=== PATIENT | female | born 1970 | race African-American/Black ===

== ENCOUNTER 2021-07-19 11:08 | Outpatient (CLI) | payer OTHER, SELFPAY ==
--- NOTE | 2021-07-23 17:29 | WPDHOMESLEEP ---
Sleep Study - Home Unattended Date of Study: 07/19/21 Ordering Provider: Mere Guajardo DO Interpreting Provider: Mere Guajardo DO Home Sleep Study Type: Apnea Link Air Height: 1.57 m Weight: 90.718 kg Body Mass Index: 36.6 Neck Circumference (inches): 14.5 Mabel: 12 Reason for Sleep Study Evaluation of ERIN Sleep History The patient is a 51-year-old female with schizoaffective disorder, HIV infection, anxiety, COPD, fibromyalgia, seizure disorder, scoliosis and tobacco abuse disorder that had a home sleep study for evaluation of sleep apnea. The patient is currently disabled. She occasionally awakens from sleep short of breath. She denies awakening at night with heartburn, belching or cough. She rarely snores but it is never loud enough that others complain. She frequently has trouble sleeping when she has a cold. She denies waking up gasping for air throughout the night. She rarely has breathing problems at night observed by herself or others. She occasionally sweats excessively at night. She denies having heart palpitations or irregular heartbeats during the night. She denies falling asleep during the day and while driving. She denies sleep paralysis and cataplexy. She frequently feels afraid of going to sleep. She occasionally has nightmares. She frequently remembers her dreams. She occasionally has thoughts racing through her mind. She denies feeling sad or depressed. She frequently has anxiety. She frequently has muscular tension. She occasionally notices parts of her body jerk. She rarely kicks during the night. She occasionally has crawling and aching feelings in her legs and occasionally has leg pain during the night. She frequently grinds her teeth during sleep but never awakens with morning jaw pain. She is constantly bothered by pain during the day and constantly awakened by pain during the night. She frequently wakes up feeling stiff in the morning. She frequently wakes up with sore achy muscles. She frequently wakes up with pain in the neck, spine or other joints. She goes to bed at 7:00 p.m. on both weekdays and weekends. It takes her 1 hour to fall asleep. She wakes up 3-4 times throughout the night to watch television. It can take hours for her to fall back asleep. She wakes up at 4:00 a.m. on both weekdays and weekends. She typically gets 3 hours of sleep per night. He will stay in bed for 10 minutes after waking up in the morning. She currently lives alone. She will consume caffeinated beverages within 2 hours of bedtime. She does not engage in physical exercise before bedtime. She will watch television before falling asleep. She will occasionally take naps in the afternoon or the evening but they are not refreshing. She drinks 2 cups of caffeinated beverage per day. She currently smokes half a pack of cigarettes per day. She denies alcohol and recreational drug use. [facility] Past Medical History Medical History Allergies Anemia Anxiety Arthritis Asthma COPD (chronic obstructive pulmonary disease) Fibromyalgia Headache HIV (human immunodeficiency virus infection) Hypertension Meningioma, multiple Meningioma, multiple Pain, foot, left, chronic Scoliosis Seizure disorder Seizures Tardive dyskinesia Surgical History Surgical History H/O eye surgery Tumor removed H/O foot surgery H/O toe surgery February 2021 H/O tubal ligation History of partial hysterectomy Family History Family History Father Alcoholism Mother Depression Hypertension Sibling Diabetes mellitus Grandparent Asthma Diabetes mellitus Hypertension Social History Social History Smoking packs per day: 0.5 Smoking cigarettes per day: 10.0 Smoking status: Araceli
[2021-07-23 17:39] VITALS: BMI 36.6
== END 2021-07-23 12:50 | disposition home or self-care (01) ==
LOC: ANHCSM 11:08
PROVIDERS: PCP Internal Medicine; Visit Provider Family Medicine
DX: R06.83 Snoring (principal); G47.00 Insomnia, unspecified
CPT/HCPCS: 95806

== ENCOUNTER 2024-07-20 11:23 | Emergency (ER) | payer OTHER, SELFPAY ==
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
--- NOTE | ~2024-07-20 | CT_ITS ---
EXAMINATION: CT brain wo con DATE: 07/20/2024 14:56 INDICATION: hsx of brain tumors, AMS . TECHNIQUE: Computed tomography (CT) of the head was performed without intravenous contrast. The mA wa s adjusted according to patient size. Iterative reconstruction technique was employed. The dose-lengt h product was 605.33 mGy-cm. COMPARISON: None. FINDINGS: No acute intracranial hemorrhage or extra-axial fluid collection. No hydrocephalus, mass, or herniation. No acute ischemic infarct. Unremarkable dural venous sinus attenuation. No acute osseous abnormality. The aerated spaces are clear. IMPRESSION: No acute intracranial process. Reviewed, dictated and finalized at location K.
[2024-07-20 11:41] VITALS: BP 125/72; PULSE 110; RESP 18; TEMP 37.1; O2SAT 100
--- OUTSIDE RECORDS SUMMARY | 2024-07-20 12:51 | XMS_ITS | Encounter Summary ---
Author Organization [facility] Address [address] [place] [address] Phone Care Team Providers Care Batch Plant Operator Name Role Phone Roberto Sharpe DPM Unavailable Sami Cervantes MD Primary Care Provider [phone] Von Hedrick MD Unavailable Unavai lable Provider, None Primary Care Provider Unavailabl e Mendoza Liang MD Primary Care Provider [phone] Provider, None Primary Care Provider Unavailabl e Reason for Visit * Reason Comments Medication Refill Encounter Details Date Type Department Care Team (Late st Contact Info) Description 02/20/2022 Refill [facility] - Family Medicine [facility] [address] [place] [id number] Sami Cervantes MD [address] [place] [address] Medication Refill Social History Tobacco Use Types Packs/Day Years Used Date Smoking Tobacco: Every Day Cigarettes 0.5 34 Smokeless Tobacco: Never Alcohol Use Standard Drinks/Week Comments Yes 0 (1 standard drink = 0.6 oz pur e alcohol) occassional PHQ-2 Answer Date Recorded Total Score - Questions 1-9 1 05/23 Comments No Sex and Gender Information Value Date Recorded Sex Assigned at Not on file Legal Sex Female 10:27 PM CDT Gender Identity Not on file Sexual Orientation Not on file COVID-19 Exposure Response Date Recorded In the last 10 days, have yo u been in contact with someone who was confirmed or suspected to have Coronavirus/COVID-19? No / Unsure 01/21/2022 2:54 PM CDT documented as of this encounter Plan of Treatment Not on file documented as of this encounter Goals Goal Patient Goal Type Associated Problems Recent Progress Patient-Stated? Author Behavioral Health Behavioral Health No change(10/17 4:03 PM CDT) No Alejandra Harrell LSW Note: Goal: I will access and utilize behavioral health services by the end of October Patient's Preferred Goal: Standard Challenges/Barriers: None Readiness to change: Thinking about making a change Notify Care Team if: You are having increased thoughts of suicide or self-harm, You are unable to locate Behavioral Health services in your area Short Term Goals: [facility] will mail and provide list of local counseling services/providers in area. and Patient to contact local Mental Health Crisis Team if in need of crisis services [phone] (ph#) Housing Housing No change(10/17 4:03 PM CDT) No Alejandra Harrell LSW Note: Goal: To move into my own apartment or rental house by the end of October 2019 Patient's Preferred Goal: Highest Priority Challenges/Barriers: None Readiness to change: Ready to change Notify Care Team if: If you need additional housing resources or help completing housing applications call Facilities Director Alejandra at [phone] Short Term Goals: I will review the list of low income housing complexes for the disabled and call the complexes in [place] to apply for an apartment or be added to their waiting list. documented as of this encounter Visit Diagnoses Not on filedocumented in this encounter Additional Health Concerns Assessment Noted Time PHQ-9 Depression Total Score: 1 06/16/19 20 11:50 AM CDT documented as of this encounter Care Teams Batch Plant Operator Relationship Specialty Start Date End Date Sami Cervantes MD PCP - General Family Medicine 11/30/21 03/28/22 Provider, None OR PCP - General 03/29/22 05/23/22 Mendoza Liang MD [address] [place] [address] [place] [address] PCP - General Candle Wrapper 05/24/22 11/12/22 Provider, None OR PCP - General 11/13/22 Roberto Sharpe DPM Consulting Physician Podiatry 09/25/16 Von Hedrick MD Consulting Physician Cardiovascular Disease - Cardiology 01/11/22 03/03/24 documented as of this encounter
--- OUTSIDE RECORDS SUMMARY | 2024-07-20 12:51 | XMS_ITS | Encounter Summary ---
Author Organization [facility] Address [address] [place] [address] Phone Care Team Providers Care Tablet Tester Name Role Phone Unknown, Notinfile Primary Care Provider Unavail able Unknown, Notinfile Unavailable Unavailable Zeferino Bradshaw DO Unavailable [phone] Randy Jasmine MD PhD Unavailable [phone] Juanjose Alcaraz MD Unavailable Miscellaneous, Not In File Unavailable Unava ilable Mario Desai MD Unavailable [phone] Francois Thompson MD Unavailable [phone] Mario Ferguson MD Unavailable [phone] Encounter Details Date Type Department Care Team (Late st Contact Info) Description 06/21/2024 Telephone [facility] Mar[facility] Trans[facility] Floor [address] [place] [address] Mario Ferguson Social History Tobacco Use Types Packs/Day Years Used Date Smoking Tobacco: Every Day Cigarettes 0.5 40.3 Started: 1986 Smokeless Tobacco: Never Comments:Smoking History Pac ks/day: 1 Packs Alcohol Use Standard Drinks/Week Comments Yes 0 (1 standard drink = 0.6 oz pur e alcohol) AUDIT-C Answer Date Recorded Q1: How often do you have a drink containing alcohol? Never 04/13/2024 Q2: How many drinks containi ng alcohol do you have on a typical day when you are drinking? Patient does not drink Q3: How often do you have si x or more drinks on one occasion? Never 04/13/2024 PHQ-2 Answer Date Recorded PHQ-2 Total Score (If total score is 3 or more points, staff should administer the PHQ-9) 0 04/06/2024 Hunger Vital Sign Answer Date Recorded Within the past 12 months, y ou worried that your food would run out before you got the money to buy more. Never true 04/13/19 Within the past 12 months, t he food you bought just didn't last and you didn't have money to get more. Never true 04/13/2024 Personal Safety Answer Date Recorded Have you ever been in or are you currently in a harmful physical or emotional relationship or is someone making you feel afraid or unsafe? Denies 04/21/2024 Comments No Sex and Gender Information Value Date Recorded Sex Assigned at Not on file Legal Sex Female 1:20 AM SMOKE EATER Gender Identity Not on file Sexual Orientation Not on file Occupation Industry Job Start Date Job End Date Disabled Not on file Not on file Not on file documented as of this encounter Miscellaneous Notes * Telephone Encounter - Zhen Dailey DNP - 06/21/2024 9:47 AM CDT Called to discuss results of labs from in April. Discussed that labs did not show evidence ofplasma cell dyscrasia, she can follow up with our office as needed. Patient happy to hear this information. * Telephone Encounter - Tammy Phillips - 06/21/2024 9:18 AM CDT Patient calling to discuss test results as well as follow up plan documented in this encounter Plan of Treatment Not on file documented as of this encounter Visit Diagnoses Not on filedocumented in this encounter Care Teams Tablet Tester Relationship Specialty Start Date End Date Unknown, Notinfile PCP - General 05/22/24 Unknown, Notinfile 05/22/24 Zeferino Bradshaw DO Internal Medicine 01/14/22 Randy Jasmine MD PhD [address] [place] [address] Radiation Oncologist Radiation Oncology 07/31/20 Juanjose Alcaraz MD [address] [place] [address] Referring Physician Medical Oncology 07/31/20 Miscellaneous, Not In File 09/15/20 Mario Desai MD Referring Physician Neurosurgery 09/15/20 Francois [place] MD Consulting Physician Infectious Diseases 05/08/21 Mario Ferguson MD [address] [facility] DIV IM [place] [address] Consulting Physician Medical Oncology 03/31/24 documented as of this encounter
--- OUTSIDE RECORDS SUMMARY | 2024-07-20 12:51 | XMS_ITS | Encounter Summary ---
Author Organization [facility] Address [address] [place] [address] Care Team Providers Care Livestock Nutrition Territory Manager Name Role Phone Marco Cordero MD Primary Care Provider Encounter Details Date Type Department Care Team (Late Contact Info) Description 06/28/2024 Interim Notes [address] [address] Default, [facility] Provider [place] Social History Tobacco Use Types Packs/Day Years Used Date Smoking Tobacco: Every Day Cigarettes 0.5 40 Comments Unknown Sex and Gender Information Value Date Recorded Sex Assigned at Female 06/29/2024 6:53 AM PDT Legal Sex Female 6:53 AM PDT Gender Identity Female 06/29/2024 6:53 AM PDT Sexual Orientation Straight 06/29/2024 6: 53 AM PDT documented as of this encounter Progress Notes * [facility] Provider Default - 06/28/2024 2:00 AM CDT Provider: Amina Blanca Food Pantry Service: documented in this encounter Plan of Treatment Upcoming Encounters Date Type Department Care Team (Late st Contact Info) Description 07/20/2024 3:30 PM CDT Office Visit [address] [address] Marco Cordero MD [address] [place] [phone] 08/20/2024 10:00 AM CDT Office Visit [address] [address] Marco Cordero MD [address] [place] [phone] documented as of this encounter Visit Diagnoses Not on filedocumented in this encounter Care Teams Livestock Nutrition Territory Manager Relationship Specialty Start Date End Date Marco Cordero MD [address] [place] [address] PCP - General Infectious Diseases 07/06/24 documented as of this encounter
--- OUTSIDE RECORDS SUMMARY | 2024-07-20 12:51 | XMS_ITS ---
Author Organization [facility] Address [address] [address] Care Team Providers Care Fishing Gear Mechanic Name Role Phone Marco Cordero MD Primary Care Provider Enrollments Status:Enrolled Start date:06/28/2024 Related service episodes:Food Pantry Service () Continued Care and Services Coordination
--- OUTSIDE RECORDS SUMMARY | 2024-07-20 12:51 | XMS_ITS ---
Author Organization [facility] Address PO [place] [address] [place] [id number] Care Team Providers Care Feed Mixer Helper Name Role Phone Marco Cordero MD Primary Care Provider Food Pantry Service Status:Enrolled Start date:06/28/2024 Related program episode:Enrollments () Continued Care and Services Coordination
--- OUTSIDE RECORDS SUMMARY | 2024-07-20 12:51 | XMS_ITS | Encounter Summary ---
Author Organization [facility] Address [address] [place] [address] Phone Care Team Providers Care Nuclear Equipment Design Engineer Name Role Phone Roberto Sharpe DPM Unavailable Sami Cervantes MD Primary Care Provider Von Hedrick MD Unavailable Unavai lable Provider, None Primary Care Provider Unavailabl e Mendoza Liang MD Primary Care Provider [phone] Provider, None Primary Care Provider Unavailabl e Reason for Visit * Reason Comments Medication Refill Encounter Details Date Type Department Care Team (Late st Contact Info) Description 02/27/2022 Refill [facility] Medical Group - Family Medicine [facility] [address] [place] [phone] Sami Cervantes MD [address] [place] [address] Medication Refill Social History Tobacco Use Types [...] on file Sexual Orientation Not on file documented as of this encounter Plan of Treatment Not on file documented as of this encounter Goals Goal Patient Goal Type Associated Problems Recent Progress Patient-Stated? Author Behavioral Health Behavioral Health No change(10/17 4:03 PM CDT) Alejandra Renae LSW Note: Goal: I will access and utilize behavioral health services by the end of October Patient's Preferred Goal: Standard Challenges/Barriers: None Readiness to change: Thinking about making a change Notify Care Team if: You are having increased thoughts of suicide or self-harm, You are unable to locate Behavioral Health services in your area Short Term Goals: [facility] will mail and provide list of local counseling services/providers in area. and Patient to contact local Mental Health Crisis Team if in need of crisis services [phone] (ph#) Housing Housing No change(10/17 4:03 PM CDT) No Alejandra Harrell LSW Note: Goal: To move into my own apartment or rental house by the end of October 2019 Patient's Preferred Goal: Highest Priority Challenges/Barriers: None Readiness to change: Ready to change Notify Care Team if: If you need additional housing resources or help completing housing applications call Multiskill Operator Alejandra at [phone] Short Term Goals: I will review the list of low income housing complexes for the disabled and call the complexes in [place] to apply for an apartment or be added to their waiting list. documented as of this encounter Visit Diagnoses Not on filedocumented in this encounter Additional Health Concerns Assessment Noted Time PHQ-9 Depression Total Score: 1 06/16/19 20 11:50 AM CDT documented as of this encounter Care Teams Nuclear Equipment Design Engineer Relationship Specialty Start Date End Date Sami Cervantes MD PCP - General Family Medicine 11/30/21 03/28/22 Provider, None [place] PCP - General 03/29/22 05/23/22 Mendoza Liang MD [address] [place] [address] [place] [address] PCP - General Office Messenger 05/24/22 11/12/22 Provider, None PA PCP - General 11/13/22 Roberto Sharpe DPM Consulting Physician Podiatry 09/25/16 Von Hedrick MD Consulting Physician Cardiovascular Disease - Cardiology 01/11/22 03/03/24 documented as of this encounter
--- OUTSIDE RECORDS SUMMARY | 2024-07-20 12:52 | XMS_ITS | Encounter Summary ---
Author Organization [facility] Address [address] [facility] [place] [address] Care Team Providers Care Documentation Engineer Name Role Phone Cathi Mcnally MD Primary Care Provider Kelly Henderson MD Unavailable [phone] Cathi Mcnally MD Primary Care Provider Kelly Henderson MD Unavailable [phone] Kelly Henderson MD Primary Care Provider Cathi Mcnally MD Primary Care Provider Kelly Henderson MD Primary Care Provider Cathi Mcnally MD Primary Care Provider Cathi Mcnally MD Primary Care Provider Troy ROCA MD, [place] Primary Care Provider + Jose Eduardo Ott MD Unavailable [phone] Kelly Henderson MD Primary Care Provider Reason for Visit * Reason Onset Date Comments MEDICATION REFILL 10/09/2017 Encounter Details Date Type Department Care Team (Late Contact Info) Description 10/09/2017 Refill [facility] General Internal Medicine [address] [facility] [address] [place] [address] Cathi Mcnally MD [address] [facility] [address] [place] [address] MEDICATION REFILL Social History Tobacco Use Types Packs/Day Years Used Date Smoking Tobacco: Every Day Cigarettes 0.3 32 Smokeless Tobacco: Never Comments:4 cigarettes Alcohol Use Standard Drinks/Week Comments Yes 0 (1 standard drink = 0.6 oz pure alcohol) sparingly - when pain is too high Comments No Sex and Gender Information Value Date Recorded Sex Assigned at Not on file Legal Sex Female 2:03 PM FERMENTATION ENGINEER Gender Identity Not on file Sexual Orientation Not on file documented as of this encounter Functional Status * Is person deaf or have serious hearing difficulty? Answer Date of Assessment Author No 06/08/2015 6:30 PM CDT Carolyn Naik RN * Is person blind or have serious difficulty seeing? Answer Date of Assessment Author No 06/08/2015 6:30 PM CDT Carolyn Naik, JARROD * Does person have serious difficulty walking/climbing stairs? Answer Date of Assessment Author No 06/08/2015 6:30 PM CDT Carolyn Naik, RN * Does person have difficulty dressing/bathing? Answer Date of Assessment Author No 06/08/2015 6:30 PM CDT Carolyn Naik, RN * Does person have difficulty doing errands alone? Answer Date of Assessment Author No 06/08/2015 6:30 PM CDT Carolyn Naik, JARROD documented as of this encounter Mental Status * Does person have difficulty concentrating/remembering/making decisions? Answer Entry Date Author No 06/08/2015 6:30 PM CDT Carolyn Naik, JARROD documented in this encounter Plan of Treatment Upcoming Encounters Date Type Department Care Team (Late Contact Info) Description 09/08/2024 2:00 PM CDT Office Visit [facility] - Family Medicine [address] [place] [address], [place] [phone] Germaine Monson MD [address] [place] [address] [place] [phone] documented as of this encounter Visit Diagnoses Not on filedocumented in this encounter Additional Health Concerns Infection Onset Date Last Indicated Resolved Time COVID-19 Under Investigation 08/14/2019 08/14/2019 08/15/2019 3:43 PM CDT COVID-19 Under Investigation 09/10/2019 09/10/2019 09/11/2019 11:18 PM CDT documented as of this encounter Care Teams Documentation Engineer Relationship Specialty Start Date End Date Cathi Mcnally MD PCP - General Internal Medicine 10/08/17 01/11/18 Cathi Mcnally MD PCP - General Internal Medicine 01/26/18 01/26/18 Kelly Henderson MD [address] [place] [phone] PCP - General 01/27/18 03/09/18 Cathi Mcnally MD PCP - General Internal Medicine 03/10/18 03/10/18 Kelly Henderson MD [address] [place] [phone] PCP - General 03/11/18 03/31/18 Cathi Mcnally MD PCP - General Internal Medicine 04/01/18 05/17/18 Cathi Mcnally MD PCP - General Internal Medicine 07/14/18 07/15/18 Sea Simmons III, MD [address] [place] [address] PCP - General Internal Medicine 05/05/19 06/07/19 Kelly Henderson MD [address] [place] [address] PCP - General 09/01/19 Kelly Henderson MD [address] [place] [address] Resident - PCP Internal Medicine 10/08/17 01/25/18 Kelly Henderson MD [address] [place] [address] Resident - PCP Internal Medicine 01/26/18 05/04/19 Jose Eduardo Ott MD [address] [place] [address] Resident - PCP Student Resident 05/05/19 documented as of this encounter
--- OUTSIDE RECORDS SUMMARY | 2024-07-20 12:52 | XMS_ITS | Encounter Summary ---
Author Organization [facility] Healthcare Address [address] [place] [address] Care Team Providers Care Administration Assistant Name Role Phone Unknown, Notinfile Primary Care Provider Unavail able Unknown, Notinfile Unavailable Unavailable Zeferino Bradshaw DO Unavailable [phone] [facility] PhD Unavailable [phone] Juanjose Alcaraz MD Unavailable Miscellaneous, Not In File Unavailable Unava ilable Mario Desai MD Unavailable [phone] Francois Thompson MD Unavailable [phone] Mario Ferguson MD Unavailable [phone] Encounter Details Date Type Department Care Team (Late st Contact Info) Description 07/19/2024 Documentation [facility] ICU [address] [place] [address] Amos Alexander, RN Social History Tobacco Use Types Packs/Day Years Used Date Smoking Tobacco: Every Day Cigarettes 0.5 40.3 Started: 1984 Smokeless Tobacco: Never Comments:Smoking History Pac ks/day: 1 Packs Alcohol Use Standard Drinks/Week Comments Yes 0 (1 standard drink = 0.6 oz pur e alcohol) [facility] Utilities Answer Date Recorded In the past 12 months has e electric, gas, oil, or water company threatened to shut off services in your home? No 07/19/2024 Social Connection and Isolat ion Panel [NHANES] Answer Date Recorded In a typical week, how many times do you talk on the phone with family, friends, or neighbors? More than three times a week 07/19/2024 How often do you get togethe r with friends or relatives? More than three times a week 07/19/2024 How often do you attend chur ch or jainism services? Never 07/19/2024 Do you belong to any clubs o r organizations such as orthodoxy groups, unions, fraternal or athletic groups, or school groups? No 07/19/2024 How often do you attend meet ings of the clubs or organizations you belong to? Never 07/19/2024 Are you , , di vorced, , never , or living with a partner? Never 07/19/2024 AUDIT-C Answer Date Recorded Q1: How often do you have a drink containing alcohol? Never 07/18/2024 Q2: How many drinks containi ng alcohol do you have on a typical day when you are drinking? Patient does not drink Q3: How often do you have si x or more drinks on one occasion? Never 07/18/2024 Overall Financial Resource Strain (CARDIA) Answe r Date Recorded How hard is it for you to pa y for the very basics like food, housing, medical care, and heating? Patient unable to answer 07/19/2024 PHQ-2 Answer Date Recorded PHQ-2 Total Score (If total score is 3 or more points, staff should administer the PHQ-9) 0 04/06/2024 Hunger Vital Sign Answer Date Recorded Within the past 12 months, y ou worried that your food would run out before you got the money to buy more. Patient unable to answer 07/19/2024 Within the past 12 months, t he food you bought just didn't last and you didn't have money to get more. Patient unable to answer 07/19/2024 PRAPARE - Transportation Answer Date Re corded In the past 12 months, has l ack of transportation kept you from medical appointments or from getting medications? No 06/23 In the past 12 months, has l ack of transportation kept you from meetings, work, or from getting things needed for daily living? No 07/19/2024 Housing Stability Vital Sign Answer Kareem e Recorded In the last 12 months, was t here a time when you were not able to pay the mortgage or rent on time? No 07/19/2024 In the past 12 months, how m any times have you moved where you were living? 1 07/19/2024 At any time in the past 12 m [facility], were you homeless or living in a usp (including now)? No 07/19/2024 Personal Safety Answer Date Recorded Have you ever been in or are you currently in a harmful physical or emotional relationship or is someone making you feel afraid or unsafe? 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 Gender Identity Not on file Sexual Orientation Not on file Occupation Industry Job Start Date Job End Date Disabled Not on file Not on file Not on file documented as of this encounter Plan of Treatment Not on file documented as of this encounter Visit Diagnoses Not on filedocumented in this encounter Care Teams Administration Assistant Relationship Specialty Start Date End Date Unknown, Notinfile PCP - General 05/22/24 Unknown, Notinfile 05/22/24 Zeferino Bradshaw DO Internal Medicine 01/14/22 Randy Jasmine MD PhD [address] [place] [id number] Radiation Oncologist Radiation Oncology 07/31/20 Juanjose Alcaraz MD [address] [place] [id number] Referring Physician Medical Oncology 07/31/20 Miscellaneous, Not In File 09/15/20 Mario Desai MD Referring Physician Neurosurgery 09/15/20 Francois Thompson MD Consulting Physician Infectious Diseases 05/08/21 Mario Ferguson MD [address] [facility] [place] [address] Consulting Physician Medical Oncology 03/31/24 documented as of this encounter
--- OUTSIDE RECORDS SUMMARY | 2024-07-20 12:52 | XMS_ITS | Encounter Summary ---
Author Organization [facility] Address [address] [facility] [place] [address] Care Team Providers Care Change Control Specialist Name Role Phone Kelly Henderson MD Unavailable [phone] Ctahi Mcnally MD Primary Care Provider Cathi Mcnally MD Primary Care Provider Troy ROCA MD, [place] Primary Care Provider + Jose Eduardo Ott MD Unavailable [phone] Kelly Henderson MD Primary Care Provider Reason for Visit * Reason Onset Date Comments Refill Request 04/30/2018 Follow-up 04/30/2018 Encounter Details Date Type Department Care Team (Late st Contact Info) Description 04/30/2018 Telephone [facility] Internal Medicine [address] [place] [address] Cathi Mcnally MD [address] 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 Answer Date of Assessment Author No 06/08/2015 6:30 PM Carolyn Villareal RN * Does person have difficulty doing errands alone? Answer Date of Assessment Author No 06/08/2015 6:30 PM Carolyn Villareal RN documented as of this encounter Mental Status * Does person have difficulty concentrating/remembering/making decisions? Answer Entry Date Author No 06/08/2015 6:30 PM Carolyn Villareal RN documented in this encounter Miscellaneous Notes * Telephone Encounter - Tasha Szymanski RN - 04/30/2018 2:57 PM CST Pt called to follow-up on her request for a prescription change for cough medicine. Upon chart review, this nurse informed the caller that the request to change medications had been denied Pt is very upset, and started to request to be released from this provider's care and stated that she wants Dr. Mcnally up off of all of her stuff . States She hasn't sent in my referrals, refills and If I have to call [facility], and Dr. Calli than I will . This is hindering peoples health, and I'm going to [employer] next, this is ridiculous . States she will also report Dr. 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 The pt states that Phenergan with codeine works for her and she was previously prescribed this med This nurse added the med to the current med list if the PCP wishes to order the med Patient requesting refills for the following Phenergan with Codeine medications. HERI: 04/01/18 NOV: 07/14/18 Problem List Identified: office visit on Medication attached per refill protocol/guidlines for further review by provider yes PCP / Resident PCP verified yes Allergies Reviewed yes Pharmacy Reviewed yes Medication details entered yes Office visit within the last six months yes if not within last 6 months route to [facility]-scheduling as well. Office visit greater than 12 months no routed to [facility] scheduling ONLY no. SIT VEHICLE INSPECTOR documented in this encounter Plan of Treatment Upcoming Encounters Date Type Department Care Team (Late st Contact Info) Description 09/08/2024 2:00 PM CDT Office Visit [facility] - Family Medicine [address] [place] [address], [place] [address] Germaine Monson MD [address] [place] [address] [place] [id number] documented as of this encounter Visit Diagnoses Not on filedocumented in this encounter Additional Health Concerns Infection Onset Date Last Indicated Resolved Time COVID-19 Under Investigation 08/14/2019 08/14/2019 08/15/2019 3:43 PM CDT COVID-19 Under Investigation 09/10/2019 09/10/2019 09/11/2019 11:18 PM CDT documented as of this encounter Care Teams Change Control Specialist Relationship Specialty Start Date End Date Cathi Mcnally MD [address] [place] [address] PCP - General Internal Medicine 04/01/18 05/17/18 Cathi Mcnally MD [address] [place] [address] PCP - General Internal Medicine 07/14/18 07/15/18 [place] [address] [place] [phone] PCP - General Internal Medicine 05/05/19 06/07/19 Kelly Henderson MD [address] [place] [phone] PCP - General 09/01/19 Kelly Henderson MD [address] [place] [phone] Resident - PCP Internal Medicine 01/26/18 05/04/19 [place] [address] [place] [phone] Resident - PCP Student Resident 05/05/19 documented as of this encounter
--- OUTSIDE RECORDS SUMMARY | 2024-07-20 12:52 | XMS_ITS | Referral Summary ---
Author Organization [facility] ospital Address [address] [place] [address] Care Team Providers Care Tool And Production Planner Name Role Phone Unknown, Notinfile Primary Care Provider Unavail able Unknown, Notinfile Unavailable Unavailable Zeferino Bradshaw DO Unavailable [phone] [facility] quiles [facility] PhD Unavailable [phone] Juanjose Alcaraz MD Unavailable Miscellaneous, Not In File Unavailable Unava ilable Mario Desai MD Unavailable [phone] Francois Thompson MD Unavailable [phone] Mario Ferguson MD Unavailable Encounters Date Type Department Care Team Description 07/19/2024 Documentation [facility] ICU [address] [place] [id number] Amos Alexander RN 07/19/2024 Orders Only [address] [phone] Israel Mcdonald MD 07/19/2024 12:20 PM CDT - 07/19/2024 11:59 PM CDT Hospital Encounter [address] [phone] Exposure to blood-borne pathogen Discharge Disposition: Discharge to home or self care 07/19/2024 [facility] Room 3420 (Third Floor) [place] [address] Israel Mcdonald MD Exposure to blood-borne pathogen (Primary Dx) 07/18/2024 7:51 AM CDT - 07/19/2024 2:49 PM CDT Hospital Encounter [facility] [address] [place] [address] Israel Edmonds MD Bross, Lyric Joya, Rowena Connell MD Seizure (HCC) (Primary Dx) Discharge Disposition: Left Against Medical Advice 06/21/2024 Telephone [facility] [address] [place] [phone] Mario Ferguson 05/27/2024 8:59 AM HOUSEKEEPING ASSOCIATE - 05/27/2024 11:59 PM HOUSEKEEPING ASSOCIATE Hospital Encounter [facility] Emergency, Room R Discharge Disposition: Discharge to home or self care 05/27/2024 Orders Only [facility] [address] [place] [phone] Francois Thompson MD Human immunodeficiency virus (HIV) (HCC) (Primary Dx) 04/30/2024 1:00 PM HOUSEKEEPING ASSOCIATE Office Visit [facility] [address] [place] [phone] Mario Ferguson MD Plasma cell dyscrasia (Primary Dx); Elevated serum immunoglobulin free light chains 04/28/2024 1:05 PM HOUSEKEEPING ASSOCIATE Lab [address] [address] Elevated serum immunoglobulin free light chains; Plasma cell dyscrasia 04/28/2024 Telephone [facility] [address] [place] [phone] Hua Gramajo RN 04/21/2024 10:40 AM HOUSEKEEPING ASSOCIATE - 04/21/2024 5:37 PM HOUSEKEEPING ASSOCIATE Emergency [facility] Emergency Department [address] [place] [address] Catalina Casillas MD Schwannoma (Primary Dx); Weakness Discharge Disposition: Left Against Medical Advice from Last 3 Months Allergies Active Allergy Reactions Criticality Noted Date Comments Amitriptyline Amitriptyline Hcl Other (See comments) Low 09/17/19 14 Cephalosporins Other (See comments) Low 09/16/2013 Gabapentin Unknown 10/25/2023 Haloperidol Swelling Medium 04/11/2016 Other reaction(s): Other (See Comments) Can't wake up Olanzapine Other (See comments) Low Quetiapine Medications ondansetron ODT (ZOFRAN-ODT) 4 mg disintegrating tablet Take 1 tablet (4 mg total) by mouth every 8 (eight) hours as needed for nausea or vomiting 90 tablet 3 025 Discontin ued(Thera py completed ) doravirine-lamiVUD ine-tenofovir disoproxil fumarate (Delstrigo) 100-300-300 mg tablet Take 1 tablet by mouth daily 90 tablet 3 025 Discontin ued(Thera py completed ) HYDROcodone-acetam inophen (NORCO) 5-325 mg per tabletIndications: Pain Take 1 tablet by mouth every 6 (six) hours as needed for pain for up to 10 doses 10 tablet 5 025 Discontin ued(Thera py completed ) Active Problems Problem Noted Date Diagnosed Date Aggressive behavior 07/19/2024 Dysmenorrhea 12/12/2023 Failure to thrive in adult 10/27/2023 Other visual disturbances 10/14/2023 Angina concurrent with and d ue to arteriosclerosis of coronary artery 07/22/2023 Overview (04/05/2024): 07/22/2023: Patient endorses having chest tightness that worsens with exertion. She also has accompanying shortness a breath. She denies it being substernal radiating down her arm. She states that it was different than reflux or passing flatus. She states that she has a history of 2 heart attacks and has never seen a it software developer. Last Assessment & Plan: Ordered a dobutamine stress test due to the patient having difficulty ambulating. Angina concurrent with and d ue to arteriosclerosis of coronary artery 07/22/2023 Overview (04/05/2024): 07/22/2023: Patient endorses having chest tightness that worsens with exertion. She also has accompanying shortness a breath. She denies it being substernal radiating down her arm. She states that it was different than reflux or passing flatus. She states that she has a history of 2 heart attacks and has never seen a it software developer. Housing instability, housed unspecified 03/03/20 23 Overview (04/05/2024): 03/03/2023: Moved to [place] from [place], [place] (by way of [place], [place]). Reports that she has section 8 housing voucher, currently working on finding housing. Currently staying at [facility] until she finds more consistent housing. Currently has [place] medicaid. She was interested in obtaining resources in [place] and [facility] including [place] Medicaid and local housing voucher. Presented with paperwork for certification of disability indicating need for housing as well as additional accommodations request for additional room. Reports that she needs an additional room so that she can have a daughter come stay with her and help her with her activities of daily living. She reports needing assistance with bathing, cooking, and cleaning. 03/11/2023: The patient states that she will have housing on . She was able to secure a 2 bedroom apartment. She states that she has been working with her [facility] social work msw and that she has been very helpful. She states that she needs paperwork filled out so that she has reasonable accommodations provided given that she has an electric wheelchair. However, the patient states her electric wheelchair is currently in [place] and she has been walking on her own. She states that she needs a 2 bedroom apartment because 1 of her 3 daughters is moving here from [place] to help take care of her. When asked about her activities of daily living that her daughter's help her complete, she states that they help her with bathing, paying bills, cooking, and cleaning. Since her daughters are not here currently she has been completing this independently. She is able to drive independently. 07/22/2023: Patient endorses having stable housing at this point. She does require an electrical wheelchair. She asked for me to fill out the reasonable combination form so that she would be able to have a ramp installed. Last Assessment & Plan: Filled out reasonable accommodation form for patient for a ramp and scanned it into chart. Onychomycosis 03/03/2023 Overview (04/05/2024): Noted on exam 03/03/2023. Last Assessment & Plan: Referral to podiatry for toenail care. Can consider oral treatment in the future. Tinea pedis 03/03/2023 Overview (04/05/2024): Skin flaking noted on exam 03/03/2023. Last Assessment & Plan: Topical clotrimazole ordered. Mixed hyperlipidemia 01/20/2023 Class 1 obesity due to exces s calories with body mass index (BMI) of 34.0 to 34.9 in adult 05/02/2022 Assessment & Plan (01/20/2023 8:28 AM CDT): Wt Readings from Last 3 Encounters: 01/20/23 85.3 kg (188 lb) 10/05/22 74.8 kg (165 lb) 08/06/22 81.2 kg (179 lb) BMI Readings from Last 3 Encounters: 01/20/23 34.39 kg/m 10/05/22 30.18 kg/m 08/06/22 32.74 kg/m Not at goal of bmi <30 Continue diet and exercise BMI Follow-up includes: nutrition counseling and exercise counseling. Assessment & Plan (05/23/2022 4:10 PM HOUSEKEEPING ASSOCIATE): Wt Readings from Last 3 Encounters: 05/02/22 85.7 kg (189 lb) 03/26/22 84.4 kg (186 lb) 03/26/22 84.4 kg (186 lb) BMI Readings from Last 3 Encounters: 05/02/22 34.57 kg/m 03/26/22 34.02 kg/m 03/26/22 34.02 kg/m Not at goal of bmi <30 Continue diet and exercise BMI Follow-up includes: nutrition counseling and exercise counseling. Assessment & Plan (05/02/2022 2:38 PM HOUSEKEEPING ASSOCIATE): Wt Readings from Last 3 Encounters: 05/02/22 85.7 kg (189 lb) 03/26/22 84.4 kg (186 lb) 03/26/22 84.4 kg (186 lb) BMI Readings from Last 3 Encounters: 05/02/22 34.57 kg/m 03/26/22 34.02 kg/m 03/26/22 34.02 kg/m Not at goal of bmi <30 Continue diet and exercise BMI Follow-up includes: nutrition counseling and exercise counseling. Nausea 03/26/2022 Pure hypercholesterolemia 10/10/2021 Overview (10/10/2021): LDL elevated, has increased 10-year ASCVD risk score but this is likely underestimated given chronic inflammatory state with HIV. Recommending rosuvastatin (checked, does not interfere with HIV medication). She will check to see the name of the cholesterol medication she has at home. Unclear if she has or has not had a heart attack in [place]. Will work to reduce risk factors like this has occurred. Abnormal mammogram 10/10/2021 Overview (10/10/2021): BIRADS 3 in Mar 2021. Repeat now that it has been 6 months. Pseudoseizure 05/08/2021 Assessment & Plan (05/08/2021 8:45 AM HOUSEKEEPING ASSOCIATE): EEG during episode of seizure activity showed normal brain activity. Viral gastroenteritis 05/07/2021 DDD (degenerative disc disease), cervical 2020 Overview (08/14/2020): MRI of total spine 04/2020 - Mild to moderate multilevel degenerative changes in the cervical spine, most pronounced at C5-C6. Greater trochanteric bursitis of left hip 2019 Trochanteric bursitis, left hip 02/29/2020 Joint pain 02/04/2020 Hypertension, essential 12/29/2019 Assessment & Plan (05/23/2022 4:10 PM HOUSEKEEPING ASSOCIATE): BP Readings from Last 3 Encounters: 05/23/22 136/78 05/02/22 130/84 03/27/22 (!) 171/111 Vitals BP 136/78 (BP Location: Left arm, Patient Position: Sitting) Pulse 85 SpO2 94% Lab Results Component Value Date POTASSIUM 3.3 03/26/2022 At goal at this time Assessment & Plan (05/02/2022 1:52 PM HOUSEKEEPING ASSOCIATE): BP Readings from Last 3 Encounters: 05/02/22 130/84 03/27/22 (!) 171/111 03/24/22 152/93 Vitals BP 130/84 (BP Location: Left arm, Patient Position: Sitting) Pulse 86 Resp 18 Ht 157.5 cm (5' 2 ) Wt 85.7 kg (189 lb) SpO2 96% BMI 34.57 kg/m Lab Results Component Value Date POTASSIUM 3.3 03/26/2022 At goal at this time - I don't see that she is on any bp medications now Assessment & Plan (05/07/2021 10:07 PM HOUSEKEEPING ASSOCIATE): Continue patient's home medication lisinopril 20 mg q.d. Assessment & Plan (05/07/2021 6:54 PM HOUSEKEEPING ASSOCIATE): Continue patient's home medication lisinopril 20 mg q.d. Assessment & Plan (05/05/2021 5:39 PM HOUSEKEEPING ASSOCIATE): Continue patient's home medication lisinopril 20 mg q.d. Assessment & Plan (07/09/2020 11:58 PM CDT): - well controlled on current medications - current medication Lisinopril 20mg daily - continue current medication - check BP regularly at home - follow a low salt diet Assessment & Plan (04/03/2020 12:17 PM HOUSEKEEPING ASSOCIATE): - well controlled on current medications - current medication Lisinopril 20mg daily Assessment & Plan (12/29/2019 12:13 PM CDT): - suboptimal control - refilled lisinopril 20 mg once daily - will need to be addressed fully on another visit Tardive dyskinesia 12/29/2019 Assessment & Plan (05/07/2021 10:08 PM HOUSEKEEPING ASSOCIATE): acute dystonia vs tardive dyskinesia Patient was treated with compazine 10 yesterday due to severe intractable vomiting. Post treatment patient reports to having grimacing and muscle contractions predominantly in the face and neck. -diphenhydramine 50 mg Q6 -Patient denies current use of antipsychotic agents at home -history of tardive diskinesia which can be triggered with D2 blocking medications Medication -holding compazine. -Patient will likely benefit from medication such as valbenazine 40 mg q.d. for 1 week followed by 80 mg q.d. for persistent systems. Patient has been reluctant to start medications due to reported history of experiencing multiple side effects throughout many of her treatments. Assessment & Plan (05/07/2021 6:54 PM HOUSEKEEPING ASSOCIATE): acute dystonia vs tardive dyskinesia Patient was treated with compazine 10 yesterday due to severe intractable vomiting. Post treatment patient reports to having grimacing and muscle contractions predominantly in the face and neck. -diphenhydramine 50 mg Q6 -Patient denies current use of antipsychotic agents at home -history of tardive diskinesia which can be triggered with D2 blocking medications Medication -holding compazine. -Patient will likely benefit from medication such as valbenazine 40 mg q.d. for 1 week followed by 80 mg q.d. for persistent systems. Patient has been reluctant to start medications due to reported history of experiencing multiple side effects throughout many of her treatments. Assessment & Plan (05/06/2021 3:36 PM HOUSEKEEPING ASSOCIATE): acute dystonia vs tardive dyskinesia Patient was treated with compazine 10 yesterday due to severe intractable vomiting. Post treatment patient reports to having grimacing and muscle contractions predominantly in the face and neck. -diphenhydramine 50 mg Q6 -Patient denies current use of antipsychotic agents at home -history of tardive diskinesia which can be triggered with D2 blocking medications Medication -holding compazine. -Patient will likely benefit from medication such as valbenazine 40 mg q.d. for 1 week followed by 80 mg q.d. for persistent systems. Patient has been reluctant to start medications due to reported history of experiencing multiple side effects throughout many of her treatments. Assessment & Plan (05/06/2021 7:31 AM HOUSEKEEPING ASSOCIATE): Lip smacking .... Assessment & Plan (12/29/2019 12:14 PM CDT): - states she has been diagnosed with tardive dyskinesia and believes it is from her antipsychotic medication Zyprexa she was taking for few months many years ago - has been evaluated by two different neurologist and is now seeing a third one Hand cramps 12/29/2019 Overview (10/10/2021): Checking potassium and magnesium. Assessment & Plan (03/29/2020 1:59 PM HOUSEKEEPING ASSOCIATE): - patient takes potassium supplements 10meq BID PRN when she has muscle cramps Assessment & Plan (12/29/2019 12:17 PM CDT): - patient takes potassium supplement when she has muscle cramps COPD (chronic obstructive pulmonary disease) (CM S/HCC) 12/24/2019 Assessment & Plan (05/05/2021 7:50 PM HOUSEKEEPING ASSOCIATE): Duo-nebs Q4 PRN Assessment & Plan (04/03/2020 12:33 PM HOUSEKEEPING ASSOCIATE): - stable, no changes made to medications - she is on Albuterol inhaler, nebulizer solution - she does not use the albuterol, and once every 2-3 months - may need to do a PFTs has been many years Assessment & Plan (12/24/2019 11:10 AM CDT): - she has hx of COPD - she is on Albuterol inhaler, nebulizer solution - she does not use the albuterol, and once every 2-3 months - may need to do a PFTs has been many years Schwannoma 12/03/2019 Overview (08/14/2020): 04/2020 MRI of total spine showed - Unchanged round intradural mass measuring 10 mm at L1-L2, displacing the cauda equina nerve roots, 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 -gabapentin 600 mg TID Assessment & Plan (12/24/2019 11:04 AM CDT): - noted on an MRI of the brain -she has seen neurology and neurosurgery in the past - she has been told there is no need for surgical intervention at this time - she is unhappy with this - she has seen 2 other neurologist before but would like referral to another neurologist now Memory loss 10/06/2019 Fatigue 06/16/2019 MDD (major depressive disorder) 06/16/2019 Assessment & Plan (05/05/2021 6:09 PM HOUSEKEEPING ASSOCIATE): citalipram 10 mg qhs Tobacco abuse 06/16/2019 Vitamin D deficiency 06/16/2019 Assessment & Plan (04/03/2020 12:20 PM HOUSEKEEPING ASSOCIATE): - history of vitamin D deficiency - she is not on vitamin D supplementation at this time - will check vitamin D level and supplement if needed Hyperglycemia 06/16/2019 Brain mass 05/18/2019 Assessment & Plan (05/05/2021 8:00 PM HOUSEKEEPING ASSOCIATE): Patient has a history of schwannoma . Possible factor in her epilepsy and nausea. 10/11-recommended to follow up in 6 months with an MRI. 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 Pt states she has 2 menstrual cycles a month lasting 3 days each and has had that for as long as she can remember. Pt states the 2nd cycle of the month always has a foul odor, currently is not on her cycle, no odor noted. States her cycles are very heavy; is changing tampons every 15 minutes on her second day of the cycle, pt unclear as to how often she is changing tampons on the other days. No rectal bleeding. WBC 5.6 12/30/2013 HGB 9.6 12/30/2013 HCT 32.3 12/30/2013 PLT 491 12/30/2013 MCV 64.9 12/30/2013 FERRITIN 5 01/03/2014 Prediabetes 09/02/2013 Overview (02/04/2020): Overview: HGA1C 5.8 09/01/2013 Overview: Overview: HGA1C 5.8 09/01/2013 Assessment & Plan (05/23/2022 4:11 PM HOUSEKEEPING ASSOCIATE): Lab Results Component Value Date HGBA1C 5.5 06/14/2021 HGBA1C 5.7 (H) 06/11/2021 HGBA1C 5.7 (H) 05/05/2021 Lab Results Component Value Date LDLCALC 159 (H) 06/14/2021 CREATININE 0.72 03/26/2022 At goal at this time, but needs repeat Continue current regimen Assessment & Plan (05/02/2022 1:53 PM HOUSEKEEPING ASSOCIATE): Lab Results Component Value Date HGBA1C 5.5 06/14/2021 Last a1c about 1 year a go was normal Continue diet and lifestyle changes Mild persistent asthma 09/01/2013 Overview (02/04/2020): Overview: 09/04 Qvar and albuterol rx'ed. Pt was on similar (some control med - not sure which) and albuterol prior, re- rx'ed at initial visit. Overview: Overview: 09/04 Qvar and albuterol rx'ed. Pt was on similar (some control med - not sure which) and albuterol prior, re- rx'ed at initial visit. Assessment & Plan (05/05/2021 6:12 PM HOUSEKEEPING ASSOCIATE): -Albuterol MDI Q2 PRN for SOB Scoliosis 11/26/2011 Non-intractable vomiting with nausea 11/26/2011 Assessment & Plan (05/07/2021 10:06 PM HOUSEKEEPING ASSOCIATE): Patient arrived w/ 1 day of nausea and vomiting. She reports this has had chronic emesis off and on since may of 2019 but has never been diagnosed with with a particular disorder/cause. She has chronically been taking ondansetron. DDx- viral gastroenteritis, medication side effect (genvoya) , side effect of termite treater helper medical marijuana use, Mets/growth of schwannoma. Reported to eating spagetti prior to presentation but denies other sick contacts. Emesis is non-bloody. -Compazine 10 mg q.4h prn on hold -ondansetron 4 mg q.4 prn -tolerating adult diet Assessment & Plan (05/07/2021 6:50 PM HOUSEKEEPING ASSOCIATE): Patient arrived w/ 1 day of nausea and vomiting. She reports this has had chronic emesis off and on since may of 2019 but has never been diagnosed with with a particular disorder/cause. She has chronically been taking ondansetron. DDx- viral gastroenteritis, medication side effect (genvoya) , side effect of termite treater helper medical marijuana use, Mets/growth of schwannoma. Reported to eating spagetti prior to presentation but denies other sick contacts. Emesis is non-bloody. -Compazine 10 mg q.4h prn on hold -ondansetron 4 mg q.4 prn -tolerating adult diet Assessment & Plan (05/06/2021 2:48 PM HOUSEKEEPING ASSOCIATE): Patient arrived w/ 1 day of nausea and vomiting. She reports this has had chronic emesis off and on since may of 2019 but has never been diagnosed with with a particular disorder/cause. She has chronically been taking ondansetron. DDx- viral gastroenteritis, medication side effect (genvoya) , side effect of termite treater helper medical marijuana use, Mets/growth of schwannoma. Reported to eating spagetti prior to presentation but denies other sick contacts. Emesis is non-bloody. -Compazine 10 mg q.4h prn -ondansetron 4 mg q.4 prn Diarrhea 11/26/2011 Assessment & Plan (05/07/2021 10:06 PM HOUSEKEEPING ASSOCIATE): Patient arrived w/ 1 day of nausea and vomiting. Possible viral gastroenteritis . Reported to eating spagetti prior to presentation but denies other sick contacts. Unsure if infectious, medication side effect or possible malabsorptive. -Tcell cd4/cd8 counts in normal range in w/ an detectable viral load. 12/21/20, current lymphocyte count 4.8 - Cryptosporidium, giardia, C. Diff, stool culture results pending Assessment & Plan (05/07/2021 6:51 PM HOUSEKEEPING ASSOCIATE): Patient arrived w/ 1 day of nausea and vomiting. Possible viral gastroenteritis . Reported to eating spagetti prior to presentation but denies other sick contacts. Unsure if infectious, medication side effect or possible malabsorptive. -Tcell cd4/cd8 counts in normal range in w/ an detectable viral load. 12/21/20, current lymphocyte count 4.8 - Cryptosporidium, giardia, C. Diff, stool culture results pending Assessment & Plan (05/05/2021 7:58 PM HOUSEKEEPING ASSOCIATE): Patient arrived w/ 1 day of nausea and vomiting. Possible viral gastroenteritis . Reported to eating spagetti prior to presentation but denies other sick contacts. Unsure if infectious, medication side effect or possible malabsorptive. -Tcell cd4/cd8 counts in normal range in w/ an detectable viral load. 12/21/20, current lymphocyte count 4.8 - Cryptosporidium, giardia, C. Diff, stool culture results pending Panic disorder without agoraphobia 11/26/2011 Chronic schizoaffective schizophrenia 11/26/2011 Overview (10/10/2021): Recommended Psychiatry evaluation. She told me she does not trust Psychiatrists and will not go on long-acting medications after experience with olanzapine. Patient had tangential thought process but did not demonstrate increased risk to harming herself or others today. No evidence of delusions or responding to internal stimuli while in clinic. Will continue to encourage Psychiatry follow up. Assessment & Plan (05/02/2022 2:32 PM HOUSEKEEPING ASSOCIATE): I would recommend psychiatric evaluation but patient does not want to see a psychaitrist Seizure ([facility] 08/07/2011 Assessment & Plan (05/07/2021 6:59 PM HOUSEKEEPING ASSOCIATE): Patient reports to not currently taking any seizure medication, In the past she was previously taking vimpat to control seizures at various doses. Patient has a witnessed seizure 05/05/21 in the medical unit. She was helped to the floor and did not hit her head. Patient was initially treated with ativanIM. The patient continued to have seizure activity therefore was given another IM dose of ativan which ceased activity. -Will start Vimpat 100 mg Every day and monitor, can increase dose if needed - 1:1 sitter -CMP daily -CT head- No mass or hemorrhage noted 05/05/21 -EEG pending -neurology consulted. Concern for aspiration if continued seizures waiting to advance diet. -patient made NPO, concern for aspiration if patient has another major seizure consulted Neuro for input Assessment & Plan (05/06/2021 3:45 PM HOUSEKEEPING ASSOCIATE): Patient reports to not currently taking any seizure medication, In the past she was previously taking vimpat to control seizures at various doses. Patient has a witnessed seizure 05/05/21 in the medical unit. She was helped to the floor and did not hit her head. Patient was initially treated with ativanIM. The patient continued to have seizure activity therefore was given another IM dose of ativan which ceased activity. -Will start Vimpat 100 mg Every day and monitor, can increase dose if needed - 1:1 sitter -CMP daily -CT head- No mass or hemorrhage noted 05/05/21 -EEG pending -neurology consulted. Concern for aspiration if continued seizures waiting to advance diet. -patient made NPO, concern for aspiration if patient has another major seizure consulted Neuro for input Assessment & Plan (07/09/2020 11:54 PM CDT): - she says last seizure was Nov 07, 2019 - reports history of seizures in her 20s age, prior to diagnosis with the schwannoma - currently without neurologist, well controlled on current medication - it has been difficult to find her a neurologist to manage this for her - at this time I am refilling her Vimpat which she only takes once daily and bray Spireon working well for her - she is currently on Vimpat 200mg BID but she has previously states that she only takes 200 mg once daily Assessment & Plan (12/24/2019 11:11 AM CDT): - she says last seizure was Nov 07, 2019 - follows neurologist - Dr. Vance at this time - she is unhappy about multiple doctors - she would like to be referred to another neurologist that she has been told is an option - she is currently on Vimpat that she only takes 200 mg once daily Chronic pain syndrome 08/06/2010 Overview (10/10/2021): Unclear cause. Patient did mention she had previously been told she had fibromyalgia. Describes pain in head, back, legs. Previously has tried PT, gabapentin, pregabalin, duloxetine, amitriptyline. Incompletely evaluated this visit, will plan to do so in the future. 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, tried multiple medications but at this time all she wants is hydrocodone - didn't want to be on other medications at all She states that all her previous pain management don't want to give her narcotics Assessment & Plan (04/03/2020 12:19 PM HOUSEKEEPING ASSOCIATE): - she has chronic back pain and has been referred to pain management in the past - she also has Fibromyalgia - she has not found a pain management physician and last one had problem with medication - at this time I am refilling her medications until she is established with one - continue with the [place] 10-325 mg BID PRN for pain - she is requesting pain management referral at this time to pain management here Assessment & Plan (12/24/2019 11:07 AM CDT): - she has chronic back pain and has been referred to pain management in the past - she is requesting pain management referral at this time to pain management here Human immunodeficiency virus (HIV) infection Overview (03/29/2020): - Following with Infectious Diseases Assessment & Plan (01/20/2023 8:30 AM CDT): Refilled delstrigo as per patient report has no other doctors Or infectios disease Moving to [facility] 30 days Unsure who was filling this previously Assessment & Plan (05/07/2021 10:08 PM HOUSEKEEPING ASSOCIATE): -Genvoya Q.d. -side effects include nausea and diarrhea. -placed percocet on hold- strong risk of increased serum concentration of percocet with concurrent use. Assessment & Plan (05/07/2021 6:58 PM HOUSEKEEPING ASSOCIATE): -Genvoya Q.d. -side effects include nausea and diarrhea. -placed percocet on hold- strong risk of increased serum concentration of percocet with concurrent use. Assessment & Plan (05/05/2021 8:01 PM HOUSEKEEPING ASSOCIATE): Restarted patient's home medication Genvoya Q.d. -side effects including nausea and diarrhea. Assessment & Plan (03/29/2020 1:58 PM HOUSEKEEPING ASSOCIATE): - Following with Infectious Diseases - follows up with infectious diseases - she is currently on Genvoya Assessment & Plan (12/24/2019 10:53 AM CDT): - follows up with infectious diseases - used to be on Biktarvy but was having nasuea and vomiting - now changed to Genvoya but she has not started it yet History of substance abuse 08/06/2006 Assessment & Plan (05/05/2021 7:50 PM HOUSEKEEPING ASSOCIATE): Previously positive for marijuana and opiate. Patient prescribed medical marijuana. Possible cause of her vomiting. -If concern for cannibis hyperemesis syndrome that not responding to anti nausea ondansetron. Options: Capsaicin cream applied to abdomen, next step would be droperidol (patient allergy to haloperidol) Substance abuse in remission 08/06/2006 Overview (04/05/2024): Last Assessment & Plan: Previously positive for marijuana and opiate. Patient prescribed medical marijuana. Possible cause of her vomiting. -If concern for cannibis hyperemesis syndrome that not responding to anti nausea ondansetron. Options: Capsaicin cream applied to abdomen, next step would be droperidol (patient allergy to haloperidol) Last Assessment & Plan: Previously positive for marijuana and opiate. Patient prescribed medical marijuana. Possible cause of her vomiting. -If concern for cannibis hyperemesis syndrome that not responding to anti nausea ondansetron. Options: Capsaicin cream applied to abdomen, next step would be droperidol (patient allergy to haloperidol) History of substance abuse History of substance abuse Schizoaffective disorder 08/06/1989 Overview (06/28/2016): Schizoaffective disorder Resolved Problems Problem Noted Date Diagnosed Date Resolved Date Acute non intractable tension-type headache 08/02/2021 05/02/2022 Viral gastroenteritis 05/05/20212021 DDD (degenerative disc disease), lumbosacral 05/05/2021 Overview (08/14/2020): 04/2020 - MRI of total spine 1. 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 2. Sacralization of the L5 vertebra. Stable multilevel degenerative changes of the lumbar spine resulting in moderate to severe spinal canal stenosis at L4-5. 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 Doing well following removal. She will return as needed. Assessment & Plan (04/11/2020 9:51 AM HOUSEKEEPING ASSOCIATE): Doing well following orbitotomy and lesion excision on 03/31/2020. Preliminary pathology results show likely schwannoma. We will await final path and she will return in 4-6 weeks. Assessment & Plan (03/11/2020 11:03 PM HOUSEKEEPING ASSOCIATE): Right orbital mass at medial orbit. Additionally, she demonstrates lesions of the left pterygopalatine fossa, and along the left cavernous sinus. 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 Risks, benefits and alternatives were discussed. Risks included but were not limited to pain, infection, bleeding, scarring, eyelid asymmetry, diplopia, facial numbness/tingling, eyelid malposition, vision loss (including total blindness), damage to surrounding structures (including the nose, brain or sinuses), need for additional procedures, and anesthetic morbidity. Following this discussion, the patient wishes to proceed with right orbitotomy with lesion biopsy/excision. This biopsy may provide further clues on the additional lesions seen on imaging. We will schedule this in the near future. Arthralgia of cervical spine 02/29/2020 05/02/2022 Anxiety 02/04/2020 05/02/2022 Overview (10/10/2021): Discussed treatment options. Unable to prescribe benzodiazepine with cannabis use and she does not want to stop cannabis. She does not want to try an SSRI or SNRI. Offered resources for psychology but she says she does not trust this. If she does stop lorazepam I instructed her to slowly taper it over 1-2 weeks rather than stopping abruptly. Assessment & Plan (05/07/2021 6:55 PM HOUSEKEEPING ASSOCIATE): Citalopram 10 mg q.h.s. Assessment & Plan (05/05/2021 5:40 PM HOUSEKEEPING ASSOCIATE): Citalopram 10 mg q.h.s. Abnormality of gait and mobility 12/29/2019 05/02/2022 Assessment & Plan (04/03/2020 12:22 PM HOUSEKEEPING ASSOCIATE): - currently has a wheeled walker - she is requesting paperwork to be filled for power wheelchair - PT consulted for functional capacity evalaution on last visit - states there is missing paperwork that needs to be completed, asked her to send us the paperwork Assessment & Plan (12/29/2019 12:15 PM CDT): - currently has a wheeled walker - she is requesting paperwork to be filled for power wheelchair - PT consulted for functional capacity evalaution Biceps tendinitis of right upper extremity 11/01/2019 05/02/2022 Arthritis of right acromioclavicular joint 11/01/2019 05/02/2022 Generalized abdominal pain 08/25/2019 0 07/09/2020 Acute pain of right shoulder 07/20/2019 04/03/2020 Intractable vomiting 07/20/2019 021 Sinus drainage 07/20/2019 06/27/2020 Chronic narcotic use 06/16/2019 022 Assessment & Plan (05/06/2021 3:23 PM HOUSEKEEPING ASSOCIATE): Patient has not complained of pain while admitted. Discussed pain management in the outpatient setting. She reports to trying that option before but is unclear about what happened or why she no longer uses. Would likely need to choose between medical marijuana for management vs pain management. Difficulty refilling prescriptions 06/16/2019 03/29/2020 Dyspnea 03/26/2018 03/29/2020 Arthritis 07/25/2017 07/10/2020 Panic attacks 01/31/2017 03/30/2020 Elevated blood-pressure read ing, without diagnosis of hypertension 12/10/2016 05/02/2022 Abnormal EKG 10/11/2016 05/02/2022 Gastroenteritis, acute 10/11/201603/29 Ingrown right greater toenail 09/25/2016 03/30/2020 Pain of right great toe 09/25/201606/22 Chronic interstitial cystitis 04/02/2016 05/02/2022 Other specified counseling 11/24/2013 0 03/30/2020 Overview (02/04/2020): Overview: 11/24/13: member looking to change Medicaid MH provider from [facility] Abdominal mass 09/01/2013 05/02/2022 Overview (02/04/2020): Overview: 09/04 visit, pt states: She reports two tumors - one in pelvic area and one on abd. She states one/pelvic was biopsied and benign, but doesn't know more than that. The pelvic were when she was younger. She states abd one is more recent, doesn't want a biopsied and she doesn't want a biopsy. She was having N/V/D and this was found at [facility] on CT scan. Allergic conjunctivitis of both eyes 09/01/2013 04/03/2020 Allergic rhinitis 09/01/2013 05/02/2022 Assessment & Plan (03/29/2020 2:13 PM HOUSEKEEPING ASSOCIATE): - well controlled with current medications - currently on Flonase nasal spray daily along with Zyrtec 10mg daily PRN - no change made with medications, continue current therapy HIV positive 09/01/2013 03/29/2020 Overview (02/04/2020): Overview: 09/04 pt reports, trying to get records, referred to ID Anemia 11/26/2011 12/24/2019 Lumbago 11/26/2011 08/14/2020 Immunizations Immunization Administration Dates Next Due H1N1 All Forms 03/24/2009 Hep A / Hep B 01/02/2017,04/11/2016,12/12/2015 Hep A, 3 Dose 07/10/2012,07/19/2010 Hep A, Adult 06/30/2012,07/19/2010 Hep A, Pediatric 07/10/2012,07/19/2010 Hep A, Unspecified 06/30/2012 Hep B Vaccine 09/20/2013, 3,09/15/2012,02/26,02/27/2012,07/19/2010 Hep B, Adolescent or Pediatric 07/19/2010 Hep B, Unspecified 09/15/2012,02/27/2012 Influenza, Trivalent, IM (MDV) 03/24/2009 Influenza, Trivalent, Preser vative Free, Intramuscular 01/03/2011,03/24/2009 Influenza, Unspecified 04/05/2024(Deferr ed: Patient Refused),04/05/2024(Deferred: Patient Refused),01/05/2024(Deferred: Patient Refused),12/29/2023(Deferred: Patient Refused),01/20/2023(Deferred: Patient Refused),02/01/2020(Deferred: Patient Refused),12/24/2019(Deferred: Patient Refused),12/23/2019(Deferred: Patient Refused),12/22/2018(Deferred: Patient Refused),01/03/2011 PPD TEST 05/22/2017,04/11/2016 Pneumococcal Conjugate 7-Valent 07/19/2010 Pneumococcal Conjugate PCV 13 04/20/2015 Pneumococcal Conjugate, Unspecified 07/19/2010 Pneumococcal Polysaccharide PPV23 04/11/2017,,07/19/2010 Tdap 11/13/2022,09/20/2013,07/19/2010 Social History Tobacco Use Types Packs/Day Years Used Date Smoking Tobacco: Every Day Cigarettes 0.5 40.3 Started: 1984 Smokeless Tobacco: Never Tobacco Cessation:Ready to Q uit: No; Counseling Given: Yes Comments:Smoking History Packs/day: 1 Packs Alcohol Use Standard Drinks/Week Comments Yes 0 (1 standard drink = 0.6 oz pur e alcohol) [facility] Intralignities Answer Date Recorded In the past 12 months has [employer], [employer], oil, or water [employer] threatened to shut off services in your [...] often do you attend chur ch or episcopal services? Never 07/19/2024 Do you belong to any clubs o r organizations such as sabianist groups, unions, fraternal or athletic groups, or [...] any time in the past 12 m [place], were you homeless or living in a nursing home (including now)? No 07/19/2024 Personal Safety Answer Date Recorded Have you ever been in or are you currently in a harmful physical or emotional relationship or is someone making you feel afraid or unsafe? Denies 07/18/2024 Comments No Sex and Gender Information Value Date Recorded Sex Assigned at Not on file Legal Sex Female 1:20 AM HOUSEKEEPING ASSOCIATE Gender Identity Not on file Sexual Orientation Not on file Occupation Industry Job Start Date Job End Date Disabled Not on file Not on file Not on file Last Filed Vital Signs Vital Sign Reading Time Taken Comments Blood Pressure 144/82 07/19/2024 11:47 AM CDT Pulse 95 07/19/2024 11:47 AM CDT Temperature 36.4 C (97.5 F) 07/19/2024 11:47 AM CDT Respiratory Rate 18 07/19/2024 11:47 AM CDT Oxygen Saturation 96% 07/19/2024 11:47 AM CDT Inhaled Oxygen Concentration - - Weight 88.5 kg (195 lb) 07/18/2024 7:56 AM CDT Height 154.9 cm (5' 1 ) 07/18/2024 7:56 AM CDT Body Mass Index 36.84 07/18/2024 7:56 AM CDT Plan of Treatment Not on file Procedures Procedure Name Priority Date/Time Associated Diagnosis Comments HEPATITIS B SURFACE ANTIGEN Routine 07/19/2024 12:46 PM CDT Exposure to blood-borne pathogen HEPATITIS C ANTIBODY Routine 07/19/2024 12:46 PM CDT Exposure to blood-borne pathogen EGFR Routine 07/19/2024 4:56 AM CDT DIFFERENTIAL AUTO Routine 07/19/2024 4:5 6 AM CDT CBC WITH AUTO DIFFERENTIAL Routine 07/19/2024 4:56 AM CDT MAGNESIUM Routine 07/19/2024 4:56 AM CDT COMPREHENSIVE METABOLIC PANEL Routine 07/19/2024 4:56 AM CDT POCT GLUCOSE DEVICE Routine 07/19/2024 2 :27 AM CDT URINALYSIS, MICROSCOPIC ONLY STAT 07/18/2024 10:16 AM CDT DRUGS OF ABUSE SCREEN, URINE WITHOUT CONFIRMATION STAT 07/18/2024 10:16 AM CDT URINALYSIS AND REFLEX TO MICROSCOPIC AND CULTURE STAT 07/18/2024 10:16 AM CDT XR CHEST 1 VIEW ED 07/18/2024 8:[address] CERVICAL SPINE WO CONTRAST ED 07/18/2024 8:[address] HEAD WO CONTRAST ED 07/18/2024 8 :32 AM CDT SEPSIS LACTATE WITH REFLEX STAT 07/18/2024 8:15 AM CDT TROPONIN T HIGH-SENSITIVITY SERIES (BASELINE, 2HR, 4HR, 6HR) Routine 07/18/2024 8:15 AM CDT PRO B-TYPE NATRIURETIC PEPTIDE STAT 07/18/2024 8:15 AM CDT MAGNESIUM Routine 07/18/2024 8:15 AM CDT EGFR STAT 07/18/2024 7:59 AM CDT CRP (ACUTE PHASE) STAT 07/18/2024 7:5 9 AM CDT ERYTHROCYTE SEDIMENTATION RATE STAT 07/18/2024 7:59 AM CDT DIFFERENTIAL AUTO STAT 07/18/2024 7:5 9 AM CDT ETHANOL STAT 07/18/2024 7:59 AM CDT COMPREHENSIVE METABOLIC PANEL STAT 07/18/2024 7:59 AM CDT CBC WITH AUTO DIFFERENTIAL STAT 07/18/2024 7:59 AM CDT ECG 12-LEAD STAT 07/18/2024 7:55 AM CDT CLINICAL PATHOLOGY REPORT Routine 04/28/2024 1:14 PM HOUSEKEEPING ASSOCIATE EGFR STAT 04/28/2024 1:14 PM HOUSEKEEPING ASSOCIATE Elevated serum immunoglobulin free light chains DIFFERENTIAL AUTO STAT 04/28/2024 1:1 4 PM HOUSEKEEPING ASSOCIATE Elevated serum immunoglobulin free light chains IMMUNOTYPING Routine 04/28/2024 1:14 PM HOUSEKEEPING ASSOCIATE Plasma cell dyscrasia PROTEIN ELECTROPHORESIS, WITH REFLEX, SERUM STAT 04/28/2024 1:14 PM HOUSEKEEPING ASSOCIATE Elevated serum immunoglobulin free light chains LACTATE DEHYDROGENASE STAT 04/28/2024 1:14 PM HOUSEKEEPING ASSOCIATE Elevated serum immunoglobulin free light chains IMMUNOGLOBULIN FREE LIGHT CHAINS STAT 04/28/2024 1:14 PM HOUSEKEEPING ASSOCIATE Elevated serum immunoglobulin free light chains IGM STAT 04/28/2024 1:14 PM HOUSEKEEPING ASSOCIATE Elevated serum immunoglobulin free light chains IGG STAT 04/28/2024 1:14 PM HOUSEKEEPING ASSOCIATE Elevated serum immunoglobulin free light chains IGA STAT 04/28/2024 1:14 PM HOUSEKEEPING ASSOCIATE Elevated serum immunoglobulin free light chains COMPREHENSIVE METABOLIC PANEL STAT 04/28/2024 1:14 PM HOUSEKEEPING ASSOCIATE Elevated serum immunoglobulin free light chains CBC WITH AUTO DIFFERENTIAL STAT 04/28/2024 1:14 PM HOUSEKEEPING ASSOCIATE Elevated serum immunoglobulin free light chains BETA 2 MICROGLOBULIN SERUM STAT 04/28/2024 1:14 PM HOUSEKEEPING ASSOCIATE Elevated serum immunoglobulin free light chains URINALYSIS, MICROSCOPIC ONLY STAT 04/21/2024 3:03 PM HOUSEKEEPING ASSOCIATE DRUGS OF ABUSE SCREEN, URINE WITHOUT CONFIRMATION STAT 04/21/2024 3:03 PM HOUSEKEEPING ASSOCIATE URINALYSIS AND REFLEX TO MICROSCOPIC AND CULTURE STAT 04/21/2024 3:[address] LUMBAR SPINE WO CONTRAST ED 04/21/2024 12:[address] HEAD WO CONTRAST ED 04/21/2024 12:14 PM HOUSEKEEPING ASSOCIATE EGFR STAT 04/21/2024 11:02 AM HOUSEKEEPING ASSOCIATE DIFFERENTIAL AUTO STAT 04/21/2024 11:02 AM HOUSEKEEPING ASSOCIATE PROTIME-INR STAT 04/21/2024 11:02 AM HOUSEKEEPING ASSOCIATE SEPSIS LACTATE WITH REFLEX STAT 04/21/2024 11:02 AM HOUSEKEEPING ASSOCIATE COMPREHENSIVE METABOLIC PANEL STAT 04/21/2024 11:02 AM HOUSEKEEPING ASSOCIATE CBC WITH AUTO DIFFERENTIAL STAT 04/21/2024 11:02 AM HOUSEKEEPING ASSOCIATE DIAGNOSTIC MAMMOGRAM BILATERAL W CHON Schedule Routine, Read Routine (OP Routine) 06/19/2022 2:15 PM CDT Abnormal mammogram HEMOGLOBIN A1C Routine 06/14/2021 9:56 AM CDT LIPID PANEL Routine 06/14/2021 9:56 AM CDT RPR Routine 06/11/2021 2:43 PM CDT HIV disease (HCC) DEXA AXIAL SKELETON BONE DENSITY 1 OR MORE SITES Schedule Routine, Read Routine (OP Routine) 11/24/2020 12:31 PM CDT Asymptomatic menopausal state COLONOSCOPY Routine 08/17/2019 from Last 3 Months or Most Recently Relevant to Health Maintenance Results * Hepatitis C antibody Blood (07/19/2024 12:46 PM CDT) Hep C Ab Nonreactive Nonreactive Comment: Interpretive Data Nonreactive: Antibodies to HCV not detected. Does NOT exclude the possibility of recent exposure to HCV. Equivocal: Equivocal for HCV antibodies. Supplemental molecular testing will be automatically performed to determine infection status in accordance with current CDC screening recommendations. Reactive: Positive for HCV antibodies. This may represent current or past HCV infection. Supplemental molecular testing will be automatically performed to determine current infection status in accordance with current CDC screening recommendations. Interpretive data was last revised on 2019. 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 at:->[facility] Israel Mcdonald MD LAB MICROBIOLOGY - GENERAL OR DERABLES Final Result Performing Organization Address City/[facility]/ZIP Co de Phone Number JASON J[facility] ([place]) [address] [place] [address] [employer] [place] [address] * Hepatitis B Surface Antigen Blood (07/19/2024 12:46 PM CDT) HepBsAg Nonreactive Nonreactive Comment:Testing performed by : [facility], [address] [place] [address]., [id number] Blood 07/19/2024 12:4 6 PM CDT 07/19/2024 6:40 PM CDT Narrative [facility] ([place]) - 07/19/2024 7:45 PM CDT Bill [facility] is employed by/enrolled at:->[facility] Israel Mcdonald MD LAB MICROBIOLOGY - GENERAL OR DERABLES Final Result JASON JACK ([place]) 1 [facility] [employer] [place] [address] * eGFR (07/19/2024 4:56 AM CDT) eGFR >90 >=60 mL/min/1. 73 m2 Comment: Interpretive Data Reference Interval Normal >/= 90 mL/min/1.73m2 Mildly decreased* 60 - 89 mL/min/1.73m2 Mildly to moderately decreased 45 - 59 mL/min/1.73m2 Moderately to severely decreased 30 - 44 mL/min/1.73m2 Severely decreased 15 - 29 mL/min/1.73m2 Kidney Failure < 15 mL/min/1.73m2 *Relative to young adult level Estimated glomerular filtration rate is determined by the 2020 CKD-EPI equation recommended by the National Kidney Foundation (A Unifying Approach to GFR Estimation: Recommendations of the NKF-ASK Task Force on Reassessing the Inclusion of Race in Diagnosing Kidney Disease, JASN 2020). The CKD-EPI equation should not be used for patients with unstable renal function and has not been validated in children and those over 70. Current interpretive data was last reviewed 2021. Blood 07/19/2024 4:56 AM CDT 07/19/2024 5:32 AM CDT us Davi Oscar MD LAB BLOOD ORDERABLES nal Result [facility] ([place]) 1 [facility] Department [place] [address] * Differential, auto (07/19/2024 4:56 AM CDT) Neutrophil abs 2.21 1.50 - 6.50 K/cumm Imm gran abs 0.01 0.00 - 0.10 K/cumm [facility] ([place]) Lymphocyte abs 2.79 0.80 - 3.30 K/cumm [facility] ([place]) Monocyte abs 0.39 0.20 - 0.80 K/cumm [facility] ([place]) Eosinophil abs 0.02 0.00 - 0.50 K/cumm [facility] ([place]) Basophil abs 0.02 0.00 - 0.10 K/cumm [facility] ([place]) Neutrophil pct 40.5 % [facility] ([place]) Comment: Interpretive Data Percent cell count reference ranges are not reported, since discordance with absolute values may lead to misinterpretation of CBC data. Current Interpretive Data was last revised on 2017. Imm gran pct 0.2 % [facility] ([place]) Comment: Interpretive Data Percent cell count reference ranges are not reported, since discordance with absolute values may lead to misinterpretation of CBC data. Current Interpretive Data was last revised on 2017. Lymphocyte pct 51.3 % [facility] ([place]) Comment: Interpretive Data Percent cell count reference ranges are not reported, since discordance with absolute values may lead to misinterpretation of CBC data. Current Interpretive Data was last revised on 2017. Monocyte pct 7.2 % [facility] ([place]) Comment: Interpretive Data Percent cell count reference ranges are not reported, since discordance with absolute values may lead to misinterpretation of CBC data. Current Interpretive Data was last revised on 2017. Eosinophil pct 0.4 % [facility] ([place]) Comment: Interpretive Data Percent cell count reference ranges are not reported, since discordance with absolute values may lead to misinterpretation of CBC data. Current Interpretive Data was last revised on 2017. Basophil pct 0.4 % [facility] ([place]) Comment: Interpretive Data Percent cell count reference ranges are not reported, since discordance with absolute values may lead to misinterpretation of CBC data. Current Interpretive Data was last revised on 2017. Blood 07/19/2024 4:56 AM CDT 07/19/2024 5:31 AM CDT us Davi Oscar MD LAB BLOOD ORDERABLES nal Result JASON JACK ([place]) 1 [facility] Department [place] [address] * CBC with auto differential (07/19/2024 4:56 AM CDT) WBC 5.44 3.80 - 9.90 K/cumm Hgb 13.0 11.9 - 15.5 g/dL [facility] ([place]) Hct 37.2 35.6 - 45.5 % [facility] ([place]) Plt 199 150 - 400 K/cumm [facility] ([place]) MPV 10.0 9.1 - 12.3 fL [facility] ([place]) RBC 3.97 3.90 - 5.20 M/cumm [facility] ([place]) MCV 93.7 81.3 - 96.4 fL [facility] ([place]) MCH 32.7 27.1 - 33.3 pg [facility] ([place]) MCHC 34.9 32.3 - 35.7 g/dL [facility] ([place]) RDW CV 13.3 11.1 - 14.9 % [facility] ([place]) RDW SD 46.0 35.7 - 48.1 fL [facility] ([place]) NRBC abs 0.00 0.00 - 0.01 K/cumm [facility] ([place]) Blood 07/19/2024 4:56 AM CDT 07/19/2024 5:31 AM CDT Davi Oscar MD LAB BLOOD ORDERABLES Fi nal Result [facility] ([place]) 1 [facility] [employer] [place] [address] * Magnesium (07/19/2024 4:56 AM CDT) Pathologist [facility] Magnesium 2.0 1.4 - 2.5 mg/dL Blood 07/19/2024 4:56 AM CDT 07/19/2024 5:32 AM CDT Davi Oscar MD LAB BLOOD ORDERABLES Fi nal Result [facility] ([place]) 1 [facility] [place] [address] * (ABNORMAL) Comprehensive metabolic panel (07/19/2024 4:56 AM CDT) Sodium 141 135 - 145 mmol/L Potassium, pl 3.6 3.3 - 4.9 mmol/L [facility] ([place]) Chloride 108 97 - 110 mmol/L [facility] ([place]) CO2 21(L) 22 - 32 mmol/L [facility] ([place]) Anion gap 12 2 - 15 mmol/L [facility] ([place]) BUN 6 6 - 25 mg/dL [facility] ([place]) Creatinine 0.71 0.60 - 1.10 mg/dL [facility] ([place]) Glucose 92 70 - 199 mg/dL [facility] ([place]) Comment: Interpretive Data Fasting glucose >/= 126 mg/dl is diagnostic for diabetes. Fasting is defined as no caloric intake for at least 8 hours. Fasting glucose between 100 mg/dl to 125 mg/dl is diagnostic of prediabetes. In a patient with classic symptoms of hyperglycemia or hyperglycemic crisis, a random glucose >/= 200 mg/dl is diagnostic for diabetes. In the absence of unequivocal hyperglycemia, results should be confirmed by repeat testing. The classification and Diagnosis of Diabetes Diabetes Care 202; 46: S19-S40. Current interpretive data was last revised 2022. Calcium 9.9 8.5 - 10.3 mg/dL [facility] ([place]) Bilirubin, total 0.9 0.1 - 1.2 mg/dL [facility] ([place]) Protein, pl 6.8 6.5 - 8.5 g/dL [facility] ([place]) Albumin 3.8 3.5 - 5.0 g/dL [facility] ([place]) Alk phos 139(H) 40 - 130 Units/L [facility] ([place]) ALT 11 7 - 45 Units/L [facility] ([place]) AST 16 10 - 45 Units/L [facility] ([place]) Comment:Slightly Hemolyzed S pecimen Blood 07/19/2024 4:56 AM CDT 07/19/2024 5:32 AM CDT us Davi Oscar MD LAB BLOOD ORDERABLES Fi nal Result [facility] ([place]) 1 [facility] Department [place] [address] * POCT glucose (07/19/2024 2:27 AM CDT) Glucose, POC 104 70 - 199 mg/dL Blood 07/19/2024 2:27 AM CDT 07/19/2024 2:27 AM CDT Lyric Pastor MD LAB POCT ORDERABLES - DEV ICE Final Result J[facility]ON [facility] ([place]) 1 [facility] Department [place] [address] * (ABNORMAL) Urinalysis reflex to microscopic and culture Urine (07/18/2024 10:16 AM CDT) Color, ur Yellow Yellow Clarity, ur Clear Clear [facility] ([place]) Specific gravity, ur 1.012 1.003 - 1.030 [facility] ([place]) pH, urine 6.5 [facility] ([place]) Comment: Interpretive Data U rine pH is affected by diet, medications, systemic acid-base disturbances, and renal tubular function. pH may affect urinary stone formation. For example, urine pH below 6.0 may help reduce the tendency for calcium phosphate stones and pH greater than 6.0 may reduce the tendency for uric acid stone formation. Source: [facility] [place] Current Interpretive Data was last revised on 2017 Protein, ur ql 1+(A) Negative [facility] ([place]) Glucose, ur ql Negative Negative [facility] ([place]) Ketones, ur 2+(A) Negative [facility] ([place]) Bilirubin, ur Negative Negative [facility] ([place]) Blood, ur Negative Negative [facility] ([place]) Urobilinogen, ur 2.0(A) <2.0 mg/dL [facility] ([place]) Nitrite, ur Negative Negative [facility] ([place]) Leukocyte esterase, ur Negative Negative [facility] ([place]) UA reflex comment Reflex to microscopic UA will be performed. [facility] ([place]) Urine 07/18/2024 10:1 6 AM CDT 07/18/2024 10:19 AM CDT Israel Edmonds MD LAB MICROBIOLOGY - GENERAL O RDERABLES Final Result [facility]ASON [facility] ([place]) 1 [facility] Department [place] [address] * (ABNORMAL) Drugs of Abuse Screen, Urine without Confirmation (07/18/2024 10:16 AM CDT) Amphetamine, ur Not Detected CutOff 500ng/mL Comment: Interpretive Data - Amphetamines: Samples containing greater than 500 ng/mL d-methamphetamine or other cross-reacting amphetamine compounds are reported as positive. Amphetamine immunoassays are subject to significant false positive rates due to cross-reactivity of non-amphetamine drugs. Confirmatory testing required for definitive results. Current Interpretive Data was last reviewed 2022. Barbiturates, ur Not Detected CutOff 200ng/mL [facility] ([place]) Comment: Interpretive Data - Barbiturates: Samples containing greater than 200 ng/mL secobarbital or other cross-reacting barbiturate compounds are reported as positive. False positive and false negative results are possible. Confirmatory testing required for definitive results. Current Interpretive Data was last reviewed 2022. Benzodiazepines, ur Screen Positive, presumptive (A) CutOff 100ng/mL [facility] ([place]) Comment: Interpretive Data - Benzodiazepines: Samples containing greater than 100 ng/mL nordiazepam or other cross-reacting compounds are reported as positive. False positive and false negative results are possible. Confirmatory testing required for definitive results. Current Interpretive Data was last reviewed 2022. Cannabinoids, ur Screen Positive, presumptive (A) CutOff 50 ng/mL [facility] ([place]) Comment: Interpretive Data - Cannabinoids: Samples containing greater than 50 ng/mL delta-9 THC -COOH or other cross- reacting compounds are reported as positive. False positive and false negative results are possible. Confirmatory testing required for definitive results. Current Interpretive Data was last reviewed 2022. Cocaine, ur Not Detected CutOff 150ng/mL [facility] ([place]) Comment: Interpretive Data - Cocaine: Samples containing greater than 150 ng/mL benzoylecgonine or other cross- reacting compounds are reported as positive. False positive and false negative results are possible. Confirmatory testing required for definitive results. Current Interpretive Data was last reviewed 2022. Fentanyl, Ur Not Detected CutOff 5 ng/mL [facility] ([place]) Comment: Interpretive Data - Fentanyl: Samples containing greater than 5 ng/mL norfentanyl, fentanyl, or other cross-reacting fentanyl compounds are reported as positive. False positive and false negative results are possible. Confirmatory testing required for definitive results. Current Interpretive Data was last reviewed 2023. Methadone, ur Not Detected CutOff 300ng/mL [facility] ([place]) Comment: Interpretive Data - Methadone: Samples containing greater than 300 ng/mL d,l-methadone or other cross-reacting compounds are reported as positive. False positive and false negative results are possible. Confirmatory testing required for definitive results. Current Interpretive Data was last reviewed 2022. Opiates, ur Not Detected CutOff 300ng/mL [facility] ([place]) Comment: Interpretive Data - Opiates: Samples containing greater than 300 ng/mL morphine or other cross-reacting compounds are reported as positive. False positive and false negative results are possible. Confirmatory testing required for definitive results. Current Interpretive Data was last reviewed 2022. Oxycodone, ur Not Detected CutOff 100ng/mL [facility] ([place]) Comment: Interpretive Data - Oxycodone: Samples containing greater than 100 ng/mL oxycodone or other cross-reacting compounds are reported as positive. False positive and false negative results are possible. Confirmatory testing required for definitive results. Current Interpretive Data was last reviewed 2022. Phencyclidine, ur Not Detected CutOff 25 ng/mL [facility] ([place]) Comment: Interpretive Data - Phencyclidine: Samples containing greater than 25 ng/mL phencyclidine or other cross-reacting compounds are reported as positive. False positive and false negative results are possible. Confirmatory testing required for definitive results. Current Interpretive Data was last reviewed 2022. Urine Creatinine 136 mg/dL [facility] ([place]) Comment: Interpretive Data Urine Creatinine: < 10 mg/dL is extremely dilute = or > 10 but < 20 mg/dL is dilute = or > 20 mg/dL is normal Current Interpretive Data was last revised on 2017. Urine 07/18/2024 10:1 6 AM CDT 07/18/2024 10:19 AM CDT N[facility]ative [facility] - 07/18/2024 10:45 AM CDT Drug of Abuse screening is performed by immunoassay for medical purposes only. This is not to be used for Pain Management purposes. Israel Edmonds MD LAB URINE ORDERABLES Final R esult Performing Organization Address [facility] Co de Phone Number JASON [facility] ([place]) [address] [place] [address] * (ABNORMAL) Urinalysis, microscopic only (07/18/2024 10:16 AM CDT) WBC, ur 0-5 0 - 5 /HPF RBC, ur 0-2 0 - 2 /HPF [facility] ([place]) Epithelial cells, squamous, ur 1-5 0 - 5 /HPF [facility] ([place]) Mucous, ur Present(A) [facility] ([place]) Culture Reflex Comment Reflex conditions for urine culture (WBC >10) not met. [facility]ON [facility] ([place]) Urine 07/18/2024 10:1 6 AM CDT 07/18/2024 10:19 AM CDT Israel Edmonds MD LAB URINE ORDERABLES Final R esult Performing Organization Address [facility] Co de Phone Number JASON JACK ([place]) [address] [place] [address] * XR Chest 1 View (07/18/2024 8:56 AM CDT) Anatomical Region Laterality Modality Body, Chest N/A Computed Radiogr aphy 07/18/2024 9:09 AM CDT Narrative 07/18/2024 9:09 AM CDT EXAM DESCRIPTION: XR CHEST 1 VIEW REASON FOR STUDY: chest pain Patient presents to the ED states at the desktop technician that she thinks she is going to have a seizure, she states stress brings them on . Patient states she was coming to the ED for pain in her head and points to the top of her head and states it started at her neck and shot up to my head . Patient is Aanswering questions appropriately. Patient states she has brain tumors that make me lose my vision TECHNIQUE: Single-view COMPARISON: 03/22/2024 FINDINGS: Central vascularity have normal caliber. Aortic arch well-defined on the left. No dense consolidation, effusion or pneumothorax. Bony hypertrophic changes obscures the apices, noted through the thoracic spine and shoulders. IMPRESSION: No acute findings. THIS IS AN ELECTRONICALLY VERIFIED FINAL REPORT 07/18/2024 9:09 AM - Electronically signed by Scot Murguia M.D. RB: RENETTA Report ID: [id number] Reading Location: [id number] Procedure Note Scot Murguia MD - 07/18/2024 EXAM DESCRIPTION: XR CHEST 1 VIEW REASON FOR STUDY: chest pain Patient presents to the ED states at the desktop technician that she thinks she is going to have a seizure, she states stress brings them on . Patientstates she was coming to the ED for pain in her head and points to the top of her head and states it started at her neck and shot up to my head . Patientis Aanswering questions appropriately. Patient states she has brain tumorsthat make me lose my vision TECHNIQUE: Single-view COMPARISON: 03/22/2024 FINDINGS: Central vascularity have normal caliber. Aortic arch well-defined on the left. No dense consolidation, effusion or pneumothorax. Bony hypertrophic changes obscures the apices, noted through the thoracic spine and shoulders. IMPRESSION: No acute findings. THIS IS AN ELECTRONICALLY VERIFIED FINAL REPORT 07/18/2024 9:09 AM - Electronically signed by Scot Murguia M.D. RB: RENETTA Report ID: [id number] Reading Location: [id number] us Israel Edmonds MD IMG XR PROCEDURES Final Resu lt * CT Cervical Spine WO Contrast (07/18/2024 8:32 AM CDT) Anatomical Region Laterality Modality Spine N/A Computed Tomogra phy 07/18/2024 8:40 AM CDT Narrative 07/18/2024 8:45 AM CDT EXAM DESCRIPTION: CT CERVICAL SPINE WO CONTRAST REASON FOR STUDY: Neck pain, acute, no red flags Patient presents to the ED states at the desktop technician that she thinks she is going to have a seizure, she states stress brings them on . Patient states she was coming to the ED for pain in her head and points to the top of her head and states it started at her neck and shot up to my head . Patient is Aanswering questions appropriately. Patient states she has brain tumors that make me lose my vision TECHNIQUE: Axial images through the cervical spine with sagittal and coronal reformatted images. Automated exposure control was used as a dose optimization technique for this examination. COMPARISON: 10/07/2020 CT cervical spine. FINDINGS: ALIGNMENT: Normal. VERTEBRAE: No fracture. Vertebral body heights well-maintained. DISCS: Diffuse moderate to severe degenerative changes most pronounced C4 through C7 with loss of disc height sclerosis spur formation and facet hypertrophic change. HARDWARE: None in the spine. INDIVIDUAL LEVELS: C1-C2: No significant osseous spinal stenosis. C2-C3: No significant osseous spinal stenosis or neural foraminal stenosis. C3-C4: No significant osseous spinal stenosis or neural foraminal stenosis. C4-C5: No significant osseous spinal stenosis or neural foraminal stenosis. C5-C6: No significant osseous spinal canal stenosis. Bilateral moderately severe bony neural foraminal stenosis. C6-C7: No significant osseous spinal stenosis or neural foraminal stenosis. C7-T1: No significant osseous spinal stenosis or neural foraminal stenosis. UPPER THORACIC: Incompletely imaged. No significant osseous spinal stenosis or osseous neural foraminal stenosis. SKULL BASE: No significant finding. LUNG APICES: No significant abnormality. NECK SOFT TISSUES: No significant abnormality. OTHER: No other significant findings. IMPRESSION: No acute C-spine abnormality. Moderately severe degenerative changes. THIS IS AN ELECTRONICALLY VERIFIED FINAL REPORT 07/18/2024 8:45 AM - Electronically signed by Scot Murguia M.D. RB: RENETTA Report ID: [id number] Reading Location: [id number] Procedure Note Scot Murguia MD - 07/18/2024 EXAM DESCRIPTION: CT CERVICAL SPINE WO CONTRAST REASON FOR STUDY: Neck pain, acute, no red flags Patient presents to the ED states at the desktop technician that she thinks she is going to have a seizure, she states stress brings them on . Patientstates she was coming to the ED for pain in her head and points to the top of her head and states it started at her neck and shot up to my head . Patientis Aanswering questions appropriately. Patient states she has brain tumorsthat make me lose my vision TECHNIQUE: Axial images through the cervical spine with sagittal andcoronal reformatted images. Automated exposure control was used as a doseoptimization technique for this examination. COMPARISON: 10/07/2020 CT cervical spine. FINDINGS: ALIGNMENT: Normal. VERTEBRAE: No fracture. Vertebral body heights well-maintained. DISCS: Diffuse moderate to severe degenerative changes most pronouncedC4 through C7 with loss of disc height sclerosis spur formation and facet hypertrophic change. HARDWARE: None in the spine. INDIVIDUAL LEVELS: C1-C2: No significant osseous spinal stenosis. C2-C3: No significant osseous spinal stenosis or neural foraminalstenosis. C3-C4: No significant osseous spinal stenosis or neural foraminalstenosis. C4-C5: No significant osseous spinal stenosis or neural foraminalstenosis. C5-C6: No significant osseous spinal canal stenosis. Bilateralmoderately severe bony neural foraminal stenosis. C6-C7: No significant osseous spinal stenosis or neural foraminalstenosis. C7-T1: No significant osseous spinal stenosis or neural foraminalstenosis. UPPER THORACIC: Incompletely imaged. No significant osseous spinalstenosis or osseous neural foraminal stenosis. SKULL BASE: No significant finding. LUNG APICES: No significant abnormality. NECK SOFT TISSUES: No significant abnormality. OTHER: No other significant findings. IMPRESSION: No acute C-spine abnormality. Moderately severe degenerative changes. THIS IS AN ELECTRONICALLY VERIFIED FINAL REPORT 07/18/2024 8:45 AM - Electronically signed by Scot Murguia M.D. RB: RENETTA Report ID: [id number] Reading Location: [id number] us Israel Edmonds MD IMG CT PROCEDURES Final Resu lt * CT Head WO Contrast (07/18/2024 8:32 AM CDT) Anatomical Region Laterality Modality Head and Neck N/A Computed Tomogra phy 07/18/2024 8:36 AM CDT Narrative 07/18/2024 8:40 AM CDT EXAM DESCRIPTION: CT HEAD WO CONTRAST REASON FOR STUDY: Headache, sudden, severe Patient presents to the ED states at the desktop technician that she thinks she is going to have a seizure, she states stress brings them on . Patient states she was coming to the ED for pain in her head and points to the top of her head and states it started at her neck and shot up to my head . Patient is Aanswering questions appropriately. Patient states she has brain tumors that make me lose my vision TECHNIQUE: Axial images acquired through the brain without intravenous contrast. Images stored on PACS. Automated exposure control was used as a dose optimization technique for this examination. COMPARISON: 04/21/2024 CT head FINDINGS: BRAIN: No hemorrhage, edema or mass effect. No recent infarct. Normal white matter. EXTRA-AXIAL SPACES: No fluid collections. No masses. CALVARIUM: No fracture. SINUSES/MASTOIDS: No fluid or mucosal thickening. ORBITS: No significant abnormality. OTHER: No other significant abnormality. IMPRESSION: No acute intracranial findings. THIS IS AN ELECTRONICALLY VERIFIED FINAL REPORT 07/18/2024 8:40 AM - Electronically signed by Scot Murguia M.D. RB: RENETTA Report ID: [id number] Reading Location: [id number] Procedure Note Scot Murguia MD - 07/18/2024 EXAM DESCRIPTION: CT HEAD WO CONTRAST REASON FOR STUDY: Headache, sudden, severe Patient presents to the ED states at the desktop technician that she thinks she is going to have a seizure, she states stress brings them on . Patientstates she was coming to the ED for pain in her head and points to the top of her head and states it started at her neck and shot up to my head . Patientis Aanswering questions appropriately. Patient states she has brain tumorsthat make me lose my vision TECHNIQUE: Axial images acquired through the brain without intravenous contrast. Images stored on PACS. Automated exposure control was used asa dose optimization technique for this examination. COMPARISON: 04/21/2024 CT head FINDINGS: BRAIN: No hemorrhage, edema or mass effect. No recent infarct. Normal white matter. EXTRA-AXIAL SPACES: No fluid collections. No masses. CALVARIUM: No fracture. SINUSES/MASTOIDS: No fluid or mucosal thickening. ORBITS: No significant abnormality. OTHER: No other significant abnormality. IMPRESSION: No acute intracranial findings. THIS IS AN ELECTRONICALLY VERIFIED FINAL REPORT 07/18/2024 8:40 AM - Electronically signed by Scot Murguia M.D. RB: RENETTA Report ID: [id number] Reading Location: [place] [id number] Israel Edmonds MD IMG CT PROCEDURES Final Resu lt * Troponin T high-sensitivity series (baseline, 2hr, 4hr, 6hr) (07/18/2024 8:15 AM CDT) [facility] Trop T hs <6 <=14 ng/L Comment: Interpretive Data For further hscTnT resources including the diagnostic algorithm and an aid in interpretation, copy and paste this link: [email or web address].[email or web address]/[email or web address] Current Interpretive Data last revised 2020. Blood 07/18/2024 8:15 AM CDT 07/18/2024 8:21 AM CDT Israel Edmonds MD LAB BLOOD ORDERABLES Final R esult [facility] [place]) 0 [facility] Department [place] [address] * Sepsis Lactate w/ Reflex (07/18/2024 8:15 AM CDT) Sepsis Lactate 1.1 0.7 - 2.0 mmol/L Blood 07/18/2024 8:15 AM CDT 07/18/2024 8:21 AM CDT us Israel Edmonds MD LAB BLOOD ORDERABLES Final R esult [facility] [place]) 1 [facility] Department [place] [address] * Pro B-type natriuretic peptide (07/18/2024 8:15 AM CDT) NT-proBNP <36 <=300 pg/mL Comment: Interpretive Comments: A. Dyspnea in Acute Care Setting All Ages: < 300 pg/ml, acute heart failure unlikely. < 50 yrs: 300 - 450 pg/ml, further investigation warranted. > 450 pg/ml, acute heart failure likely. 50 - 74 yrs: 300 - 900 pg/ml, further investigation warranted. > 900 pg/ml, acute heart failure likely . > or = 75 yrs: 450 - 1800 pg/ml, further investigation warranted. > 1800 pg/ml, acute heart failure likely. B. Non-acute Setting < 75 yrs < 125 pg/ml, rules out heart failure. > or = 125 pg/ml, further investigation warranted. > or = 75 yrs < 450 pg/ml, rules out heart failure. > or = 450 pg/ml, further investigation warranted. - Knowledge of each individual patient's NT-proBNP range may be more useful than using similar cut-points for every patient. Please note that marked elevations in NT-proBNP levels may be observed in state other than Left Ventricular Congestive Failure, including: acute coronary syndromes, right heart strain/failure (including pulmonary embolism and cor pulmonale), critical illness, renal failure, as well as advanced age. - References: 1. Jhonny HODGSON et.al. Eur Heart J. 2006:27:330-337. 2. Melissa BASSETT, Gordon BURGER. J. AM Peri Cardiol: Cardiovasc Imag. 2009;2: 216- 225. Interpretive Data Last Revised Date: 2017. Blood 07/18/2024 8:15 AM CDT 07/18/2024 8:21 AM CDT us Israel Edmonds MD LAB BLOOD ORDERABLES Final R esult [facility] 1 [facility] [place] [address] * Magnesium (07/18/2024 8:15 AM CDT) Magnesium 1.8 1.4 - 2.5 mg/dL Blood 07/18/2024 8:15 AM CDT 07/18/2024 8:21 AM CDT Israel Edmonds MD LAB BLOOD ORDERABLES Final R esult Performing Organization Address [facility] Co de Phone Number J[facility]ON [facility]) [address] [place] [address] * eGFR (07/18/2024 7:59 AM CDT) eGFR >90 >=60 mL/min/1. 73 m2 Comment: Interpretive Data Reference Interval Normal >/= 90 mL/min/1.73m2 Mildly decreased* 60 - 89 mL/min/1.73m2 Mildly to moderately decreased 45 - 59 mL/min/1.73m2 Moderately to severely decreased 30 - 44 mL/min/1.73m2 Severely decreased 15 - 29 mL/min/1.73m2 Kidney Failure < 15 mL/min/1.73m2 *Relative to young adult level Estimated glomerular filtration rate is determined by the 2020 CKD-EPI equation recommended by the National Kidney Foundation (A Unifying Approach to GFR Estimation: Recommendations of the NKF-ASK Task Force on Reassessing the Inclusion of Race in Diagnosing Kidney Disease, JASN 2020). The CKD-EPI equation should not be used for patients with unstable renal function and has not been validated in children and those over 70. Current interpretive data was last reviewed 2021. Blood 07/18/2024 7:59 AM CDT 07/18/2024 8:02 AM CDT us Israel Edmonds MD LAB BLOOD ORDERABLES Final R esult JASON JACK ([place]EL[place]) 1 [facility] Department [place] [address] * Differential, auto (07/18/2024 7:59 AM CDT) Neutrophil abs 3.59 1.50 - 6.50 K/cumm Imm gran abs 0.01 0.00 - 0.10 K/cumm [facility] ([place]) Lymphocyte abs 2.54 0.80 - 3.30 K/cumm [facility] ([place]) Monocyte abs 0.43 0.20 - 0.80 K/cumm [facility] ([place]) Eosinophil abs 0.03 0.00 - 0.50 K/cumm [facility] ([place]) Basophil abs 0.03 0.00 - 0.10 K/cumm [facility] ([place]) Neutrophil pct 54.0 % [facility] ([place]) Comment: Interpretive Data Percent cell count reference ranges are not reported, since discordance with absolute values may lead to misinterpretation of CBC data. Current Interpretive Data was last revised on 2017. Imm gran pct 0.2 % [facility] ([place]) Comment: Interpretive Data Percent cell count reference ranges are not reported, since discordance with absolute values may lead to misinterpretation of CBC data. Current Interpretive Data was last revised on 2017. Lymphocyte pct 38.3 % [facility] ([place]) Comment: Interpretive Data Percent cell count reference ranges are not reported, since discordance with absolute values may lead to misinterpretation of CBC data. Current Interpretive Data was last revised on 2017. Monocyte pct 6.5 % [facility] ([place]) Comment: Interpretive Data Percent cell count reference ranges are not reported, since discordance with absolute values may lead to misinterpretation of CBC data. Current Interpretive Data was last revised on 2017. Eosinophil pct 0.5 % [facility] ([place]) Comment: Interpretive Data Percent cell count reference ranges are not reported, since discordance with absolute values may lead to misinterpretation of CBC data. Current Interpretive Data was last revised on 2017. Basophil pct 0.5 % [facility] ([place]) Comment: Interpretive Data Percent cell count reference ranges are not reported, since discordance with absolute values may lead to misinterpretation of CBC data. Current Interpretive Data was last revised on 2017. Blood 07/18/2024 7:59 AM CDT 07/18/2024 8:02 AM CDT Israel Edmonds MD LAB BLOOD ORDERABLES Final R esult [facility] ([place]) 1 [facility] Department [place] [address] * CBC with auto differential (07/18/2024 7:59 AM CDT) WBC 6.63 3.80 - 9.90 K/cumm Hgb 14.6 11.9 - 15.5 g/dL [facility] ([place]) Hct 41.0 35.6 - 45.5 % [facility] ([place]) Plt 225 150 - 400 K/cumm [facility] ([place]) MPV 10.1 9.1 - 12.3 fL [facility] ([place]) RBC 4.42 3.90 - 5.20 M/cumm [facility] ([place]) MCV 92.8 81.3 - 96.4 fL [facility] ([place]) MCH 33.0 27.1 - 33.3 pg [facility] ([place]) MCHC 35.6 32.3 - 35.7 g/dL [facility] ([place]) RDW CV 13.4 11.1 - 14.9 % [facility] ([place]) RDW SD 45.8 35.7 - 48.1 fL [facility] ([place]) NRBC abs 0.00 0.00 - 0.01 K/cumm [facility] ([place]) Blood 07/18/2024 7:59 AM CDT 07/18/2024 8:02 AM CDT Israel Edmonds MD LAB BLOOD ORDERABLES Final R esult Performing Organization Address [facility]/ZIP Co de Phone Number JASON JACK (BIGELOW) 1 [facility] [place] [address] * Erythrocyte sedimentation rate (07/18/2024 7:59 AM CDT) Erythrocyte sedimentation rate 20 1 - 30 mm/hr Blood 07/18/2024 7:59 AM CDT 07/18/2024 8:34 AM CDT Israel Edmonds MD LAB BLOOD ORDERABLES Final R esult Performing Organization Address [facility] Co de Phone Number JASON JACK (BIGELOW) 1 [facility] [place] [address] * CRP (acute phase) (07/18/2024 7:59 AM CDT) CRP 7.4 <=10.0 mg/L Blood 07/18/2024 7:59 AM CDT 07/18/2024 8:34 AM CDT Israel Edmonds MD LAB BLOOD ORDERABLES Final R esult Performing Organization Address [facility] Co de Phone Number JASON JACK (BIGELOW) 1 [facility] [place] [address] * Ethanol (07/18/2024 7:59 AM CDT) Ethanol <10 <=10 mg/dL Comment: Interpretive Data Legal limit of intoxication > or = 80 mg/dL Levels > or = 400 mg/dL are potentially TOXIC. Current interpretive data was last revised on 2018. Blood 07/18/2024 7:59 AM CDT 07/18/2024 8:02 AM CDT Israel Edmonds MD LAB BLOOD ORDERABLES Final R esult Performing Organization Address City/[facility]/ZIP Co de Phone Number JASON JACK (MAULIK) 1 [facility] [place] [address] * (ABNORMAL) Comprehensive metabolic panel (07/18/2024 7:59 AM CDT) Sodium 139 135 - 145 mmol/L Potassium, pl 3.6 3.3 - 4.9 mmol/L [facility] ([place]) Chloride 105 97 - 110 mmol/L [facility] ([place]) CO2 21(L) 22 - 32 mmol/L [facility] ([place]) Anion gap 13 2 - 15 mmol/L [facility] ([place]) BUN 5(L) 6 - 25 mg/dL [facility] ([place]) Creatinine 0.70 0.60 - 1.10 mg/dL [facility] ([place]) Comment:Icteric sample, test results may be affected. Glucose 100 70 - 199 mg/dL [facility] ([place]) Comment: Interpretive Data Fasting glucose >/= 126 mg/dl is diagnostic for diabetes. Fasting is defined as no caloric intake for at least 8 hours. Fasting glucose between 100 mg/dl to 125 mg/dl is diagnostic of prediabetes. In a patient with classic symptoms of hyperglycemia or hyperglycemic crisis, a random glucose >/= 200 mg/dl is diagnostic for diabetes. In the absence of unequivocal hyperglycemia, results should be confirmed by repeat testing. The classification and Diagnosis of Diabetes Diabetes Care 2021; 46: S19-S40. Current interpretive data was last revised 2022. Calcium 10.4(H) 8.5 - 10.3 mg/dL [facility] ([place]) Bilirubin, total 1.1 0.1 - 1.2 mg/dL [facility] ([place]) Protein, pl 7.7 6.5 - 8.5 g/dL [facility] ([place]) Albumin 4.2 3.5 - 5.0 g/dL [facility] ([place]) Alk phos 170(H) 40 - 130 Units/L [facility] ([place]) ALT 11 7 - 45 Units/L [facility] ([place]) AST 15 10 - 45 Units/L [facility] ([place]) Comment:Slightly Hemolyzed S pecimen Blood 07/18/2024 7:59 AM CDT 07/18/2024 8:02 AM CDT Israel Edmonds MD LAB BLOOD ORDERABLES Final R esult Performing Organization Address City/[facility]/ZIP Co de Phone Number [facility] ([place]) 1 [facility] Department [place] [address] * ECG 12 lead (07/18/2024 7:55 AM CDT) 07/18/2024 7:55 AM CDT Narrative [facility] - 07/19/2024 7:21 AM CDT Vent Rate: 86 bpm RR Interval: 691 msec [place] Interval: 187 msec QRS Duration: 101 msec QT Interval: 360 msec QTC Interval: 404 msec P-R-T [place]: 75 - -44 - 43 degrees IMPRESSION: SINUS RHYTHM POSSIBLE LEFT ATRIAL ENLARGEMENT [-0.1mV P-WAVE IN V1/V2] LEFT AXIS DEVIATION [QRS AXIS < -30] PATTERN CONSISTENT WITH PULMONARY DISEASE INCOMPLETE RIGHT BUNDLE BRANCH BLOCK [90+ ms QRS DURATION, TERMINAL R IN V1/V2, 40+ ms S IN I/aVL/V4/V5/V6] ABNORMAL ECG NO CHANGE FROM PREVIOUS TRACING NOTED Electronically Signed By: Gallito Bardales MD Israel Edmonds MD ECG ORDERABLES Final Result Performing Organization Address [facility] Co de Phone Number [email or web address] [facility] * Immunotyping, serum with interpretation (04/28/2024 1:14 PM HOUSEKEEPING ASSOCIATE) Immunofixation See Cl Path Rpt Comment:Testing performed by : [facility], [address] [place] [address]., [id number] Blood 04/28/2024 1:14 PM HOUSEKEEPING ASSOCIATE 04/28/2024 7:24 PM HOUSEKEEPING ASSOCIATE Mario Ferguson MD LAB BLOOD ORDERABLES Fin al Result Performing Organization Address [facility] Co de Phone Number [facility] (MAULIK) 1 [facility] Department [place] [address] * Clinical pathology report (04/28/2024 1:14 PM HOUSEKEEPING ASSOCIATE) Miscellaneous 04/28/2024 1:1 4 PM HOUSEKEEPING ASSOCIATE 04/29/2024 8:09 AM HOUSEKEEPING ASSOCIATE Narrative 05/02/2024 10:47 AM HOUSEKEEPING ASSOCIATE EPIC results best viewed via link to PDF [facility] Department of Pathology [address] [place] [address] Final Report Note to Patients: This report may contain a detailed description of human tissue sent by a health care provider to the laboratory for pathologic evaluation. The content of this report is essential for diagnosis and may provide important critical findings. This information may be unfamiliar to patients to review without a medical professional present. It is advised that the patient review this report in the presence of a health care provider who can answer questions and explain the details. Patient Name: MARE RANGEL Address: [address] [place] [id number] Gender: F : 1970 (Age: 54) Service: Location: N : [id number] Hospital #: [id number] Patient Type: [facility] ANCILLARY Taken: 04/28/2024 Received: 04/29/2024 Accessioned: 04/29/2024 Physician(s): Mario Ferguson M.D. [facility] Specimen(s) Received A: Blood (serum) Serum Protein Electrophoresis with Immunofixation/ImmunotypingReported:05/02/2024 Interpretation: Serum Protein Electrophoresis: Normal serum protein electrophoresis pattern. Serum Protein Immunofixation: Normal serum immunofixation study. Comment: Serum Protein Electrophoresis: There are no significant abnormalities of the protein fractions. Serum Protein Immunofixation: Examination of G, A and M heavy chains as well as kappa and lambda light chains reveals no evidence of abnormal peaks. See Epic and/or separate report for protein fraction table. Scott Shore MD PhDReport Electronically Reviewed and Signed Out By Scott Shore MD PhD 05/02/2024 10:44:10 The performance characteristics of some immunohistochemical stains, fluorescence in-situ hybridization tests and immunophenotyping by flow cytometry cited in this report (if any) were determined by the Surgical Pathology Department at [facility] as part of an ongoing quality lab technician program and in compliance with federally mandated regulations drawn from the Clinical Laboratory Improvement Act of 1988 (CLIA '88). Some of these tests rely on the use of analyte specific reagents and are subject to specific labeling requirements by the US Food and Drug Administration. Such diagnostic tests may only be performed in a facility that is certified by the Department of Health and Human Services as a high complexity laboratory under CLIA '88. The FDA has determined that such clearance or approval is not necessary. This test is used for clinical purposes. It should not be regarded as investigational or for research. Nevertheless, federal rules concerning the medical use of analyte specific reagents require that the following disclaimer be attached to the report: This test was developed and its performance characteristics determined by the Surgical Pathology Department [facility]. It has not been cleared or approved by the U. S. Food and Drug Administration. REPORT IMAGES AND SCANNED DOCUMENTS, IF INCLUDED, ONLY VIEWABLE IN PDF VERSION OF REPORTe o Mario Ferguson MD LAB PATHOLOGY ORDERABLES Final Result * eGFR (04/28/2024 1:14 PM HOUSEKEEPING ASSOCIATE) eGFR 90 >=60 mL/min/1. 73 m2 Comment: Interpretive Data Reference Interval Normal >/= 90 mL/min/1.73m2 Mildly decreased* 60 - 89 mL/min/1.73m2 Mildly to moderately decreased 45 - 59 mL/min/1.73m2 Moderately to severely decreased 30 - 44 mL/min/1.73m2 Severely decreased 15 - 29 mL/min/1.73m2 Kidney Failure < 15 mL/min/1.73m2 *Relative to young adult level Estimated glomerular filtration rate is determined by the 2020 CKD-EPI equation recommended by the National Kidney Foundation (A Unifying Approach to GFR Estimation: Recommendations of the NKF-ASK Task Force on Reassessing the Inclusion of Race in Diagnosing Kidney Disease, JASN 2020). The CKD-EPI equation should not be used for patients with unstable renal function and has not been validated in children and those over 70. Current interpretive data was last reviewed 2021. Blood 04/28/2024 1:14 PM HOUSEKEEPING ASSOCIATE 04/28/2024 1:21 PM HOUSEKEEPING ASSOCIATE us Mario Ferguson MD LAB BLOOD ORDERABLES Fin al Result JASON JACK ([place]IG[place]OW) 1 [facility] Department [place] [address] * Differential, auto (04/28/2024 1:14 PM HOUSEKEEPING ASSOCIATE) Neutrophil abs 3.2 1.5 - 6.5 K/cumm Imm gran abs 0.0 0.0 - 0.1 K/cumm [facility] ([place]) Lymphocyte abs 3.3 0.8 - 3.3 K/cumm [facility] ([place]) Monocyte abs 0.3 0.2 - 0.8 K/cumm [facility] ([place]) Eosinophil abs 0.1 0.0 - 0.5 K/cumm [facility] ([place]) Basophil abs 0.0 0.0 - 0.1 K/cumm [facility] ([place]) Neutrophil pct 45.8 % [facility] ([place]) Comment: Interpretive Data Percent cell count reference ranges are not reported, since discordance with absolute values may lead to misinterpretation of CBC data. Current Interpretive Data was last revised on 2017. Imm gran pct 0.3 % [facility] ([place]) Comment: Interpretive Data Percent cell count reference ranges are not reported, since discordance with absolute values may lead to misinterpretation of CBC data. Current Interpretive Data was last revised on 2017. Lymphocyte pct 48.1 % [facility] ([place]) Comment: Interpretive Data Percent cell count reference ranges are not reported, since discordance with absolute values may lead to misinterpretation of CBC data. Current Interpretive Data was last revised on 2017. Monocyte pct 4.6 % [facility] ([place]) Comment: Interpretive Data Percent cell count reference ranges are not reported, since discordance with absolute values may lead to misinterpretation of CBC data. Current Interpretive Data was last revised on 2017. Eosinophil pct 0.9 % [facility] ([place]) Comment: Interpretive Data Percent cell count reference ranges are not reported, since discordance with absolute values may lead to misinterpretation of CBC data. Current Interpretive Data was last revised on 2017. Basophil pct 0.3 % JASON JACK (MAULIK) Comment: Interpretive Data Percent cell count reference ranges are not reported, since discordance with absolute values may lead to misinterpretation of CBC data. Current Interpretive Data was last revised on 2017. Blood 04/28/2024 1:14 PM HOUSEKEEPING ASSOCIATE 04/28/2024 1:21 PM HOUSEKEEPING ASSOCIATE Mario Ferguson MD LAB BLOOD ORDERABLES Fin al Result Performing Organization Address [facility] Co de Phone Number JASON JACK (MAULIK) 1 [facility] [employer] [place] [address] * (ABNORMAL) Immunoglobulin free light chains (04/28/2024 1:14 PM HOUSEKEEPING ASSOCIATE) [place]/Lambda ratio 1.40 0.26 - 1.65 Comment:Testing performed by : [facility], [address] [place] [address]., [id number] [place] free light chain 2.19(H) 0.33 - 1.94 mg/dL JASON JACK (MAULIK) Comment: Interpretive Data The [employer] [place] FLC assay procedure was used. Results from different manufacturers or methods may not be comparable. Serial testing should be performed using the same method. Testing performed by: [facility], [address] [place] [address]., [phone] Lambda free light chain 1.59 0.57 - 2.63 mg/dL JASON JACK (MAULIK) Comment: Interpretive Data The [employer] Lambda FLC assay procedure was used. Results from different manufacturers or methods may not be comparable. Serial testing should be performed using the same method. Testing performed by: [facility], [address] [place] [address]., [id number] Blood 04/28/2024 1:14 PM HOUSEKEEPING ASSOCIATE 04/28/2024 7:24 PM HOUSEKEEPING ASSOCIATE Mario Ferguson MD LAB BLOOD ORDERABLES Fin al Result Performing Organization Address [facility]/ZIP Co de Phone Number JASON JACK (MAULIK) 1 [facility] [place] [address] * (ABNORMAL) CBC with auto differential (04/28/2024 1:14 PM HOUSEKEEPING ASSOCIATE) [facility] WBC 6.9 3.8 - 9.9 K/cumm Hgb 13.9 11.9 - 15.5 g/dL [facility] ([place]) Hct 40.3 35.6 - 45.5 % [facility] ([place]) Plt 224 150 - 400 K/cumm [facility] ([place]) MPV 10.0 9.1 - 12.3 fL [facility] ([place]) RBC 4.21 3.90 - 5.20 M/cumm [facility] ([place]) MCV 95.7 81.3 - 96.4 fL [facility] ([place]) MCH 33.0 27.1 - 33.3 pg [facility] ([place]) MCHC 34.5 32.3 - 35.7 g/dL [facility] ([place]) RDW CV 13.7 11.1 - 14.9 % [facility] ([place]) RDW SD 48.8(H) 35.7 - 48.1 fL [facility] ([place]) NRBC abs 0.00 0.00 - 0.01 K/cumm [facility] ([place]) Blood 04/28/2024 1:14 PM HOUSEKEEPING ASSOCIATE 04/28/2024 1:21 PM HOUSEKEEPING ASSOCIATE us Mario Ferguson MD LAB BLOOD ORDERABLES Fin al Result [facility] ([place]) 1 [facility] Department [place] [address] * Protein electrophoresis with reflex, serum with interpretation (04/28/2024 1:14 PM HOUSEKEEPING ASSOCIATE) [facility] Protein, sr 7.4 6.2 - 8.2 g/dL Comment:Testing performed by : [facility], [address] [place] [address]., [address] Albumin 4.5 3.2 - 5.0 g/dL [facility] (MAULIK) Comment:Testing performed by : [facility], [address] [place] [address]., [phone] Alpha-1 globulin 0.3 0.2 - 0.4 g/dL [facility] ([place]) Comment:Testing performed by : [facility], [address] [place] [address]., [address] Alpha-2 globulin 0.7 0.5 - 1.0 g/dL [facility] ([place]) Comment:Testing performed by : [facility], [address] [place] [address]., [address] Beta-1 globulin 0.4 0.3 - 0.6 g/dL [facility] ([place]) Comment:Testing performed by : [facility], [address] [place] [address]., [address] Beta-2 globulin 0.4 0.2 - 0.6 g/dL [facility] ([place]) Comment:Testing performed by : [facility], [address] [place] [address]., [address] Gamma globulin 1.1 0.5 - 1.7 g/dL [facility] ([place]) Comment:Testing performed by : [facility], [address] [place] [address], [id number] SPEP interp See Cl Path Rpt [facility] ([place]) Comment:Testing performed by : [facility], [address] [place] [address], [phone] Blood 04/28/2024 1:14 PM HOUSEKEEPING ASSOCIATE 04/28/2024 7:24 PM HOUSEKEEPING ASSOCIATE us Mario Ferguson MD LAB BLOOD ORDERABLES Fin al Result Performing Organization Address City/[facility] Co de Phone Number [facility] ([place]) 1 [facility] [employer] [place] [address] * Lactate dehydrogenase (LD) (04/28/2024 1:14 PM HOUSEKEEPING ASSOCIATE) Lactate dehydrogenase (LDH) 156 100 - 250 Units/L Blood 04/28/2024 1:14 PM HOUSEKEEPING ASSOCIATE 04/28/2024 1:21 PM HOUSEKEEPING ASSOCIATE Mario Ferguson MD LAB BLOOD ORDERABLES Fin al Result [facility] ([place]ULIK) 1 [place] [address] * IgA (04/28/2024 1:14 PM HOUSEKEEPING ASSOCIATE) Immunoglobulin A 231 70 - 400 mg/dL Comment:Testing performed by : [facility], [address] [place] [address], [phone] Blood 04/28/2024 1:14 PM HOUSEKEEPING ASSOCIATE 04/28/2024 7:24 PM HOUSEKEEPING ASSOCIATE Mario Ferguson MD LAB BLOOD ORDERABLES Fin al Result [facility] ([place]) 1 [place] [address] * IgM (04/28/2024 1:14 PM HOUSEKEEPING ASSOCIATE) Immunoglobulin M 48 40 - 150 mg/dL Comment:Testing performed by : [facility], [address] [place] [address], [phone] Blood 04/28/2024 1:14 PM HOUSEKEEPING ASSOCIATE 04/28/2024 7:24 PM HOUSEKEEPING ASSOCIATE Mario Ferguson MD LAB BLOOD ORDERABLES Fin al Result Performing Organization Address City/[facility]/ZIP Co de Phone Number [facility] ([place]) 1 [facility] [place] [address] * IgG (04/28/2024 1:14 PM HOUSEKEEPING ASSOCIATE) Immunoglobulin G 1,324 700 - 1,600 mg/dL Comment:Testing performed by : [facility], [address] [place] [address], [facility], [address] Blood 04/28/2024 1:14 PM HOUSEKEEPING ASSOCIATE 04/28/2024 7:24 PM HOUSEKEEPING ASSOCIATE Mario Ferguson MD LAB BLOOD ORDERABLES Fin al Result [facility] ([place]) 1 [facility] [place] [address] * Beta 2 microglobulin, serum (04/28/2024 1:14 PM HOUSEKEEPING ASSOCIATE) Beta 2 Microglobulin, Serum 1.76 1.21 - 2.70 mcg/mL [facility] Comment: Test Performed by: [facility] [address] [place] [address] Bridge Painter Helper: Gini Duncan Ph.D.; CLIA# [id number] Blood 04/28/2024 1:14 PM HOUSEKEEPING ASSOCIATE 04/28/2024 1:21 PM HOUSEKEEPING ASSOCIATE us Mario Ferguson MD LAB BLOOD ORDERABLES Fin al Result [facility] ([place]) 1 [facility] Department [place] [address] [place] ref [facility] * (ABNORMAL) Comprehensive metabolic panel (04/28/2024 1:14 PM HOUSEKEEPING ASSOCIATE) Pathologist [facility] Sodium 140 135 - 145 mmol/L Potassium, pl 3.3 3.3 - 4.9 mmol/L [facility] ([place]) Chloride 106 97 - 110 mmol/L [facility] ([place]) CO2 25 22 - 32 mmol/L [facility] ([place]) Anion gap 9 2 - 15 mmol/L [facility] ([place]) BUN 6 6 - 25 mg/dL [facility] ([place]) Creatinine 0.77 0.60 - 1.10 mg/dL [facility] ([place]) Glucose 89 70 - 199 mg/dL [facility] ([place]) Comment: Interpretive Data Fasting glucose >/= 126 mg/dl is diagnostic for diabetes. Fasting is defined as no caloric intake for at least 8 hours. Fasting glucose between 100 mg/dl to 125 mg/dl is diagnostic of prediabetes. In a patient with classic symptoms of hyperglycemia or hyperglycemic crisis, a random glucose >/= 200 mg/dl is diagnostic for diabetes. In the absence of unequivocal hyperglycemia, results should be confirmed by repeat testing. The classification and Diagnosis of Diabetes Diabetes Care 2021; 46: S19-S40. Current interpretive data was last revised 2022. Calcium 10.1 8.5 - 10.3 mg/dL [facility] ([place]) Bilirubin, total 0.3 0.1 - 1.2 mg/dL [facility] ([place]) Protein, pl 7.4 6.5 - 8.5 g/dL [facility] ([place]) Albumin 4.4 3.5 - 5.0 g/dL [facility] ([place]) Alk phos 162(H) 40 - 130 Units/L [facility] ([place]) ALT 10 7 - 45 Units/L [facility] ([place]) AST 13 10 - 45 Units/L [facility] ([place]) Blood 04/28/2024 1:14 PM HOUSEKEEPING ASSOCIATE 04/28/2024 1:21 PM HOUSEKEEPING ASSOCIATE us Mario Ferguson MD LAB BLOOD ORDERABLES Fin al Result [facility] ([place]IK) 1 [facility] Department [place] [address] * (ABNORMAL) Urinalysis reflex to microscopic and culture Urine (04/21/2024 3:03 PM HOUSEKEEPING ASSOCIATE) Color, ur Yellow Yellow Clarity, ur Clear Clear [facility] (MAULIK) Specific gravity, ur 1.013 1.003 - 1.030 [facility] ([place]) pH, urine 6.5 [facility] ([place]) Comment: Interpretive Data U rine pH is affected by diet, medications, systemic acid-base disturbances, and renal tubular function. pH may affect urinary stone formation. For example, urine pH below 6.0 may help reduce the tendency for calcium phosphate stones and pH greater than 6.0 may reduce the tendency for uric acid stone formation. Source: [facility] [place] Current Interpretive Data was last revised on 2017 Protein, ur ql 1+(A) Negative [facility] ([place]) Glucose, ur ql Negative Negative [facility] ([place]) Ketones, ur Negative Negative [facility] ([place]) Bilirubin, ur Negative Negative [facility] ([place]) Blood, ur Negative Negative [facility] ([place]) Urobilinogen, ur <2.0 <2.0 mg/dL [facility] ([place]) Nitrite, ur Negative Negative [facility] ([place]) Leukocyte esterase, ur Negative Negative [facility] ([place]) UA reflex comment Reflex to microscopic UA will be performed. JASON [facility] ([place]) Urine 04/21/2024 3:03 PM HOUSEKEEPING ASSOCIATE 04/21/2024 3:07 PM HOUSEKEEPING ASSOCIATE Catalina Casillas MD LAB MICROBIOLOGY - GENERA L ORDERABLES Final Result [facility]ULFO [facility] ([place]) 1 [facility] Department [place] [address] * (ABNORMAL) Drugs of Abuse Screen, Urine without Confirmation (04/21/2024 3:03 PM HOUSEKEEPING ASSOCIATE) Amphetamine, ur Not Detected CutOff 500ng/mL Comment: Interpretive Data - Amphetamines: Samples containing greater than 500 ng/mL d-methamphetamine or other cross-reacting amphetamine compounds are reported as positive. Amphetamine immunoassays are subject to significant false positive rates due to cross-reactivity of non-amphetamine drugs. Confirmatory testing required for definitive results. Current Interpretive Data was last reviewed 2022. Barbiturates, ur Not Detected CutOff 200ng/mL JASON [facility] ([place]) Comment: Interpretive Data - Barbiturates: Samples containing greater than 200 ng/mL secobarbital or other cross-reacting barbiturate compounds are reported as positive. False positive and false negative results are possible. Confirmatory testing required for definitive results. Current Interpretive Data was last reviewed 2022. Benzodiazepines, ur Not Detected CutOff 100ng/mL [facility] ([place]) Comment: Interpretive Data - Benzodiazepines: Samples containing greater than 100 ng/mL nordiazepam or other cross-reacting compounds are reported as positive. False positive and false negative results are possible. Confirmatory testing required for definitive results. Current Interpretive Data was last reviewed 2022. Cannabinoids, ur Screen Positive, presumptive (A) CutOff 50 ng/mL [facility] ([place]) Comment: Interpretive Data - Cannabinoids: Samples containing greater than 50 ng/mL delta-9 THC -COOH or other cross- reacting compounds are reported as positive. False positive and false negative results are possible. Confirmatory testing required for definitive results. Current Interpretive Data was last reviewed 2022. Cocaine, ur Not Detected CutOff 150ng/mL [facility] ([place]) Comment: Interpretive Data - Cocaine: Samples containing greater than 150 ng/mL benzoylecgonine or other cross- reacting compounds are reported as positive. False positive and false negative results are possible. Confirmatory testing required for definitive results. Current Interpretive Data was last reviewed 2022. Fentanyl, Ur Not Detected CutOff 5 ng/mL [facility] ([place]) Comment: Interpretive Data - Fentanyl: Samples containing greater than 5 ng/mL norfentanyl, fentanyl, or other cross-reacting fentanyl compounds are reported as positive. False positive and false negative results are possible. Confirmatory testing required for definitive results. Current Interpretive Data was last reviewed 2023. Methadone, ur Not Detected CutOff 300ng/mL [facility] ([place]) Comment: Interpretive Data - Methadone: Samples containing greater than 300 ng/mL d,l-methadone or other cross-reacting compounds are reported as positive. False positive and false negative results are possible. Confirmatory testing required for definitive results. Current Interpretive Data was last reviewed 2022. Opiates, ur Not Detected CutOff 300ng/mL [facility] ([place]) Comment: Interpretive Data - Opiates: Samples containing greater than 300 ng/mL morphine or other cross-reacting compounds are reported as positive. False positive and false negative results are possible. Confirmatory testing required for definitive results. Current Interpretive Data was last reviewed 2022. Oxycodone, ur Not Detected CutOff 100ng/mL [facility] ([place]) Comment: Interpretive Data - Oxycodone: Samples containing greater than 100 ng/mL oxycodone or other cross-reacting compounds are reported as positive. False positive and false negative results are possible. Confirmatory testing required for definitive results. Current Interpretive Data was last reviewed 2022. Phencyclidine, ur Not Detected CutOff 25 ng/mL [facility] ([place]) Comment: Interpretive Data - Phencyclidine: Samples containing greater than 25 ng/mL phencyclidine or other cross-reacting compounds are reported as positive. False positive and false negative results are possible. Confirmatory testing required for definitive results. Current Interpretive Data was last reviewed 2022. Urine Creatinine 102 mg/dL [facility] ([place]) Comment: Interpretive Data Urine Creatinine: < 10 mg/dL is extremely dilute = or > 10 but < 20 mg/dL is dilute = or > 20 mg/dL is normal Current Interpretive Data was last revised on 2017. Urine 04/21/2024 3:03 PM HOUSEKEEPING ASSOCIATE 04/21/2024 3:08 PM HOUSEKEEPING ASSOCIATE Narrative JASON [facility] ([place]) - 04/21/2024 3:38 PM HOUSEKEEPING ASSOCIATE Drug of Abuse screening is performed by immunoassay for medical purposes only. This is not to be used for Pain Management purposes. Catalina Casillas MD LAB URINE ORDERABLES Es l Result Performing Organization Address [facility] Co de Phone Number JASON JACK ([place]) 1 [facility] [employer] [place] [address] * (ABNORMAL) Urinalysis, microscopic only (04/21/2024 3:03 PM HOUSEKEEPING ASSOCIATE) WBC, ur 0-5 0 - 5 /HPF RBC, ur 0-2 0 - 2 /HPF JASON [facility] ([place]) Epithelial cells, squamous, ur 1-5 0 - 5 /HPF JASON [facility] ([place]) Bacteria, ur Trace(A) JASON [facility] ([place]) Mucous, ur Present(A) [facility] ([place]) Culture Reflex Comment Reflex conditions for urine culture (WBC >10) not met. [facility] ([place]) Urine 04/21/2024 3:03 PM HOUSEKEEPING ASSOCIATE 04/21/2024 3:07 PM HOUSEKEEPING ASSOCIATE Catalina Casillas MD LAB URINE ORDERABLES Es l Result Performing Organization Address [facility] Co de Phone Number JASON J[facility] ([place]) 1 [facility] [place] [address] * CT Lumbar Spine WO Contrast (04/21/2024 12:14 PM HOUSEKEEPING ASSOCIATE) Anatomical Region Laterality Modality Spine N/A Computed Tomogra phy 04/21/2024 1:30 PM HOUSEKEEPING ASSOCIATE Narrative 04/21/2024 1:38 PM HOUSEKEEPING ASSOCIATE EXAM DESCRIPTION: CT LUMBAR SPINE WO CONTRAST REASON FOR STUDY: Acute right facial, arm, and leg numbness in association with complaint of feels like she is burning up all over inside her body for a few days. No provided lumbar spine/back complaints. No provided history of trauma or inciting and/or aggravating events, though patient reports recently diagnosed with unspecified cancer without provided history of therapeutic interventions or metastatic disease burden. No provided surgical history. 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 TECHNIQUE: Axial images acquired through the lumbar spine without intravenous contrast. Reconstructed coronal and sagittal MPR images reviewed. All images stored on PACS. Automated exposure control was used as a dose optimization technique for this examination. COMPARISON: MRI lumbar spine without and with contrast 10/06/2023; MRI lumbar spine without and with contrast 10/05/2022 FINDINGS: SEGMENTATION: Redemonstration of lumbosacral transitional anatomy manifested as sacralization of the L5 vertebral body. For the purposes of this study, the lowest fully formed intervertebral disc level is labeled L4-5, noting rudimentary L5-S1 disc (thus maintaining numbering schema utilized on above-described prior MR imaging of the lumbar spine). ALIGNMENT: Alignment and curvature unchanged. VERTEBRAE: No acute fracture. Vertebral body heights unchanged. Spondylosis. DISC HEIGHT: Intervertebral disc heights unchanged. HARDWARE: None in the lumbar spine. INDIVIDUAL DISC LEVELS: No significant osseous spinal canal stenosis. Multilevel variable osseous neural foraminal stenosis. VISUALIZED RIBS: No acute abnormality. SOFT TISSUES: No unenhanced CT evidence of acute abnormality, noting previously detailed spinal canal schwannoma at the level of L1-L2 poorly evaluated on unenhanced CT imaging. If clinically warranted, MRI of the lumbar spine without and with contrast, to include multiplanar T1 postcontrast fat-saturated sequences, can be performed for further evaluation OTHER: No other significant finding. IMPRESSION: No acute fracture or subluxation of the lumbar spine with chronic findings as above on unenhanced CT lumbar spine. THIS IS AN ELECTRONICALLY VERIFIED FINAL REPORT 04/21/2024 1:38 PM - Electronically signed by Hua Fiore M.D. RUBEN: RUBEN Report ID: [id number] Reading Location: [place] [address] Procedure Note Hua Fiore MD - 04/21/2024 EXAM DESCRIPTION: CT LUMBAR SPINE WO CONTRAST REASON FOR STUDY: Acute right facial, arm, and leg numbness in association with complaint of feels like she is burning up all over inside her bodyfor a few days. No provided lumbar spine/back complaints. No provided historyof trauma or inciting and/or aggravating events, though patient reportsrecently diagnosed with unspecified cancer without provided history of therapeutic interventions or metastatic disease burden. No provided surgical history. Per imaging record, history of spinal canal schwannoma at the level ofL1-L2. TECHNIQUE: Axial images acquired through the lumbar spine withoutintravenous contrast. Reconstructed coronal and sagittal MPR images reviewed. Allimages stored on PACS. Automated exposure control was used as a dose optimization technique forthis examination. COMPARISON: MRI lumbar spine without and with contrast 10/06/2023; MRI lumbar spine without and with contrast 10/05/2022 FINDINGS: SEGMENTATION: Redemonstration of lumbosacral transitional anatomymanifested as sacralization of the L5 vertebral body. For the purposes of thisstudy, the lowest fully formed intervertebral disc level is labeled L4-5, noting rudimentary L5-S1 disc (thus maintaining numbering schema utilized on above-described prior MR imaging of the lumbar spine). ALIGNMENT: Alignment and curvature unchanged. VERTEBRAE: No acute fracture. Vertebral body heights unchanged. Spondylosis. DISC HEIGHT: Intervertebral disc heights unchanged. HARDWARE: None in the lumbar spine. INDIVIDUAL DISC LEVELS: No significant osseous spinal canal stenosis. Multilevel variable osseous neural foraminal stenosis. VISUALIZED RIBS: No acute abnormality. SOFT TISSUES: No unenhanced CT evidence of acute abnormality, noting previously detailed spinal canal schwannoma at the level of L1-L2 poorly evaluated on unenhanced CT imaging. If clinically warranted, MRI of the lumbar spine without and with contrast, to include multiplanar [id number] fat-saturated sequences, can be performed for further evaluation OTHER: No other significant finding. IMPRESSION: No acute fracture or subluxation of the lumbar spine with chronicfindings as above on unenhanced CT lumbar spine. THIS IS AN ELECTRONICALLY VERIFIED FINAL REPORT 04/21/2024 1:38 PM - Electronically signed by Hua Fiore M.D. RUBEN: RUBEN Report ID: [id number] Reading Location: [place] [address] Catalina Casillas MD IM CT PROCEDURES Final R esult * CT Head WO Contrast (04/21/2024 12:14 PM HOUSEKEEPING ASSOCIATE) Anatomical Region Laterality Modality Head and Neck N/A Computed Tomogra phy 04/21/2024 1:05 PM HOUSEKEEPING ASSOCIATE Narrative 04/21/2024 1:12 PM HOUSEKEEPING ASSOCIATE EXAM DESCRIPTION: CT HEAD WO CONTRAST REASON FOR STUDY: Acute right facial, right arm, and right leg numbness with slurred speech and dysarthria as well as complaint of feels like she is burning up all over inside her body for a few days. No provided history of trauma. Patient reports recent diagnosis of unspecified cancer without provided history of therapeutic interventions or of metastatic, to include intracranial metastatic, disease. TECHNIQUE: Axial images acquired through the brain without intravenous contrast. Images stored on PACS. Automated exposure control was used as a dose optimization technique for this examination. COMPARISON: CT head without contrast 10/14/2023 (images without report); CT head without contrast 08/06/2022 FINDINGS: BRAIN: No acute intra-axial hemorrhage. No edema, mass effect, midline shift, or herniation. No evidence of acute territorial ischemia/infarct. No suspicious focal white matter lesions with preservation of the lord-white junction. EXTRA-AXIAL SPACES: No extra-axial fluid collection. No unenhanced CT evidence of extra-axial mass. CALVARIUM: Acute calvarial fracture. 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 Mastoid air cells well-developed and well aerated. ORBITS: Subtotal visualization without evidence of acute abnormality on unenhanced CT head. 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 IMPRESSION: No unenhanced CT evidence of acute intracranial process. THIS IS AN ELECTRONICALLY VERIFIED FINAL REPORT 04/21/2024 1:12 PM - Electronically signed by Hua MIRANDA: RUBEN Report ID: [id number] Reading Location: [place] [address] Procedure Note Hua Fiore MD - 04/21/2024 EXAM DESCRIPTION: CT HEAD WO CONTRAST REASON FOR STUDY: Acute right facial, right arm, and right leg numbnesswith slurred speech and dysarthria as well as complaint of feels like she is burning up all over inside her body for a few days. No provided historyof trauma. Patient reports recent diagnosis of unspecified cancer without provided history of therapeutic interventions or of metastatic, to include intracranial metastatic, disease. TECHNIQUE: Axial images acquired through the brain without intravenous contrast. Images stored on PACS. Automated exposure control was used asa dose optimization technique for this examination. COMPARISON: CT head without contrast 10/14/2023 (images without report);CT head without contrast 08/06/2022 FINDINGS: BRAIN: No acute intra-axial hemorrhage. No edema, mass effect, midline shift, or herniation. No evidence of acute territorialischemia/infarct. No suspicious focal white matter lesions with preservation of thegray-white junction. EXTRA-AXIAL SPACES: No extra-axial fluid collection. No unenhanced CT evidence of extra-axial mass. CALVARIUM: Acute calvarial fracture. 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 Mastoid air cells well-developed andwell aerated. ORBITS: Subtotal visualization without evidence of acute abnormality on unenhanced CT head. 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 IMPRESSION: No unenhanced CT evidence of acute intracranial process. THIS IS AN ELECTRONICALLY VERIFIED FINAL REPORT 04/21/2024 1:12 PM - Electronically signed by Hua MIRANDA: RUBEN Report ID: [id number] Reading Location: [id number] us Catalina Casillas MD IMG CT PROCEDURES Final R esult * Sepsis Lactate w/ Reflex (04/21/2024 11:02 AM HOUSEKEEPING ASSOCIATE) Sepsis Lactate 1.3 0.7 - 2.0 mmol/L Blood 04/21/2024 11:0 2 AM HOUSEKEEPING ASSOCIATE 04/21/2024 11:06 AM HOUSEKEEPING ASSOCIATE us Catalina Casillas MD LAB BLOOD ORDERABLES Es l Result JASON JACK [place] 1 [facility] Department [place] [address] * eGFR (04/21/2024 11:02 AM HOUSEKEEPING ASSOCIATE) eGFR >90 >=60 mL/min/1. 73 m2 Comment: Interpretive Data Reference Interval Normal >/= 90 mL/min/1.73m2 Mildly decreased* 60 - 89 mL/min/1.73m2 Mildly to moderately decreased 45 - 59 mL/min/1.73m2 Moderately to severely decreased 30 - 44 mL/min/1.73m2 Severely decreased 15 - 29 mL/min/1.73m2 Kidney Failure < 15 mL/min/1.73m2 *Relative to young adult level Estimated glomerular filtration rate is determined by the 2020 CKD-EPI equation recommended by the National Kid[employer] (A Unifying Approach to GFR Estimation: Recommendations of the NKF-ASK Task Force on Reassessing the Inclusion of Race in Diagnosing Kidney Disease, JASN 2020). The CKD-EPI equation should not be used for patients with unstable renal function and has not been validated in children and those over 70. Current interpretive data was last reviewed 2021. Blood 04/21/2024 11:0 2 AM HOUSEKEEPING ASSOCIATE 04/21/2024 11:06 AM HOUSEKEEPING ASSOCIATE us Catalina Casillas MD LAB BLOOD ORDERABLES Es l Result JASON JACK ([place]) 1 [facility] Department [place] [address] * Differential, auto (04/21/2024 11:02 AM HOUSEKEEPING ASSOCIATE) Neutrophil abs 3.4 1.5 - 6.5 K/cumm Imm gran abs 0.0 0.0 - 0.1 K/cumm [facility] ([place]) Lymphocyte abs 2.5 0.8 - 3.3 K/cumm [facility] ([place]) Monocyte abs 0.3 0.2 - 0.8 K/cumm [facility] ([place]) Eosinophil abs 0.0 0.0 - 0.5 K/cumm [facility] ([place]) Basophil abs 0.0 0.0 - 0.1 K/cumm [facility] ([place]) Neutrophil pct 54.5 % [facility] ([place]) Comment: Interpretive Data Percent cell count reference ranges are not reported, since discordance with absolute values may lead to misinterpretation of CBC data. Current Interpretive Data was last revised on 2017. Imm gran pct 0.3 % [facility] ([place]) Comment: Interpretive Data Percent cell count reference ranges are not reported, since discordance with absolute values may lead to misinterpretation of CBC data. Current Interpretive Data was last revised on 2017. Lymphocyte pct 40.1 % [facility] ([place]) Comment: Interpretive Data Percent cell count reference ranges are not reported, since discordance with absolute values may lead to misinterpretation of CBC data. Current Interpretive Data was last revised on 2017. Monocyte pct 4.3 % [facility] ([place]) Comment: Interpretive Data Percent cell count reference ranges are not reported, since discordance with absolute values may lead to misinterpretation of CBC data. Current Interpretive Data was last revised on 2017. Eosinophil pct 0.3 % [facility] ([place]) Comment: Interpretive Data Percent cell count reference ranges are not reported, since discordance with absolute values may lead to misinterpretation of CBC data. Current Interpretive Data was last revised on 2017. Basophil pct 0.5 % [facility] ([place]) Comment: Interpretive Data Percent cell count reference ranges are not reported, since discordance with absolute values may lead to misinterpretation of CBC data. Current Interpretive Data was last revised on 2017. Blood 04/21/2024 11:0 2 AM HOUSEKEEPING ASSOCIATE 04/21/2024 11:06 AM HOUSEKEEPING ASSOCIATE Catalina Casillas MD LAB BLOOD ORDERABLES Es l Result Performing Organization Address City/[facility] Co de Phone Number [facility] ([place]) 1 [facility] [place] [address] * CBC with auto differential (04/21/2024 11:02 AM HOUSEKEEPING ASSOCIATE) WBC 6.2 3.8 - 9.9 K/cumm Hgb 14.1 11.9 - 15.5 g/dL [facility] ([place]) Hct 40.1 35.6 - 45.5 % [facility] ([place]) Plt 210 150 - 400 K/cumm [facility] ([place]) MPV 10.3 9.1 - 12.3 fL [facility] ([place]) RBC 4.29 3.90 - 5.20 M/cumm [facility] ([place]) MCV 93.5 81.3 - 96.4 fL [facility] ([place]) MCH 32.9 27.1 - 33.3 pg [facility] ([place]) MCHC 35.2 32.3 - 35.7 g/dL [facility] ([place]) RDW CV 13.7 11.1 - 14.9 % [facility] ([place]) RDW SD 46.3 35.7 - 48.1 fL [facility] ([place]) NRBC abs 0.00 0.00 - 0.01 K/cumm [facility] ([place]) Blood 04/21/2024 11:0 2 AM HOUSEKEEPING ASSOCIATE 04/21/2024 11:06 AM HOUSEKEEPING ASSOCIATE Catalina Casillas MD LAB BLOOD ORDERABLES Es l Result Performing Organization Address City/[facility]/ZIP Co de Phone Number [facility] ([place]) [address] Department [place] [address] * Protime-INR (04/21/2024 11:02 AM HOUSEKEEPING ASSOCIATE) PT 11.7 9.7 - 13.0 sec [facility] ([place]) INR 1.08 0.90 - 1.20 [facility] ([place]) Comment: Interpretive data Oral anticoagulant therapeutic ranges: Venous thromboembolism prophylaxis or treatment: 2.0-3.0 CARDIOLOGY Standard range: 2.0-3.0 High-intensity range: 2.5-3.5 Refer to indication-specific guidelines for appropriate target ranges for prosthetic heart valve replacement. Current interpretive data was last revised on 2019. Blood 04/21/2024 11:0 2 AM HOUSEKEEPING ASSOCIATE 04/21/2024 11:06 AM HOUSEKEEPING ASSOCIATE Catalina Casillas MD LAB BLOOD ORDERABLES Es l Result [facility] ([place]) 1 [facility] Department [place] [address] * (ABNORMAL) Comprehensive metabolic panel (04/21/2024 11:02 AM HOUSEKEEPING ASSOCIATE) Pathologist [facility] Sodium 136 135 - 145 mmol/L Potassium, pl 3.5 3.3 - 4.9 mmol/L [facility] ([place]) Chloride 104 97 - 110 mmol/L [facility] ([place]) CO2 20(L) 22 - 32 mmol/L [facility] ([place]) Anion gap 12 2 - 15 mmol/L [facility] ([place]) BUN 7 6 - 25 mg/dL [facility] ([place]) Creatinine 0.64 0.60 - 1.10 mg/dL [facility] ([place]) Glucose 140 70 - 199 mg/dL [facility] ([place]) Comment: Interpretive Data Fasting glucose >/= 126 mg/dl is diagnostic for diabetes. Fasting is defined as no caloric intake for at least 8 hours. Fasting glucose between 100 mg/dl to 125 mg/dl is diagnostic of prediabetes. In a patient with classic symptoms of hyperglycemia or hyperglycemic crisis, a random glucose >/= 200 mg/dl is diagnostic for diabetes. In the absence of unequivocal hyperglycemia, results should be confirmed by repeat testing. The classification and Diagnosis of Diabetes Diabetes Care 202; 46: S19-S40. Current interpretive data was last revised 2022. Calcium 9.8 8.5 - 10.3 mg/dL [facility] ([place]) Bilirubin, total 0.6 0.1 - 1.2 mg/dL [facility] ([place]) Protein, pl 7.2 6.5 - 8.5 g/dL [facility] ([place]) Albumin 4.4 3.5 - 5.0 g/dL [facility] ([place]) Alk phos 166(H) 40 - 130 Units/L [facility] ([place]) ALT 10 7 - 45 Units/L [facility] ([place]) AST 12 10 - 45 Units/L [facility] ([place]) Blood 04/21/2024 11:0 2 AM HOUSEKEEPING ASSOCIATE 04/21/2024 11:06 AM HOUSEKEEPING ASSOCIATE Catalina Casillas MD LAB BLOOD ORDERABLES Es l Result [facility] ([place]) 1 [facility] Department [place] [address] * Diagnostic Mammogram Bilateral W Chon (06/19/2022 2:15 PM CDT) Anatomical Region Laterality Modality Breast Bilateral Mammography 06/19/2022 2:43 PM CDT Impressions 06/19/2022 2:43 PM CDT 1. Mild decrease in size of the now 5 mm and 4 mm probably benign masses at the 7:00 and 9:00 positions of the left breast, respectively. The sonographic mass at the 9 o'clock position remains an equivocal correlate for the CC view asymmetry in the medial left breast. Recommend diagnostic left breast mammogram and ultrasound in 6 months to assess stability. 2. Decreased conspicuity of the focal asymmetry in the upper outer right breast, which was previously sonographically occult. This has not suspiciously changed since 08/08/2020 and is considered benign. Recommend screening right mammogram in one year. BI-RADS: 3 - Probably benign The patient was informed of the results and recommendations today. Electronically signed by: Albin Calderón M.D. Narrative 06/19/2022 2:43 PM CDT EXAMINATION: DIAGNOSTIC MAMMOGRAM BILATERAL W CHON, US BREAST LEFT LIMITED ORDERING HEALTHCARE PROVIDER: JAVIER LIANG HISTORY: Bilateral diagnostic mammography. Short interval follow-up of a probably benign focal asymmetry in the upper outer right breast. Short interval follow-up of probably benign masses in the left breast. COMPARISON: 12/11/2021,, 04/09/2021, 09/01/2020, 08/08/2020 TECHNIQUE: CC and MLO views of the Bilateral breasts were obtained with digital technique using breast tomosynthesis with C view. Computer aided detection was utilized. Multiple color Doppler and grayscale images of the left breast were obtained. FINDINGS: Mammogram: There is scattered fibroglandular tissue The focal asymmetry in the upper outer quadrant of the right breast at posterior depth has decreased in conspicuity and has not suspiciously changed since 08/08/2020. This is considered benign, likely an area of mildly focally dense fibroglandular tissue The CC view asymmetry in the medial left breast at middle depth is not substantially changed in size, measuring 6 to 7 mm.. The small oval mass in the lower inner left breast at middle depth is mildly decrease in size, measuring 5 mm. ULTRASOUND: Targeted ultrasound of the left breast at the 9 o'clock position, 7 cm from the nipple demonstrates an oval, hypoechoic mass with parallel orientation, circumscribed margins, no posterior acoustic features and no evidence of internal blood flow by color Doppler imaging. This mass measures 5 x 3 x 3 mm, previously 7 x 4 x 4 mm. As this mass has decreased in size sonographically, this remains an equivocal correlate for the stable mammographic CC view asymmetry. Targeted ultrasound of the left breast at the 7 o'clock position, 7 cm from the nipple demonstrates an oval, hypoechoic mass with no posterior acoustic features, circumscribed margins, parallel orientation and no evidence of internal blood flow by color Doppler imaging. This mass measures 4 x 3 x 3 mm, previously 5 x 4 x 4 mm, not suspiciously changed. This is most likely a complicated cyst. us Javier Liang MD IMG MAMMO PROCEDURES Final Resul t * Hemoglobin A1c (06/14/2021 9:56 AM CDT) Hgb A1C 5.5 4.0 - 5.6 % JASON JACK (MAULIK) Estimated Average Glucose 111 mg/dL JASON JACK (MAULIK) Comment: The ADA recommends reporting an estimated Average Glucose (eAG) with all Hemoglobin A1c results using the equation derived from a study of 507 normal and diabetic adults. Minority populations were underrepresented and children were not included. (Diabetes Care 31:2957-7782, 2008). The eAG is not equivalent to a fasting glucose. Blood 06/14/2021 9:56 AM CDT 06/14/2021 10:40 AM CDT Zeferino Bradshaw DO LAB BLOOD ORDERABLES Final Result JASON JACK (MAULIK) 1 [facility] Department [place] [address] * (ABNORMAL) Lipid panel (06/14/2021 9:56 AM CDT) Cholesterol 228(H) 30 - 199 mg/dL JASON JACK (MAULIK) Comment: Interpretive Data Ages < or = 19 years Acceptable: <170 mg/dL Borderline high: 170-199 mg/dL High: >or= 200 mg/dL Ages > or = 20 years Desirable: <200 mg/dL Borderline high: 200-239 mg/dL High: >or= 240 mg/dL Literature References: 1. Expert Panel on Integrated Guidelines for Cardiovascular Health and Risk Reduction in Children and Adolescents. Pediatrics 2011;128:S213 2. NCEP Expert Panel. Circulation 2004;110:227 Current Interpretive Data was last revised on 2017. Triglycerides 92 <=149 mg/dL JASON JACK (MAULIK) Comment: Interpretive Data Ages < or = 9 years Acceptable: <75 mg/dL Borderline high: 75-99 mg/dL High: >or= 100 mg/dL Ages 10 to 20 years Acceptable: <90 mg/dL Borderline high: 90-129 mg/dL High: >or= 130 mg/dL Ages > or = 20 years Desirable: <150 mg/dL Borderline high: 150-199 mg/dL High: 200-499 mg/dL Very high: >or= 499 mg/dL Literature References: 1. Expert Panel on Integrated Guidelines for Cardiovascular Health and Risk Reduction in Children and Adolescents. Pediatrics 2011;128:S213 2. NCEP Expert Panel. Circulation 2004;110:227 Current Interpretive Data was last revised on 2017. HDL 51 >=40 mg/dL JASON JACK (MAULIK) Comment: Interpretive Data Ages < or = 19 years Acceptable: >45 mg/dL Borderline low: 40-45 mg/dL Low: <40 mg/dL Ages > or = 20 years Desirable: >or= 60 mg/dL Low: <40 mg/dL Literature References: 1. Expert Panel on Integrated Guidelines for Cardiovascular Health and Risk Reduction in Children and Adolescents. Pediatrics 2011;128:S213 2. NCEP Expert Panel. Circulation 2004;110:227 Current Interpretive Data was last revised on 2017. LDL, calculated 159(H) <=129 mg/dL JASON JACK (MAULIK) Comment: Interpretive Data Ages < or = 19 years Acceptable: <110 mg/dL Borderline high: 110-129 mg/dL High: >or= 130 mg/dL Ages > or = 20 years Optimal: <100 mg/dL Near optimal: 100-129 mg/dL Borderline high: 130-159 mg/dL High: >160 mg/dL Literature References: 1. Expert Panel on Integrated Guidelines for Cardiovascular Health and Risk Reduction in Children and Adolescents. Pediatrics 2011;128:S213 2. NCEP Expert Panel. Circulation 2004;110:227 Current Interpretive Data was last revised on 2017. Non-HDL Cholesterol 177 mg/dL JASON JACK (MAULIK) Comment: Interpretive Data Ages < or = 19 years Acceptable: <120 mg/dL Borderline high: 120-144 mg/dL High: >145 mg/dL Ages > or = 20 years When triglycerides are >200 mg/dL, Non-HDL cholesterol is a secondary target of therapy with treatment goals that are 30 mg/dL greater than the LDL cholesterol target. Literature References: 1. Expert Panel on Integrated Guidelines for Cardiovascular Health and Risk Reduction in Children and Adolescents. Pediatrics 2011;128:S213 2. NCEP Expert Panel. Circulation 2004;110:227 Current Interpretive Data was last revised on 2017. Chol/HDL ratio 4 TIFF JACK (MAULIK) Blood 06/14/2021 9:56 AM CDT 06/14/2021 10:40 AM CDT us Zeferino Bradshaw DO LAB BLOOD ORDERABLES Final Result JASON JACK (MAULIK) 1 [facility] Department [place] [address] * RPR (06/11/2021 2:43 PM CDT) RPR Nonreactive Nonreactive [facility] Blood 06/11/2021 2:43 PM CDT 06/11/2021 8:20 PM CDT us Elicia Sandoval MD LAB MICROBIOLOGY - GENER AL ORDERABLES Final Result Performing Organization Address City/[facility] Co de Phone Number [facility] Department [place] [address] * Dexa Axial Skeleton Bone Density 1 or 2 Site (11/24/2020 12:31 PM CDT) Anatomical Region Laterality Modality Body N/A Other 11/24/2020 12:4 1 PM CDT Narrative 11/24/2020 12:41 PM CDT EXAM DESCRIPTION: DEXA AXIAL SKELETON BONE DENSITY 1 OR MORE SITES REASON FOR STUDY: Post-menopausal female, screening for osteoporosis. Rasper Machine Operator/Model: Ultromex A (S/N [id number]) CLINICAL INFORMATION: Current height: 62 inches Maximum height: 62 inches Weight: 194.2 pounds Risk factors: Current tobacco use, rheumatoid arthritis COMPARISON: None available. FINDINGS: AP LUMBAR SPINE L1-L4: Total BMD is 1.218 g/cm2 T-score is 1.6 LEFT HIP: Total BMD is 1.029 g/cm2 T-score is 0.7 Femoral neck BMD is 0.860 g/cm2 T-score is 0.1 IMPRESSION: Normal bone mineral density by WHO criteria. REFERENCE: Bone mineral density: Normal (T-score above or = -1.0) Low bone mass (T-score between -1.0 and -2.5) replaces the previously used term osteopenia Osteoporosis (T-score = or below -2.5) Medical evaluation for secondary causes of low bone mineral density may be appropriate. FRAX is a World Health Organization validated fracture risk assessment tool that calculates a person's 10 year probability of a major osteoporosis related fracture and hip fracture. According to the National Osteoporosis Foundation guidelines, postmenopausal women and men age 50 or older with low bone mass and a 10 year probability of a major osteoporosis related fracture = or greater than 20% or a 10 year probability of a hip fracture = or greater than 3% should be considered for treatment. For further information, including treatment recommendations, please refer to the 2013 ISCD Official Positions (http://www.iscd.org) and the NOF's Clinician's Guide to Prevention and Treatment of Osteoporosis (http://www.nof.org/professionals/clinical-guidelines) THIS IS AN ELECTRONICALLY VERIFIED FINAL REPORT 11/24/2020 12:41 PM - Electronically signed by Francesco Ryan M.D. AB: Report ID: [id number] Reading Location: [place] [address] Procedure Note Francesco Ryan MD - 11/24/2020 EXAM DESCRIPTION: DEXA AXIAL SKELETON BONE DENSITY 1 OR MORE SITES REASON FOR STUDY: Post-menopausal female, screening for osteoporosis. Rasper Machine Operator/Model: Ultromex A (S/N [id number]) CLINICAL INFORMATION: Current height: 62 inches Maximum height: 62 inches Weight: 194.2 pounds Risk factors: Current tobacco use, rheumatoid arthritis COMPARISON: None available. FINDINGS: AP LUMBAR SPINE L1-L4: Total BMD is 1.218 g/cm2 T-score is 1.6 LEFT HIP: Total BMD is 1.029 g/cm2 T-score is 0.7 Femoral neck BMD is 0.860 g/cm2 T-score is 0.1 IMPRESSION: Normal bone mineral density by WHO criteria. REFERENCE: Bone mineral density: Normal (T-score above or = -1.0) Low bone mass (T-score between -1.0 and -2.5) replaces thepreviously used term osteopenia Osteoporosis (T-score = or below -2.5) Medical evaluation for secondary causes of low bone mineral density may be appropriate. FRAX is a World Health Organization validated fracture risk assessmenttool that calculates a person's 10 year probability of a major osteoporosisrelated fracture and hip fracture. According to the National OsteoporosisFoundation guidelines, postmenopausal women and men age 50 or older with low bonemass and a 10 year probability of a major osteoporosis related fracture = or greater than 20% or a 10 year probability of a hip fracture = or greaterthan 3% should be considered for treatment. For further information, including treatment recommendations, please referto the 2013 ISCD Official Positions (http://www.iscd.org) and the NOF's Clinician's Guide to Prevention and Treatment of Osteoporosis (http://www.nof.org/professionals/clinical-guidelines) THIS IS AN ELECTRONICALLY VERIFIED FINAL REPORT 11/24/2020 12:41 PM - Electronically signed by Francesco Ryan M.D. AB: AB Report ID: [id number] Reading Location: [place] [address] Zeferino Bradshaw DO IMG DXA PROCEDURES Final R esult * (ABNORMAL) Colonoscopy (08/17/2019) Anatomical Region Laterality Modality Other Historical Provider MD ENDOSCOPY PROCEDURES Es l Result from Last 3 Months or Most Recently Relevant to Health Maintenance Insurance [facility] IDPA [employer] [facility] Advance Directives For more information, please contact: [phone] * Full Code (Latest Code Status on File) Date Activated Date Inactivated Comments 07/18/2024 10:09 AM 07/19/2024 6:49 PM * Full Code Date Activated Date Inactivated Comments 08/02/2021 3:43 PM 08/05/2021 4:40 PM * Full Code Date Activated Date Inactivated Comments 05/05/2021 7:04 AM 05/08/2021 6:45 PM Care Teams Tool And Production Planner Relationship Specialty Start Date End Date Unknown, Notinfile PCP - General 05/22/24 Unknown, Notinfile 05/22/24 Zeferino Bradshaw DO Internal Medicine 01/14/22 Randy Jasmine MD PhD [address] [place] [address] Radiation Oncologist Radiation Oncology 07/31/20 Juanjose Alcaraz MD [address] [place] [address] Referring Physician Medical Oncology 07/31/20 Miscellaneous, Not In File 09/15/20 Mario Desai MD Referring Physician Neurosurgery 09/15/20 Francois Thompson MD Consulting Physician Infectious Diseases 05/08/21 Mario Ferguson MD [address] [facility] [address] [place] [address] Consulting Physician Medical Oncology 03/31/24
--- OUTSIDE RECORDS SUMMARY | 2024-07-20 12:52 | XMS_ITS | Encounter Summary ---
Author Organization [facility] Address [address] [facility] [place] [address] Care Team Providers Care Network Systems Engineer Name Role Phone Kelly Henderson MD Unavailable [phone] Kelly Henderson MD Primary Care Provider Cathi Mcnally MD Primary Care Provider Cathi Mcnally MD Primary Care Provider Troy ROCA MD, Sea [place] Primary Care Provider + Jose Eduardo Ott MD Unavailable [phone] Kelly Henderson MD Primary Care Provider Reason for Visit * Reason Onset Date Comments General 03/30/2018 Encounter Details Date Type Department Care Team (Late st Contact Info) Description 03/30/2018 Telephone [facility] Internal Medicine [address] [address] Kelly Henderson MD [facility] [place] [address] General Social History Tobacco Use Types Packs/Day Years Used Date Smoking Tobacco: Every Day Cigarettes 0.3 32 Smokeless Tobacco: Never Comments:4 cigarettes Alcohol Use Standard Drinks/Week Comments Yes 0 (1 standard drink = 0.6 oz pure alcohol) sparingly - when pain is too high Comments No Sex and Gender Information Value Date Recorded Sex Assigned at Not on file Legal Sex Female 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 Answer Date of Assessment Author No 06/08/2015 6:30 PM CDT Carolyn Naik RN * Is person blind or have serious difficulty seeing? Answer Date of Assessment Author No 06/08/2015 6:30 PM CDT Carolyn Naik RN * Does person have serious difficulty walking/climbing stairs? Answer Date of Assessment Author No 06/08/2015 6:30 PM Carolyn Villareal RN * Does person have difficulty dressing/bathing? Answer Date of Assessment Author No 06/08/2015 6:30 PM JEANETTET Carolyn Naik RN * Does person have difficulty doing errands alone? Answer Date of Assessment Author No 06/08/2015 6:30 PM Carolyn Villareal RN documented as of this encounter Mental Status * Does person have difficulty concentrating/remembering/making decisions? Answer Entry Date Author No 06/08/2015 6:30 PM Carolyn Villareal RN documented in this encounter Miscellaneous Notes * Telephone Encounter - Dahlia Calderon - 03/30/2018 10:44 AM CST The pt had an acute care appt on 03/27/18 The pt states that her head and nose are congested. The pt states that she cannot blow anything outof her nose, that she has drainage down her throat. The pt has a moist cough and cannot cough out the phlegm, states that it is stuck in her throat The pt states her BP has been going up and down. The pt has a slight headache. The pt denies sore throat at this time The pt has been taking Tamiflu and was ordered Vittussin A/C, which makes the pt nauseated, and wasalso ordered prednisone 50 mg. Pt was told by PCP to call her back if she did not feel well The pt declined an acute care appt for today The pt's pharmacy was verified The pt would appreciate a call back from her PCP High priority ECT ANALYST documented in this encounter Plan of Treatment Upcoming Encounters Date Type Department Care Team (Late st Contact Info) Description 09/08/2024 2:00 PM CDT Office Visit [facility] - Family Medicine [address] [place] [address], [facility] [place] [phone] Germaine Monson MD [address] [place] [phone] documented as of this encounter Visit Diagnoses Not on filedocumented in this encounter Additional Health Concerns Infection Onset Date Last Indicated Resolved Time COVID-19 Under Investigation 08/14/2019 08/14/2019 08/15/2019 3:43 PM CDT COVID-19 Under Investigation 09/10/2019 09/10/2019 09/11/2019 11:18 PM CDT documented as of this encounter Care Teams Network Systems Engineer Relationship Specialty Start Date End Date Kelly Henderson MD [facility] [place] [address] PCP - General 03/11/18 03/31/18 Cathi Mcnally MD [facility] [place] [address] PCP - General Internal Medicine 04/01/18 05/17/18 Cathi Mcnally MD [address] [place] [phone] PCP - General Internal Medicine 07/14/18 07/15/18 [place] [address] [place] [phone] PCP - General Internal Medicine 05/05/19 06/07/19 Kelly Henderson MD [address] [place] [phone] PCP - General 09/01/19 Kelly Henderson MD [address] [place] [phone] Resident - PCP Internal Medicine 01/26/18 05/04/19 Jose Eduardo Ott MD [address] [place] [phone] Resident - PCP Student Resident 05/05/19 documented as of this encounter
--- OUTSIDE RECORDS SUMMARY | 2024-07-20 12:52 | XMS_ITS | Encounter Summary ---
Author Organization [facility] Address [address] [place] [address] Care Team Providers Care Manager Drug Name Role Phone Kelly Henderson MD Unavailable [phone] Kelly Henderson MD Primary Care Provider Cathi Mcnally MD Primary Care Provider Cathi Mcnally MD Primary Care Provider Troy ROCA MD, [place] Primary Care Provider + Jose Eduardo Ott MD Unavailable [phone] Kelly Henderson MD Primary Care Provider Reason for Visit * Reason Onset Date Comments Future Appointment 03/26/2018 Encounter Details Date Type Department Care Team (Late st Contact Info) Description 03/26/2018 Telephone [facility] [address] [address] Kelly Henderson MD [facility] [place] [address] Future Appointment Social History Tobacco Use Types Packs/Day Years Used Date Smoking Tobacco: Every Day Cigarettes 0.3 32 Smokeless Tobacco: Never Comments:4 cigarettes Alcohol Use Standard Drinks/Week Comments Yes 0 (1 standard drink = 0.6 oz pure alcohol) sparingly - when pain is too high Comments No Sex and Gender Information Value Date Recorded Sex Assigned at Not on file Legal Sex Female 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 Answer Date of Assessment Author No 06/08/2015 6:30 PM CDT Carolyn Naik, RN * Does person have difficulty doing errands alone? Answer Date of Assessment Author No 06/08/2015 6:30 PM Carolyn Villareal RN documented as of this encounter Mental Status * Does person have difficulty concentrating/remembering/making decisions? Answer Entry Date Author No 06/08/2015 6:30 PM JEANETTET Carolyn Naik RN documented in this encounter Miscellaneous Notes * Telephone Encounter - Dahlia Calderon - 03/26/2018 1:15 PM CST Cristiana from [facility] called CB# [phone] Requesting a follow-up post discharge appt for pt who is currently in the ER with bronchitis and bronchospams, but will be discharged from ER today because she does not meet the admission critera AM/MS OIDERY OPERATOR documented in this encounter Plan of Treatment Upcoming Encounters Date Type Department Care Team (Late st Contact Info) Description 09/08/2024 2:00 PM CDT Office Visit [facility] - Family Medicine [address] [facility] [place] [address] Germaine Monson MD [address] [place] [phone] documented as of this encounter Visit Diagnoses Not on filedocumented in this encounter Additional Health Concerns Infection Onset Date Last Indicated Resolved Time COVID-19 Under Investigation 08/14/2019 08/14/2019 08/15/2019 3:43 PM CDT COVID-19 Under Investigation 09/10/2019 09/10/2019 09/11/2019 11:18 PM CDT documented as of this encounter Care Teams Manager Drug Relationship Specialty Start Date End Date Kelly Henderson MD [address] [place] [phone] PCP - General 03/11/18 03/31/18 Cathi Mcnally MD [address] [place] [phone] PCP - General Internal Medicine 04/01/18 05/17/18 Cathi Mcnally MD [address] [place] [phone] PCP - General Internal Medicine 07/14/18 07/15/18 Sea Simmons III, MD [address] [place] [phone] PCP - General Internal Medicine 05/05/19 06/07/19 Kelly Henderson MD [address] [place] [phone] PCP - General 09/01/19 Kelly Henderson MD [address] [place] [address] Resident - PCP Internal Medicine 01/26/18 05/04/19 Jose Eduardo Ott MD [address] [place] [address] Resident - PCP Student Resident 05/05/19 documented as of this encounter
--- OUTSIDE RECORDS SUMMARY | 2024-07-20 12:52 | XMS_ITS | Clinical Summary ---
Author Organization [facility] Address [address] [place] [address] Care Team Providers Care Manager Clinical Name Role Phone Unknown, Notinfile Primary Care Provider Unavail able Unknown, Notinfile Unavailable Unavailable Zeferino Bradshaw DO Unavailable [phone] [facility] Unavailable [phone] Juanjose Alcaraz MD Unavailable [phone] Miscellaneous, Not In File Unavailable Unava ilable Mario Desai MD Unavailable [phone] Francois Thompson MD Unavailable [phone] Mario Ferguson MD Unavailable [phone] Allergies Active Allergy Reactions Criticality Noted Date [...] for nausea or vomiting 90 tablet 3 04/27/2 025 Discontin ued(Thera py completed ) doravirine-lamiVUD [...] heart attacks and has never seen a cargo station worker. Last Assessment & Plan: Ordered a dobutamine [...] heart attacks and has never seen a cargo station worker. Housing instability, housed unspecified 03/03/20 Overview (04/05/2024): 03/03/2023: Moved to [place] from [place], [place] (by way of [employer] [place]). Reports that she has section 8 housing voucher, currently working on finding housing. Currently staying at [facility] until she finds more consistent housing. Currently has [place] medicaid. She was interested in obtaining resources in [place] and [facility] including [place] Medicaid and local housing voucher. Presented with [...] that she has been working with [facility] social work and that she has been very helpful. She states that she needs paperwork filled out so that she has reasonable accommodations provided given that she has an electric wheelchair. However, the patient states her electric wheelchair is currently in [place] and she has been walking on her own. She states that she needs a 2 bedroom apartment because 1 of her 3 daughters is moving here from [place] to help take care of her. When [...] counseling. Assessment & Plan (05/23/2022 4:10 PM SEWAGE PLANT ATTENDANT): Wt Readings from Last 3 Encounters: 05/02/22 85.7 kg (189 lb) 03/26/22 84.4 kg (186 lb) 03/26/22 84.4 kg (186 lb) BMI Readings from Last 3 Encounters: 05/02/22 34.57 kg/m 03/26/22 34.02 kg/m 03/26/22 34.02 kg/m Not at goal of bmi <30 Continue diet and exercise BMI Follow-up includes: nutrition counseling and exercise counseling. Assessment & Plan (05/02/2022 2:38 PM SEWAGE PLANT ATTENDANT): Wt Readings from Last 3 Encounters: 05/02/22 [...] 05/08/2021 Assessment & Plan (05/08/2021 8:45 AM SEWAGE PLANT ATTENDANT): EEG during episode of seizure activity showed [...] 12/29/2019 Assessment & Plan (05/23/2022 4:10 PM SEWAGE PLANT ATTENDANT): BP Readings from Last 3 Encounters: 05/23/22 136/78 05/02/22 130/84 03/27/22 (!) 171/111 Vitals BP 136/78 (BP Location: Left arm, Patient Position: Sitting) Pulse 85 SpO2 94% Lab Results Component Value Date POTASSIUM 3.3 03/26/2022 At goal at this time Assessment & Plan (05/02/2022 1:52 PM SEWAGE PLANT ATTENDANT): BP Readings from Last 3 Encounters: 05/02/22 [...] now Assessment & Plan (05/07/2021 10:07 PM SEWAGE PLANT ATTENDANT): Continue patient's home medication lisinopril 20 mg q.d. Assessment & Plan (05/07/2021 6:54 PM SEWAGE PLANT ATTENDANT): Continue patient's home medication lisinopril 20 mg q.d. Assessment & Plan (05/05/2021 5:39 PM SEWAGE PLANT ATTENDANT): Continue patient's home medication lisinopril 20 mg q.d. Assessment & Plan (07/09/2020 11:58 PM CDT): - well controlled on current medications - current medication Lisinopril 20mg daily - continue current medication - check BP regularly at home - follow a low salt diet Assessment & Plan (04/03/2020 12:17 PM SEWAGE PLANT ATTENDANT): - well controlled on current medications - current medication Lisinopril 20mg daily Assessment & Plan (12/29/2019 12:13 PM CDT): - suboptimal control - refilled lisinopril 20 mg once daily - will need to be addressed fully on another visit Tardive dyskinesia 12/29/2019 Assessment & Plan (05/07/2021 10:08 PM SEWAGE PLANT ATTENDANT): acute dystonia vs tardive dyskinesia Patient was [...] treatments. Assessment & Plan (05/07/2021 6:54 PM SEWAGE PLANT ATTENDANT): acute dystonia vs tardive dyskinesia Patient was [...] treatments. Assessment & Plan (05/06/2021 3:36 PM SEWAGE PLANT ATTENDANT): acute dystonia vs tardive dyskinesia Patient was [...] treatments. Assessment & Plan (05/06/2021 7:31 AM SEWAGE PLANT ATTENDANT): Lip smacking .... Assessment & Plan (12/29/2019 [...] magnesium. Assessment & Plan (03/29/2020 1:59 PM SEWAGE PLANT ATTENDANT): - patient takes potassium supplements 10meq BID PRN when she has muscle cramps Assessment & Plan (12/29/2019 12:17 PM CDT): - patient takes potassium supplement when she has muscle cramps COPD (chronic obstructive pulmonary disease) (CM S/HCC) 12/24/2019 Assessment & Plan (05/05/2021 7:50 PM SEWAGE PLANT ATTENDANT): Duo-nebs Q4 PRN Assessment & Plan (04/03/2020 12:33 PM SEWAGE PLANT ATTENDANT): - stable, no changes made to medications [...] predominating Assessment & Plan (05/07/2021 10:07 PM SEWAGE PLANT ATTENDANT): 04/2020 MRI of total spine showed - [...] hold Assessment & Plan (05/07/2021 6:54 PM SEWAGE PLANT ATTENDANT): 04/2020 MRI of total spine showed - [...] TID Assessment & Plan (05/05/2021 6:17 PM SEWAGE PLANT ATTENDANT): 04/2020 MRI of total spine showed - [...] 06/16/2019 Assessment & Plan (05/05/2021 6:09 PM SEWAGE PLANT ATTENDANT): citalipram 10 mg qhs Tobacco abuse 06/16/2019 Vitamin D deficiency 06/16/2019 Assessment & Plan (04/03/2020 12:20 PM SEWAGE PLANT ATTENDANT): - history of vitamin D deficiency - she is not on vitamin D supplementation at this time - will check vitamin D level and supplement if needed Hyperglycemia 06/16/2019 Brain mass 05/18/2019 Assessment & Plan (05/05/2021 8:00 PM SEWAGE PLANT ATTENDANT): Patient has a history of schwannoma . [...] 09/01/2013 Assessment & Plan (05/23/2022 4:11 PM SEWAGE PLANT ATTENDANT): Lab Results Component Value Date HGBA1C 5.5 06/14/2021 HGBA1C 5.7 (H) 06/11/2021 HGBA1C 5.7 (H) 05/05/2021 Lab Results Component Value Date LDLCALC 159 (H) 06/14/2021 CREATININE 0.72 03/26/2022 At goal at this time, but needs repeat Continue current regimen Assessment & Plan (05/02/2022 1:53 PM SEWAGE PLANT ATTENDANT): Lab Results Component Value Date HGBA1C 5.5 [...] visit. Assessment & Plan (05/05/2021 6:12 PM SEWAGE PLANT ATTENDANT): -Albuterol MDI Q2 PRN for SOB Scoliosis 11/26/2011 Non-intractable vomiting with nausea 11/26/2011 Assessment & Plan (05/07/2021 10:06 PM SEWAGE PLANT ATTENDANT): Patient arrived w/ 1 day of nausea and vomiting. She reports this has had chronic emesis off and on since may of 2019 but has never been diagnosed with with a particular disorder/cause. She has chronically been taking ondansetron. DDx- viral gastroenteritis, medication side effect (genvoya) , side effect of prison medical marijuana use, Mets/growth of schwannoma. Reported to eating spagetti prior to presentation but denies other sick contacts. Emesis is non-bloody. -Compazine 10 mg q.4h prn on hold -ondansetron 4 mg q.4 prn -tolerating adult diet Assessment & Plan (05/07/2021 6:50 PM SEWAGE PLANT ATTENDANT): Patient arrived w/ 1 day of nausea and vomiting. She reports this has had chronic emesis off and on since may of 2019 but has never been diagnosed with with a particular disorder/cause. She has chronically been taking ondansetron. DDx- viral gastroenteritis, medication side effect (genvoya) , side effect of middle or intermediate school principal medical marijuana use, Mets/growth of schwannoma. Reported to eating spagetti prior to presentation but denies other sick contacts. Emesis is non-bloody. -Compazine 10 mg q.4h prn on hold -ondansetron 4 mg q.4 prn -tolerating adult diet Assessment & Plan (05/06/2021 2:48 PM SEWAGE PLANT ATTENDANT): Patient arrived w/ 1 day of nausea and vomiting. She reports this has had chronic emesis off and on since may of 2019 but has never been diagnosed with with a particular disorder/cause. She has chronically been taking ondansetron. DDx- viral gastroenteritis, medication side effect (genvoya) , side effect of middle or intermediate school principal medical marijuana use, Mets/growth of schwannoma. Reported to eating spagetti prior to presentation but denies other sick contacts. Emesis is non-bloody. -Compazine 10 mg q.4h prn -ondansetron 4 mg q.4 prn Diarrhea 11/26/2011 Assessment & Plan (05/07/2021 10:06 PM SEWAGE PLANT ATTENDANT): Patient arrived w/ 1 day of nausea [...] pending Assessment & Plan (05/07/2021 6:51 PM SEWAGE PLANT ATTENDANT): Patient arrived w/ 1 day of nausea [...] pending Assessment & Plan (05/05/2021 7:58 PM SEWAGE PLANT ATTENDANT): Patient arrived w/ 1 day of nausea [...] up. Assessment & Plan (05/02/2022 2:32 PM SEWAGE PLANT ATTENDANT): I would recommend psychiatric evaluation but patient does not want to see a psychaitrist Seizure ([facility]) 08/07/2011 Assessment & Plan (05/07/2021 6:59 PM SEWAGE PLANT ATTENDANT): Patient reports to not currently taking any [...] input Assessment & Plan (05/06/2021 3:45 PM SEWAGE PLANT ATTENDANT): Patient reports to not currently taking any [...] increase dose if needed - 1:1 sitter -[facility] daily -CT head- No mass or hemorrhage [...] she only takes once daily and bray sbeen working well for her - she is [...] future. Assessment & Plan (05/02/2022 2:32 PM SEWAGE PLANT ATTENDANT): Unclear if this is really related to her schwannoma - seems that this has been an issue for a long time, has gone to multiple painter drum, tried multiple medications but at this time all she wants is hydrocodone - didn't want to be on other medications at all She states that all her previous pain management don't want to give her narcotics Assessment & Plan (04/03/2020 12:19 PM SEWAGE PLANT ATTENDANT): - she has chronic back pain and has been referred to pain management in the past - she also has Fibromyalgia - she has not found a pain management physician and last one had problem with medication - at this time I am refilling her medications until she is established with one - continue with the [place] 10-325 mg BID PRN for pain - [...] other doctors Or infectios disease Moving to [facility] days Unsure who was filling this previously Assessment & Plan (05/07/2021 10:08 PM SEWAGE PLANT ATTENDANT): -Genvoya Q.d. -side effects include nausea and diarrhea. -placed percocet on hold- strong risk of increased serum concentration of percocet with concurrent use. Assessment & Plan (05/07/2021 6:58 PM SEWAGE PLANT ATTENDANT): -Genvoya Q.d. -side effects include nausea and diarrhea. -placed percocet on hold- strong risk of increased serum concentration of percocet with concurrent use. Assessment & Plan (05/05/2021 8:01 PM SEWAGE PLANT ATTENDANT): Restarted patient's home medication Genvoya Q.d. -side effects including nausea and diarrhea. Assessment & Plan (03/29/2020 1:58 PM SEWAGE PLANT ATTENDANT): - Following with Infectious Diseases - follows [...] 08/06/2006 Assessment & Plan (05/05/2021 7:50 PM SEWAGE PLANT ATTENDANT): Previously positive for marijuana and opiate. Patient [...] needed. Assessment & Plan (04/11/2020 9:51 AM SEWAGE PLANT ATTENDANT): Doing well following orbitotomy and lesion excision on 03/31/2020. Preliminary pathology results show likely schwannoma. We will await final path and she will return in 4-6 weeks. 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 Additionally, she demonstrates lesions of the left pterygopalatine fossa, and along the left cavernous sinus. Due to her worsened symptoms, history of HIV and possible associated [employer] lymphoma, we have discussed the conservative and [...] abruptly. Assessment & Plan (05/07/2021 6:55 PM SEWAGE PLANT ATTENDANT): Citalopram 10 mg q.h.s. Assessment & Plan (05/05/2021 5:40 PM SEWAGE PLANT ATTENDANT): Citalopram 10 mg q.h.s. Abnormality of gait and mobility 12/29/2019 05/02/2022 Assessment & Plan (04/03/2020 12:22 PM SEWAGE PLANT ATTENDANT): - currently has a wheeled walker - [...] 022 Assessment & Plan (05/06/2021 3:23 PM SEWAGE PLANT ATTENDANT): Patient has not complained of pain while [...] Overview: 11/24/13: member looking to change Medicaid provider from [facility] [place] [place] Abdominal mass 09/01/2013 05/02/2022 Overview (02/04/2020): Overview: [...] having N/V/D and this was found at [facility] on CT scan. Allergic conjunctivitis of both eyes 09/01/2013 04/03/2020 Allergic rhinitis 09/01/2013 05/02/2022 Assessment & Plan (03/29/2020 2:13 PM SEWAGE PLANT ATTENDANT): - well controlled with current medications - currently on Flonase nasal spray daily along with Zyrtec 10mg daily PRN - no change made with medications, continue current therapy HIV positive 09/01/2013 03/29/2020 Overview (02/04/2020): Overview: 09/04 pt reports, trying to get records, referred to ID Anemia 11/26/2011 12/24/2019 Lumbago 11/26/2011 08/14/2020 Encounters Date Type Department Care Team Description 07/19/2024 12:20 PM CDT - 07/19/2024 11:59 PM CDT Hospital Encounter [address] [phone] Exposure to blood-borne pathogen Discharge Disposition: Discharge to home or self care 07/19/2024 Documentation [facility] ICU [address] [place] [address] Amos Alexander RN 07/19/2024 Orders Only [address] [phone] Israel Mcdonald MD 07/19/2024 Orders Only [facility] [address] [facility] Room 3420 (Third Floor) [place] [address] Israel Mcdonald MD Exposure to blood-borne pathogen (Primary Dx) 07/18/2024 7:51 AM CDT - 07/19/2024 2:49 PM CDT Hospital Encounter [facility] Medical Care [address] [place] [address] Israel Edmonds MD Bross, Deborah L F D, MD Kheirkhahan, Nazanin, MD Seizure (HCC) (Primary Dx) Discharge Disposition: Left Against Medical Advice 06/21/2024 Telephone [facility] [address] [facility] Floor 6 [place] [address] Mario Ferguson 05/27/2024 8:59 AM SEWAGE PLANT ATTENDANT - 05/27/2024 11:59 PM SEWAGE PLANT ATTENDANT Hospital Encounter [facility] Emergency, Room R Discharge Disposition: Discharge to home or self care 05/27/2024 Orders Only [facility] [address] [place] [phone] Francois Thompson MD Human immunodeficiency virus (HIV) (HCC) (Primary Dx) 04/30/2024 1:00 PM SEWAGE PLANT ATTENDANT Office Visit [facility] [address] [place] [phone] Mario Ferguson MD Plasma cell dyscrasia (Primary Dx); Elevated serum immunoglobulin free light chains 04/28/2024 1:05 PM SEWAGE PLANT ATTENDANT Lab [address] [address] Elevated serum immunoglobulin free light chains; Plasma cell dyscrasia 04/28/2024 Telephone [facility] [address] [place] [phone] Hua Gramajo RN 04/21/2024 10:40 AM SEWAGE PLANT ATTENDANT - 04/21/2024 5:37 PM SEWAGE PLANT ATTENDANT Emergency [facility] Emergency Department [address] [place] [address] Catalina Casillas MD Schwannoma (Primary Dx); Weakness Discharge Disposition: Left Against Medical Advice from Last 3 Months Immunizations Immunization Administration Dates Next Due H1N1 [...] 07/19/2010 Pneumococcal Polysaccharide PPV23 04/11/2017,,07/19/2010 Tdap 11/13/2022,09/20/2013,07/19/2010 Surgical History Surgery Date Site/Laterality Comments TUBAL LIGATION Tubal PARTIAL HYSTERECTOMY EXPLORATORY LAPAROTOMY 03/24/2019 - 03/23/2020 COLONOSCOPY 03/24/2019 - 03/23/2020 HYSTERECTOMY 03/24/2012 - 03/23/2013 partial Medical History Medical History Date Comments Epilepsy (HCC) Epilepsy Hx Other Medical Headache, migra ine Anemia Anemia Depression Depression Tension headache Headache, tensi on Seizure disorder (HCC) Seizure d isorder Hypertension Hypertension Hx Other Medical Diabetes [facility], type 2- ? Borderline Schizoaffective disorder (HCC) S chizoaffective disorder Hx Other Medical Chronic bronchi tis Hx Other Medical Irregular menst rual cycle Arthritis Arthritis Positive laboratory testing for human immunodeficiency virus (HCC) 2006 HIV Hx Other Medical 08/16/2012 back and chest pain; Comments: Pt c/o back pain, chest pain, nausea, vertigo. Pt given meclizine, norco, zofran, vicodin, & cortisone @ 2029, by 2124 pt d/c to home per RN note pt jogged to exit doors when she left. PT also went to [facility] 08/14 for same reasons rcvd dilaudid x2; Outcome: improved Hx Other Medical c/o RLQ pain; C omments: pt left the ER upset w/staff - given rx for Vicodin. CT showed large amount of stool in colon; Outcome: see notes Fibromyalgia COPD (chronic obstructive pu lmonary disease) (HCC) Scoliosis Asthma Migraine Anemia COPD (chronic obstructive pu lmonary disease) (HCC) Thyroid disease Bipolar 1 disorder (HCC) Brain tumor (HCC) 03/08/2019 Smoking Tardive dyskinesia Tumor R eye, spine, L sinus Pure hypercholesterolemia 10/10/2021 Family History Medical History Relation Name Comments No Known Problems Daughter 1 Mental illness Daughter 2 No Known Problems Daughter 3 Alcohol abuse Father Alcoholism; Alcohol abuse Mother Alcoholism; Mental illness Mother Mental illnes s; Breast cancer Mother's Sister Cancer Other 1 Family history of Cancer; Diabetes Other 2 Family history of Diabetes mellitus; Hypertension Other 3 Family history of Hypertension; Migraines Other 4 Family history of Migraine; Kidney disease Other 5 Family histor y of Renal disease; Pancreatic cancer Sister 2 Cancer, pa ncreas; Cause of : Cancer, pancreas Anesthesia problems Neg Hx Ovarian cancer Neg Hx Thyroid cancer Neg Hx Relation Name Status Comments Daughter 1 Alive Daughter 2 Alive Daughter 3 Alive Father Mother Alive Mother's Sister Other 1 Other 2 Other 3 Other 4 Other 5 Sister 1 Sister 2 Social History Tobacco Use Types Packs/Day Years Used Date Smoking Tobacco: Every Day Cigarettes 0.5 40.3 Started: 1984 Smokeless Tobacco: Never Tobacco Cessation:Ready to Q uit: No; Counseling Given: Yes Comments:Smoking History Packs/day: 1 Packs Alcohol Use Standard Drinks/Week Comments Yes 0 (1 standard drink = 0.6 oz pur e alcohol) [employer] Utilities Answer Date Recorded In the past 12 months has [employer], [employer], or water [employer] threatened to shut off services in your [...] 07/19/2024 How often do you attend chur or protestant services? Never 07/19/2024 Do you belong to any clubs o r organizations such as mandaen groups, unions, fraternal or athletic groups, or [...] any time in the past 12 m [facility], were you homeless or living in a [...] on file Legal Sex Female 1:20 AM SEWAGE PLANT ATTENDANT Gender Identity Not on file Sexual Orientation Not on file Occupation Industry Job Start Date Job End Date Disabled Not on file Not on file Not on file Obstetrics History Para Term AB IAB SAB Ectopic Multiple Livin g Live Births 3 3 3 Date Outcome GA Total Labor Labor/2nd/3rd Weight Sex Type Anes PTL [place] A1 A5 Name Clin Term Term Term Last Filed Vital Signs Vital Sign Reading [...] 07/18/2024 7:56 AM CDT Plan of Treatment Health Maintenance Due Date Last Done Comments HLA B 5701 Typing 1970 T Spot (quantiferon gold) 1970 G6PD 01/24/1986 Lung Cancer Screening 01/24/2018 Pneumococcal vaccine <65 (4 of 4 - PCV20 or PCV21) 04/11/2022 04/11/2017, 04/11/2016, 04/20/2015, Additional history exists RPR Screening 06/11/2022 06/11/2021 Hemoglobin A1C 06/14/2022 06/14/2021, 05/23, 05/05/2021 Regular Well Visit/Exam 18-64 10/10/2022 10/10/2021, 10/10/2021 Osteoporosis Screening-Bone Density Scan 11/25/2023 11/24/2020 Lipid Panel 07/21/2024 07/22/2023, 11/22, 06/14/2021, Additional history exists Breast Cancer Screening-Mammogram 07/29/2024 07/30/2023, 07/30/2023, 06/19/2022, Additional history exists Colon Cancer Screening-Colonoscopy 08/16/2024 08/17/2019 Influenza Vaccine (Season Ended) 2024 01/03/2011, 01/03/2011, 03/24/2009, Additional history exists Depression Screening 04/06/2025 04/06/2024, 01/20/2023, 05/23/2022, Additional history exists Zoster Vaccine (1 of 2) 04/06/2025 Post poned from 01/24/1987 (Patient declined, but will receive in the future) Proteinuria screening Urinalysis (UA) 07/18/2025 07/18/2024, 07/18/2024, 04/21/2024, Additional history exists Hepatitis C Screening 07/19/2025 07/19/2024, 022 DTaP/Tdap/Td Vaccine (4 - Td or Tdap) 11/13/2032 11/13/2022, 09/20/2013, 07/19/2010 Hepatitis A Vaccines Completed 01/02/2017, 04/11/2016, 12/12/2015, Additional history exists Hepatitis B Vaccines Completed 01/02/2017, 04/11/2016, 12/12/2015, Additional history exists Colon Cancer Screening-CT Colonography Discontinued 08/17/2019 Colon Cancer Screening-DNA Stool Discontinued 08/17/2019 Colon Cancer Screening-FIT Discontinued 08/17/2019 Colon Cancer Screening-Sigmoidoscopy Discontinued 08/17/2019 HIV + Chlamydia and Gonorrhea Screening (Urine) Discontinued 06/15/2021 Cervical Cancer Screening-Pap and HPV Discontinued HIV+ Chlamydia and Gonorrhea Screening (Rectal) Discontinued HIV+ Chlamydia and Gonorrhea Screening (Throat) Discontinued Procedures Procedure Name Priority Date/Time Associated Diagnosis [...] CLINICAL PATHOLOGY REPORT Routine 04/28/2024 1:14 PM SEWAGE PLANT ATTENDANT EGFR STAT 04/28/2024 1:14 PM SEWAGE PLANT ATTENDANT Elevated serum immunoglobulin free light chains DIFFERENTIAL AUTO STAT 04/28/2024 1:1 4 PM SEWAGE PLANT ATTENDANT Elevated serum immunoglobulin free light chains IMMUNOTYPING Routine 04/28/2024 1:14 PM SEWAGE PLANT ATTENDANT Plasma cell dyscrasia PROTEIN ELECTROPHORESIS, WITH REFLEX, SERUM STAT 04/28/2024 1:14 PM SEWAGE PLANT ATTENDANT Elevated serum immunoglobulin free light chains LACTATE DEHYDROGENASE STAT 04/28/2024 1:14 PM SEWAGE PLANT ATTENDANT Elevated serum immunoglobulin free light chains IMMUNOGLOBULIN FREE LIGHT CHAINS STAT 04/28/2024 1:14 PM SEWAGE PLANT ATTENDANT Elevated serum immunoglobulin free light chains IGM STAT 04/28/2024 1:14 PM SEWAGE PLANT ATTENDANT Elevated serum immunoglobulin free light chains IGG STAT 04/28/2024 1:14 PM SEWAGE PLANT ATTENDANT Elevated serum immunoglobulin free light chains IGA STAT 04/28/2024 1:14 PM SEWAGE PLANT ATTENDANT Elevated serum immunoglobulin free light chains COMPREHENSIVE METABOLIC PANEL STAT 04/28/2024 1:14 PM SEWAGE PLANT ATTENDANT Elevated serum immunoglobulin free light chains CBC WITH AUTO DIFFERENTIAL STAT 04/28/2024 1:14 PM SEWAGE PLANT ATTENDANT Elevated serum immunoglobulin free light chains BETA 2 MICROGLOBULIN SERUM STAT 04/28/2024 1:14 PM SEWAGE PLANT ATTENDANT Elevated serum immunoglobulin free light chains URINALYSIS, MICROSCOPIC ONLY STAT 04/21/2024 3:03 PM SEWAGE PLANT ATTENDANT DRUGS OF ABUSE SCREEN, URINE WITHOUT CONFIRMATION STAT 04/21/2024 3:03 PM SEWAGE PLANT ATTENDANT URINALYSIS AND REFLEX TO MICROSCOPIC AND CULTURE STAT 04/21/2024 3:03 PM SEWAGE PLANT [address] CT LUMBAR SPINE WO CONTRAST ED 04/21/2024 12:14 PM [address]WAGE PLANT [address] CT HEAD WO CONTRAST ED 04/21/2024 12:14 PM SEWAGE PLANT ATTENDANT EGFR STAT 04/21/2024 11:02 AM SEWAGE PLANT ATTENDANT DIFFERENTIAL AUTO STAT 04/21/2024 11:02 AM SEWAGE PLANT ATTENDANT PROTIME-INR STAT 04/21/2024 11:02 AM SEWAGE PLANT ATTENDANT SEPSIS LACTATE WITH REFLEX STAT 04/21/2024 11:02 AM SEWAGE PLANT ATTENDANT COMPREHENSIVE METABOLIC PANEL STAT 04/21/2024 11:02 AM SEWAGE PLANT ATTENDANT CBC WITH AUTO DIFFERENTIAL STAT 04/21/2024 11:02 AM SEWAGE PLANT ATTENDANT DIAGNOSTIC MAMMOGRAM BILATERAL W CHON Schedule Routine, [...] last revised on 2019. 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:->[facility] Israel Mcdonald MD LAB MICROBIOLOGY - GENERAL OR DERABLES Final Result JASON JACK ([place]) 1 [facility] [place] [address] * Hepatitis B Surface Antigen Blood (07/19/2024 12:46 PM CDT) HepBsAg Nonreactive Nonreactive Comment:Testing performed by : [facility], [address] [place] [address], [place]., [address] Blood 07/19/2024 12:4 6 PM CDT 07/19/2024 6:40 PM CDT Narrative JASON JACK ([place]) - 07/19/2024 7:45 PM CDT Bill to [facility] - 1520 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 73 m2 Comment: [...] LAB BLOOD ORDERABLES Fi nal Result JASON JACK ([place]) 1 [facility] [place] [address] * Differential, auto (07/19/2024 4:56 AM CDT) [...] Neutrophil pct 40.5 % [facility] ([place]) Comment: Interpretive [...] revised on 2017. Monocyte pct 7.2 % [facility] ([place]) Comment: Interpretive Data [...] Fi nal Result [facility] ([place]) 1 [facility] [employer] [place] [address] * CBC with auto differential (07/19/2024 4:56 AM CDT) WBC 5.44 3.80 - 9.90 K/cumm Hgb 13.0 11.9 - 15.5 g/dL [facility] ([place]) Hct 37.2 35.6 - 45.5 % [facility] ([place]) Plt 199 150 - 400 K/cumm [facility] ([place]) MPV 10.0 9.1 - 12.3 fL [facility] ([place]) RBC 3.97 3.90 - 5.20 M/cumm [facility] ([place]) MCV 93.7 81.3 - 96.4 fL [facility] ([place]) MCH 32.7 27.1 - 33.3 pg [facility] ([place]) MCHC 34.9 32.3 - 35.7 g/dL [facility] ([place]) RDW CV 13.3 11.1 - 14.9 % [facility] ([place]) RDW SD 46.0 35.7 - 48.1 fL [facility] ([place]) NRBC abs 0.00 0.00 - 0.01 K/cumm [facility] ([place]) Blood 07/19/2024 4:56 AM CDT 07/19/2024 5:31 AM CDT us Davi Oscar MD LAB BLOOD ORDERABLES Fi nal Result JASON JACK ([place]) 1 [facility] [employer] [place] [address] * Magnesium (07/19/2024 4:56 AM CDT) Magnesium 2.0 1.4 - 2.5 mg/dL Blood 07/19/2024 4:56 AM CDT 07/19/2024 5:32 AM CDT us Davi Oscar MD LAB BLOOD ORDERABLES Fi nal Result [facility] ([place]) 1 [facility] [place] [address] * (ABNORMAL) Comprehensive metabolic panel (07/19/2024 4:56 AM CDT) Sodium 141 135 - 145 mmol/L Potassium, pl 3.6 3.3 - 4.9 mmol/L [facility] ([place]) Chloride 108 97 - 110 [...] MD LAB BLOOD ORDERABLES Fi nal Result Performing Organization Address City/[facility]/ZIP Co de Phone Number JASON JACK ([place]) 1 [facility] [place] [address] * POCT glucose (07/19/2024 2:27 AM CDT) Glucose, POC 104 70 - 199 mg/dL Blood 07/19/2024 2:27 AM CDT 07/19/2024 2:27 AM CDT Lyric Pastor MD LAB POCT ORDERABLES - DEV ICE Final Result Performing Organization Address City/[facility]/ZIP Co de Phone Number JASON JACK ([place]) 1 [facility] [place] [address] * (ABNORMAL) Urinalysis reflex to microscopic and culture Urine (07/18/2024 10:16 AM CDT) Color, ur Yellow Yellow Clarity, ur Clear Clear [facility] ([place]) Specific gravity, ur 1.012 1.003 - 1.030 [...] tendency for uric acid stone formation. Source: [employer] Current Interpretive Data was last revised on [...] Reflex to microscopic UA will be performed. [facility] ([place]) Urine 07/18/2024 10:1 6 AM CDT 07/18/2024 10:19 AM CDT us Israel Edmonds MD LAB MICROBIOLOGY - GENERAL O RDERABLES Final Result [facility] ([place]) 1 [facility] [place] [address] * (ABNORMAL) Drugs of Abuse Screen, Urine [...] Phencyclidine, ur Not Detected CutOff 25 ng/mL JASON JACK ([place]) Comment: Interpretive Data - Phencyclidine: Samples containing greater than 25 ng/mL phencyclidine or other cross-reacting compounds are reported as positive. False positive and false negative results are possible. Confirmatory testing required for definitive results. Current Interpretive Data was last reviewed 2022. Urine Creatinine 136 mg/dL JAKE JACK ([place]) Comment: Interpretive Data Urine Creatinine: < 10 mg/dL is extremely dilute = or > 10 but < 20 mg/dL is dilute = or > 20 mg/dL is normal Current Interpretive Data was last revised on 2017. Urine 07/18/2024 10:1 6 AM CDT 07/18/2024 10:19 AM CDT Narrative JASON JACK ([place]) - 07/18/2024 10:45 AM CDT Drug of Abuse screening is performed by immunoassay for medical purposes only. This is not to be used for Pain Management purposes. Israel Edmonds MD LAB URINE ORDERABLES Final R esult Performing Organization Address [facility] Co de Phone Number JASON JACK ([place]) 1 [facility] [place] [address] * (ABNORMAL) Urinalysis, microscopic only (07/18/2024 10:16 AM CDT) WBC, ur 0-5 0 - 5 /HPF RBC, ur 0-2 0 - 2 /HPF JASON JACK ([place]) Epithelial cells, squamous, ur 1-5 0 - 5 /HPF JASON JACK ([place]) Mucous, ur Present(A) JASON Huff ([place]) Culture Reflex Comment Reflex conditions for urine culture (WBC >10) not met. JASON JACK ([place]) Urine 07/18/2024 10:1 6 AM CDT 07/18/2024 10:19 AM CDT Israel Edmonds MD LAB URINE ORDERABLES Final R esult Performing Organization Address City/[facility] Co de Phone Number JASON JACK ([place]) [address] [place] [address] * XR Chest 1 View (07/18/2024 8:56 AM CDT) Anatomical Region Laterality Modality Body, Chest N/A Computed Radiogr aphy 07/18/2024 9:09 AM CDT Narrative 07/18/2024 9:09 AM CDT EXAM DESCRIPTION: XR CHEST 1 VIEW REASON FOR STUDY: chest pain Patient presents to the ED states at the lockstitch front edge tape sewer that she thinks she is going to [...] Scot Murguia M.D. RB: REN[place]TA Report ID: [id number] Reading Location: [place] [address] Procedure Note Scot Murguia MD - 07/18/2024 EXAM DESCRIPTION: XR CHEST 1 VIEW REASON FOR STUDY: chest pain Patient presents to the ED states at the lockstitch front edge tape sewer that she thinks she is going to [...] Scot Murguia M.D. RB: RENETTA Report ID: [id number] Reading Location: [id number] us Israel Edmonds MD IMG XR PROCEDURES Final Resu lt * CT Cervical Spine WO Contrast (07/18/2024 8:32 AM CDT) Anatomical Region Laterality Modality Spine N/A Computed Tomogra phy 07/18/2024 8:40 AM CDT Narrative 07/18/2024 8:45 AM CDT EXAM DESCRIPTION: CT CERVICAL SPINE WO CONTRAST REASON FOR STUDY: Neck pain, acute, no red flags Patient presents to the ED states at the lockstitch front edge tape sewer that she thinks she is going to [...] 07/18/2024 8:45 AM - Electronically signed by cSot Murguia M.D. RB: RENETTA Report ID: [id number] Reading Location: [id number] Procedure Note Scot Murguia MD - 07/18/2024 EXAM DESCRIPTION: CT CERVICAL SPINE WO CONTRAST REASON FOR STUDY: Neck pain, acute, no red flags Patient presents to the ED states at the lockstitch front edge tape sewer that she thinks she is going to [...] Scot Murguia M.D. RB: RENETTA Report ID: [id number] Reading Location: [id number] Israel Edmonds MD IMG CT PROCEDURES Final Resu lt * CT Head WO Contrast (07/18/2024 8:32 AM CDT) Anatomical Region Laterality Modality Head and Neck N/A Computed Tomogra phy 07/18/2024 8:36 AM CDT Narrative 07/18/2024 8:40 AM CDT EXAM DESCRIPTION: CT HEAD WO CONTRAST REASON FOR STUDY: Headache, sudden, severe Patient presents to the ED states at the lockstitch front edge tape sewer that she thinks she is going to [...] Scot Murguia M.D. RB: RENETTA Report ID: [id number] Reading Location: [id number] Procedure Note Scot Murguia MD - 07/18/2024 EXAM DESCRIPTION: CT HEAD WO CONTRAST REASON FOR STUDY: Headache, sudden, severe Patient presents to the ED states at the lockstitch front edge tape sewer that she thinks she is going to [...] Scot Murguia M.D. RB: RENETTA Report ID: [id number] Reading Location: [id number] us Israel Edmonds MD IM CT PROCEDURES Final Resu lt * Troponin T high-sensitivity series (baseline, 2hr, 4hr, 6hr) (07/18/2024 8:15 AM CDT) Trop T hs <6 <=14 ng/L Comment: Interpretive Data For further hscTnT resources including the diagnostic algorithm and an aid in interpretation, copy and paste this link: https://nrl.testcatalog.org/show/hsTrop Current Interpretive Data last revised 2020. Blood 07/18/2024 8:15 AM CDT 07/18/2024 8:21 AM CDT Israel Edmonds MD LAB BLOOD ORDERABLES Final R esult JASON JACK ([place]) 1 [facility] [address] [place] [address] * Sepsis Lactate w/ Reflex (07/18/2024 8:15 AM CDT) Pathologist [facility] Sepsis Lactate 1.1 0.7 - 2.0 mmol/L Blood 07/18/2024 8:15 AM CDT 07/18/2024 8:21 AM CDT Israel Edmonds MD LAB BLOOD ORDERABLES Final R esult Performing Organization Address City/[facility] Co de Phone Number JASON JACK ([place]) 1 [facility] [place] [address] * Pro B-type natriuretic peptide (07/18/2024 8:15 AM CDT) Pathologist [facility] NT-proBNP <36 <=300 pg/mL Comment: Interpretive Comments: [...] HODGSON et.al. Eur Heart J. 2006:27:330-337. 2. Mleissa BASSETT, Gordon BURGER. J. AM Peri Cardiol: Cardiovasc Imag. 2009;2: 216- 225. Interpretive Data Last Revised Date: 2017. Blood 07/18/2024 8:15 AM CDT 07/18/2024 8:21 AM CDT Israel Edmonds MD LAB BLOOD ORDERABLES Final R esult Performing Organization Address City/[facility] Co de Phone Number [facility] ([place]) [address] [place] [address] [place] [address] * Magnesium (07/18/2024 8:15 AM CDT) Magnesium 1.8 1.4 - 2.5 mg/dL Blood 07/18/2024 8:15 AM CDT 07/18/2024 8:21 AM CDT Israel Edmonds MD LAB BLOOD ORDERABLES Final R esult Performing Organization Address City/[facility] Co de Phone Number [facility] ([place]) [address] [place] [address] [place] [address] * eGFR (07/18/2024 7:59 AM CDT) eGFR [...] MD LAB BLOOD ORDERABLES Final R esult [facility] ([place]) 1 [facility] [place] [address] * Differential, auto (07/18/2024 7:59 AM CDT) Neutrophil abs 3.59 1.50 - 6.50 K/cumm Imm gran abs 0.01 0.00 - 0.10 K/cumm [facility] ([place]) Lymphocyte abs 2.54 0.80 - 3.30 K/cumm [facility] ([place]) Monocyte abs 0.43 0.20 - 0.80 K/cumm [facility] ([place]) Eosinophil abs 0.03 0.00 - 0.50 K/cumm [facility] ([place]) Basophil abs 0.03 0.00 - 0.10 K/cumm [facility] ([place]) Neutrophil pct 54.0 % [facility] ([place]) Comment: Interpretive [...] Lymphocyte pct 38.3 % [facility] ([place]) Comment: Interpretive Data Percent cell count reference ranges are not reported, since discordance with absolute values may lead to misinterpretation of CBC data. Current Interpretive Data was last revised on 2017. Monocyte pct 6.5 % [facility] ([place]) Comment: Interpretive Data Percent cell count reference ranges are not reported, since discordance with absolute values may lead to misinterpretation of CBC data. Current Interpretive Data was last revised on 2017. Eosinophil pct 0.5 % [facility] ([place]) Comment: Interpretive [...] Final R esult [facility] ([place]) 1 [facility] [place] [address] * CBC with auto differential (07/18/2024 7:59 [...] ([place]) MCH 33.0 27.1 - 33.3 pg [facility] ([place]) MCHC 35.6 32.3 - 35.7 g/dL [facility] ([place]) RDW CV 13.4 11.1 - 14.9 % [facility] ([place]) RDW SD 45.8 35.7 - 48.1 fL [facility] ([place]) NRBC abs 0.00 0.00 - 0.01 K/cumm [facility] ([place]) Blood 07/18/2024 7:59 AM CDT 07/18/2024 8:02 AM CDT Israel Edmonds MD LAB BLOOD ORDERABLES Final R esult Performing Organization Address City/[facility]/ZIP Co de Phone Number JASON JACK ([place]) 1 [facility] [place] [address] * Erythrocyte sedimentation rate (07/18/2024 7:59 AM CDT) Erythrocyte sedimentation rate 20 1 - 30 mm/hr Blood 07/18/2024 7:59 AM CDT 07/18/2024 8:34 AM CDT Israel Edmonds MD LAB BLOOD ORDERABLES Final R esult Performing Organization Address City/[facility] Co de Phone Number JASON JACK ([place]) 1 [facility] [place] [address] * CRP (acute phase) (07/18/2024 7:59 AM CDT) CRP 7.4 <=10.0 mg/L Blood 07/18/2024 7:59 AM CDT 07/18/2024 8:34 AM CDT Israel Edmonds MD LAB BLOOD ORDERABLES Final R esult Performing Organization Address City/[facility]/ZIP Co de Phone Number JASON JACK ([place]) 1 [facility] [address] [place] [address] * Ethanol (07/18/2024 7:59 AM CDT) Ethanol <10 <=10 mg/dL Comment: Interpretive Data Legal limit of intoxication > or = 80 mg/dL Levels > or = 400 mg/dL are potentially TOXIC. Current interpretive data was last revised on 2018. Blood 07/18/2024 7:59 AM CDT 07/18/2024 8:02 AM CDT us Israel Edmonds MD LAB BLOOD ORDERABLES Final R esult [facility] ([place]) 1 [facility] [place] [address] * (ABNORMAL) Comprehensive metabolic panel (07/18/2024 7:59 AM CDT) Sodium 139 135 - 145 mmol/L Potassium, pl 3.6 3.3 - 4.9 mmol/L [facility] ([place]) Chloride 105 97 - 110 mmol/L [facility] ([place]) CO2 21(L) 22 - 32 mmol/L [facility] ([place]) Anion gap 13 2 - 15 mmol/L [facility] ([place]) BUN 5(L) 6 - 25 mg/dL [facility] ([place]) Creatinine 0.70 0.60 - 1.10 mg/dL [facility] ([place]) Comment:Icteric sample, test results may be affected. Glucose 100 70 - 199 mg/dL [facility] ([place]) Comment: Interpretive Data Fasting glucose >/= [...] ORDERABLES Final R esult Performing Organization Address [facility] Co de Phone Number [facility] ([place]) [address] [place] [address] Department of Laboratories [place] [id number] * ECG 12 lead (07/18/2024 7:55 AM CDT) 07/18/2024 7:55 AM CDT Narrative [facility] - 07/19/2024 7:21 AM CDT Vent Rate: 86 bpm RR Interval: 691 msec NM Interval: 187 msec QRS Duration: 101 msec QT Interval: 360 msec QTC Interval: 404 msec P-R-T Whitman: 75 - -44 - 43 degrees IMPRESSION: [...] ECG ORDERABLES Final Result Performing Organization Address [facility]/ZIP Co de Phone Number [facility] Return Path [facility] * Immunotyping, serum with interpretation (04/28/2024 1:14 PM [employer]AGE [employer] ATTENDANT) Immunofixation See Cl Path Rpt Comment:Testing performed by : [facility], [address] [place] [address], [place] [address] Blood 04/28/2024 1:14 PM [employer] ATTENDANT 04/28/2024 7:24 PM [employer] ATTENDANT us Mario Ferguson MD LAB BLOOD ORDERABLES Fin al Result JASON [facility] ([place]) [address] [place] [address] [place] [address] * Clinical pathology report (04/28/2024 1:14 PM [employer] ATTENDANT) Miscellaneous 04/28/2024 1:1 4 PM [employer] ATTENDANT 04/29/2024 8:09 AM [employer] PLANT ATTENDANT Narrative 05/02/2024 10:47 AM [employer]AGE PLANT ATTENDANT EPIC results best viewed via link to PDF [facility] Department of Pathology [address] [place] [address] Final Report Note to Patients: This report [...] the details. Patient Name: MARE RANGEL Address: [address] [place] [address] Gender: F : 1970 (Age: 54) Service: Location: [facility] #: [id number] Patient Type: [facility] EP ANCILLARY Taken: 04/28/2024 Received: 04/29/2024 Accessioned: 04/29/2024 Physician(s): Mario Ferguson M.D. [facility] Specimen(s) Received A: Blood (serum) Serum [...] determined by the Surgical Pathology Department at [facility] as part of an ongoing corporate quality engineer program and in compliance with federally mandated [...] characteristics determined by the Surgical Pathology Department [facility]. It has not been cleared or approved by the U. S. Food and Drug Administration. REPORT IMAGES AND SCANNED DOCUMENTS, IF INCLUDED, ONLY VIEWABLE IN PDF VERSION OF REPORTe o us Mario Ferguson MD LAB PATHOLOGY ORDERABLES Final Result * eGFR (04/28/2024 1:14 PM [employer] ATTENDANT) eGFR 90 >=60 mL/min/1. 73 m2 Comment: [...] last reviewed 2021. Blood 04/28/2024 1:14 PM [employer] ATTENDANT 04/28/2024 1:21 PM [employer] ATTENDANT us Mario Ferguson MD LAB BLOOD ORDERABLES Fin al Result [facility] ([place]) 1 [facility] [place] [address] * Differential, auto (04/28/2024 1:14 PM [employer] ATTEND[employer]) Neutrophil abs 3.2 1.5 - 6.5 K/cumm Imm gran abs 0.0 0.0 - 0.1 K/cumm [facility] ([place]) Lymphocyte abs 3.3 0.8 - 3.3 K/cumm [facility] ([place]) Monocyte abs 0.3 0.2 - 0.8 K/cumm [facility] ([place]) Eosinophil abs 0.1 0.0 - 0.5 K/cumm [facility] ([place]) Basophil abs 0.0 0.0 - 0.1 K/cumm [facility] ([place]) Neutrophil pct 45.8 % [facility] ([place]) Comment: Interpretive [...] Lymphocyte pct 48.1 % [facility] ([place]) Comment: Interpretive Data Percent cell count reference ranges are not reported, since discordance with absolute values may lead to misinterpretation of CBC data. Current Interpretive Data was last revised on 2017. Monocyte pct 4.6 % JASON JACK ([place]) Comment: Interpretive Data [...] revised on 2017. Basophil pct 0.3 % [facility] ([place]) Comment: Interpretive Data Percent cell count reference ranges are not reported, since discordance with absolute values may lead to misinterpretation of CBC data. Current Interpretive Data was last revised on 2017. Blood 04/28/2024 1:14 PM [employer] ATTENDANT 04/28/2024 1:21 PM [employer]AGE [employer] ATTENDANT us Mario Ferguson MD LAB BLOOD ORDERABLES Fin al Result JASON JACK ([place]) 1 [facility] [place] [address] * (ABNORMAL) Immunoglobulin free light chains (04/28/2024 1:14 PM [employer] ATTENDANT) Pathologist [facility] [place]/Lambda ratio 1.40 0.26 - 1.65 Comment:Testing performed by : [facility], [address] [place] [address], [place]., [address] [place] free light chain 2.19(H) 0.33 - 1.94 mg/dL JASON JACK ([place]) Comment: Interpretive Data The [employer] [place] FLC assay procedure was used. Results from different manufacturers or methods may not be comparable. Serial testing should be performed using the same method. Testing performed by: [facility], [address] [place] [address], [place] [address] Lambda free light chain 1.59 0.57 - 2.63 mg/dL [facility] ([place]) Comment: Interpretive Data The [employer] Lambda FLC assay procedure was used. Results from different manufacturers or methods may not be comparable. Serial testing should be performed using the same method. Testing performed by: [facility], [address] [place] [address]., [address] Blood 04/28/2024 1:14 PM [employer] ATTENDANT 04/28/2024 7:24 PM [employer]AGE [employer] ATTENDANT us Mario Ferguson MD LAB BLOOD ORDERABLES Fin al Result [facility]ON [facility] ([place]) 1 [facility] Department [place] [address] * (ABNORMAL) CBC with auto differential (04/28/2024 1:14 PM [employer] ATTENDANT) WBC 6.9 3.8 - 9.9 K/cumm Hgb 13.9 11.9 - 15.5 g/dL [facility] ([place]) Hct 40.3 35.6 - 45.5 [...] [facility] ([place]) Blood 04/28/2024 1:14 PM [employer] ATTENDANT 04/28/2024 1:21 PM [employer]WAGE [employer] ATTENDANT Mario Ferguson MD LAB BLOOD ORDERABLES Fin al Result Performing Organization Address City/[facility] Co de Phone Number [facility] ([place]) 1 [facility] [place] [address] * Protein electrophoresis with reflex, serum with interpretation (04/28/2024 1:14 PM [employer] ATTENDANT) Protein, sr 7.4 6.2 - 8.2 g/dL Comment:Testing performed by : [facility], [address] [place] [address]., [address] Albumin 4.5 3.2 - 5.0 g/dL [facility] ([place]) Comment:Testing performed by : [facility], [address] [place] [address], [address] Alpha-1 globulin 0.3 0.2 - 0.4 g/dL [facility] ([place]) Comment:Testing performed by : [facility], [address] [place] [address], [address] Alpha-2 globulin 0.7 0.5 - 1.0 g/dL [facility] ([place]) Comment:Testing performed by : [facility], [address] [place] [address], [address] Beta-1 globulin 0.4 0.3 - 0.6 g/dL [facility] ([place]) Comment:Testing performed by : [facility], [address] [place] [address]., [address] Beta-2 globulin 0.4 0.2 - 0.6 g/dL [facility] ([place]) Comment:Testing performed by : [address], [address] Gamma globulin 1.1 0.5 - 1.7 g/dL [facility] ([place]) Comment:Testing performed by : [facility], [address] [place] [address], [id number] SPEP interp See Cl Path Rpt [facility] ([place]) Comment:Testing performed by : [address], [address] Blood 04/28/2024 1:14 PM [employer] ATTENDANT 04/28/2024 7:24 PM [employer]AGE [employer] ATTENDANT Mario Ferguson MD LAB BLOOD ORDERABLES Fin al Result Performing Organization Address City/[facility]/ZIP Co de Phone Number JASON JACK ([place]) 1 [facility] [place] [address] * Lactate dehydrogenase (LD) (04/28/2024 1:14 PM [employer] ATTENDANT) Lactate dehydrogenase (LDH) 156 100 - 250 Units/L Blood 04/28/2024 1:14 PM [employer] ATTENDANT 04/28/2024 1:21 PM [employer]WAGE [employer] ATTENDANT us Mario Ferguson MD LAB BLOOD ORDERABLES Fin al Result Performing Organization Address [facility] Co de Phone Number JASON JACK ([place]) 1 [facility] [place] [address] * IgA (04/28/2024 1:14 PM [employer] ATTENDANT) Immunoglobulin A 231 70 - 400 mg/dL Comment:Testing performed by : [facility], [address] [place] [address], [id number] Blood 04/28/2024 1:14 PM [employer] ATTENDANT 04/28/2024 7:24 PM SEWAGE [employer] ATTENDANT us Mario Ferguson MD LAB BLOOD ORDERABLES Fin al Result Performing Organization Address [facility] Co de Phone Number JASON JACK ([place]) 1 [facility] [place] [address] * IgM (04/28/2024 1:14 PM [employer] ATTENDANT) Immunoglobulin M 48 40 - 150 mg/dL Comment:Testing performed by : [facility], [address] [place] [address], [place]., [address] Blood 04/28/2024 1:14 PM [employer]AGE [employer] ATTENDANT 04/28/2024 7:24 PM [employer]AGE [employer] ATTENDANT Mario Ferguson MD LAB BLOOD ORDERABLES Fin al Result Performing Organization Address City/[facility]/ZIP Co de Phone Number JASON JACK ([place]) 1 [facility] [place] [address] * IgG (04/28/2024 1:14 PM [employer]WAGE [employer] ATTENDANT) [facility] Immunoglobulin G 1,324 700 - 1,600 mg/dL Comment:Testing performed by : [facility], [address] [place] [address], [place]., [address] Blood 04/28/2024 1:14 PM [employer]WAGE [employer] ATTENDANT 04/28/2024 7:24 PM SEWAGE [employer]ANT ATTENDANT Mario Ferguson MD LAB BLOOD ORDERABLES Fin al Result Performing Organization Address [facility] Co de Phone Number [facility] ([place]) [address] [place] [address] * Beta 2 microglobulin, serum (04/28/2024 1:14 PM [employer]WAGE PL[employer] ATTENDANT) [facility] Beta 2 Microglobulin, Serum 1.76 1.21 - 2.70 mcg/mL [facility] Comment: Test Performed by: [facility] [address] [place], [place] [address] Business Analyst Intern: Gini Duncan Ph.D.; CLIA# [id number] Blood 04/28/2024 1:14 PM [employer]WAGE PLANT ATTENDANT 04/28/2024 1:21 PM SEWAGE PLANT ATTENDANT Mario Ferguson MD LAB BLOOD ORDERABLES Fin al Result Performing Organization Address [facility] Co de Phone Number [facility] ([place]) [address] [place] [address] [place] [facility] * (ABNORMAL) Comprehensive metabolic panel (04/28/2024 1:14 PM [employer]WAGE PLANT ATTENDANT) [facility] Sodium 140 135 - 145 mmol/L Potassium, pl 3.3 3.3 - 4.9 mmol/L [facility] ([place]) Chloride 106 97 - 110 mmol/L [facility] ([place]) CO2 25 22 - 32 mmol/L [facility] ([place]) Anion gap 9 2 - 15 mmol/L [facility] ([place]) BUN 6 6 - 25 mg/dL [facility] ([place]) Creatinine 0.77 0.60 - 1.10 [...] 13 10 - 45 Units/L [facility] ([place]) Blood 04/28/2024 1:14 PM [employer]AGE PLANT ATTENDANT 04/28/2024 1:21 PM SEWAGE PLANT ATTENDANT us Mario Ferguson MD LAB BLOOD ORDERABLES Fin al Result [facility] ([place]) 1 [facility] [place] [address] * (ABNORMAL) Urinalysis reflex to microscopic and culture Urine (04/21/2024 3:03 PM [employer]AGE [employer] ATTENDANT) Color, ur Yellow Yellow Clarity, ur Clear Clear [facility] ([place]) Specific gravity, ur 1.013 1.003 - [...] tendency for uric acid stone formation. Source: [facility] CellAR[facility] Current Interpretive Data was last revised on [...] will be performed. [facility] ([place]) Urine 04/21/2024 3:03 PM [employer]AGE [employer] ATTENDANT 04/21/2024 3:07 PM SEWAGE PLANT ATTENDANT us Catalina Casillas MD LAB MICROBIOLOGY - GENERA L ORDERABLES Final Result [facility] ([place]) 1 [facility] [place] [address] * (ABNORMAL) Drugs of Abuse Screen, Urine without Confirmation (04/21/2024 3:03 PM [employer]AGE [employer] ATTENDANT) Amphetamine, ur Not Detected CutOff 500ng/mL Comment: [...] 2022. Benzodiazepines, ur Not Detected CutOff 100ng/mL [facility] ([place]) Comment: Interpretive Data - Benzodiazepines: Samples containing [...] 2022. Oxycodone, ur Not Detected CutOff 100ng/mL [facility] ([place]) Comment: Interpretive Data - Oxycodone: Samples containing greater than 100 ng/mL oxycodone or other cross-reacting compounds are reported as positive. False positive and false negative results are possible. Confirmatory testing required for definitive results. Current Interpretive Data was last reviewed 2022. Phencyclidine, ur Not Detected CutOff 25 ng/mL [facility] ([place]) Comment: Interpretive Data - Phencyclidine: Samples containing [...] revised on 2017. Urine 04/21/2024 3:03 PM [employer]WAGE PLANT ATTENDANT 04/21/2024 3:08 PM SEWAGE PLANT ATTENDANT Narrative [facility] ([place]) - 04/21/2024 3:38 PM [employer]WAGE PLANT ATTENDANT Drug of Abuse screening is performed by immunoassay for medical purposes only. This is not to be used for Pain Management purposes. Catalina Casillas MD LAB URINE ORDERABLES Es l Result [facility] ([place]) 1 [facility] [place] [address] * (ABNORMAL) Urinalysis, microscopic only (04/21/2024 3:03 PM [employer]WAGE [employer] ATTENDANT) WBC, ur 0-5 0 - 5 /HPF RBC, ur 0-2 0 - 2 /HPF [facility] ([place]) Epithelial cells, squamous, ur 1-5 0 - 5 /HPF [facility] ([place]) Bacteria, ur Trace(A) [facility] ([place]) Mucous, ur Present(A) [facility] ([place]) Culture Reflex Comment Reflex conditions for urine culture (WBC >10) not met. [facility] ([place]) Urine 04/21/2024 3:03 PM SEWAGE PL[employer] ATTENDANT 04/21/2024 3:07 PM SEWAGE PLANT ATTENDANT us Catalina Casillas MD LAB URINE ORDERABLES Es l Result [facility] ([place]) 1 [facility] [place] [address] * CT Lumbar Spine WO Contrast (04/21/2024 12:14 PM SEWAGE [employer] ATTENDANT) Anatomical Region Laterality Modality Spine N/A Computed Tomogra phy 04/21/2024 1:30 PM SEWAGE PLANT ATTENDANT Narrative 04/21/2024 1:38 PM SEWAGE PLANT ATTENDANT EXAM DESCRIPTION: CT LUMBAR SPINE WO CONTRAST [...] Hua Fiore M.D. R[place]EN: RUBEN Report ID: [id number] Reading Location: [place] [address] Procedure Note Hua Fiore MD - 04/21/2024 [...] without and with contrast, to include multiplanar [id number] fat-saturated sequences, can be performed for further evaluation OTHER: No other significant finding. IMPRESSION: No acute fracture or subluxation of the lumbar spine with chronicfindings as above on unenhanced CT lumbar spine. THIS IS AN ELECTRONICALLY VERIFIED FINAL REPORT 04/21/2024 1:38 PM - Electronically signed by Hua Fiore M.D. [place]: RUBEN Report ID: [id number] Reading Location: [id number] Catalina Casillas MD IMG CT PROCEDURES Final R esult * CT Head WO Contrast (04/21/2024 12:14 PM SEWAGE PLANT ATTENDANT) Anatomical Region Laterality Modality Head and Neck N/A Computed Tomogra phy 04/21/2024 1:05 PM SEWAGE PLANT ATTENDANT Narrative 04/21/2024 1:12 PM SEWAGE PLANT ATTENDANT EXAM DESCRIPTION: CT HEAD WO CONTRAST REASON [...] 1:12 PM - Electronically signed by Hua Fiore M.D. [place]: RUBEN Report ID: [id number] Reading Location: [id number] Procedure Note Hua Fiore MD - 04/21/2024 [...] 1:12 PM - Electronically signed by Hua Fiore M.D. [place]: RUBEN Report ID: [id number] Reading Location: [place] [address] us Catalina Casillas MD IMG CT PROCEDURES Final R esult * Sepsis Lactate w/ Reflex (04/21/2024 11:02 AM SEWAGE PLANT ATTENDANT) Pathologist [facility] Sepsis Lactate 1.3 0.7 - 2.0 mmol/L Blood 04/21/2024 11:0 2 AM SEWAGE PLANT ATTENDANT 04/21/2024 11:06 AM SEWAGE PLANT ATTENDANT us Catalina Casillas MD LAB BLOOD ORDERABLES Es l Result [facility] [place] 1 [facility] [place] [address] * eGFR (04/21/2024 11:02 AM SEWAGE PLANT ATTENDANT) Pathologist [facility] eGFR >90 >=60 mL/min/1. 73 m2 Comment: [...] reviewed 2021. Blood 04/21/2024 11:0 2 AM SEWAGE PLANT ATTENDANT 04/21/2024 11:06 AM SEWAGE PLANT ATTENDANT us Catalina Casillas MD LAB BLOOD ORDERABLES Es [place] Result [facility] ([place]) 1 [facility] [place] [address] * Differential, auto (04/21/2024 11:02 AM SEWAGE PLANT ATTENDANT) Neutrophil abs 3.4 1.5 - 6.5 K/cumm [...] on 2017. Blood 04/21/2024 11:0 2 AM SEWAGE PLANT ATTENDANT 04/21/2024 11:06 AM SEWAGE PLANT ATTENDANT us Catalina Casillas MD LAB BLOOD ORDERABLES Es l Result [facility] ([place]) 1 [facility] [place] [address] * CBC with auto differential (04/21/2024 11:02 AM SEWAGE PLANT ATTENDANT) WBC 6.2 3.8 - 9.9 K/cumm Hgb [...] RDW CV 13.7 11.1 - 14.9 % [facility] ([place]) RDW SD 46.3 35.7 - 48.1 fL [facility] ([place]) NRBC abs 0.00 0.00 - 0.01 K/cumm [facility] ([place]) Blood 04/21/2024 11:0 2 AM SEWAGE PLANT ATTENDANT 04/21/2024 11:06 AM SEWAGE PLANT ATTENDANT Catalina Casillas MD LAB BLOOD ORDERABLES Es l Result Performing Organization Address City/[facility]/ZIP Co de Phone Number [facility] ([place]) [address] [facility] [place] [address] * Protime-INR (04/21/2024 11:02 AM SEWAGE PLANT ATTENDANT) PT 11.7 9.7 - 13.0 sec [facility] ([place]) INR 1.08 0.90 - 1.20 [facility] ([place]) Comment: Interpretive data Oral anticoagulant therapeutic ranges: Venous thromboembolism prophylaxis or treatment: 2.0-3.0 CARDIOLOGY Standard range: 2.0-3.0 High-intensity range: 2.5-3.5 Refer to indication-specific guidelines for appropriate target ranges for prosthetic heart valve replacement. Current interpretive data was last revised on 2019. Blood 04/21/2024 11:0 2 AM SEWAGE PLANT ATTENDANT 04/21/2024 11:06 AM SEWAGE PLANT ATTENDANT Catalina Casillas MD LAB BLOOD ORDERABLES Es l Result Performing Organization Address City/[facility]/ZIP Co de Phone Number [facility] ([place]) 1 [facility] [place] [address] * (ABNORMAL) Comprehensive metabolic panel (04/21/2024 11:02 AM SEWAGE PLANT ATTENDANT) Sodium 136 135 - 145 mmol/L Potassium, pl 3.5 3.3 - 4.9 mmol/L [facility] ([place]) Chloride 104 97 - 110 mmol/L [facility] ([place]) CO2 20(L) 22 - 32 mmol/L [facility] ([place]) Anion gap 12 2 - 15 mmol/L [facility] ([place]) BUN 7 6 - 25 mg/dL [facility] ([place]) Creatinine 0.64 0.60 - 1.10 mg/dL [facility] ([place]) Glucose 140 70 - 199 mg/dL [facility] ([place]) [...] [facility] ([place]) Blood 04/21/2024 11:0 2 AM SEWAGE PLANT ATTENDANT 04/21/2024 11:06 AM SEWAGE PLANT ATTENDANT us Catalina Casillas MD LAB BLOOD ORDERABLES Es [place] Result [facility] ([place]) 1 [facility] [place] [address] * Diagnostic Mammogram Bilateral W Chon (06/19/2022 [...] This is most likely a complicated cyst. Javier Liang MD IMG MAMMO PROCEDURES Final [...] and children were not included. (Diabetes Care 31:[id number], 2008). The eAG is not equivalent to a fasting glucose. Blood 06/14/2021 9:56 AM CDT 06/14/2021 10:40 AM CDT Zeferino Bradshaw DO LAB BLOOD ORDERABLES Final Result [facility] ([place]) 1 [facility] Department of Laboratories [place], [place] [id number] * (ABNORMAL) Lipid panel (06/14/2021 9:56 AM [...] Pediatrics 2011;128:S213 2. NCEP Expert Panel. Circulation 2003;110:227 Current Interpretive Data was last revised on [...] Pediatrics 2011;128:S213 2. NCEP Expert Panel. Circulation 2003;110:227 Current Interpretive Data was last revised on [...] 2017. Non-HDL Cholesterol 177 mg/dL [facility] ([place]) Comment: Interpretive Data Ages < or = [...] on 2017. Chol/HDL ratio 4 [facility] ([place]) Blood 06/14/2021 9:56 AM CDT 06/14/2021 10:40 AM CDT us Zeferino Bradshaw DO LAB BLOOD ORDERABLES Final Result [facility] ([place]) 1 [facility] [place] [address] * RPR (06/11/2021 2:43 PM CDT) RPR Nonreactive Nonreactive [facility] Blood 06/11/2021 2:43 PM CDT 06/11/2021 8:20 PM CDT us Elicia Sandoval MD LAB MICROBIOLOGY - GENER AL ORDERABLES Final Result [facility] Department [place] [address] * Dexa Axial Skeleton Bone Density 1 or 2 Site (11/24/2020 12:31 PM CDT) Anatomical Region Laterality Modality Body N/A Other 11/24/2020 12:4 1 PM CDT Narrative 11/24/2020 12:41 PM CDT EXAM DESCRIPTION: DEXA AXIAL SKELETON BONE DENSITY 1 OR MORE SITES REASON FOR STUDY: Post-menopausal female, screening for osteoporosis. Scalemaker/Model: Hologic Horizon A (S/N [id number]) CLINICAL INFORMATION: Current height: 62 inches Maximum [...] by Francesco Ryan M.D. AB: Report ID: [id number] Reading Location: [id number] Procedure Note Francesco Ryan MD - 11/24/2020 EXAM DESCRIPTION: DEXA AXIAL SKELETON BONE DENSITY 1 OR MORE SITES REASON FOR STUDY: Post-menopausal female, screening for osteoporosis. Scalemaker/Model: HoloStylechi Horizon A (S/N [id number]) CLINICAL INFORMATION: Current height: 62 inches Maximum [...] by Francesco Ryan M.D. AB: Report ID: [id number] Reading Location: [id number] Zeferino Bradshaw DO IMG DXA PROCEDURES Final R esult * (ABNORMAL) Colonoscopy (08/17/2019) Anatomical Region Laterality Modality Other Historical Provider MD ENDOSCOPY PROCEDURES Es l Result from Last 3 Months or Most Recently Relevant to Health Maintenance Insurance [employer]TER [facility] [employer] [facility] Advance Directives For more information, please contact: [phone] * Full Code (Latest Code Status on File) Date Activated Date Inactivated Comments 07/18/2024 10:09 AM 07/19/2024 6:49 PM * Full Code Date Activated Date Inactivated Comments 08/02/2021 3:43 PM 08/05/2021 4:40 PM * Full Code Date Activated Date Inactivated Comments 05/05/2021 7:04 AM 05/08/2021 6:45 PM Care Teams Manager Clinical Relationship Specialty Start Date End Date Unknown, Notinfile PCP - General 05/22/24 Unknown, Notinfile 05/22/24 Zeferino Bradshaw DO Internal Medicine 01/14/22 Randy Jasmine MD PhD [address] [place] [address] Radiation Oncologist Radiation Oncology 07/31/20 Juanjose Alcaraz MD [address] [place] [address] Referring Physician Medical Oncology 07/31/20 Miscellaneous, Not In File 09/15/20 Mario Desai MD Referring Physician Neurosurgery 09/15/20 Francois Thompson MD Consulting Physician Infectious Diseases 05/08/21 Mario Ferguson MD [address] [facility] [address] DIV [place] [address] Consulting Physician Medical Oncology 03/31/24
--- OUTSIDE RECORDS SUMMARY | 2024-07-20 12:52 | XMS_ITS | Encounter Summary ---
Author Organization [facility] Healthcare Address [address] [place] [address] Care Team Providers Care Dog Day Care Attendant Name Role Phone Unknown, Notinfile Primary Care Provider Unavail able Unknown, Notinfile Unavailable Unavailable Zeferino Bradshaw DO Unavailable [phone] Randy gamez MD PhD Unavailable [phone] Juanjose Alcaraz MD Unavailable [phone] Miscellaneous, Not In File Unavailable Unava ilable Mario Desai MD Unavailable [phone] Francois Thompson MD Unavailable [phone] Mario Ferguson MD Unavailable Reason for Visit * Reason Comments Altered Mental Status * Auth/Cert (Routine) Specialty Diagnoses / Procedures Referred By Contac t Referred To Contact Diagnoses Seizure (HCC) Procedures NA Referral ID Status Reason Start Date Expiration Date Visits Re quested Visits Authorized [id number] 1 1 Encounter Details Date Type Department Care Team (Latest Contact Info) Description 07/18/2024 7:51 AM CDT - 07/19/2024 2:49 PM CDT Hospital Encounter [address] [address] Israel Edmonds MD [address] [place] [id number] Lyric Pastor MD [address] [facility] [place] [address] Rowena Granados MD [address] [facility] [place] [address] Seizure (HCC) (Primary Dx) Discharge Disposition: Left Against Medical Advice Social History Tobacco Use Types Packs/Day Years Used Date Smoking Tobacco: Every Day Cigarettes 0.5 40.3 Started: 1984 Smokeless Tobacco: Never Comments:Smoking History Pac ks/day: 1 Packs Alcohol Use Standard Drinks/Week Comments Yes 0 (1 standard drink = 0.6 oz pur e alcohol) [facility] Utilities Answer Date Recorded In the past 12 months has e [email or web address], gas, oil, or water [employer] threatened to shut off services in your [...] often do you attend chur ch or sabianist services? Never 07/19/2024 Do you belong to any clubs o r organizations such as uatsdin groups, unions, fraternal or athletic groups, or [...] any time in the past 12 m [facility], were you homeless or living in a chcf (including now)? No 07/19/2024 Personal Safety Answer Date Recorded Have you ever been in or are you currently in a harmful physical or emotional relationship or is someone making you feel afraid or unsafe? 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 Never 07/18/2024 2:20 PM CDT Mora Sevilla RN Q2: How many drinks containing alcohol do you have on a typical day when you are drinking? Patient does not drink 07/18/2024 2:20 PM CDT Mora Sevilla RN Q3: How often do you have six or more drinks on one occasion? Never 07/18/2024 2:20 PM CDT Mora Sevilla RN documented as of this encounter Discharge Summaries * Rowena Granados MD - 07/19/2024 2:49 PM CDT Inpatient Discharge Summary Patient left AMA Patient Name - Mare Rangel Patient Age - 54 yrs Patient - [id number] [facility] - [id number] Document Creation Date: 07/19/2024 Admitting Provider, MD: Lyric Pastor MD Discharge Provider, MD: No att. providers found Primary Care Physician at Discharge: Unknown, Notinfile None Admission Date: 07/18/2024 Discharge Date/time: Left AMA Admission Location: [facility] LOS - LOS: 1 day DETAILS OF HOSPITAL STAY Hospital Problems/Diagnoses Principal Problem: Seizure (CMS/HCC) (HCC) Active Problems: Aggressive behavior Reason for Hospitalization: Left AMA referred to progress note on 07/19 Hospital Course: Discharge Details Physical Exam at Discharge: Discharge Condition: Left AMA at time of leaving AMA patient was alert and oriented x3 Pulse: 95 Resp: 18 BP: 144/82 Temp: 36.4 ??C (97.5 ??F) Weight: 88.5 kg (195 lb) Pertinent Exam Findings at Discharge: Patient alert and oriented x3 Discharge Disposition: Left Against Medical Advice Code Status at Discharge: Prior Active Issues & Recommended Plan for Follow-up: Left AMA Allergies: Haloperidol, Amitriptyline, Gabapentin, Quetiapine, Amitriptyline hcl, Cephalosporins, and Olanzapine Discharge Medications: Your medication list as of July 19, 2024 2:49 PM You have not been prescribed any medications. Time Spent in Discharge Process: I have spent 0 minutes on discharge planning activities. Time spent was on left AMA Test Results Pending at Discharge (If Blank, None Found): Operative Procedures Performed (If Blank, None Found): Outpatient Follow-Up: Future Appointments Date Time Provider Department Center 04/12/2025 12:00 PM [facility] NEUROSURG RESIDENT Res NeuroSur [facility] Please schedule an appointment with the following provider(s): No follow-up provider specified. ANCILLARY INFORMATION Other Procedures & Diagnostic Tests: No results found. Recent Labs: Recent Labs Lab Units 07/19/246 07/18/24 0759 WBC K/cumm 5.44 6.63 HEMOGLOBIN g/dL 13.0 14.6 HEMATOCRIT % 37.2 41.0 PLATELETS K/cumm 199 225 Recent Labs Lab Units 07/19/24 0456 07/18/24 0759 WBC K/cumm 5.44 6.63 HEMOGLOBIN g/dL 13.0 14.6 HEMATOCRIT % 37.2 41.0 PLATELETS K/cumm 199 225 NEUTROS PCT % 40.5 54.0 LYMPHS PCT % 51.3 38.3 MONOS PCT % 7.2 6.5 EOS PCT % 0.4 0.5 Recent Labs Lab Units 07/19/24 0456 07/19/24 0227 07/18/24 0759 SODIUM mmol/L 141 -- 139 POTASSIUM PLASMA mmol/L 3.6 -- 3.6 CHLORIDE mmol/L 108 -- 105 CO2 mmol/L 21* -- 21* BUN SERUM mg/dL 6 -- 5* CREATININE mg/dL 0.71 -- 0.70 CFR-TVP-[id number] mL/min/1.73 m2 >90 -- >90 GLUCOSE mg/dL 92 -- 100 POC GLUCOSE MONITOR -- < > -- CALCIUM mg/dL 9.9 -- 10.4* ALBUMIN g/dL 3.8 -- 4.2 < > = values in this interval not displayed. Recent Labs Lab Units 07/19/24 0456 07/19/24 0227 07/18/24 0759 SODIUM mmol/L 141 -- 139 POTASSIUM PLASMA mmol/L 3.6 -- 3.6 CHLORIDE mmol/L 108 -- 105 CO2 mmol/L 21* -- 21* ANIONGAP mmol/L 12 -- 13 GLUCOSE mg/dL 92 -- 100 POC GLUCOSE MONITOR mg/dL -- 104 -- BUN SERUM mg/dL 6 -- 5* CREATININE mg/dL 0.71 -- 0.70 CALCIUM mg/dL 9.9 -- 10.4* ALBUMIN g/dL 3.8 -- 4.2 ALK PHOS Units/L 139* -- 170* ALT Units/L 11 -- 11 AST Units/L 16 -- 15 BILIRUBIN TOTAL mg/dL 0.9 -- 1.1 Recent Labs Lab Units 07/19/24 0456 07/18/24 0759 ALK PHOS Units/L 139* 170* BILIRUBIN TOTAL mg/dL 0.9 1.1 TOTAL PROTEIN g/dL 6.8 7.7 ALT Units/L 11 11 AST Units/L 16 15 Recent Labs Lab Units 07/19/24 0456 07/18/24 0815 MAGNESIUM mg/dL 2.0 1.8 Lab Results Component Value Date GLUCOSE 92 07/19/2024 GLUCOSE 104 07/19/2024 GLUCOSE 100 07/18/2024 Implant Implants No active implants to display in this view. General Precautions (If Blank, None Found): Isolation Status: No active isolations Nutritional Status and in-house recommendations: Anticoagulation Indication: INR: No results found for requested labs within last 30 days. Warfarin Administrations (last 168 hours) None Oxygen Status: O2 Therapy for the past 12 hrs: O2 Therapy 07/19/24 1147 None (Room air) 07/19/24 0710 None (Room air) Wound Care Instructions Active LDAs (If Blank, None Found): Peripheral IV 07/19/24 22 G Left;Lateral;Posterior (Active) Placement Date/Time: 07/19/24224 Type: Butterfly with Y Size (Gauge): 22 G Location Orientation:Left;Lateral;Posterior Patient Emergency Contact: Primary Emergency Contact: Jenifer Preciado Immunization Status at Discharge Immunization History Administered Date(s) Administered H1N1 All Forms 03/24/2009 Hep A / Hep B 12/12/2015, 04/11/2016, 01/02/2017 Hep A, 3 Dose 07/19/2010, 07/10/2012 Hep A, Adult 07/19/2010, 06/30/2012 Hep A, Pediatric 07/19/2010, 07/10/2012 Hep A, Unspecified 06/30/2012 Hep B Vaccine 07/19/2010, 02/27/2012, 02/27/2012, 09/15/2012, 09/15/2012, 09/20/2013 Hep B, Adolescent or Pediatric 07/19/2010 Hep B, Unspecified 02/27/2012, 09/15/2012 Influenza, Trivalent, IM (MDV) 03/24/2009 Influenza, Trivalent, Preservative Free, Intramuscular 03/24/2009, 01/03/2011 Influenza, Unspecified 01/03/2011 PPD TEST 04/11/2016, 05/22/2017 Pneumococcal Conjugate 7-Valent 07/19/2010 Pneumococcal Conjugate PCV 13 04/20/2015 Pneumococcal Conjugate, Unspecified 07/19/2010 Pneumococcal Polysaccharide PPV23 07/19/2010, 04/11/2016, 04/11/2017 Tdap 07/19/2010, 09/20/2013, 11/13/2022 Rowena Granados MD documented in this encounter Discharge Disposition Disposition Code Departure Means Destination Comment s Left Against Medical Advice documented in this encounter Progress Notes * Roxanne Salas LPC - 07/19/2024 2:49 PM CDT Patient left AMA. [facility] called [employer] and spoke to Kehsia who cancelled the Consult to Psychiatry. The AVS was not completed. * Roxanne Salas LPC - 07/19/2024 8:31 AM CDT [facility] sent an [employer] secure chat message to Karoline GARAY asking how the patient is doing with her confusion and agitation. [phone] RN, Karoline responded, she is not agitated, as for confusion, she doesn't answer any questions for us. RN doesn't think she can participate in the Consult to [facility] because she thinks doctors andall are just trying to kill her. She won't take any medications * Rowena Granados MD - 07/19/2024 7:52 AM CDT Medicine Daily Progress Note SUBJECTIVE 54-year-old female with past medical history of schizoaffective disorder, HIV infection, pseudo seizures, schwannoma lumbar nerve sheath tumors, COPD presented to the ED with concerns for possible seizures, patient also complained about pain in her head. Interval History: On the 1st encounter with the patient, nurse present. After review of chart and noting that patient was noncooperative with treatment plan Patient poor historian and not responding to any of my questions. Asked patient in regards to the reasoning for her presentation to the ED, patient reported and I quote you are incompetent and needto learn to read the [place] chart I tried to reason with the patient reporting that I have reviewed her medical records prior to seeing her just wanted to get more information from her. Patient at this point wanted to leave AMA, discussed the need to be evaluated by our psych. PT reported that she will not speak with psych she refuses to speak with psych. Tried to explain to the patient that overnight physician who evaluated her had concerns for possible limitation of decision making capacity and for her safety she needed to be evaluated by our psych team. Patient continued to raise voice and was aggressive towards myself and the nurse in the room, refused any further questions to be answered. Ask patient if she is taking any medications for her seizures patient refused to answer further questions or elaborate. Patient reported you are not addressing the reason I came to the hospital I tried to further question what symptoms she is having so that we can address, patient again with tangible thought process and aggressive behavior continue to yell and did not want to elaborate. Patient did not allow for further examination, or further testing. I stepped out of the room, spoke with charge nurse in regards to patient's safety given patient wasreported to have a seizure episode in the ED, and she has been walking in the hallways and not complying with seizure precaution, secondary to her safety she may benefit from having a sitter to redirect.. I came back to the room to try to speak with the patient a 2nd time, again patient refused to speakwith me, nurse present. I tried to explain to patient that the seizure precautions are for her safety, patient reports if she falls then she falls she needs to learn how to walk at home so might as well walk here. I was informed at about 10 30 that patient was having aggressive behavior towards staff, I went to evaluate patient. When was up to evaluate patient, patient was already in her room. There was nursing staff with security present. IV Ativan and Zyprexa was given. Patient at time of visit continued to scream and continued to threaten staff. Tried to deescalate the situation but patient did not wantto speak with me. Patient continue to have aggressive behavior. When I was speaking with the patient patient became more agitated and upset and began to walk up towards me when nurse Amos Joshua stepped in front of me. Patient stated to Amos I will knock you down. Patient continued to threaten staff, tried to spit and bite them. Patient with 2nd dose of Zyprexa without any improvement in her behavior, therefore she was placed in restraints. Despite pt restrained continued to have aggressive behavior. Plan discussed with nursing staff and charge nurse. Patient was revisit, and at that point patient was calling 911, nursing at bedside. I was contacted to re-evaluate patient, when daughter was present in the room- ( daughter Anita) Iwent back in the room with a Ayde RN, Darrian RN ( account assistant) and Heaven. I introduced myself and as I introduced myself daughter screaming and not allowing for me to have a conversation with her. PT daughter was screaming at Heaven and Heaven was trying to calmly explained the situation but daughter asked Heaven to leave the room. Daughter reported that she would like to take her mother home she is aware of her medical condition, she is aware that patient has seizures. I tried to explain to the daughter the reason that we are keeping her in the hospital was to further do a workup for her seizures, she is currently not on anyhome medication she has refused to take medication, plan was for brain MRI which patient has refused---> our goal is to provide the best medical care we can but patient has had aggressive behaviortowards staff and for her safety and for the safety of the staff she required to be on the restraints given the medication was ineffective. The daughter continued to yell as I was trying to explain the situation. Both Ayde and Darrian ( RN) try to also speak with patient's daughter, she continue to scream. Patient's daughter started filming us and threatened us with video recording, we did not authorize video recording, she continued to record with out our permission. I evaluated the patient patient alert and oriented x3, patient's daughter reported that she will take full responsibility for her mother safety, I informed her pt gait is unstable pt daughter reported she takes responsibility for her falling as well . Patient left AMA. OBJECTIVE Vitals: 24hr Min/Max: Temp Min: 36.2 ??C (97.1 ??F) Max: 37 ??C (98.6 ??F) Pulse Min: 62 Max: 96 BP Min: 111/83 Max: 155/93 Resp Min: 10 Max: 19 SpO2 Min: 91 % Max: 100 % Most Recent : Vitals: 07/19/24 0710 BP: 132/72 Pulse: 77 Resp: 18 Temp: 36.2 ??C (97.2 ??F) SpO2: 91% No intake/output data recorded. No intake/output data recorded. Physical Exam: Patient did not allow for physical exam Psych- tangible speech, aggressive behavior Patient was on room air, did not seem to be in any respiratory distress Lab/Current Medication Review: Recent Results (from the past 24 hours) CBC with auto differential Collection Time: 07/18/24 7:59 AM Result Value Ref Range WBC 6.63 3.80 - 9.90 K/cumm Hgb 14.6 11.9 - 15.5 g/dL Hct 41.0 35.6 - 45.5 % Plt 225 150 - 400 K/cumm MPV 10.1 9.1 - 12.3 fL RBC 4.42 3.90 - 5.20 M/cumm MCV 92.8 81.3 - 96.4 fL MCH 33.0 27.1 - 33.3 pg MCHC 35.6 32.3 - 35.7 g/dL RDW CV 13.4 11.1 - 14.9 % RDW SD 45.8 35.7 - 48.1 fL NRBC abs 0.00 0.00 - 0.01 K/cumm Comprehensive metabolic panel Collection Time: 07/18/24 7:59 AM Result Value Ref Range Sodium 139 135 - 145 mmol/L Potassium, pl 3.6 3.3 - 4.9 mmol/L Chloride 105 97 - 110 mmol/L CO2 21 (L) 22 - 32 mmol/L Anion gap 13 2 - 15 mmol/L BUN 5 (L) 6 - 25 mg/dL Creatinine 0.70 0.60 - 1.10 mg/dL Glucose 100 70 - 199 mg/dL Calcium 10.4 (H) 8.5 - 10.3 mg/dL Bilirubin, total 1.1 0.1 - 1.2 mg/dL Protein, pl 7.7 6.5 - 8.5 g/dL Albumin 4.2 3.5 - 5.0 g/dL Alk phos 170 (H) 40 - 130 Units/L ALT 11 7 - 45 Units/L AST 15 10 - 45 Units/L Ethanol Collection Time: 07/18/24 7:59 AM Result Value Ref Range Ethanol <10 <=10 mg/dL Differential, auto Collection Time: 07/18/24 7:59 AM Result Value Ref Range Neutrophil abs 3.59 1.50 - 6.50 K/cumm Imm gran abs 0.01 0.00 - 0.10 K/cumm Lymphocyte abs 2.54 0.80 - 3.30 K/cumm Monocyte abs 0.43 0.20 - 0.80 K/cumm Eosinophil abs 0.03 0.00 - 0.50 K/cumm Basophil abs 0.03 0.00 - 0.10 K/cumm Neutrophil pct 54.0 % Imm gran pct 0.2 % Lymphocyte pct 38.3 % Monocyte pct 6.5 % Eosinophil pct 0.5 % Basophil pct 0.5 % Erythrocyte sedimentation rate Collection Time: 07/18/24 7:59 AM Result Value Ref Range Erythrocyte sedimentation rate 20 1 - 30 mm/hr CRP (acute phase) Collection Time: 07/18/24 7:59 AM Result Value Ref Range CRP 7.4 <=10.0 mg/L eGFR Collection Time: 07/18/24 7:59 AM Result Value Ref Range eGFR >90 >=60 mL/min/1.73 m2 Magnesium Collection Time: 07/18/24 8:15 AM Result Value Ref Range Magnesium 1.8 1.4 - 2.5 mg/dL Pro B-type natriuretic peptide Collection Time: 07/18/24 8:15 AM Result Value Ref Range NT-proBNP <36 <=300 pg/mL Troponin T high-sensitivity series (baseline, 2hr, 4hr, 6hr) Collection Time: 07/18/24 8:15 AM Result Value Ref Range Trop T hs <6 <=14 ng/L Sepsis Lactate w/ Reflex Collection Time: 07/18/24 8:15 AM Result Value Ref Range Sepsis Lactate 1.1 0.7 - 2.0 mmol/L Drugs of Abuse Screen, Urine without Confirmation Collection Time: 07/18/24 10:16 AM Result Value Ref Range Amphetamine, ur Not Detected CutOff 500ng/mL Barbiturates, ur Not Detected CutOff 200ng/mL Benzodiazepines, ur Screen Positive, presumptive (A) CutOff 100ng/mL Cannabinoids, ur Screen Positive, presumptive (A) CutOff 50 ng/mL Cocaine, ur Not Detected CutOff 150ng/mL Fentanyl, Ur Not Detected CutOff 5 ng/mL Methadone, ur Not Detected CutOff 300ng/mL Opiates, ur Not Detected CutOff 300ng/mL Oxycodone, ur Not Detected CutOff 100ng/mL Phencyclidine, ur Not Detected CutOff 25 ng/mL Urine Creatinine 136 mg/dL Urinalysis reflex to microscopic and culture Urine Collection Time: 07/18/24 10:16 AM Specimen: Urine Result Value Ref Range Color, ur Yellow Yellow Clarity, ur Clear Clear Specific gravity, ur 1.012 1.003 - 1.030 pH, urine 6.5 Protein, ur ql 1+ (A) Negative Glucose, ur ql Negative Negative Ketones, ur 2+ (A) Negative Bilirubin, ur Negative Negative Blood, ur Negative Negative Urobilinogen, ur 2.0 (A) <2.0 mg/dL Nitrite, ur Negative Negative Leukocyte esterase, ur Negative Negative UA reflex comment Reflex to microscopic UA will be performed. Urinalysis, microscopic only Collection Time: 07/18/24 10:16 AM Result Value Ref Range WBC, ur 0-5 0 - 5 /HPF RBC, ur 0-2 0 - 2 /HPF Epithelial cells, squamous, ur 1-5 0 - 5 /HPF Mucous, ur Present (A) Culture Reflex Comment Reflex conditions for urine culture (WBC >10) not met. POCT glucose Collection Time: 07/19/24 2:27 AM Result Value Ref Range Glucose, POC 104 70 - 199 mg/dL Comprehensive metabolic panel Collection Time: 07/19/24 4:56 AM Result Value Ref Range Sodium 141 135 - 145 mmol/L Potassium, pl 3.6 3.3 - 4.9 mmol/L Chloride 108 97 - 110 mmol/L CO2 21 (L) 22 - 32 mmol/L Anion gap 12 2 - 15 mmol/L BUN 6 6 - 25 mg/dL Creatinine 0.71 0.60 - 1.10 mg/dL Glucose 92 70 - 199 mg/dL Calcium 9.9 8.5 - 10.3 mg/dL Bilirubin, total 0.9 0.1 - 1.2 mg/dL Protein, pl 6.8 6.5 - 8.5 g/dL Albumin 3.8 3.5 - 5.0 g/dL Alk phos 139 (H) 40 - 130 Units/L ALT 11 7 - 45 Units/L AST 16 10 - 45 Units/L Magnesium Collection Time: 07/19/24 4:56 AM Result Value Ref Range Magnesium 2.0 1.4 - 2.5 mg/dL CBC with auto differential Collection Time: 07/19/24 4:56 AM Result Value Ref Range WBC 5.44 3.80 - 9.90 K/cumm Hgb 13.0 11.9 - 15.5 g/dL Hct 37.2 35.6 - 45.5 % Plt 199 150 - 400 K/cumm MPV 10.0 9.1 - 12.3 fL RBC 3.97 3.90 - 5.20 M/cumm MCV 93.7 81.3 - 96.4 fL MCH 32.7 27.1 - 33.3 pg MCHC 34.9 32.3 - 35.7 g/dL RDW CV 13.3 11.1 - 14.9 % RDW SD 46.0 35.7 - 48.1 fL NRBC abs 0.00 0.00 - 0.01 K/cumm Differential, auto Collection Time: 07/19/24 4:56 AM Result Value Ref Range Neutrophil abs 2.21 1.50 - 6.50 K/cumm Imm gran abs 0.01 0.00 - 0.10 K/cumm Lymphocyte abs 2.79 0.80 - 3.30 K/cumm Monocyte abs 0.39 0.20 - 0.80 K/cumm Eosinophil abs 0.02 0.00 - 0.50 K/cumm Basophil abs 0.02 0.00 - 0.10 K/cumm Neutrophil pct 40.5 % Imm gran pct 0.2 % Lymphocyte pct 51.3 % Monocyte pct 7.2 % Eosinophil pct 0.4 % Basophil pct 0.4 % eGFR Collection Time: 07/19/24 4:56 AM Result Value Ref Range eGFR >90 >=60 mL/min/1.73 m2 ECG 12 lead Result Date: 07/19/2024 Narrative: Vent Rate: 86 bpm RR Interval: 691 msec SC Interval: 187 msec QRS Duration: 101 msec QT Interval: 360 msec QTC Interval: 404 msec P-R-T [place]: 75 - -44 - 43 degrees IMPRESSION: SINUS RHYTHMPOSSIBLE LEFT ATRIAL ENLARGEMENT [- 0.1mV P-WAVE IN V1/V2] LEFT AXIS DEVIATION [QRS AXIS < -30] PATTERN CONSISTENT WITH PULMONARY DISEASE INCOMPLETE RIGHT BUNDLE BRANCH BLOCK [90+ ms QRS DURATION, TERMINAL R IN V1/V2, 40+ ms S IN I/aVL/V4/V5/V6] ABNORMAL ECG NO CHANGE FROM PREVIOUS TRACING NOTED Electronically Signed By: Gallito Bardales MD XR Chest 1 View Result Date: 07/18/2024 Narrative: EXAM DESCRIPTION: XR CHEST 1 VIEW REASON FOR STUDY: chest pain 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 Patient states she was coming to the ED for pain in her head and points to the top of herhead and states it started at her neck and shot up to my head . Patient is Aanswering questions appropriately. Patient states she has brain tumors that make me lose my vision TECHNIQUE: Single-view COMPARISON: 03/22/2024 FINDINGS: Central vascularity have normal caliber. Aortic arch well-definedon the left. No dense consolidation, effusion or pneumothorax. Bony hypertrophic changes obscures the apices, noted through the thoracic spine and shoulders. IMPRESSION: No acute findings. THIS IS ANELECTRONICALLY VERIFIED FINAL REPORT 07/18/2024 9:09 AM - Electronically signed by Scot Murguia M.D. 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 Patient states she was coming to the ED for pain in herhead and points to the top of her [...] Scot Murguia M.D. 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 Patient states she was coming to the ED for pain in her head and pointsto the top of her head and states it started at her neck and shot up to my head . Patient is Aanswering questions appropriately. Patient states she has brain tumors that make me lose my vision TECHNIQUE: Axial images acquired through the brain without intravenous contrast. Images stored on PACS.Automated exposure control was used as a dose optimization technique for this examination. COMPARISON: 04/21/2024 CT head FINDINGS: BRAIN: No hemorrhage, edema or mass effect. No recent infarct. Normal white matter. EXTRA-AXIAL SPACES: No fluid collections. No masses. CALVARIUM: No fracture. SINUSES/MASTOIDS: No fluid or mucosal thickening. ORBITS: No significant abnormality. OTHER: No other signi ficant abnormality. IMPRESSION: No acute intracranial findings. THIS IS AN ELECTRONICALLY VERIFIED FINAL REPORT 07/18/2024 8:40 AM - Electronically signed by Scot Murguia M.D. RB: RBD: 07/18/2024 8:40 AM Report ID: [id number] Reading Location: [id number] Current Facility-Administered Medications Medication Dose Route Frequency Provider Last Rate Last Admin acetaminophen (TYLENOL) tablet 650 mg 650 mg oral Q4H PRN Davi Oscar MD enoxaparin (LOVENOX) syringe 40 mg 40 mg subcutaneous Daily-2099 Israel Edmonds MD levETIRAcetam (KEPPRA) 100 mg/mL injection 500 mg 500 mg intravenous Q12H [facility] Davi Oscar MD 500 mg at 07/18/24 2333 LORazepam (ATIVAN) 1 mg in sodium chloride 0.9% (further dilution required) injection 1 mg intravenous Q3H PRN Davi Oscar MD 1 mg at 07/19/24 0231 nicotine (NICODERM CQ) 21 mg patch 24 hour 1 patch 1 patch transdermal Daily Lyric Pastor MD 1 patch at 07/18/24 1859 OLANZapine (ZyPREXA) 5 mg in sterile water 1 mL (5 mg/mL) syringe 5 mg intramuscular Once PRN Davi Oscar MD ondansetron ODT (ZOFRAN-ODT) disintegrating tablet 4 mg 4 mg oral Q6H PRN Davi Oscar MD Or ondansetron (ZOFRAN) injection 4 mg 4 mg intravenous Q6H PRN Davi Oscar MD polyethylene glycol (MIRALAX) packet 17 g 17 g oral Daily PRN Davi Oscar MD ramelteon (ROZEREM) tablet 8 mg 8 mg oral Nightly PRN Davi Oscar MD 8 mg at 07/19/24 0216 A/P: Principal Problem: Seizure (CMS/HCC) (HCC) Resolved Problems: No resolved hospital problems. Aggressive behavior ---> aggressive behavior towards staff, p.r.n. medication( Ativan Zyprexa were administrated butpatient continued to have aggressive behavior) patient was not able to receive any other medicationincluding bleeding haloperidol secondary to allergies. Given she was aggressive with Zyprexa and Ativan in place she required restraints for her safety and staff safety For details please refer to interval Seizures Patient was evaluated by Neurology plan was for brain MRI EEG patient refused further care Patient was not following seizure precautions Patient refused to take her Keppra, which was recommended by Neurology In-house Neurology was consulted History of HIV No home medications listed Voice recognition software [employer] Fluency Direct was used dictate and transcribe this document. Child Care Development Specialist variances may occur. Despite proofreading, typographical errors may occur. MD Rowena Gonzalez MD [facility] Date of Service: 07/19/2024 7:52 AM My total encounter time on this service date was 90 minutes which was spent performing a [id number] encounter and personally completing the provider-level activities documented in the note. This includes time spent prior to the visit and after the visit in direct care of the patient. This time does not include time spent in any separately reportable services. * Shantell Huitron BSW - 07/18/2024 10:25 PM CDT Behavioral Health Integration (BHI) Navigator Note BH Navigator-Aware of consult. [facility] will be assigned when available. LG Morris Behavioral Health Navigator documented in this encounter H&P Notes * Davi Oscar MD - 07/18/2024 8:56 PM CDT History and Physical Hospitalists services Date of service: Primary care provider: SUBJECTIVE agitation, concerns for possible seizures, altered mental status HPI: 54-year-old female with medical history significant for HIV infection, diffuse peripheral nerve sheath tumor, CAD, schizoaffective disorder, COPD, hyperlipidemia, and other comorbidities who presented to the ED with concerns for altered mental status, felt like she was going to have a seizure, gener alized body aches and some confusion. Patient is a poor historian she is not participating in my interview at this time. I spoke with patient regarding her reason for presentation but she is not answering questions appropriately. Patient is agitated. Nurse was currently at bedside as well as security. Patient appears confused as well as paranoid. History gotten per chart review. Patient was said to be alert and oriented in the ED but on my evaluation she appears confused, paranoid and I do not feel patient is safe at this time to be discharged against medical advice until evaluation by Psychiatry In the ED vital signs stable, lab work done shows bicarbonate 21, calcium 10.4, ALP 170, lactic acid pro BNP initial troponin unremarkable remaining lab work unremarkable. UDS positive for benzodiazepine and cannabis. Ethanol level unremarkable. UA not suggestive of infection. Chest x-ray shows no acute findings. CT head noncontrast shows no acute intracranial findings. CT C-spine shows no acute C-spine abnormality. Patient received 15 mg IV Toradol, 1 g IV Keppra, 1 mg IV Ativan, 1 L normal saline bolus, neurology consulted in the ED recommend EEG to rule out seizures, 500 mg IV Keppra b.i.d., Ativan p.r.n. for breakthrough seizures. Past Medical History: Diagnosis Date Anemia Anemia Anemia Arthritis Arthritis Asthma Bipolar 1 disorder (HCC) Brain tumor (HCC) 03/08/2019 COPD (chronic obstructive pulmonary disease) (HCC) COPD (chronic obstructive pulmonary disease) (HCC) Depression Depression Epilepsy ([facility]) Epilepsy Fibromyalgia HX OTHER MEDICAL Headache, migraine HX OTHER MEDICAL Diabetes mellitus, type 2- ? Borderline HX OTHER MEDICAL Chronic bronchitis HX OTHER MEDICAL Irregular menstrual cycle HX OTHER MEDICAL 08/16/2012 back and chest pain; Comments: Pt c/o back pain, chest pain, nausea, vertigo. Pt given meclizine, norco, zofran, vicodin, & cortisone @ 2029, by 2124 pt d/c to home per RN note pt jogged to exitdoors when she left. PT also went to [facility] 08/14 for same reasons rcvd dilaudid x2; Outcome: improved HX OTHER MEDICAL c/o RLQ pain; Comments: pt left the ER upset w/staff - given rx for Vicodin. CT showed large amountof stool in colon; Outcome: see notes Hypertension Hypertension Migraine Positive laboratory testing for human immunodeficiency virus (HCC) 2006 HIV Pure hypercholesterolemia 10/10/2021 Schizoaffective disorder (HCC) Schizoaffective disorder Scoliosis Seizure disorder ([facility]) Seizure disorder Smoking Tardive dyskinesia Tension headache Headache, tension Thyroid disease Tumor R eye, spine, L sinus Past Surgical History: Procedure Laterality Date COLONOSCOPY 2019 EXPLORATORY LAPAROTOMY 2019 HYSTERECTOMY 2012 partial PARTIAL HYSTERECTOMY TUBAL LIGATION Tubal No medications prior to admission. Allergies Allergen Reactions Haloperidol Swelling Other reaction(s): Other (See Comments) Can't wake up Amitriptyline Gabapentin Unknown Quetiapine Amitriptyline Hcl Other (See comments) Cephalosporins Other (See comments) Olanzapine Other (See comments) Social History Tobacco Use Smoking status: Every Day Current packs/day: 0.50 Average packs/day: 0.5 packs/day for 40.3 years (20.2 ttl pk-yrs) Types: Cigarettes Start date: 1984 Smokeless tobacco: Never Tobacco comments: Smoking History Packs/day: 1 Packs Substance and Sexual Activity Drug use: Yes Frequency: 7.0 times per week Types: Marijuana Comment: pt says she has a [employer] card Sexual activity: None Alcohol Use: Not At Risk (07/18/2024) AUDIT-C Frequency of Alcohol Consumption: Never Average Number of Drinks: Patient does not drink Frequency of Binge Drinking: Never Family History Problem Relation Age of Onset Cancer Other Family history of Cancer; Diabetes Other Family history of Diabetes mellitus; Hypertension Other Family history of Hypertension; Migraines Other Family history of Migraine; Kidney disease Other Family history of Renal disease; Alcohol abuse Father Alcoholism; Alcohol abuse Mother Alcoholism; Mental illness Mother Mental illness; Pancreatic cancer Sister Cancer, pancreas; Cause of : Cancer, pancreas No Known Problems Daughter Mental illness Daughter No Known Problems Daughter Breast cancer Mother's Sister Anesthesia problems Neg Hx Ovarian cancer Neg Hx Thyroid cancer Neg Hx Review of Systems: Limited at this time as patient is refusing to participate in the interview OBJECTIVE Vitals: Arrival Vitals Temp 07/18/24 0801 37 ??C (98.6 ??F) Pulse 07/18/24 0756 89 Resp 07/18/24 0756 10 BP 07/18/24 0756 (!) 146/114 SpO2 07/18/24 0756 100 % Temp src 07/18/24 0801 Temporal Heart Rate Source -- Patient Position -- BP Location -- FiO2 (%) -- 24hr Min/Max: Temp Min: 37 ??C (98.6 ??F) Max: 37 ??C (98.6 ??F) Pulse Min: 71 Max: 96 BP Min: 111/83 Max: 155/93 Resp Min: 10 Max: 19 SpO2 Min: 95 % Max: 100 % Most Recent : Vitals: 07/18/24 1300 BP: Pulse: 79 Resp: Temp: SpO2: 97% No intake or output data in the 24 hours ending 07/18/242055 Physical exam: Eyes: EOMI, MALGORZATA, sclare non icteric Neck: supple, no nuchal ridigity, no gross carotid bruits appreciated ENT: No gross oral lesion, tongue midline, mucosa moist Respiratory: Lungs -CTA bilaterally, good inspiratory effort Cardiovascular: Heart sounds- [id number], no significant murmur or gallop GI: Abdomen-+BS, Non Tender, Non distended, No gross hepatomegaly Lower Ext: No gross edema, pedal artery pulses present bilaterally Neuro: alert, agitated and uncoperative Musculoskeletal: no gross joint erythema, edema, tenderness Genitourinary: No New change Skin: No new change Psychiatric: agitated, uncooperative, paranoid Lab/Radiology/Diagnostic Review: Recent Results (from the past 24 hours) CBC with auto differential Collection Time: 07/18/24 7:59 AM Result Value Ref Range WBC 6.63 3.80 - 9.90 K/cumm Hgb 14.6 11.9 - 15.5 g/dL Hct 41.0 35.6 - 45.5 % Plt 225 150 - 400 K/cumm MPV 10.1 9.1 - 12.3 fL RBC 4.42 3.90 - 5.20 M/cumm MCV 92.8 81.3 - 96.4 fL MCH 33.0 27.1 - 33.3 pg MCHC 35.6 32.3 - 35.7 g/dL RDW CV 13.4 11.1 - 14.9 % RDW SD 45.8 35.7 - 48.1 fL NRBC abs 0.00 0.00 - 0.01 K/cumm Comprehensive metabolic panel Collection Time: 07/18/24 7:59 AM Result Value Ref Range Sodium 139 135 - 145 mmol/L Potassium, pl 3.6 3.3 - 4.9 mmol/L Chloride 105 97 - 110 mmol/L CO2 21 (L) 22 - 32 mmol/L Anion gap 13 2 - 15 mmol/L BUN 5 (L) 6 - 25 mg/dL Creatinine 0.70 0.60 - 1.10 mg/dL Glucose 100 70 - 199 mg/dL Calcium 10.4 (H) 8.5 - 10.3 mg/dL Bilirubin, total 1.1 0.1 - 1.2 mg/dL Protein, pl 7.7 6.5 - 8.5 g/dL Albumin 4.2 3.5 - 5.0 g/dL Alk phos 170 (H) 40 - 130 Units/L ALT 11 7 - 45 Units/L AST 15 10 - 45 Units/L Ethanol Collection Time: 07/18/24 7:59 AM Result Value Ref Range Ethanol <10 <=10 mg/dL Differential, auto Collection Time: 07/18/24 7:59 AM Result Value Ref Range Neutrophil abs 3.59 1.50 - 6.50 K/cumm Imm gran abs 0.01 0.00 - 0.10 K/cumm Lymphocyte abs 2.54 0.80 - 3.30 K/cumm Monocyte abs 0.43 0.20 - 0.80 K/cumm Eosinophil abs 0.03 0.00 - 0.50 K/cumm Basophil abs 0.03 0.00 - 0.10 K/cumm Neutrophil pct 54.0 % Imm gran pct 0.2 % Lymphocyte pct 38.3 % Monocyte pct 6.5 % Eosinophil pct 0.5 % Basophil pct 0.5 % Erythrocyte sedimentation rate Collection Time: 07/18/24 7:59 AM Result Value Ref Range Erythrocyte sedimentation rate 20 1 - 30 mm/hr CRP (acute phase) Collection Time: 07/18/24 7:59 AM Result Value Ref Range CRP 7.4 <=10.0 mg/L eGFR Collection Time: 07/18/24 7:59 AM Result Value Ref Range eGFR >90 >=60 mL/min/1.73 m2 Magnesium Collection Time: 07/18/24 8:15 AM Result Value Ref Range Magnesium 1.8 1.4 - 2.5 mg/dL Pro B-type natriuretic peptide Collection Time: 07/18/24 8:15 AM Result Value Ref Range NT-proBNP <36 <=300 pg/mL Troponin T high-sensitivity series (baseline, 2hr, 4hr, 6hr) Collection Time: 07/18/24 8:15 AM Result Value Ref Range Trop T hs <6 <=14 ng/L Sepsis Lactate w/ Reflex Collection Time: 07/18/24 8:15 AM Result Value Ref Range Sepsis Lactate 1.1 0.7 - 2.0 mmol/L Drugs of Abuse Screen, Urine without Confirmation Collection Time: 07/18/24 10:16 AM Result Value Ref Range Amphetamine, ur Not Detected CutOff 500ng/mL Barbiturates, ur Not Detected CutOff 200ng/mL Benzodiazepines, ur Screen Positive, presumptive (A) CutOff 100ng/mL Cannabinoids, ur Screen Positive, presumptive (A) CutOff 50 ng/mL Cocaine, ur Not Detected CutOff 150ng/mL Fentanyl, Ur Not Detected CutOff 5 ng/mL Methadone, ur Not Detected CutOff 300ng/mL Opiates, ur Not Detected CutOff 300ng/mL Oxycodone, ur Not Detected CutOff 100ng/mL Phencyclidine, ur Not Detected CutOff 25 ng/mL Urine Creatinine 136 mg/dL Urinalysis reflex to microscopic and culture Urine Collection Time: 07/18/24 10:16 AM Specimen: Urine Result Value Ref Range Color, ur Yellow Yellow Clarity, ur Clear Clear Specific gravity, ur 1.012 1.003 - 1.030 pH, urine 6.5 Protein, ur ql 1+ (A) Negative Glucose, ur ql Negative Negative Ketones, ur 2+ (A) Negative Bilirubin, ur Negative Negative Blood, ur Negative Negative Urobilinogen, ur 2.0 (A) <2.0 mg/dL Nitrite, ur Negative Negative Leukocyte esterase, ur Negative Negative UA reflex comment Reflex to microscopic UA will be performed. Urinalysis, microscopic only Collection Time: 07/18/24 10:16 AM Result Value Ref Range WBC, ur 0-5 0 - 5 /HPF RBC, ur 0-2 0 - 2 /HPF Epithelial cells, squamous, ur 1-5 0 - 5 /HPF Mucous, ur Present (A) Culture Reflex Comment Reflex conditions for urine culture (WBC >10) not met. 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 Patient states she was coming to the ED for pain in her head and points to the top of herhead and states it started at her neck and shot up to my head . Patient is Aanswering questions appropriately. Patient states she has brain tumors that make me lose my vision TECHNIQUE: Single-view COMPARISON: 03/22/2024 FINDINGS: Central vascularity have normal caliber. Aortic arch well-definedon the left. No dense consolidation, effusion or pneumothorax. Bony hypertrophic changes obscures the apices, noted through the thoracic spine and shoulders. IMPRESSION: No acute findings. 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 Patient states she was coming to the ED for pain in herhead and points to the top of her [...] LUNG APICES: No significant abnormality. NECK SOFT TISSUES:No significant abnormality. OTHER: No other significant findings. IMPRESSION: No acute C-spine abnormality. Moderately severe degenerative changes. THIS IS AN ELECTRONICALLY VERIFIED FINAL REPORT 07/18/2024 8:45 AM - Electronically signed by Scot Murguia M.D. 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 Patient states she was coming to the ED for pain in her head and pointsto the top of her head and states it started at her neck and shot up to my head . Patient is Aanswering questions appropriately. Patient states she has brain tumors that make me lose my vision TECHNIQUE: Axial images acquired through the brain without intravenous contrast. Images stored on PACS.Automated exposure control was used as a dose optimization technique for this examination. COMPARISON: 04/21/2024 CT head FINDINGS: BRAIN: No hemorrhage, edema or mass effect. No recent infarct. Normal white matter. EXTRA-AXIAL SPACES: No fluid collections. No masses. CALVARIUM: No fracture. SINUSES/MASTOIDS: No fluid or mucosal thickening. ORBITS: No significant abnormality. OTHER: No other signi ficant abnormality. IMPRESSION: No acute intracranial findings. THIS IS AN ELECTRONICALLY VERIFIED FINAL REPORT 07/18/2024 8:40 AM - Electronically signed by Scot Murguia M.D. RB: RBD: 07/18/2024 8:40 AM Report ID: [id number] Reading Location: [id number] Current Facility-Administered Medications Medication Dose Route Frequency Provider Last Rate Last Admin acetaminophen (TYLENOL) tablet 650 mg 650 mg oral Q6H PRN Lyric Pastor MD enoxaparin (LOVENOX) syringe 40 mg 40 mg subcutaneous Daily-2099 Israel Edmonds MD levETIRAcetam (KEPPRA) tablet 500 mg 500 mg oral BID Adelaida Sahni MD LORazepam (ATIVAN) 1 mg in sodium chloride 0.9% (further dilution required) injection 1 mg intravenous Q4H PRN Davi Oscar MD 1 mg at 07/18/241954 nicotine (NICODERM CQ) 21 mg patch 24 hour 1 patch 1 patch transdermal Daily Lyric Pastor MD 1 patch at 07/18/24 775 OLANZapine (ZyPREXA) 5 mg in sterile water 1 mL (5 mg/mL) syringe 5 mg intramuscular Once PRN Davi Oscar MD A/P Principal Problem: Seizure (CMS/HCC) (HCC) Resolved Problems: No resolved hospital problems. Altered mental status Paranoid schizophrenia ? possible history of seizures diffuse peripheral nerve sheath tumor CT head, CT C-spine shows no acute intracranial findings acute C-spine abnormality UDS positive for cannabis and benzodiazepine Neurology consulted continue Keppra at this time MRI brain ordered for further evaluation Seizure precaution P.r.n. Ativan for any breakthrough seizures Patient was said to be alert and oriented in the ED but on my evaluation she appears confused, paranoid and I do not feel patient is safe at this time to be discharged against medical advice until evaluation by Psychiatry EEG ordered Patient is said to have allergy to Zyprexa but this is said to be low, I spoke with pharmacy who isokay with trying IM Zyprexa p.r.n. for agitation while monitoring patient in the hospital Further management per Neurology History of HIV infection Continue outpatient follow-up with infectious disease Continue home medication once reconciled COPD not in exacerbation, hyperlipidemia, schizoaffective disorder Continue home medication once reconciled These fluid and electrolyte abnormalities are being treated, evaluated or monitored: No fluid or electrolyte disorders DVT prophylaxis lovenox Code status full code Anticipated length of stay to be 2 to 3 days [facility] moderate Voice recognition software [employer] Direct was used dictate and transcribe this document. Child Care Development Specialist variances may occur. Despite proofreading, typographical errors may occur. Davi Oscar MD Date of Service: 07/18/2024 documented in this encounter Consult Notes * Roxanne Salas LPC - 07/19/2024 9:05 AM CDTAssociated Order(s): CONSULT TO BEHAVIORAL HEALTH [facility] Behavioral Health Integration (BHI) [facility] Consult Note - Telepsychiatry Request Date: 07/19/2024 Patient Name: Mare Rangel Medical Record: [id number] Date of : 1970 [facility] consult ordered by Davi Hector for Paranoid schizophrenia, agitated, confused . [facility] messaged with JARROD Ramey who reports the patient doesn't trust doctors. She won't take medication. She has not been talking to staff. A consult to Psychiatry has already been entered by provider. [facility] will notify Psychiatry. Per EMR, patient has not expressed any thoughts of harming self orothers. C-SSRS risk upon admission was no risk At 912 [facility] entered a inpatient urgent video consult, which has a median time of EIGHT hours to be completed into the [facility] Portal. Reason for consult: paranoid schizophrenia, confusion, agitation, medication review/recommendation. [facility] staff will be contacting [facility] at phone number: [phone]. Psychiatrist will use this number to start video assessment as well. Please have equipment charged and ready. Device ID given to [facility] is: [id number]. [facility] will monitor consult timeframe and contact [facility] as necessary. For inpatient consults, [facility] should not call after 2300 to start a consult and patient will be seen the next morning. For EmergencyDepartment consults, [facility] sees the patient 14/10. [facility] messaged with Karoline GARAY at [facility] and updated them on status. Thank you for the opportunity to participate in this patient's care. Roxanne Salas LPC Behavioral [facility] * Sarah Escudero NP - 07/19/2024 8:32 AM CDTAssociated Order(s): IP CONSULT TO NEUROLOGY See full consult note 07/18 * Adelaida Sahni MD - 07/18/2024 9:47 AM CDT NEUROLOGY CONSULTATION Name: Mare Rangel Admission Date/Time: 07/18/2024 7:51 AM Primary Care Provider: Raj, Hector __ Assessment/Plan: Seizure like activity - says feels like she is going to have a seizure. Has a history of seizures Headache for 2 days HTN Hyperlipidemia Depression Plan: 1. EEG r/o seizures. 2. Keppra 1000mg IV X 1 loading dose then 500mg PO/IV twice daily 3. Ativan 1mg Q 1hrs as needed for seizure activity hold if patient lethargic and notify the neurologist. 4. Seizures precautions. 5. CT [place] - no acute process. CT C- spine - no fracture, DJD changes. 6. IV fluids 7. GI/DVT Prophylaxis. 8. PT/OT Eval. D/w ER Physician and patient. Thank you for allowing me to participate in the care of this patient. Adelaida Sahni MD [facility] Assistant Account Manager Neurologist. Board Certified in Neurology, Headache Medicine, Stroke (Vascular Neurology) and Neurocritical Care. Master in Health Care Management ([facility] [employer] [facility] 2022 _ Reason for Consultation: Seizure _ HPI: Patient is a pleasant 54 y.o. with multiple past medical listed below including but not limited to seizures, pseudoseizures, memory loss, major depressive disorder, tobacco abuse, hypertension, hyperlipidemia who apparently presented to the ER with complaints of 2 days in the back of the head with head and neck stiffness and headaches. He says he is having trouble talking. She has nausea but no vomiting she also complains of pain behind her eyes. She is telling that she is having are going to have a seizure. She feels as if she is coming on. In the ER patient did have a CT scan of the brain done along with a CT cervical spine that did not show any acute abnormality. Patient was given Ativanand also loaded with 1000 mg of Keppra IV. Patient was admitted further workup and neurology consultation has been requested. Patient Active Problem List Diagnosis Date Noted Dysmenorrhea 12/12/2023 Failure to thrive in adult 10/27/2023 Other visual disturbances 10/14/2023 Angina concurrent with and due to arteriosclerosis of coronary artery 07/22/2023 Angina concurrent with and due to arteriosclerosis of coronary artery 07/22/2023 Housing instability, housed unspecified 03/03/2023 Onychomycosis 03/03/2023 Tinea pedis 03/03/2023 Mixed hyperlipidemia 01/20/2023 Class 1 obesity due to excess calories with body mass index (BMI) of 34.0 to 34.9 in adult 05/02/2022 Nausea 03/26/2022 Pure hypercholesterolemia 10/10/2021 Abnormal mammogram 10/10/2021 Pseudoseizure 05/08/2021 Viral gastroenteritis 05/07/2021 DDD (degenerative disc disease), cervical 08/14/2020 Greater trochanteric bursitis of left hip 02/29/2020 Trochanteric bursitis, left hip 02/29/2020 Joint pain 02/04/2020 Hypertension, essential 12/29/2019 Tardive dyskinesia 12/29/2019 Hand cramps 12/29/2019 COPD (chronic obstructive pulmonary disease) ([facility]) (HCC) 12/24/2019 Schwannoma 12/03/2019 Memory loss 10/06/2019 Fatigue 06/16/2019 MDD (major depressive disorder) 06/16/2019 Tobacco abuse 06/16/2019 Vitamin D deficiency 06/16/2019 Hyperglycemia 06/16/2019 Brain mass 05/18/2019 Epilepsy ([facility]) 05/19/2018 Obesity 11/26/2016 Tobacco dependence syndrome 11/26/2016 Behavior change due to substance use 04/12/2016 Urinary incontinence in female 02/11/2015 Iron deficiency anemia 01/03/2014 Prediabetes 09/02/2013 Mild persistent asthma 09/01/2013 Scoliosis 11/26/2011 Non-intractable vomiting with nausea 11/26/2011 Diarrhea 11/26/2011 Panic disorder without agoraphobia 11/26/2011 Chronic schizoaffective schizophrenia ([facility]) 11/26/2011 Seizure ([facility] [place]) ([facility]) 08/07/2011 Chronic pain syndrome 08/06/2010 Human immunodeficiency virus (HIV) infection ([facility]) 08/06/2006 History of substance abuse ([facility]) 08/06/2006 Substance abuse in remission ([facility]) 08/06/2006 Schizoaffective disorder ([facility]) 08/06/1989 Past Medical History: Diagnosis Date Anemia Anemia Anemia Arthritis Arthritis Asthma Bipolar 1 disorder ([facility]) Brain tumor ([facility]) 03/08/2019 COPD (chronic obstructive pulmonary disease) ([facility]) COPD (chronic obstructive pulmonary disease) ([facility]) Depression Depression Epilepsy ([facility]) Epilepsy Fibromyalgia HX OTHER MEDICAL Headache, migraine HX OTHER MEDICAL Diabetes mellitus, type 2- ? Borderline HX OTHER MEDICAL Chronic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 07/18/2024 10:16 AM CDT URINALYSIS, MICROSCOPIC ONLY STAT 07/18/2024 10:16 AM CDT XR CHEST 1 VIEW ED 07/18/2024 8:[address] CERVICAL SPINE WO CONTRAST ED 07/18/2024 8:[address] HEAD WO CONTRAST ED 07/18/2024 8 :32 AM CDT TROPONIN T HIGH-SENSITIVITY SERIES (BASELINE, 2HR, 4HR, 6HR) Routine 07/18/2024 8:15 AM CDT SEPSIS LACTATE WITH REFLEX STAT 07/18/2024 8:15 AM CDT PRO B-TYPE NATRIURETIC PEPTIDE STAT 07/18/2024 8:15 AM CDT MAGNESIUM Routine 07/18/2024 8:15 AM CDT EGFR STAT 07/18/2024 7:59 AM CDT DIFFERENTIAL AUTO STAT 07/18/2024 7:5 9 AM CDT CBC WITH AUTO DIFFERENTIAL STAT 07/18/2024 7:59 AM CDT ERYTHROCYTE SEDIMENTATION RATE STAT 07/18/2024 7:59 AM CDT CRP (ACUTE PHASE) STAT 07/18/2024 7:5 9 AM CDT ETHANOL STAT 07/18/2024 7:59 AM CDT COMPREHENSIVE METABOLIC PANEL STAT 07/18/2024 7:59 AM CDT ECG 12-LEAD STAT 07/18/2024 7:55 AM CDT documented in this encounter Results * eGFR (07/19/2024 4:56 AM CDT) eGFR [...] MD LAB BLOOD ORDERABLES Fi nal Result [facility] ([place]) 1 [facility] Department [place] [address] * Differential, auto (07/19/2024 4:56 AM CDT) [...] Fi nal Result [facility] ([place]) 1 [facility] [place] [address] * CBC with auto differential (07/19/2024 4:56 [...] ([place]) MCH 32.7 27.1 - 33.3 pg [facility] ([place] MCHC 34.9 32.3 - 35.7 g/dL [facility] ([place]) RDW CV 13.3 11.1 - 14.9 % [facility] ([place]) RDW SD 46.0 35.7 - 48.1 fL [facility] ([place]) NRBC abs 0.00 0.00 - 0.01 K/cumm [facility] ([place]) Blood 07/19/2024 4:56 AM CDT 07/19/2024 5:31 AM CDT Davi Oscar MD LAB BLOOD ORDERABLES Fi nal Result [facility] ([place]) 1 [facility] [employer] [place] [address] * Magnesium (07/19/2024 4:56 AM CDT) Pathologist [facility] [place] Magnesium 2.0 1.4 - 2.5 mg/dL Blood 07/19/2024 4:56 AM CDT 07/19/2024 5:32 AM CDT Davi Oscar MD LAB BLOOD ORDERABLES Fi nal Result Performing Organization Address City/[facility]/ZIP Co de Phone Number [facility] ([place]) 1 [facility] [place] [address] * (ABNORMAL) Comprehensive metabolic panel (07/19/2024 4:56 AM CDT) Sodium 141 135 - 145 mmol/L Potassium, pl 3.6 3.3 - 4.9 mmol/L [facility] ([place]) Chloride 108 97 - 110 mmol/L [facility] ([place]) CO2 21(L) 22 - 32 mmol/L [facility] ([place]) Anion gap 12 2 - 15 mmol/L [facility] ([place]) BUN 6 6 - 25 mg/dL [facility] ([place]) Creatinine 0.71 0.60 - 1.10 [...] Fi nal Result [facility] ([place]) 1 [facility] Department [place] [address] * POCT glucose (07/19/2024 2:27 AM CDT) [facility] Signature Glucose, POC 104 70 - 199 mg/dL Blood 07/19/2024 2:27 AM CDT 07/19/2024 2:27 AM CDT us Lyric Pastor MD LAB POCT ORDERABLES - DEV ICE Final Result Performing Organization Address [facility]/ZIP Co de Phone Number JASON JACK ([place]) 1 [facility] [place] [address] * (ABNORMAL) Urinalysis, microscopic only (07/18/2024 10:16 AM CDT) WBC, ur 0-5 0 - 5 /HPF RBC, ur 0-2 0 - 2 /HPF [facility] ([place]) Epithelial cells, squamous, ur 1-5 0 - 5 /HPF [facility] ([place]) Mucous, ur Present(A) [facility] ([place]) Culture Reflex Comment Reflex conditions for urine culture (WBC >10) not met. [facility] JACK ([place]) Urine 07/18/2024 10:1 6 AM CDT 07/18/2024 10:19 AM CDT Israel Edmonds MD LAB URINE ORDERABLES Final R esult Performing Organization Address [facility] Co de Phone Number JASON JCAK ([place]) 1 [facility] [place] [address] * (ABNORMAL) Urinalysis reflex to microscopic and culture Urine (07/18/2024 10:16 AM CDT) Color, ur Yellow Yellow Clarity, ur Clear Clear [facility] A ([place]) Specific gravity, ur 1.012 1.003 - 1.030 [facility] ([place]) pH, urine 6.5 [facility] ([place]) Comment: Interpretive Data U rine pH is affected by diet, medications, systemic acid-base disturbances, and renal tubular function. pH may affect urinary stone formation. For example, urine pH below 6.0 may help reduce the tendency for calcium phosphate stones and pH greater than 6.0 may reduce the tendency for uric acid stone formation. Source: [place] [employer] Current Interpretive Data was last revised on 2017 Protein, ur ql 1+(A) Negative [facility] ([place]) Glucose, ur ql Negative Negative [facility] ([place]) Ketones, ur 2+(A) Negative [facility] ([place]) Bilirubin, ur Negative Negative [facility] ([place]) Blood, ur Negative Negative [facility] ([place]) Urobilinogen, ur 2.0(A) <2.0 mg/dL [facility] ([place]) Nitrite, ur Negative Negative [facility] A ([place]) Leukocyte esterase, ur Negative Negative [facility] ([place]) UA reflex comment Reflex to microscopic UA will be performed. [facility] ([place]) Urine 07/18/2024 10:1 6 AM CDT 07/18/2024 10:19 AM CDT us Israel Edmonds MD LAB MICROBIOLOGY - GENERAL O RDERABLES Final Result [facility] ([place]) 1 [facility] Department [place] [address] * (ABNORMAL) Drugs of Abuse Screen, Urine [...] 2022. Urine Creatinine 136 mg/dL JAKE JACK ([place]) Comment: Interpretive Data Urine Creatinine: < 10 mg/dL is extremely dilute = or > 10 but < 20 mg/dL is dilute = or > 20 mg/dL is normal Current Interpretive Data was last revised on 2017. Urine 07/18/2024 10:1 6 AM CDT 07/18/2024 10:19 AM CDT Narrative [facility]ASON JACK ([place]) - 07/18/2024 10:45 AM CDT Drug of Abuse screening is performed by immunoassay for medical purposes only. This is not to be used for Pain Management purposes. 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 RB: RB Report ID: [id number] Reading Location: [id number] [id number] us Israel Edmonds MD IMG CT PROCEDURES Final Resu lt * Sepsis Lactate w/ Reflex (07/18/2024 8:15 AM CDT) Sepsis Lactate 1.1 0.7 - 2.0 mmol/L Blood 07/18/2024 8:15 AM CDT 07/18/2024 8:21 AM CDT Israel Edmonds MD LAB BLOOD ORDERABLES Final R esult [facility] [place]) 9 [facility] Department [place] [address] * Troponin T high-sensitivity series (baseline, 2hr, [...] ORDERABLES Final R esult Performing Organization Address City/[facility]/ZIP Co de Phone Number [facility] ([place]) 1 [facility] [place] [address] * Pro B-type natriuretic peptide (07/18/2024 8:15 [...] et.al. Eur Heart J. 2006:27:330-337. 2. Melissa RW, Gordon BURGER. J. AM Peri Cardiol: Cardiovasc Imag. 2009;2: 216- 225. Interpretive Data Last Revised Date: 2017. Blood 07/18/2024 8:15 AM CDT 07/18/2024 8:21 AM CDT Israel Edmonds MD LAB BLOOD ORDERABLES Final R esult Performing Organization Address City/[facility]/ZIP Co de Phone Number JASON JACK [place]) 1 [facility] [place] [address] * Magnesium (07/18/2024 8:15 AM CDT) Magnesium 1.8 1.4 - 2.5 mg/dL Blood 07/18/2024 8:15 AM CDT 07/18/2024 8:21 AM CDT Israel Edmonds MD LAB BLOOD ORDERABLES Final R esult Performing Organization Address City/[facility]/ZIP Co de Phone Number [facility] ([place]) 1 [place] [address] * eGFR (07/18/2024 7:59 AM CDT) eGFR [...] BLOOD ORDERABLES Final R esult [facility] ([place]) 1 [facility] [place] [address] * CRP (acute phase) (07/18/2024 7:59 AM CDT) Pathologist [facility] [place] CRP 7.4 <=10.0 mg/L Blood 07/18/2024 7:59 AM CDT 07/18/2024 8:34 AM CDT Israel Edmonds MD LAB BLOOD ORDERABLES Final R esult [facility]ON JACK ([place]) 1 [facility] [place] [address] * Erythrocyte sedimentation rate (07/18/2024 7:59 AM CDT) [facility] Erythrocyte sedimentation rate 20 1 - 30 mm/hr Blood 07/18/2024 7:59 AM CDT 07/18/2024 8:34 AM CDT Israel Edmonds MD LAB BLOOD ORDERABLES Final R esult JASON JACK ([place]) 1 [facility] [place] [address] * Differential, auto (07/18/2024 7:59 AM CDT) [facility] Neutrophil abs 3.59 1.50 - 6.50 K/cumm [...] Neutrophil pct 54.0 % [facility] ([place]) Comment: Interpretive Data Percent cell count reference [...] LAB BLOOD ORDERABLES Final R esult JASON MARCIE ([place]) 1 [facility] Department [place] [address] * Ethanol (07/18/2024 7:59 AM CDT) Ethanol <10 <=10 mg/dL Comment: Interpretive Data Legal limit of intoxication > or = 80 mg/dL Levels > or = 400 mg/dL are potentially TOXIC. Current interpretive data was last revised on 2018. Blood 07/18/2024 7:59 AM CDT 07/18/2024 8:02 AM CDT us Israel Edmonds MD LAB BLOOD ORDERABLES Final R esult JASON JACK ([place]) 1 [facility] Department [place] [address] * (ABNORMAL) Comprehensive metabolic panel (07/18/2024 7:59 [...] ORDERABLES Final R esult Performing Organization Address City/[facility] Co de Phone Number [facility] ([place]) 1 [facility] [place] [address] * CBC with auto differential (07/18/2024 7:59 [...] ORDERABLES Final R esult Performing Organization Address City/[facility]/ZIP Co de Phone Number [facility] ([place]) 1 [facility] [employer] [place] [address] * ECG 12 lead (07/18/2024 7:55 AM CDT) 07/18/2024 7:55 AM CDT Narrative [facility] - 07/19/2024 7:21 AM CDT Vent Rate: 86 bpm RR Interval: 691 msec SC Interval: 187 msec QRS Duration: 101 msec QT Interval: 360 msec QTC Interval: 404 msec P-R-T [place]: 75 - -44 - 43 degrees IMPRESSION: [...] Israel Edmonds MD ECG ORDERABLES Final Result [facility] documented in this encounter Visit Diagnoses Diagnosis Seizure (CMS/HCC) (HCC)- Primary Other convulsions Seizure (HCC) Other convulsions documented in this encounter Admitting Diagnoses Diagnosis Seizure (HCC) Other convulsions documented in this encounter Administered Medications Inactive Administered Medications - up to 3 most recent administrations Medication Order MAR Action Action Date Dose Rate Site HYDROcodone-acetaminophen (NORCO) 5-325 mg per tablet 1 tablet 1 tablet, oral, Once, On Fri07/19/24 at 0445, For 1 dose, Indications: PainIndications:Pain Given 07/19/2024 4:55 AM CDT 1 tablet ketorolac (TORADOL) 15 mg/mL injection 15 mg 15 mg, intravenous, Once, On Fri07/18/24 at 1730, For 1 dose Given 07/18/2024 5:22 PM CDT 15 mg levETIRAcetam (KEPPRA) 100 mg/mL injection 1,000 mg 1,000 mg, intravenous, Once, On Fri07/18/24 at 0808, For 1 dose, Administer at a rate of 500 mg/min IV push (IVP) undiluted. For doses greater than 2,000 mg, split into multiple syringes (maximum 2,000 mg per syringe) and administer as separate injections (in separate IV lines, if available). Given 07/18/2024 8:12 AM CDT 1,000 mg levETIRAcetam (KEPPRA) 100 mg/mL injection 500 mg 500 mg, intravenous, Every 12 hours scheduled, First dose on 07/18/24 at 2145, Administer at a rate of 500 mg/min IV push (IVP) undiluted. For doses greater than 2,000 mg, split into multiple syringes (maximum 2,000 mg per syringe) and administer as separate injections (in separate IV lines, if available). Given 07/18/2024 11:33 PM CDT 500 mg LORazepam (ATIVAN) 1 mg in sodium chloride 0.9% (further dilution required) injection 1 mg, intravenous, Once, On 07/18/24 at 0806, For 1 dose, Withdraw ordered dose amount then dilute with equal volume of 0.9% sodium chloride. Administer total volume to patient. Do not exceed a rate of 2 mg/minute. Given 07/18/2024 8:08 AM CDT 1 mg LORazepam (ATIVAN) 1 mg in sodium chloride 0.9% (further dilution required) injection 1 mg, intravenous, Every 4 hours PRN, seizures, anxiety, agitation, Starting on 07/18/24 at 1938, Withdraw ordered dose amount then dilute with equal volume of 0.9% sodium chloride. Administer total volume to patient. Do not exceed a rate of 2 mg/minute. Given 07/18/2024 7:55 PM CDT 1 mg LORazepam (ATIVAN) 1 mg in sodium chloride 0.9% (further dilution required) injection 1 mg, intravenous, Every 3 hours PRN, seizures, anxiety, agitation, Starting on 07/18/24 at 2110, Withdraw ordered dose amount then dilute with equal volume of 0.9% sodium chloride. Administer total volume to patient. Do not exceed a rate of 2 mg/minute. Given 07/19/2024 10:32 AM CDT 1 mg Given 07/19/2024 2:31 AM CDT 1 mg nicotine (NICODERM CQ) 21 mg patch 24 hour 1 patch 1 patch, transdermal, Administer over 24 Hours, Daily, First dose on 07/18/24 at 1930, Apply a new patch every 24 hours to a clean, dry, hairless site on the upper arm or hip. Rotate site. Medication Applied 07/19/2024 8:48 AM CDT 1 patch Other (Comment) Medication Applied 07/18/2024 6:59 PM CDT 1 patch Right Shoulder OLANZapine (ZyPREXA) 5 mg in sterile water 1 mL (5 mg/mL) syringe 5 mg, intramuscular, Once as needed, agitation, Starting on 07/18/24 at 2037, For 1 dose, Reconstitute 10 mg vial with 2.1 mL SWFI. Resulting solution is ~5 mg/mL. Use immediately (within 1 hour) following reconstitution. Given 07/19/2024 10:27 AM CDT 5 mg Right Ventrogluteal OLANZapine (ZyPREXA) 5 mg in sterile water 1 mL (5 mg/mL) syringe 5 mg, intramuscular, Once as needed, agitation, Starting on 07/19/24 at 1059, For 1 dose, Reconstitute 10 mg vial with 2.1 mL SWFI. Resulting solution is ~5 mg/mL. Use immediately (within 1 hour) following reconstitution. Given 07/19/2024 11:02 AM CDT 5 mg Left Deltoid ondansetron (ZOFRAN) injection 4 mg 4 mg, intravenous, Administer over 2 Minutes, Every 6 hours PRN, nausea, vomiting, if not tolerating PO, Starting on 07/18/24 at 2110, Indications: Nausea and VomitingIndications:Nausea and Vomiting ondansetron ODT (ZOFRAN-ODT) disintegrating tablet 4 mg 4 mg, oral, Every 6 hours PRN, nausea, vomiting, Starting on 07/18/24 at 211, If administering by mouth, place tablet on tongue and allow to dissolve., Indications: Nausea and VomitingIndications:Nausea and Vomiting ramelteon (ROZEREM) tablet 8 mg 8 mg, oral, Nightly PRN, sleep, Starting on Fri07/18/24 at 2110, Indications: Sleep-Onset InsomniaIndications:Sleep-Ons et Insomnia Given 07/19/2024 2:16 AM CDT 8 mg sodium chloride 0.9% bolus 1,000 mL 1,000 mL, intravenous, Once, On 07/18/24 at 1044, For 1 dose New Bag 07/18/2024 10:51 AM CDT 1,000 mL documented in this encounter Discontinued Medications Medication Sig Discontinue Reason Start Date End Da te [id number]-idt ofovir disoproxil fumarate (Delstrigo) 100-300-300 mg tablet Take 1 tablet by mouth daily Therapy completed 01/20/2023 07/18/2024 HYDROcodone-acetaminophen (NORCO) 5-325 mg per tabletIndications:Pain Take 1 tablet by mouth every 6 (six) hours as needed for pain for up to 10 doses Therapy completed 04/21/2024 07/18/2024 ondansetron ODT (ZOFRAN-ODT) 4 mg disintegrating tablet Take 1 tablet (4 mg total) by mouth every 8 (eight) hours as needed for nausea or vomiting Therapy completed 01/20/2023 07/18/2024 documented as of this encounter Active and Recently Administered Medications Times are shown in CDT. Scheduled Medication Order 07/17/2024 07/18/2024 07/19/2024 enoxaparin (LOVENOX) syringe 40 mg 40 mg, subcutaneous, Daily (for enoxaparin), First dose on 07/18/24 at 2100, Indications: Deep Vein Thrombosis Prevention 2005 (Not Given - Provider: Joelle Ray RN - Reason: Patient/family refused) HYDROcodone-acetaminophe n (NORCO) 5-325 mg per tablet 1 tablet (COMPLETED) 1 tablet, oral, Once, On 07/19/24 at 0445, For 1 dose, Indications: Pain 0455 (Given - Provid er: Joelle aRy RN) ketorolac (TORADOL) 15 mg/mL injection 15 mg (COMPLETED) 15 mg, intravenous, Once, On 07/18/24 at 1730, For 1 dose 1722 (Given - Provider: Mora Sevilla RN) levETIRAcetam (KEPPRA) 100 mg/mL injection 1,000 mg (COMPLETED) 1,000 mg, intravenous, Once, On 07/18/24 at 0808, For 1 dose, Administer at a rate of 500 mg/min IV push (IVP) undiluted. For doses greater than 2,000 mg, split into multiple syringes (maximum 2,000 mg per syringe) and administer as separate injections (in separate IV lines, if available). 0812 (Given - Provider: Teri Chong, JARROD) levETIRAcetam (KEPPRA) 100 mg/mL injection 500 mg 500 mg, intravenous, Every 12 hours scheduled, First dose on 07/18/24 at 2145, Administer at a rate of 500 mg/min IV push (IVP) undiluted. For doses greater than 2,000 mg, split into multiple syringes (maximum 2,000 mg per syringe) and administer as separate injections (in separate IV lines, if available). 2333 (Given - Provider: Joelle Ray RN) 0847 (Not Given - Provider: Karoline Vasquez, JARROD - Reason: Patient/family refused) LORazepam (ATIVAN) 1 mg in sodium chloride 0.9% (further dilution required) injection (COMPLETED) 1 mg, intravenous, Once, On 07/18/24 at 0806, For 1 dose, Withdraw ordered dose amount then dilute with equal volume of 0.9% sodium chloride. Administer total volume to patient. Do not exceed a rate of 2 mg/minute. 0808 (Given - Provider: Teri Chong, JARROD) nicotine (NICODERM CQ) 21 mg patch 24 hour 1 patch 1 patch, transdermal, Administer over 24 Hours, Daily, First dose on 07/18/24 at 1930, Apply a new patch every 24 hours to a clean, dry, hairless site on the upper arm or hip. Rotate site. 1859 (Medication Applied - Provider: Mora Sevilla RN) 0847 (Medication Removed - Provider: Karoline Vasquez, JARROD)0848 (Medication Applied - Provider: Karoline Vasquez, JARROD - Comment: L ankle per pt request)1449 (Due: Medication Removed - Provider: Automatic Discharge Provider - Comment: Time automatically adjusted from order being discontinued) sodium chloride 0.9% bolus 1,000 mL (COMPLETED) 1,000 mL, intravenous, Once, On 07/18/24 at 1044, For 1 dose 1051 (New Bag - Provider: Amber Tello RN) PRN Medication Order 07/17/2024 07/18/2024 07/19/2024 acetaminophen (TYLENOL) tablet 650 mg 650 mg, oral, Every 4 hours PRN, 1st line for pain, fever, fever greater than 38.3 C, Starting on Fri07/18/24 at 2111, Indications: Fever, Pain 0956 (Not Given - Provider: Karoline Vasquez RN - Reason: Patient/family refused) LORazepam (ATIVAN) 1 mg in sodium chloride 0.9% (further dilution required) injection (CANCELED) 1 mg, intravenous, Every 4 hours PRN, seizures, anxiety, agitation, Starting on Fri07/18/24 at 1938, Withdraw ordered dose amount then dilute with equal volume of 0.9% sodium chloride. Administer total volume to patient. Do not exceed a rate of 2 mg/minute. 1954 (Given - Provider: Joelle Ray RN) LORazepam (ATIVAN) 1 mg in sodium chloride 0.9% (further dilution required) injection 1 mg, intravenous, Every 3 hours PRN, seizures, anxiety, agitation, Starting on Fri07/18/24 at 2110, Withdraw ordered dose amount then dilute with equal volume of 0.9% sodium chloride. Administer total volume to patient. Do not exceed a rate of 2 mg/minute. 0231 (Given - Provid er: Joelle Ray RN)1032 (Given - Provider: Destinee Hernandez RN) OLANZapine (ZyPREXA) 5 mg in sterile water 1 mL (5 mg/mL) syringe (COMPLETED) 5 mg, intramuscular, Once as needed, agitation, Starting on Fri07/18/24 at 2037, For 1 dose, Reconstitute 10 mg vial with 2.1 mL SWFI. Resulting solution is ~5 mg/mL. Use immediately (within 1 hour) following reconstitution. 1027 (Given - Provid er: Destinee Hernandez RN) OLANZapine (ZyPREXA) 5 mg in sterile water 1 mL (5 mg/mL) syringe (COMPLETED) 5 mg, intramuscular, Once as needed, agitation, Starting on Fri07/19/24 at 1059, For 1 dose, Reconstitute 10 mg vial with 2.1 mL SWFI. Resulting solution is ~5 mg/mL. Use immediately (within 1 hour) following reconstitution. 1102 (Given - Provid er: Karoline Vasquez RN) ondansetron (ZOFRAN) injection 4 mg(Linked Group 1) 4 mg, intravenous, Administer over 2 Minutes, Every 6 hours PRN, nausea, vomiting, if not tolerating PO, Starting on 07/18/24 at 2110, Indications: Nausea and Vomiting ondansetron ODT (ZOFRAN-ODT) disintegrating tablet 4 mg(Linked Group 1) 4 mg, oral, Every 6 hours PRN, nausea, vomiting, Starting on 07/18/24 at 2110, If administering by mouth, place tablet on tongue and allow to dissolve., Indications: Nausea and Vomiting polyethylene glycol (MIRALAX) packet 17 g 17 g, oral, Daily PRN, constipation, Starting on 07/18/24 at 2110, Indications: constipation ramelteon (ROZEREM) tablet 8 mg 8 mg, oral, Nightly PRN, sleep, Starting on 07/18/24 at 2110, Indications: Sleep-Onset Insomnia 0216 (Given - Provid er: Joelle Ray RN) Linked Groups Order Group 1: ondansetron ODT (ZOFRAN-ODT) disintegrating tablet 4 mgJump to med 4 mg, oral, Every 6 hours PRN, nausea, vomiting, Starting on 07/18/24 at 2110, If administering by mouth, place tablet on tongue and allow to dissolve., Indications: Nausea and Vomiting Or ondansetron (ZOFRAN) injection 4 mgJump to med 4 mg, intravenous, Administer over 2 Minutes, Every 6 hours PRN, nausea, vomiting, if not tolerating PO, Starting on 07/18/24 at 2110, Indications: Nausea and Vomiting documented in this encounter Orders Medications Ordered That Félix ht Not Have Been Administered Count Last Ordered Date First Ordered Date haloperidol lactate (HALDOL) injection 2 mg 1 07/19/2024 LORazepam (ATIVAN) tablet 0.5 mg 07/20/19 acetaminophen (TYLENOL) tablet 650 mg 2 enoxaparin (LOVENOX) syringe 40 mg 1 2024 levETIRAcetam (KEPPRA) tablet 500 mg 06/23 ondansetron (ZOFRAN) injection 4 mg 1 07/18 ondansetron ODT (ZOFRAN-ODT) disintegrating tablet 4 mg 1 07/18/2024 polyethylene glycol (MIRALAX) packet 17 g 1 07/18/2024 Nursing Count Last Ordered Date First Orde red Date TELEMETRY MONITORING 1 07/18/2024 WEIGH PATIENT 1 07/18/2024 Consult Count Last Ordered Date First Orde red Date CONSULT TO BEHAVIORAL HEALTH [facility] 1 025 IP CONSULT TO NEUROLOGY 1 07/18/2024 Admission Count Last Ordered Date First Orde red Date ADMIT TO INPATIENT 1 07/18/2024 CORE MEASURES Count Last Ordered Date First Ord ered Date REASON FOR NO VTE PROPHYLAXIS AT ADMISSION 1 07/18/2024 documented in this encounter Care Teams Dog Day Care Attendant Relationship Specialty Start Date End Date Unknown, Notinfile PCP - General 05/22/24 Unknown, Notinfile 05/22/24 Zeferino Bradshaw DO Internal Medicine 01/14/22 Randy Jasmine MD PhD [address] [place] [address] Radiation Oncologist Radiation Oncology 07/31/20 Juanjose Alcaraz MD [address] [place] [address] Referring Physician Medical Oncology 07/31/20 Miscellaneous, Not In File 09/15/20 Mario Desai MD Referring Physician Neurosurgery 09/15/20 Francois Thompson MD Consulting Physician Infectious Diseases 05/08/21 Mario Ferguson MD 1 [facility] [address] DIV IM [place] [address] Consulting Physician Medical Oncology 03/31/24 documented as of this encounter
--- OUTSIDE RECORDS SUMMARY | 2024-07-20 12:52 | XMS_ITS | Encounter Summary ---
Author Organization [facility] Healthcare Address [address] [place] [address] Care Team Providers Care Opto Mechanical Engineer Name Role Phone Unknown, Notinfile Primary Care Provider Unavail able Unknown, Notinfile Unavailable Unavailable Zeferino Bradshaw DO Unavailable [phone] [facility] PhD Unavailable [phone] Juanjose Alcaraz MD Unavailable [phone] Miscellaneous, Not In File Unavailable Unava ilable Mario Desai MD Unavailable [phone] Francois Thompson MD Unavailable [phone] Mario Ferguson MD Unavailable [phone] Encounter Details Date Type Department Care Team (Latest Contact Info) Description 07/19/2024 12:20 PM CDT - 07/19/2024 11:59 PM CDT Hospital Encounter [address] [address] Exposure to blood-borne pathogen Discharge Disposition: Discharge to home or self care Social History Tobacco Use Types Packs/Day Years Used Date Smoking Tobacco: Every Day Cigarettes 0.5 40.3 Started: 1984 Smokeless Tobacco: Never Comments:Smoking History Pac ks/day: 1 Packs Alcohol Use Standard Drinks/Week Comments Yes 0 (1 standard drink = 0.6 oz pur e alcohol) [facility] Utilities Answer Date Recorded In the past 12 months has [employer], [employer], or Recorded Future threatened to shut off services in your [...] often do you attend chur ch or confucianist services? Never 07/19/2024 Do you belong to any clubs o r organizations such as caodaism groups, unions, fraternal or athletic groups, or [...] any time in the past 12 m [facility], were you homeless or living in a long term (including now)? No 07/19/2024 Personal Safety Answer Date Recorded Have you ever been in or are you currently in a harmful physical or emotional relationship or is someone making you feel afraid or unsafe? 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 Gender Identity Not on file Sexual Orientation Not on file Occupation Industry Job Start Date Job End Date Disabled Not on file Not on file Not on file documented as of this encounter Discharge Disposition Disposition Code Departure Means Destination Discharge to home or self care documented in this encounter Plan of Treatment Not on file documented as of this encounter Procedures Procedure Name Priority Date/Time Associated Diagnosis Comments HEPATITIS C ANTIBODY Routine 07/19/2024 12:46 PM CDT Exposure to blood-borne pathogen HEPATITIS B SURFACE ANTIGEN Routine 07/19/2024 12:46 PM CDT Exposure to blood-borne pathogen documented in this encounter Results * Hepatitis B Surface Antigen Blood (07/19/2024 12:46 PM CDT) HepBsAg Nonreactive Nonreactive Comment:Testing performed by : [facility], [address] [place] [address], [place]., [address] Blood 07/19/2024 12:4 6 PM CDT 07/19/2024 6:40 PM CDT Rogerio JACK (DE SOTO) - 07/19/2024 7:45 PM CDT Bill to [facility] - 2080 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:->[facility] Israel Mcdonald MD LAB MICROBIOLOGY - GENERAL OR DERABLES Final Result Performing Organization Address City/[place] [facility]/ZIP Co de Phone Number JASON JACK (DE SOTO) 1 [facility] Department [place] [address] documented in this encounter Visit Diagnoses Diagnosis Exposure to blood-borne pathogen documented in this encounter Care Teams Opto Mechanical Engineer Relationship Specialty Start Date End Date Unknown, Notinfile PCP - General 05/22/24 Unknown, Notinfile 05/22/24 Zeferino Bradshaw DO Internal Medicine 01/14/22 Randy Jasmine MD PhD [address] [place] [address] Radiation Oncologist Radiation Oncology 5/10/21 Juanjose Alcaraz MD [address] [place] [address] Referring Physician Medical Oncology 07/31/20 Miscellaneous, Not In File 09/15/20 Mario Desai MD Referring Physician Neurosurgery 09/15/20 Francois Thompson MD Consulting Physician Infectious Diseases 05/08/21 Mario Ferguson MD 1 [facility] [address] DIV IM [place] [address] Consulting Physician Medical Oncology 03/31/24 documented as of this encounter
--- OUTSIDE RECORDS SUMMARY | 2024-07-20 12:52 | XMS_ITS | Encounter Summary ---
Author Organization [facility] Address [address] [place] [address] Care Team Providers Care Field Contact Person Name Role Phone Kelly Henderson MD Unavailable [phone] Cathi Mcnally MD Primary Care Provider Cathi Mcnally MD Primary Care Provider Troy ROCA MD, Sea Primary Care Provider + Jose Eduardo Ott MD Unavailable [phone] Kelly Henderson MD Primary Care Provider Encounter Details Date Type Department Care Team (Late st Contact Info) Description 04/22/2018 Telephone [facility] Internal Medicine [address] [facility] [address] [place], [place] [phone] Cathi Mcnally MD [address] [facility] [address] [place] [address] Social History Tobacco Use Types Packs/Day Years Used Date Smoking Tobacco: Every Day Cigarettes 0.3 32 Smokeless Tobacco: Never Comments:4 cigarettes Alcohol Use Standard Drinks/Week Comments Yes 0 (1 standard drink = 0.6 oz pure alcohol) sparingly - when pain is too high Comments No Sex and Gender Information Value Date Recorded Sex Assigned at Not on file Legal Sex Female 2:03 PM FUR EXAMINER Gender Identity Not on file Sexual Orientation Not on file documented as of this encounter Functional Status * Is person deaf or have serious hearing difficulty? Answer Date of Assessment Author No 06/08/2015 6:30 PM CDT Carolyn Naik, JARROD * Is person blind or have serious [...] 06/08/2015 6:30 PM CDT Carolyn Naik RN documented as of this encounter Mental Status * Does person have difficulty concentrating/remembering/making decisions? Answer Entry Date Author No 06/08/2015 6:30 PM JEANETTET Carolyn Naik RN documented in this encounter Miscellaneous Notes * Telephone Encounter - Dahlia Calderon - 04/22/2018 3:48 PM CST Catalina from Dr salesperson art objects Harry Jauregui called advising that they got the referral for patient. They are unable to accept the referral at this time #[id number] AH/MS EXAMINER documented in this encounter Plan of Treatment Upcoming Encounters Date Type Department Care Team (Late st Contact Info) Description 09/08/2024 2:00 PM CDT Office Visit [facility] - Family Medicine [facility] [facility], [place] [address] Germaine Monson MD [address] [place] [address] [place] [address] documented as of this encounter Visit Diagnoses Not on filedocumented in this encounter Additional Health Concerns Infection Onset Date Last Indicated Resolved Time COVID-19 Under Investigation 08/14/2019 08/14/2019 08/15/2019 3:43 PM CDT COVID-19 Under Investigation 09/10/2019 09/10/2019 09/11/2019 11:18 PM CDT documented as of this encounter Care Teams Field Contact Person Relationship Specialty Start Date End Date Cathi Mcnally MD [address] [place] [phone] PCP - General Internal Medicine 04/01/18 05/17/18 Cathi Mcnally MD [address] [place] [phone] PCP - General Internal Medicine 07/14/18 07/15/18 Sea Simmons III, MD [address] [place] [phone] PCP - General Internal Medicine 05/05/19 06/07/19 Kelly Henderson MD [address] [place] [phone] PCP - General 09/01/19 Kelly Henderson MD [address] [place] [phone] Resident - PCP Internal Medicine 01/26/18 05/04/19 Jose Eduardo Ott MD [address] [place] [phone] Resident - PCP Student Resident 05/05/19 documented as of this encounter
--- OUTSIDE RECORDS SUMMARY | 2024-07-20 12:52 | XMS_ITS | Encounter Summary ---
Author Organization [facility] Healthcare Address [address] [place] [address] Care Team Providers Care Supervisor Shuttle Preparation Name Role Phone Unknown, Notinfile Primary Care Provider Unavail able Unknown, Notinfile Unavailable Unavailable Zeferino Bradshaw DO Unavailable [phone] [facility] OhioRandy quiles MD PhD Unavailable Juanjose Alcaraz MD Unavailable [phone] Miscellaneous, Not In File Unavailable Unava ilable Mario Desai MD Unavailable Francois Thompson MD Unavailable [phone] Mario Ferguson MD Unavailable Encounter Details Date Type Department Care Team (Late st Contact Info) Description 07/19/2024 Orders Only [facility] Healthcare Occupatiuonal Health [address] [facility] [address] (Third Floor) [place], [place] [id number] Israel Mcdonald MD [address] [place] [address] Exposure to blood-borne pathogen (Primary Dx) Social History Tobacco Use Types Packs/Day Years Used Date Smoking Tobacco: Every Day Cigarettes 0.5 40.3 Started: 1984 Smokeless Tobacco: Never Comments:Smoking History Pac ks/day: 1 Packs Alcohol Use Standard Drinks/Week Comments Yes 0 (1 standard drink = 0.6 oz pur e alcohol) [facility] Utilities Answer Date Recorded In the past 12 months has th e electric, gas, oil, or water company [...] often do you attend chur ch or pentecostalism services? Never 07/19/2024 Do you belong to any clubs o r organizations such as confucianist groups, unions, fraternal or athletic groups, or [...] in the past 12 m [facility], were you homeless or living in a custodial (including now)? No 07/19/2024 Personal Safety Answer Date Recorded Have you ever been in or are you currently in a harmful physical or emotional relationship or is someone making you feel afraid or unsafe? Denies 07/18/2024 Comments No Sex and Gender Information Value Date Recorded Sex Assigned at Not on file Legal Sex Female 1:20 AM CIGAR WRAPPER TENDER AUTOMATIC Gender Identity Not on file Sexual Orientation Not on file Occupation Industry Job Start Date Job End Date Disabled Not on file Not on file Not on file documented as of this encounter Plan of Treatment Not on file documented as of this encounter Results * Hepatitis C antibody Blood (07/19/2024 [...] last revised on 2019. Testing performed by: [facility], [id number] [place] [address], [place]., [address] Blood 07/19/2024 12:4 6 PM CDT 07/19/2024 6:40 PM CDT Rogerio JACK (MAULIK) - 07/19/2024 7:45 PM CDT Bill to [facility] [place] [address] Patient is employed by/enrolled at:->[facility] Israel Mcdonald MD LAB MICROBIOLOGY - GENERAL OR DERABLES Final Result JASON JACK ([place]) 1 [facility] [address] * Hepatitis B Surface Antigen Blood (07/19/2024 12:46 PM CDT) HepBsAg Nonreactive Nonreactive Comment:Testing performed by : [facility], [address] [place] [address], [address] Blood 07/19/2024 12:4 6 PM CDT 07/19/2024 6:40 PM CDT Narrative JASON JACK ([place]) - 07/19/2024 7:45 PM CDT Bill to [place] [address] Patient is employed by/enrolled at:->[facility] Israel Mcdonald MD LAB MICROBIOLOGY - GENERAL OR DERABLES Final Result Performing Organization Address City/[facility] Co de Phone Number JASON JACK ([place]) 1 [facility] [place] [address] documented in this encounter Visit Diagnoses Diagnosis Exposure to blood-borne pathogen- Primary Exposure to blood-borne pathogen documented in this encounter Care Teams Supervisor Shuttle Preparation Relationship Specialty Start Date End Date Unknown, Notinfile PCP - General 05/22/24 Unknown, Notinfile 05/22/24 Zeferino Bradshaw DO Internal Medicine 01/14/22 Randy Jasmine MD PhD [address] [place] [address] Radiation Oncologist Radiation Oncology 07/31/20 Juanjose Alcaraz MD [address] [place] [address] Referring Physician Medical Oncology 07/31/20 Miscellaneous, Not In File 09/15/20 Mario Desai MD Referring Physician Neurosurgery 09/15/20 Francois Thompson MD Consulting Physician Infectious Diseases 05/08/21 Mario Ferguson MD 1 [facility] [address] DIV IM BONE [place] [address] Consulting Physician Medical Oncology 03/31/24 documented as of this encounter
--- OUTSIDE RECORDS SUMMARY | 2024-07-20 12:52 | XMS_ITS | Encounter Summary ---
Author Organization [facility] Address [address] [facility] [place] [address] Care Team Providers Care Centrifuge Separator Tender Name Role Phone Kelly Henderson MD Unavailable [phone] Cathi Mcnally MD Primary Care Provider Cathi Mcnally MD Primary Care Provider Troy ROCA MD, Sea [place] Primary Care Provider + Jose Eduardo Ott MD Unavailable [phone] Kelly Henderson MD Primary Care Provider Reason for Visit * Reason Onset Date Comments General 04/28/2018 paperwork for pa in management General 04/28/2018 Follow-up 04/29/2018 referral for pham n management Encounter Details Date Type Department Care Team (Late st Contact Info) Description 04/28/2018 Telephone [facility] Internal Medicine [address] [place] [address] Cathi Mcnally MD [address] [place] [address] General (paperwork for pain management ); General; Follow-up (referral for pain management) Social History Tobacco Use Types Packs/Day Years Used Date Smoking Tobacco: Every Day Cigarettes 0.3 32 Smokeless Tobacco: Never Comments:4 cigarettes Alcohol Use Standard Drinks/Week Comments Yes 0 (1 standard drink = 0.6 oz pure alcohol) sparingly - when pain is too high Comments No Sex and Gender Information Value Date Recorded Sex Assigned at Not on file Legal Sex Female 2:03 PM MANAGER FORENSIC Gender Identity Not on file Sexual Orientation [...] Carolyn Naik, RN * Does person have serious difficulty walking/climbing stairs? Answer Date of Assessment Author No 06/08/2015 6:30 PM CDT Carolyn Naik, RN * Does person have difficulty dressing/bathing? Answer Date of Assessment Author No 06/08/2015 6:30 PM JEANETTET Carolyn Naik, RN * Does person have difficulty doing errands alone? Answer Date of Assessment Author No 06/08/2015 6:30 PM Carolyn Villareal, JARROD documented as of this encounter Mental Status * Does person have difficulty concentrating/remembering/making decisions? Answer Entry Date Author No 06/08/2015 6:30 PM Carolyn Villareal, JARROD documented in this encounter Miscellaneous Notes * Telephone Encounter - Cathi Mcnally MD - 04/29/2018 3:[address] Henderson will contact patient. Cathi Mcnally MD GER FORENSIC * Telephone Encounter - Tasha Szymanski RN - 04/29/2018 2:28 PM CST Pt called to follow-up on referral for pain management. States she has had to call multiple times since last week for the referral and for a refill on her Tramadol, and questioned who the head of thehospital is because somebody else needs to know about this Reports she has been going through this pain for years and has tried everything and her provider wants to take her back through it. States she is in constant pain States she will contact the pt complaint number that was provided by this nurse because she is tired of being in pain States she had a hard time finding a pain management company that would accept her insurance, and now that she did, her provider won't give her a referral Message routed to Dr. Henderson and Dr. Mcnally for further assistance AM/JIMMY GER FORENSIC * Telephone Encounter - Dahlia Calderon - 04/28/2018 4:28 PM CST The pt is asking to be prescribed Percocet that Dr Henderson spoke about since she does not know when she will be able to get into pain management The pt would like a call back from Dr Mcnally- pt's phone number was verified GER FORENSIC * Telephone Encounter - Dahlia Calderon - 04/28/2018 4:14 PM CST Pain management referral was sent by [facility] but there was no list of demographics, x-rays and insurance, etc Per the pt, she states that there was a list of items that needed to be sent to pain management The pt is very upset at this time and is wondering why this is taking so long Please advise This nurse did call the pharmacy and the pt's Tramadol will be ready for scrap picker GER FORENSIC documented in this encounter Plan of Treatment Upcoming Encounters Date Type Department Care Team (Late st Contact Info) Description 09/08/2024 2:00 PM CDT Office Visit [facility] - Family Medicine [address] [place] [address], [place] [address] Germaine Monson MD [address] [place], [place] [phone] documented as of this encounter Visit Diagnoses Not on filedocumented in this encounter Additional Health Concerns Infection Onset Date Last Indicated Resolved Time COVID-19 Under Investigation 08/14/2019 08/14/2019 08/15/2019 3:43 PM CDT COVID-19 Under Investigation 09/10/2019 09/10/2019 09/11/2019 11:18 PM CDT documented as of this encounter Care Teams Centrifuge Separator Tender Relationship Specialty Start Date End Date Cathi Mcnally MD [address] [place] [phone] PCP - General Internal Medicine 04/01/18 05/17/18 Cathi Mcnally MD [address] [place] [phone] PCP - General Internal Medicine 07/14/18 07/15/18 Sea Simmons III, MD [address] [place] [phone] PCP - General Internal Medicine 05/05/19 06/07/19 Kelly Henderson MD [address] [place] [phone] PCP - General 09/01/19 Kelly Henderson MD [address] [place] [phone] Resident - PCP Internal Medicine 01/26/18 05/04/19 Jose Eduardo Ott MD [address] [place] [phone] Resident - PCP Student Resident 05/05/19 documented as of this encounter
--- OUTSIDE RECORDS SUMMARY | 2024-07-20 12:52 | XMS_ITS | Encounter Summary ---
Author Organization [facility] Address [address] [facility] [place] [address] Care Team Providers Care Vice President Integrated Name Role Phone Cathi Mcnally MD Primary Care Provider Kelly Henderson MD Unavailable [phone] Cathi Mcnally MD Primary Care Provider Kelly Henderson MD Unavailable [phone] Kelly Henderson MD Primary Care Provider Cathi Mcnally MD Primary Care Provider Kelly Henderson MD Primary Care Provider Cathi Mcnally MD Primary Care Provider Cathi Mcnally MD Primary Care Provider Troy ROCA MD, [place] Primary Care Provider + Jose Eduardo Ott MD Unavailable [phone] Kelly Henderson MD Primary Care Provider Reason for Visit * Reason Onset Date Comments MEDICATION REFILL 10/10/2017 refll request Medication Issue 10/10/2017 Requesting clar ification on max dose Encounter Details Date Type Department Care Team (Late st Contact Info) Description 10/10/2017 Refill [facility] [address] [place] [address] Cathi Mcnally MD [address] [place] [address] MEDICATION REFILL (refll request); Medication Issue (Requesting clarification on max dose) Social History Tobacco Use Types Packs/Day Years Used Date Smoking Tobacco: Every Day Cigarettes 0.3 32 Smokeless Tobacco: Never Comments:4 cigarettes Alcohol Use Standard Drinks/Week Comments Yes 0 (1 standard drink = 0.6 oz pure alcohol) sparingly - when pain is too high Comments No Sex and Gender Information Value Date Recorded Sex Assigned at Not on file Legal Sex Female 2:03 PM ENTERPRISE SERVICES MANAGER Gender Identity Not on file Sexual Orientation Not on file documented as of this encounter Functional Status * Is person deaf or have serious hearing difficulty? Answer Date of Assessment Author No 06/08/2015 6:30 PM JEANETTET Carolyn Naik, JARROD * Is person blind or have serious difficulty seeing? Answer Date of Assessment Author No 06/08/2015 6:30 PM CDT Carolyn Naik, RN * Does person have serious difficulty walking/climbing stairs? Answer Date of Assessment Author No 06/08/2015 6:30 PM JEANETTET aCrolyn Naik, JARROD * Does person have difficulty dressing/bathing? Answer Date of Assessment Author No 06/08/2015 6:30 PM Carolyn Villareal, JARROD * Does person have difficulty doing errands alone? Answer Date of Assessment Author No 06/08/2015 6:30 PM Carolyn Villareal, RN documented as of this encounter Mental Status * Does person have difficulty concentrating/remembering/making decisions? Answer Entry Date Author No 06/08/2015 6:30 PM Carolyn Villareal, RN documented in this encounter Miscellaneous Notes * Telephone Encounter - Keya Martinez - 10/16/2017 2:[address] Henderson charting, Ultram will not be prescribed at this time. * Telephone Encounter - Keya Martinez - 10/14/2017 2:55 PM CDT [facility] contacted and made aware of nicorette gum clarification below. * Telephone Encounter - Tasha Szymanski RN - 10/13/2017 9:46 AM CDT Telephone call from Chelsie [facility]. Chelsie calling to check on max daily dose patient may take on Nicorette gum. CB # : [phone] * Telephone Encounter - Mayra Duran - 10/10/2017 1:34 PM CDT Patient requesting refills for the following (Tramadol 50 ) medications. HERI: 10-08-17 NOV: 01-27-18 @ 1:00pm Problem List Identified: office visit on unable to locate Dx within the last year pt just established on 10-08-17 Medication attached per refill protocol/guidlines for further review by provider yes PCP / Resident PCP verified yes Allergies Reviewed yes Pharmacy Reviewed yes Medication details entered yes-please review prior to approval dispense qty and refills transcribedfrom [facility] Office visit within the last six months yes if not within last 6 months route to [facility]-scheduling as well. Office visit greater than 12 months no routed to [facility] scheduling ONLY no. documented in this encounter Plan of Treatment Upcoming Encounters Date Type Department Care Team (Late st Contact Info) Description 09/08/2024 2:00 PM CDT Office Visit [facility] [facility], [place] [address] Germaine Monson MD [address] [place] [phone] documented as of this encounter Visit Diagnoses Not on filedocumented in this encounter Additional Health Concerns Infection Onset Date Last Indicated Resolved Time COVID-19 Under Investigation 08/14/2019 08/14/2019 08/15/2019 3:43 PM CDT COVID-19 Under Investigation 09/10/2019 09/10/2019 09/11/2019 11:18 PM CDT documented as of this encounter Care Teams Vice President Integrated Relationship Specialty Start Date End Date Cathi Mcnally MD PCP - General Internal Medicine 10/08/17 01/11/18 Cathi Mcnally MD PCP - General Internal Medicine 01/26/18 01/26/18 Kelly Henderson MD [address] [place] [phone] PCP - General 01/27/18 03/09/18 Cathi Mcnally MD PCP - General Internal Medicine 03/10/18 03/10/18 Kelly Henderson MD [facility] [place] [address] PCP - General 03/11/18 03/31/18 Cathi Mcnally MD PCP - General Internal Medicine 04/01/18 05/17/18 Cathi Mcnally MD PCP - General Internal Medicine 07/14/18 07/15/18 Sea Simmons III, MD [address] [place] [address] PCP - General Internal Medicine 05/05/19 06/07/19 Kelly Henderson MD [address] [place] [address] PCP - General 09/01/19 Kelly Henderson MD [address] [place] [phone] Resident - PCP Internal Medicine 10/08/17 01/25/18 Kelly Henderson MD [address] [place] [phone] Resident - PCP Internal Medicine 01/26/18 05/04/19 Jose Eduardo Ott MD [address] [place] [phone] Resident - PCP Student Resident 05/05/19 documented as of this encounter
--- OUTSIDE RECORDS SUMMARY | 2024-07-20 12:52 | XMS_ITS | Encounter Summary ---
Author Organization [facility] Healthcare Address [address] [place] [address] Care Team Providers Care Food Assembler Kitchen Name Role Phone Unknown, Notinfile Primary Care Provider Unavail able Unknown, Notinfile Unavailable Unavailable Zeferino Bradshaw DO Unavailable [phone] [facility] PhD Unavailable Juanjose Alcaraz MD Unavailable Miscellaneous, Not In File Unavailable Unava ilable Mario Desai MD Unavailable [phone] Francois Thompson MD Unavailable [phone] Mario Ferguson MD Unavailable Encounter Details Date Type Department Care Team (Late st Contact Info) Description 07/19/2024 Orders Only [address] [phone] Israel Mcdonald MD [address] [place] [address] Social History Tobacco Use Types Packs/Day Years Used Date Smoking Tobacco: Every Day Cigarettes 0.5 40.3 Started: 1986 Smokeless Tobacco: Never Comments:Smoking History Pac ks/day: 1 Packs Alcohol Use Standard Drinks/Week Comments Yes 0 (1 standard drink = 0.6 oz pur e alcohol) [facility] Utilities Answer Date Recorded In the past 12 months has th e electric, gas, oil, or water [employer] threatened to shut off services in your [...] any clubs o r organizations such as mosque groups, unions, fraternal or athletic groups, or [...] any time in the past 12 m [facility], were you homeless or living in a group home (including now)? No 07/19/2024 Personal Safety Answer Date Recorded Have you ever been in or are you currently in a harmful physical or emotional relationship or is someone making you feel afraid or unsafe? 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 Gender Identity Not on file Sexual Orientation Not on file Occupation Industry Job Start Date Job End Date Disabled Not on file Not on file Not on file documented as of this encounter Plan of Treatment Not on file documented as of this encounter Visit Diagnoses Not on filedocumented in this encounter Care Teams Food Assembler Kitchen Relationship Specialty Start Date End Date Unknown, Notinfile PCP - General 05/22/24 Unknown, Notinfile 05/22/24 Zeferino Bradsahw DO Internal Medicine 01/14/22 Randy Jasmine MD PhD [address] [place] [phone] Radiation Oncologist Radiation Oncology 07/31/20 Juanjose Alcaraz MD [address] [place] [address] Referring Physician Medical Oncology 07/31/20 Miscellaneous, Not In File 09/15/20 Mario Desai MD Referring Physician Neurosurgery 09/15/20 Francois Thompson MD Consulting Physician Infectious Diseases 05/08/21 Mario Ferguson MD [address] [facility] [address] [place] [address] Consulting Physician Medical Oncology 03/31/24 documented as of this encounter
--- OUTSIDE RECORDS SUMMARY | 2024-07-20 12:53 | XMS_ITS | Encounter Summary ---
Author Organization [facility] Healthcare Address [address] [place] [address] Care Team Providers Care Packaging Manager Name Role Phone Mendoza Liang MD Primary Care Provider [phone] No, Physician Primary Care Provider [phone] Unknown, Notinfile Primary Care Provider Unavail able Unknown, Notinfile Primary Care Provider Unavail able Unknown, Notinfile Unavailable Unavailable Zeferino Bradshaw DO Unavailable [phone] Randy gamez MD PhD Unavailable [phone] Juanjose Alcaraz MD Unavailable [phone] Miscellaneous, Not In File Unavailable Unava ilable Mario Desai MD Unavailable [phone] Francois Thompson MD Unavailable [phone] Mario Ferguson MD Unavailable [phone] Reason for Visit * Reason Onset Date Comments Intake Questions 10/11/2022 Encounter Details Date Type Department Care Team (Late st Contact Info) Description 10/11/2022 Telephone [facility] [address] [facility] [address] [place] [address] Kellen Connell CMA Intake Questions Social History Tobacco Use Types Packs/Day Years Used Date Smoking Tobacco: Every Day Cigarettes 0.5 40.3 Started: 1986 Smokeless Tobacco: Never Comments:Smoking History Pac ks/day: 1 Packs Alcohol Use Standard Drinks/Week Comments Yes 0 (1 standard drink = 0.6 oz pur e alcohol) AUDIT-C Answer Date Recorded Q1: How often do you have a drink containing alcohol? Never 10/08/2022 Q2: How many drinks containi ng alcohol do you have on a typical day when you are drinking? Patient does not drink Q3: How often do you have si x or more drinks on one occasion? Never 10/08/2022 PHQ-2 Answer Date Recorded PHQ-2 Total Score (If total score is 3 or more points, staff should administer the PHQ-9) 0 05/23/2022 Personal Safety Answer Date Recorded Have you ever been in or are you currently in a harmful physical or emotional relationship or is someone making you feel afraid or unsafe? 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 Gender Identity Not on file Sexual Orientation Not on file Occupation Industry Job Start Date Job End Date Disabled Not on file Not on file Not on file documented as of this encounter Plan of Treatment Not on file documented as of this encounter Visit Diagnoses Not on filedocumented in this encounter Care Teams Packaging Manager Relationship Specialty Start Date End Date Mendoza Liang MD PCP - General Family Medicine 05/02/22 03/21/24 No, Physician PCP - General 03/22/24 04/05/24 Unknown, Notinfile PCP - General 04/13/24 05/21/24 Unknown, Notinfile PCP - General 05/22/24 Unknown, Notinfile 05/22/24 Zeferino Bradshaw DO Internal Medicine 01/14/22 Randy Jasmine MD PhD [address] [place] [address] Radiation Oncologist Radiation Oncology 07/31/20 Juanjose Alcaraz MD [address] [place] [address] Referring Physician Medical Oncology 07/31/20 Miscellaneous, Not In File 09/15/20 Mario Desai MD Referring Physician Neurosurgery 09/15/20 Francois Thompson MD Consulting Physician Infectious Diseases 05/08/21 Mario Ferguson MD [address] [facility] [address] [place] [address] Consulting Physician Medical Oncology 03/31/24 documented as of this encounter
--- OUTSIDE RECORDS SUMMARY | 2024-07-20 12:53 | XMS_ITS | Encounter Summary ---
Author Organization [facility] Address [address] [place] [address] Care Team Providers Care Nursing Executive Name Role Phone Kelly Henderson MD Unavailable [phone] Troy ROCA MD, [facility] Primary Care Provider + Jose Eduardo Ott MD Unavailable Kelly Henderson MD Primary Care Provider Reason for Visit * Reason Onset Date Comments MEDICATION REFILL 07/29/2018 Medication Issue 07/29/2018 Medication Issue 07/31/2018 Pain management contract Medication Issue 08/04/2018 Encounter Details Date Type Department Care Team (Late st Contact Info) Description 07/29/2018 Refill [facility] [address] [place] [address] Kelly Henderson MD [address] [place] [phone] MEDICATION REFILL; Medication Issue; Medication Issue (Pain management contract); Medication Issue Social History Tobacco Use Types Packs/Day Years Used Date Smoking Tobacco: Every Day Cigarettes 0.3 32 Smokeless Tobacco: Never Comments:4 cigarettes Alcohol Use Standard Drinks/Week Comments Yes 0 (1 standard drink = 0.6 oz pure alcohol) sparingly - when pain is too high Comments No Sex and Gender Information Value Date Recorded Sex Assigned at Not on file 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 Answer Date of Assessment Author No 06/08/2015 6:30 PM CDT Carolyn Naik RN * Does person have difficulty doing errands alone? Answer Date of Assessment Author No 06/08/2015 6:30 PM JEANETTET Carolyn Naik RN documented as of this encounter Mental Status * Does person have difficulty concentrating/remembering/making decisions? Answer Entry Date Author No 06/08/2015 6:30 PM JEANETTET Carolyn Naik RN documented in this encounter Miscellaneous Notes * Telephone Encounter - Angelique Cooper - 08/05/2018 10:51 AM CDT Patient came to the window stating she was here to sign a pain contract to get her pain medication refilled. Patient stated that she is going to call her welder plastic and the staff attorney because she has not gotten her refill done yet. * Telephone Encounter - Mamta Tate RN - 08/04/2018 10:31 AM CDT Patient calling and states that she will coming into office tomorrow 10am to sign pain management agreement. * Telephone Encounter - Sasha Tello RN - 08/03/2018 11:02 AM CDT Patient calling to check on status of medication refill. States she has been out of meds for over 2weeks. * Telephone Encounter - Chente Balderrama - 07/31/2018 11:12 AM CDT Pt called to follow-up on the request to have a pain management contract mailed to her home. Upon chart review, caller informed that the request that was sent to the provider, did not include a request to have the contract mailed to her home, but stated that the pt would like to know what she needsto do to start having her medication filled again by this provider. Caller also informed that this nurse did not believe that pain management contracts could be mailed out, but would request it if that's what she wanted. Pt stated that now she will have to go through another weekend without her medication, and this is ridiculous. This nurse informed the caller that another message would be sent to the provider to request that the pain management contract be mailed to her home address of [address] [place] [address], and that the refill request for her Tramadol be filled today Message routed to the provider for further review and assistance * Telephone Encounter - Chente Balderrama - 07/29/2018 3:04 PM CDT Pt called in to refill her Tramadol prescription, states she was told last time she called that therefill was refused. This nurse informed the caller that another request celio be sent to the provider regarding this medication Upon chart review, this nurse located the message below from the provider: Message from Dr. Henderson Patient had pain contract with our office, but started seeing another provider for the medication. After that, we no longer were managing this medication. Patient may have to re-complete a pain contract. Pt stated that she is not seeing a pain management doctor, and would like to know what she needs todo to start getting this provider to refill her pain medication Message routed to the provider for further review and assistance. Please route response back to [place] triage nurse documented in this encounter Plan of Treatment Upcoming Encounters Date Type Department Care Team (Late st Contact Info) Description 09/08/2024 2:00 PM CDT Office Visit [facility] - Family Medicine [address] [place] [address], [facility] [place] [phone] Germaine Monson MD [address] [place] [phone] documented as of this encounter Visit Diagnoses Not on filedocumented in this encounter Additional Health Concerns Infection Onset Date Last Indicated Resolved Time COVID-19 Under Investigation 08/14/2019 08/14/2019 08/15/2019 3:43 PM CDT COVID-19 Under Investigation 09/10/2019 09/10/2019 09/11/2019 11:18 PM CDT documented as of this encounter Care Teams Nursing Executive Relationship Specialty Start Date End Date Sea Simmons III, MD [address] [place] [phone] PCP - General Internal Medicine 05/05/19 06/07/19 Kelly Henderson MD [address] [place] [phone] PCP - General 09/01/19 Kelly Henderson MD [address] [place] [phone] Resident - PCP Internal Medicine 01/26/18 05/04/19 Jose Eduardo Ott MD [address] [place] [phone] Resident - PCP Student Resident 05/05/19 documented as of this encounter
--- OUTSIDE RECORDS SUMMARY | 2024-07-20 12:53 | XMS_ITS | Encounter Summary ---
Author Organization [facility] Address [address] [place] [address] Care Team Providers Care Solid Waste Division Supervisor Name Role Phone Cathi Mcnally MD Primary Care Provider Kelly Henderson MD Unavailable [phone] Cathi Mcnally MD Primary Care Provider Kelly Henderson MD Unavailable [phone] Kelly Henderson MD Primary Care Provider Cathi Mcnally MD Primary Care Provider Kelly Henderson MD Primary Care Provider Cathi Mcnally MD Primary Care Provider Cathi Mcnally MD Primary Care Provider Troy ROCA MD, [place] Primary Care Provider + Jose Eduardo Ott MD Unavailable [phone] Kelly Henderson MD Primary Care Provider Reason for Visit * Reason Onset Date Comments Refill Request 10/20/2017 Encounter Details Date Type Department Care Team (Late st Contact Info) Description 10/20/2017 Telephone [facility] [address] [place] [address] Cathi Mcnally MD [address] [email or web address] [address] [place] [address] Refill Request Social History Tobacco Use Types Packs/Day Years Used Date Smoking Tobacco: Every Day Cigarettes 0.3 32 Smokeless Tobacco: Never Comments:4 cigarettes Alcohol Use Standard Drinks/Week Comments Yes 0 (1 standard drink = 0.6 oz pure alcohol) sparingly - when pain is too high Comments No Sex and Gender Information Value Date Recorded Sex Assigned at Not on file 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 Henderson, Ultram will not be prescribed at this time. * Telephone Encounter - Sasha Tello, RN - 10/21/2017 1:11 PM CDT Patient called to inquire about tramadol refill. Advised her the request was still pending and offered to submit another request, however, patient became very upset saying she didn't want another message sent, she asked to speak with Dr Henderson's nurse and insisted. I advised patient of triage protocols and patient continued to speak unkindly to triage. I offered to send message again to nurse or provider and she declined. Hung up the phone while I was still speaking. * Telephone Encounter - Dahlia Calderon - 10/20/2017 10:56 AM CDT Pt called for refill of her Tramadol Patient requesting refills for the following Tramadol medications. HERI: 10/08/17 NOV: 01/27/18 Problem List Identified: office visit on 10/08/17 Medication attached per refill protocol/guidlines for further [...] [facility] [address] [place] [address], [place] [address] Germaine Monson MD [address] [place] [phone] documented as of this encounter Visit Diagnoses Not on filedocumented in this encounter Additional Health Concerns Infection Onset Date Last Indicated Resolved Time COVID-19 Under Investigation 08/14/2019 08/14/2019 08/15/2019 3:43 PM CDT COVID-19 Under Investigation 09/10/2019 09/10/2019 09/11/2019 11:18 PM CDT documented as of this encounter Care Teams Solid Waste Division Supervisor Relationship Specialty Start Date End Date Cathi Mcnally MD PCP - General Internal Medicine 10/08/17 01/11/18 Cathi Mcnally MD PCP - General Internal Medicine 01/26/18 01/26/18 Kelly Henderson MD [address] [place] [phone] PCP - General 01/27/18 03/09/18 Cathi Mcnally MD PCP - General Internal Medicine 03/10/18 03/10/18 Kelly Henderson MD [address] [place] [address] PCP - General 03/11/18 03/31/18 Cathi Mcnally MD PCP - General Internal Medicine 04/01/18 05/17/18 Cathi Mcnally MD PCP - General Internal Medicine 07/14/18 07/15/18 Sea Simmons III, MD [address] [place] [address] PCP - General Internal Medicine 05/05/19 06/07/19 Kelly Henderson MD [address] [place] [phone] PCP - General 09/01/19 Kelly Henderson MD [address] [place] [phone] Resident - PCP Internal Medicine 10/08/17 01/25/18 Kelly Henderson MD [address] [place] [phone] Resident - PCP Internal Medicine 01/26/18 05/04/19 Jose Eduardo Ott MD [address] [place] [phone] Resident - PCP Student Resident 05/05/19 documented as of this encounter
--- OUTSIDE RECORDS SUMMARY | 2024-07-20 12:53 | XMS_ITS | Encounter Summary ---
Author Organization [facility] Address [address] [place] [address] Care Team Providers Care Polytechnic Registrar Name Role Phone Marco Cordero MD Primary Care Provider Encounter Details Date Type Department Care Team (Latest Contact Info) Description 06/29/2024 Results Follow-Up [facility] [address] [place] [phone] [address] MD [facility] [place] [address] Human immunodeficiency virus (HIV) disease ([facility]) (Primary Dx) Social History Tobacco Use Types Packs/Day Years Used Date Smoking Tobacco: Every Day Cigarettes 0.5 40 Comments Unknown Sex and Gender Information Value Date Recorded Sex Assigned at Female 06/29/2024 6:53 AM PDT Legal Sex Female 6:53 AM PDT Gender Identity Female 06/29/2024 6:53 AM PDT Sexual Orientation Straight 06/29/2024 6: 53 AM PDT documented as of this encounter Miscellaneous Notes * Result Encounter Note - Marco Cordreo MD - 07/13/2024 8:38 AM CDT CD4 892/27% Genotype: NRTI - L74V, M184V (emtricitabine, lamivudine, abacavir) NNRTI - L100I, K103S, L100I, P225H (doravarine probable, rilpivarine) PI - none II - none Ida is currently on doravarine, lamivudine, tenofovir; she notes she misses doses sometimes due to memory issues and we had discussed getting a talking pill box. VL is 253 Ida note No other genotype apparent in [facility] Will plan to review and discuss with Ida what her prior medication history is, especially with Biktarvy.or other II med * Result Encounter Note - Marco Cordero MD - 06/29/2024 4:53 PM CDT PENDING - HIV Genotype, Tcells See telephone encounter documented in this encounter Plan of Treatment Upcoming Encounters Date Type Department Care Team (Late st Contact Info) Description 07/20/2024 3:30 PM CDT Office Visit [address] [address] Marco Cordero MD [address] [place] [address] 08/20/2024 10:00 AM CDT Office Visit [address] [address] Marco Cordero MD [address] [place] [address] documented as of this encounter Visit Diagnoses Diagnosis Human immunodeficiency virus (HIV) disease ([facility])- Primary Human immunodeficiency virus [HIV] disease documented in this encounter Care Teams Polytechnic Registrar Relationship Specialty Start Date End Date Marco Cordero MD [address] [place] [address] PCP - General Infectious Diseases 07/06/24 documented as of this encounter
--- OUTSIDE RECORDS SUMMARY | 2024-07-20 12:53 | XMS_ITS | Encounter Summary ---
Author Organization [facility] Address [address] [place] [address] Care Team Providers Care Pocketed Spring Assembler Name Role Phone Zeferino Bradshaw DO Primary Care Provider + [phone] Zeferino Bradshaw DO Primary Care Provider + [phone] Unknown, Notinfile Primary Care Provider Unavail able Mendoza Liang MD Primary Care Provider [phone] No, Physician Primary Care Provider [phone] Unknown, Notinfile Primary Care Provider Unavail able Unknown, Notinfile Primary Care Provider Unavail able Unknown, Notinfile Unavailable Unavailable Zeferino Bradshaw DO Unavailable [phone] Randy Jasmine MD PhD Unavailable [phone] Juanjose Alcaraz MD Unavailable [phone] Miscellaneous, Not In File Unavailable Unava ilable Mario Desai MD Unavailable [phone] Francois Thompson MD Unavailable [phone] Mario Fergsuon MD Unavailable [phone] Encounter Details Date Type Department Care Team (Late st Contact Info) Description 10/10/2020 Telephone [facility] Radiology [address] [place] [address] Lesa Monroe NP [address] [address] Social History Tobacco Use Types Packs/Day Years Used Date Smoking Tobacco: Every Day Cigarettes 0.5 40.3 Started: 1986 Smokeless Tobacco: Never Comments:Smoking History Pac ks/day: 1 Packs Alcohol Use Standard Drinks/Week Comments Yes 0 (1 standard drink = 0.6 oz pur e alcohol) AUDIT-C Answer Date Recorded Q1: How often do you have a drink containing alc ohol? 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 Gender Identity Not on file Sexual Orientation Not on file Occupation Industry Job Start Date Job End Date Disabled Not on file Not on file Not on file documented as of this encounter Functional Status documented as of this encounter Plan of Treatment Not on file documented as of this encounter Visit Diagnoses Not on filedocumented in this encounter Additional Health Concerns Infection Onset Date Last Indicated Resolved Time COVID: Suspected 11/01/2020 11/01/2020 11/01/2020 12:35 PM CDT COVID: Suspected 11/23/2020 11/23/2020 11/23/2020 2:27 PM CDT COVID: Suspected 05/05/2021 05/05/2021 05/05/2021 4:03 AM VOCATIONAL TRAINER COVID: Suspected 05/29/2021 05/29/2021 05/29/2021 8:58 AM VOCATIONAL TRAINER COVID: Suspected 03/26/2022 03/26/2022 03/26/2022 1:30 PM VOCATIONAL TRAINER documented as of this encounter Care Teams Pocketed Spring Assembler Relationship Specialty Start Date End Date Zeferino Bradshaw DO PCP - General Internal Medicine 09/29/20 01/13/22 Zeferino Bradshaw DO PCP - General Internal Medicine 01/14/22 04/30/22 Unknown, Notinfile PCP - General 05/01/22 05/01/22 Mendoza Liang MD PCP - General Family Medicine 05/02/22 03/21/24 No, Physician PCP - General 03/22/24 04/05/24 Unknown, Notinfile PCP - General 04/13/24 05/21/24 Unknown, Notinfile PCP - General 05/22/24 Unknown, Notinfile 05/22/24 Zeferino Bradshaw DO Internal Medicine 01/14/22 Randy Jasmine MD PhD [address] [place] [address] Radiation Oncologist Radiation Oncology 07/31/20 Juanjose Alcaraz MD [address] [place] [address] Referring Physician Medical Oncology 07/31/20 Miscellaneous, Not In File 09/15/20 Mario Desai MD Referring Physician Neurosurgery 09/15/20 Francois Thompson MD Consulting Physician Infectious Diseases 05/08/21 Mario Ferguson MD [address] [facility] [place] [address] Consulting Physician Medical Oncology 03/31/24 documented as of this encounter
--- OUTSIDE RECORDS SUMMARY | 2024-07-20 12:53 | XMS_ITS | Encounter Summary ---
Author Organization [facility] Address [address] [place] [address] Phone Care Team Providers Care Civil Division Deputy Sheriff Name Role Phone Roberto Sharpe DPM Unavailable [phone] Shahram Alcaraz MD Primary Care Provider [phone] Provider, None Primary Care Provider Unavailabl e Sami Cervantes MD Primary Care Provider [phone] Von Hedrick MD Unavailable Unavai lable Provider, None Primary Care Provider Unavailabl e Mendoza Liang MD Primary Care Provider [phone] Provider, None Primary Care Provider Unavailabl e Reason for Visit * Reason Comments Medication Refill Encounter Details Date Type Department Care Team (Late st Contact Info) Description 02/03/2020 Refill [facility] [address] [place] [address] Shahram Alcaraz MD [address] [address] Medication Refill Social History Tobacco Use Types [...] Exposure Response Date Recorded In the last month, have you been in contact with someone who was confirmed or suspected to have Coronavirus / COVID-19? No / Unsure 01/11/2020 10:26 AM CDT documented as of this encounter Miscellaneous Notes * Telephone Encounter - Harini Dougherty RN - 02/03/2020 7:32 AM CST Medication failed the protocol, provider to review and approve the medication order if appropriate. Requested Prescriptions Pending Prescriptions Disp Refills tiZANidine (ZANAFLEX) 2 MG Tablet [Pharmacy Med Name: TIZANIDINE HCL 2 MG TABLET] 60 Tab 0 Sig: TAKE 1 TAB BY MOUTH 2 TIMES DAILY NEEDED FOR MUSCLE SPASMS. Not Delegated - Analgesics: Muscle Relaxants Failed - 02/03/2020 12:00 AM Failed - This refill cannot be delegated Passed - Valid encounter within last 6 months Past Office Visits Recent Outpatient Visits 2 months ago Anxiety [facility] - Shahram Lowe MD 4 months ago Brain mass [facility] - Shahram Lowe MD 4 months ago Essential hypertension [facility] - [place] [place] APN, MARIIA 5 months ago HIV disease (HCC) [facility] - Shahram Lowe MD 6 months ago Intractable vomiting with nausea, unspecified vomiting type [facility] - Shahram Lowe MD 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 Recent Visits Date Type Provider Dept 11/17/19 Office Visit Shahram Alcaraz MD [facility] 10/06/19 Office Visit Shahram Alcaraz MD [facility] 09/21/19 Office Visit Jair Matson APN, [facility] 08/25/19 Office Visit Shahram Alcaraz MD [facility] 07/20/19 Telemedicine Shahram Alcaraz MD [facility] 06/24/19 Telemedicine Shahram Alcaraz MD [facility] 06/16/19 Office Visit Shahram Alcaraz MD [facility] 05/18/19 Office 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 Author Behavioral Health Behavioral Health No change(10/17 4:03 PM CDT) Alejandra Renae LSW Note: Goal: I will access and utilize behavioral health services by the end october Patient's Preferred Goal: Standard Challenges/Barriers: None Readiness to change: Thinking about making a change Notify Care Team if: You are having increased thoughts of suicide or self-harm, You are unable to locate Behavioral Health services in your area Short Term Goals: [facility] will mail and provide list of local counseling services/providers in area. and Patient to contact local Mental Health Crisis Team if in need of crisis services [phone] (ph#) Housing Housing No change(10/17 4:03 PM CDT) No Alejandra Harrell LSW Note: Goal: To move into my own apartment or rental house by the end of October 2019 Patient's Preferred Goal: Highest Priority Challenges/Barriers: None Readiness to change: Ready to change Notify Care Team if: If you need additional housing resources or help completing housing applications call General Sales Manager Alejandra at [phone] Short Term Goals: I will review the list of low income housing complexes for the disabled and call the complexes in [place] to apply for an apartment or be added to their waiting list. documented as of this encounter Visit Diagnoses Not on filedocumented in this encounter Additional Health Concerns Infection Onset Date Last Indicated Resolved Time COVID - 19 10/28/2021 10/28/2021 10/28/2021 4:23 PM CDT COVID - 19 Confirmed 10/28/2021 10/28/2021 022 12:16 AM CDT Assessment Noted Time PHQ-9 Depression Total Score: 1 06/16/19 20 11:50 AM CDT documented as of this encounter Care Teams Civil Division Deputy Sheriff Relationship Specialty Start Date End Date Shahram Alcaraz MD [address] [address] PCP - General Family Medicine 06/16/19 09/21/21 Provider, None [place] PCP - General 10/28/21 11/15/21 Sami Cervantes MD [place] PCP - General Family Medicine 11/30/21 03/28/22 Provider, None [place] PCP - General 03/29/22 05/23/22 Mendoza Liang MD [address] [address] PCP - General Strawhat Inspector And Packer 05/24/22 11/12/22 Provider, None [place] PCP - General 11/13/22 Roberto Sharpe DPM Consulting Physician Podiatry 09/25/16 Von Hedrick MD [place] Consulting Physician Cardiovascular Disease - Cardiology 01/11/22 03/03/24 documented as of this encounter
--- OUTSIDE RECORDS SUMMARY | 2024-07-20 12:53 | XMS_ITS | Patient Health Record ---
Author Organization [facility] Address [address] [place] [address] Support Name Relationship Address Phone Mare Rangel Guarantor Unknown [phone] Reason For Referral No Information Medications Medication SIG (Take, Route, Frequency, Duration) Notes Start Date End Date Status Naproxen 500mg take 1 tablet by ora ORAL 5 Active Stribild 300-572-390-300mg take 1 tablet by ora ORAL 06/24/2014 Active Ferrous Sulfate 325 mg(65 mg iron) 1 tablet by mouth th ORAL 06/24/2014 Ac tive Ventolin HFA 90mcg/actuation inhale 2 puff by inh INHALATION 06/20/2014 Active Problems Problem Type SNOMED Code ICD Code Onset Dates Problem Status W/U Status Risk Notes Problem Human immunodeficiency virus infection (41503939) Human immunodeficiency virus [HIV] (042) 0 confirmed Félix Problem Epilepsy (26952951) Unspecified epilepsy without mention of intractable epilepsy (345.90) 0 confirmed Félix Problem Joint pain (76829949) Pain in joint, site unspecified (719.40) 0 confirmed Félix Problem Mental disorder (68130718) Unspecified mental or behavioral problem (V40.9) 0 confirmed Félix Plan Of Treatment No Information Insurance Providers Payer Name Payer Address Payer Phone Subscriber Number Group Number Insured Name Patient Relationship to Insured Coverage Start Date Coverage End Date [employer] [address] [place] [id number] [phone] [id number] Juan CarlosNicho cooke Self - patient is the insured [facility] [employer] [facility] [address] [address] [place], [place] [id number] Juan Carlos, Mare Self - patient is the insured
--- OUTSIDE RECORDS SUMMARY | 2024-07-20 12:53 | XMS_ITS | Encounter Summary ---
Author Organization [facility] Health Address [address] [place] [address] Care Team Providers Care Scourer Name Role Phone Kelly Henderson MD Unavailable [phone] Cathi Mcnally MD Primary Care Provider Troy ROCA MD, Sea R Primary Care Provider + Jose Eduardo Ott MD Unavailable Kelly Henderson MD Primary Care Provider Reason for Visit * Reason Onset Date Comments General 07/06/2018 Encounter Details Date Type Department Care Team (Late st Contact Info) Description 07/06/2018 Telephone [facility] General Internal Medicine [address] [place] [address] Kelly Henderson MD [address] [place] [address] General Social History Tobacco Use Types Packs/Day [...] on file 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 Answer Date of Assessment Author No 06/08/2015 6:30 PM CDCarolyn Etienne RN * Is person blind or have serious difficulty seeing? Answer Date of Assessment Author No 06/08/2015 6:30 PM CDT Carolyn Naik RN * Does person have serious difficulty walking/climbing stairs? Answer Date of Assessment Author No 06/08/2015 6:30 PM CDCarolyn Etienne RN * Does person have difficulty dressing/bathing? [...] * Telephone Encounter - Dahlia Calderon - 07/06/2018 9:10 AM CDT The pt has been told that she is experiencing muscle spasms and was told this by Dr Nagel,among others The spasms affect her neck, shoulders and will have shooting pain into her Rt ear. The pt cannot turn her head when this happens This occurs without warning The pt had previously cut a nerve and had to get nerve conduction/electrical shock The pt is experiencing shooting pain from wrist to elbow The pt was getting electrical shocks and the pt had a bad reaction and her eyes rolled back into her head so the test was terminated at that time The pt's eye doctor does not know what the problem may be and told the pt it could be neurological The pt went to her neurologist and was told this was not neurological The pt states that 10 years or more ago, she had an experience where her eyes rolled back for 2 weeks and she was technically blind The pt is asking for a call back from her PCP since she is not sure what else she needs to do Please give the pt a call back at # [phone] documented in this encounter Plan of Treatment Upcoming Encounters Date Type Department Care Team (Late st Contact Info) Description 09/08/2024 2:00 PM CDT Office Visit [facility] - Family Medicine [address] [place] [address], [place] [phone] Germaine Monson MD [address] [place] [phone] documented as of this encounter Visit Diagnoses Not on filedocumented in this encounter Additional Health Concerns Infection Onset Date Last Indicated Resolved Time COVID-19 Under Investigation 08/14/2019 08/14/2019 08/15/2019 3:43 PM CDT COVID-19 Under Investigation 09/10/2019 09/10/2019 09/11/2019 11:18 PM CDT documented as of this encounter Care Teams Scourer Relationship Specialty Start Date End Date Cathi Mcnally MD [address] [place] [address] PCP - General Internal Medicine 07/14/18 07/15/18 Sea Simmons III, MD [address] [place] [address] PCP - General Internal Medicine 05/05/19 06/07/19 [place] [address] [place] [phone] PCP - General 09/01/19 Kelly Henderson MD [address] [place] [address] Resident - PCP Internal Medicine 01/26/18 05/04/19 Jose Eduardo Ott MD [address] [place] [address] Resident - PCP Student Resident 05/05/19 documented as of this encounter
--- OUTSIDE RECORDS SUMMARY | 2024-07-20 12:53 | XMS_ITS | Clinical Summary ---
Author Organization [facility] Address [address] [place] [address] Phone Care Team Providers Care Construction Assistant Name Role Phone Roberto Sharpe DPM Unavailable [phone] Provider, None Primary Care Provider Unavailabl e Allergies Active Allergy Reactions Criticality Noted Date Comments Amitriptyline Hcl Other (see Comments) 10/14/2015 COULD NOT WAKE UP FOR DAYS Haloperidol Lactate Swelling 05/10/2016 Other-Environmental Allergen (Not Found In Search) Unknown 10/28/2021 all psychiatric medications per pt. Quetiapine Other (see Comments) 07/16/2019 Becomes uncoscious Olanzapine Other (see Comments) 10/14/2015 LED TO OTHER DISEASES Medications bictegravir-emtric itab-tenofov (BIKTARVY) 50-200-25 MG Tablet Take 1 Tab by mouth daily. 90 Tab 1 0 Active HYDROcodone-acetam inophen (NORCO) 10-325 MG Tablet Take 1 Tab by mouth every 8 hours as needed for Moderate or more severe pain. 90 Tab 0 Active LORazepam (ATIVAN) 0.5 MG Tablet Take 0.5 mg by mouth 3 times daily as needed. Active albuterol 108 (90 Base) MCG/ACT Aerosol SolutionIndication s:Chronic obstructive pulmonary disease, unspecified COPD type (HCC) take 2 Puffs by inhalation every 6 hours as needed for Wheezing. 8 g 2 Active ondansetron (ZOFRAN-ODT) 4 MG TABLET DISPERSIBLE Take 1 Tablet by mouth every 8 hours as needed (Nausea/Vomiti ng). 10 Tablet 2 2 Active dicyclomine (BENTYL) 20 MG Tablet Take 1 Tablet by mouth every 6 hours. 30 Tablet 2 Active ondansetron (ZOFRAN) 4 MG Tablet Take 1-2 Tablets by mouth every 8 hours as needed for Nausea - 1st line. 20 Tablet 2 Active famotidine (PEPCID) 20 MG Tablet Take 1 Tablet by mouth 2 times daily as needed for Heartburn. 30 Tablet 2 Active traMADol (ULTRAM) 50 MG TabletIndications: Chronic nonintractable headache, unspecified headache type Take 1 Tablet by mouth every 8 hours as needed for Mild or more severe pain. 24 Tablet 3 Active Active Problems Problem Noted Date Diagnosed Date Pseudoseizure 05/08/2021 Overview (11/20/2021): Last Assessment & Plan: EEG during episode of seizure activity showed normal brain activity. DDD (degenerative disc disease), cervical 2020 Overview (11/20/2021): MRI of total spine 04/2020 - Mild to moderate multilevel degenerative changes in the cervical spine, most pronounced at C5-C6. Arthralgia of cervical spine 02/29/2020 Tardive dyskinesia 12/29/2019 Overview (11/20/2021): Last Assessment & Plan: acute dystonia vs tardive dyskinesia Patient was [...] side effects throughout many of her treatments. 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, with the neurofibroma features predominating Last Assessment & Plan: 04/2020 MRI of total spine showed - [...] TID -percocet 5-325 Q6 Prn- on hold Memory loss 10/06/2019 HTN (hypertension) 09/21/2019 Diarrhea 08/25/2019 Generalized abdominal pain 08/25/2019 Sinus drainage 07/20/2019 Intractable vomiting 07/20/2019 Acute pain of right shoulder 07/20/2019 Agitation 06/24/2019 Tobacco abuse 06/16/2019 Hyperglycemia 06/16/2019 Fatigue 06/16/2019 Chronic pain syndrome 06/16/2019 Chronic narcotic use 06/16/2019 Difficulty refilling prescriptions 06/16/2019 Medically complex patient 06/16/2019 MDD (major depressive disorder) 06/16/2019 Vitamin D deficiency 06/16/2019 Brain mass 05/18/2019 Spinal cord mass 05/18/2019 COPD (chronic obstructive pulmonary disease) Overview (11/20/2021): Last Assessment & Plan: Duo-nebs Q4 PRN Dyspnea 03/26/2018 Seizure cerebral 12/23/2016 Tobacco dependence syndrome 11/26/2016 Gastroenteritis, acute 10/11/2016 Abnormal EKG 10/11/2016 Ingrown right greater toenail 09/25/2016 Pain of right great toe 09/25/2016 Poor historian 01/31/2015 Overview (11/20/2021): Overview: 10/2014 Per records from [facility] w/ poor insight & agitation Prediabetes 09/02/2013 Overview (11/20/2021): HGA1C 5.8 09/01/2013 Overview: HGA1C 5.8 09/01/2013 Overview: HGA1C 5.8 09/01/2013 Overview: Overview: HGA1C 5.8 09/01/2013 Schizoaffective disorder, bipolar type 4 Overview (11/20/2021): Overview: 10/25/13 member re-engaged with [facility] Care plan includes COMPLIANCE 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 Further back: abilify IM at times and 10mg daily at times. Also see Geodon (40mg in AM, 80mg qhs) in her more remote history and Trilafon (4mg qhs) Notes state pt feels most psych meds make her heart stop (no record or medical evidence of this, the notes state). HIV positive 09/01/2013 Overview (11/20/2021): 09/04 pt reports, trying to get records, referred to ID Epilepsy 09/01/2013 Overview (11/20/2021): 09/04 visit, pt states. See notes. Referred to neuro. Overview: 09/04 visit, pt states. See notes. Referred to neuro. Chronic schizoaffective disorder 11/26/2011 Overview (11/20/2021): Recommended Psychiatry evaluation. She told me she does not trust Psychiatrists and will not go on long-acting medications after experience with olanzapine. Patient had tangential thought process but did not demonstrate increased risk to harming herself or others today. No evidence of delusions or responding to internal stimuli while in clinic. Will continue to encourage Psychiatry follow up. Panic disorder without agoraphobia 11/26/2011 Scoliosis 11/26/2011 Overview (11/20/2021): 09/04 rx'ed naproxen, referred to PT Overview: 09/04 rx'ed naproxen, referred to PT Bipolar 1 disorder Anxiety HIV disease Arthritis Encounters Date Type Department Care Team Description 05/27/2024 9:16 AM CUSTOMER SERVICE ADVOCATE - 05/27/2024 1:58 PM CUSTOMER SERVICE ADVOCATE Emergency [facility] Emergency [address] [place] [address] Randy Borjas MD Seizure-like activity (HCC) Discharge Disposition: Discharged to home or Selfcare 05/27/2024 Travel from Last 3 Months Immunizations Immunization Administration Dates Next Due HEP A/HEP B Combined Vaccine 01/02/2017,04/11/19 17,12/12/2015 Hepatitis A Vaccine 06/30/2012,07/19/2010 Hepatitis A Vaccine, Pediatric/adolescent, 2 Dose Schedule 07/10/2012,07/19/2010 Hepatitis A Vaccine, Pediatric/adolescent, 3 Dose Schedule 07/10/2012,07/19/2010 Hepatitis A Vaccine,unspecif ied Formulation 06/30/2012 Hepatitis B Vaccine 09/20/2013, 3,02/27/2012,2010 Hepatitis B Vaccine, Pediatric/adolescent 07/19/2010 Hepatitis B Vaccine,unspecif ied Formulation 09/15/2012,02/27/2012 Influenza Vaccine 01/03/2011,03/24/2009 Influenza Vaccine,unspecifie d Formulation 03/24/2009 Influenza, Seasonal, Injecta ble, Undefined 01/03/2011 Pneumococcal PCV, Unspecifie d Formulation 07/19/2010 Pneumococcal Vaccine - 13 Valent 04/20/2015 Pneumococcal Vaccine Adult - 23 Valent 04/11/2017,04/11/2016,07/19/2010 Pneumococcal Vaccine Peds - 7 Valent 07/19/2010 TB Skin Test 05/22/2017,04/11/2016 TDAP Vaccine 11/13/2022,09/20/2013,07/19/2010 Tuberculin Skin Test; Purifi ed Protein Derivative Solutiol 05/22/2017,04/11/2016 Family History Medical History Relation Name Comments Diabetes Brother No Known Problems Father Cancer Maternal Aunt Breast Arthritis Mother Hypertension Mother Cancer Sister pancreatic Relation Name Status Comments Brother Father Maternal Aunt Mother Sister Social History Tobacco Use Types Packs/Day Years Used Date Smoking Tobacco: Every Day Cigarettes 0.5 34 Smokeless Tobacco: Never Tobacco Cessation:Ready to Q uit: Not Asked; Counseling Given: Not Answered Alcohol Use Standard Drinks/Week Comments Not Currently 0 (1 standard drink = 0.6 oz pur e alcohol) occassional PHQ-2 Answer Date Recorded Total Score - Questions 1-9 1 05/23 Comments No Sex and Gender Information Value Date Recorded Sex Assigned at Not on file Legal Sex Female 10:27 PM CDT Gender Identity Not on file Sexual Orientation Not on file Last Filed Vital Signs Vital Sign Reading Time Taken Comments Blood Pressure 156/90 05/27/2024 1:30 PM CUSTOMER SERVICE ADVOCATE Pulse 87 05/27/2024 1:30 PM CUSTOMER SERVICE ADVOCATE Temperature 36.3 C (97.3 F) 05/27/2024 9:33 AM CUSTOMER SERVICE ADVOCATE Respiratory Rate 21 05/27/2024 1:30 PM CUSTOMER SERVICE ADVOCATE Oxygen Saturation 99% 05/27/2024 1:30 PM CUSTOMER SERVICE ADVOCATE Inhaled Oxygen Concentration - - Weight 90.9 kg (200 lb 4.8 oz) 05/27/2024 9:33 A M CUSTOMER SERVICE ADVOCATE Height 160 cm (5' 3 ) 05/27/2024 9:33 AM CUSTOMER SERVICE ADVOCATE Body Mass Index 35.48 05/27/2024 9:33 AM CUSTOMER SERVICE ADVOCATE Plan of Treatment Health Maintenance Due Date Last Done Comments Hepatitis C Virus (HCV) Screening 1970 Meningococcal Immunization (ACWY) (1 - Risk 2-dose series) 01/24/1970 SARS-COV-2 Immunization (#1) 01/24/1973 Zoster Immunization (1 of 2) 01/24/1987 Cologuard 01/24/2018 Immunochemical Fecal Occult Blood 01/24/2018 Pneumococcal Immunization (50+ years) (4 of 4 - PCV20 or PCV21) 04/11/2022 04/11/2017, 04/11/2016, 04/20/2015, Additional history exists Influenza Immunization (#1) 11/23/202312/22, 01/03/2011, 03/24/2009, Additional history exists Mammogram 07/29/2024 07/30/2023, 05/23, 12/11/2021, Additional history exists Colonoscopy 08/16/2024 08/17/2019, 08/17/2019 Colorectal Cancer Screening 08/16/2024 Td Immunization Every 10 Years (Adults With 1 Tdap) 11/13/2032 11/13/2022, 09/20/2013, 07/19/2010 Respiratory Syncytial Virus (RSV) Immunization (Adult) (1 - 1-dose 75+ series) 01/24/2043 08/17/2019, 08/17/2019 Hepatitis B Immunization Completed 017, 01/02/2017, 04/11/2016, Additional history exists Pneumococcal Immunization Combined Discontinued 04/11/2017, 04/11/2016, 04/20/2015, Additional history exists Rotavirus Immunization Aged Out No lo nger eligible based on patient's age to complete this topic Goals Goal Patient Goal Type Associated Problems [...] services in your area Short Term Goals: [facility] will mail and provide list of local counseling services/providers in area. and Patient to contact local Mental Health Crisis Team if in need of crisis services [phone] (ph#) Housing Housing No change(10/17 4:03 PM CDT) No Alejandra Harrell, STEFANIA Note: Goal: To move into my own apartment or rental house by the end of October 2019 Patient's Preferred Goal: Highest Priority Challenges/Barriers: None Readiness to change: Ready to change Notify Care Team if: If you need additional housing resources or help completing housing applications call Inbound Customer Service Agent Alejandra at [phone] Short Term Goals: I will review the list of low income housing complexes for the disabled and call the complexes in [place] to apply for an apartment or be added to their waiting list. Procedures Procedure Name Priority Date/Time Associated Diagnosis Comments URINE DRUG SCREEN STAT 05/27/2024 11:54 AM CUSTOMER SERVICE ADVOCATE URINALYSIS REFLEX IF INDICATED BY ABNORMAL RESULTS STAT 05/27/2024 11:[address]ICE [employer] [address] HEAD OR BRAIN WO CONTRAST Stat with Interpretation 05/27/2024 10:18 AM CUSTOMER SERVICE ADVOCATE POCT GLUCOSE STAT 05/27/2024 9:34 AM CUSTOMER SERVICE ADVOCATE RED TOP TUBE STAT 05/27/2024 9:26 AM CUSTOMER SERVICE ADVOCATE GOLD TOP TUBE STAT 05/27/2024 9:26 AM CUSTOMER SERVICE ADVOCATE BLUE TOP TUBE STAT 05/27/2024 9:26 AM CUSTOMER SERVICE ADVOCATE CBC WITH AUTO DIFFERENTIAL STAT 05/27/2024 9:26 AM CUSTOMER SERVICE ADVOCATE EXTRA TUBES STAT 05/27/2024 9:26 AM CUSTOMER SERVICE ADVOCATE MAGNESIUM (MG) STAT 05/27/2024 9:26 AM CUSTOMER SERVICE ADVOCATE LIPASE STAT 05/27/2024 9:26 AM CUSTOMER SERVICE ADVOCATE CMP (COMPREHENSIVE METABOLIC PANEL) STAT 05/27/2024 9:26 AM CUSTOMER SERVICE ADVOCATE COMPLETE BLOOD COUNT (CBC) WITH DIFF STAT 05/27/2024 9:26 AM CUSTOMER SERVICE ADVOCATE EKG 12 LEAD STAT 05/27/2024 9:22 AM CUSTOMER SERVICE ADVOCATE EKG SCAN 05/27/2024 12:00 AM CUSTOMER SERVICE ADVOCATE FAMILY MEDICINE CONSULT 05/26/2024 12:00 AM CUSTOMER SERVICE ADVOCATE MAMMOGRAM BILATERAL GENERIC 12/11/2021 12:00 AM CDT from Last 3 Months or Most Recently Relevant to Health Maintenance Results * (ABNORMAL) Urinalysis w/ Reflex (05/27/2024 11:54 AM CUSTOMER SERVICE ADVOCATE) SPECIFIC GRAVITY 1.015 1.003 - 1.030 05/27/2024 12:54 PM CUSTOMER SERVICE ADVOCATE [facility] URINE PH 6.5 5.0 - 9.0 05/27/2024 12:54 PM CUSTOMER SERVICE ADVOCATE [facility] WBC ESTERASE Negative Negative 05/27/2024 12:54 PM CUSTOMER SERVICE ADVOCATE [facility] NITRITE Negative Negative 05/27/2024 12:54 PM CUSTOMER SERVICE ADVOCATE [facility] PROTEIN, RANDOM URINE 100 mg/dL(A) Negative 05/27/2024 12:54 PM CUSTOMER SERVICE ADVOCATE [facility] URINE GLUCOSE, QUAL Negative Negative 05/27/2024 12:54 PM CUSTOMER SERVICE ADVOCATE [facility] URINE KETONES Negative Negative 05/27/2024 12:54 PM CUSTOMER SERVICE ADVOCATE [facility] UROBILINOGEN Normal Normal mg/dL 05/27/2024 12:54 PM CUSTOMER SERVICE ADVOCATE [facility] URINE BLOOD Negative Negative tj/ul 05/27/2024 12:54 PM CUSTOMER SERVICE ADVOCATE [facility] URINALYSIS COLOR Yellow 05/28/19 12:54 PM CUSTOMER SERVICE ADVOCATE [facility] URINALYSIS CLARITY Clear 05/27/2024 12:54 PM CUSTOMER SERVICE ADVOCATE [facility] WBC (Urine) Negative Negative, 0-5 /hpf 05/27/2024 12:54 PM CUSTOMER SERVICE ADVOCATE [facility] URINE RBC'S Negative Negative, 0-2 /hpf 05/27/2024 12:54 PM CUSTOMER SERVICE ADVOCATE [facility] EPITHELIAL CELLS Moderate amount /lpf 05/27/2024 12:54 PM CUSTOMER SERVICE ADVOCATE [facility] BACTERIA, URINE Few(A) Negative /hpf 05/27/2024 12:54 PM CUSTOMER SERVICE ADVOCATE [facility] Urine URINE SPECIMEN / Unknown Non-Phlebotomy Collection / Unknown 05/27/2024 11:54 AM CUSTOMER SERVICE ADVOCATE 05/27/2024 12:35 PM CUSTOMER SERVICE ADVOCATE us Randy Borjas MD URINE ORDERABLES Final Result [facility] [address] [place] [address] * (ABNORMAL) Urine Drug Screen (05/27/2024 11:54 AM CUSTOMER SERVICE ADVOCATE) UR AMPHETAMINE NON DETECTED NON DETECTED 05/27/2024 1:03 PM CUSTOMER SERVICE ADVOCATE [facility] Comment: FOR MEDICAL USE ONLY. CUTOFF CONCENTRATION FOR DETECTED RESULT: AMPHETAMINE: 500 NG/ML UR BENZODIAZEPINES DETECTED(A) NON DETECTED 05/27/2024 1:03 PM CUSTOMER SERVICE ADVOCATE [facility] Comment: FOR MEDICAL USE ONLY. CUTOFF CONCENTRATION FOR DETECTED RESULT: BENZODIAZAPINE: 200 NG/ML UR COCAINE METABOLITE NON DETECTED NON DETECTED 05/27/2024 1:03 PM CUSTOMER SERVICE ADVOCATE [facility] Comment: FOR MEDICAL USE ONLY. CUTOFF CONCENTRATION FOR DETECTED RESULT: COCAINE: 150 NG/ML UR OPIATES NON DETECTED NON DETECTED 05/27/2024 1:03 PM CUSTOMER SERVICE ADVOCATE [facility] Comment: FOR MEDICAL USE ONLY. CUTOFF CONCENTRATION FOR DETECTED RESULT: OPIATES: 300 NG/ML UR PHENCYCLIDINE NON DETECTED NON DETECTED 05/27/2024 1:03 PM CUSTOMER SERVICE ADVOCATE [facility] Comment: FOR MEDICAL USE ONLY. CUTOFF CONCENTRATION FOR DETECTED RESULT: PCP: 25 NG/ML UR CANNABINOID DETECTED(A) NON DETECTED 05/27/2024 1:03 PM CUSTOMER SERVICE ADVOCATE [facility] Comment: FOR MEDICAL USE ONLY. CUTOFF CONCENTRATION FOR DETECTED RESULT: THC (MARIJUANA): 50 NG/ML UR BARBITURATE NON DETECTED NON DETECTED 05/27/2024 1:03 PM CUSTOMER SERVICE ADVOCATE [facility] Comment: FOR MEDICAL USE ONLY. CUTOFF CONCENTRATION FOR DETECTED RESULT: BARBITUATES: 200 NG/ML UR FENTANYL NON DETECTED NON DETECTED 05/27/2024 1:03 PM CUSTOMER SERVICE ADVOCATE [facility] Comment: FOR MEDICAL USE ONLY. CUTOFF CONCENTRATION FOR DETECTED RESULT: FENTANYL: 1.0 NG/ML Urine Non-Phlebotomy Collection / Unknown 05/27/2024 11:54 AM CUSTOMER SERVICE ADVOCATE 05/27/2024 12:35 PM CUSTOMER SERVICE ADVOCATE us Randy Borjas MD URINE ORDERABLES Final Result [facility] [address] [place] [address] * CT HEAD OR BRAIN WO CONTRAST (05/27/2024 10:18 AM CUSTOMER SERVICE ADVOCATE) Anatomical Region Laterality Modality Head N/A Computed Tomogra phy 05/27/2024 11:0 9 AM CUSTOMER SERVICE ADVOCATE Impressions 05/27/2024 11:11 AM CUSTOMER SERVICE ADVOCATE IMPRESSION: No unenhanced CT evidence of acute intracranial process. Narrative 05/27/2024 11:11 AM CUSTOMER SERVICE ADVOCATE EXAM DESCRIPTION: CT HEAD OR BRAIN WO CONTRAST REASON FOR STUDY: Seizure today. No provided focal neurologic deficits. No provided history of trauma or inciting and/or aggravating events. History of hypertension, seizures, and unspecified type and location brain mass and unspecified type and level spinal cord mass of unspecified date of diagnosis and therapeutic interventions. 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 TECHNIQUE: Axial images acquired through the brain without intravenous contrast. Images stored on PACS. Automated exposure control was used as a dose optimization technique for this examination. COMPARISON: CT head without contrast 12/25/2022 and 08/06/2022; CTA head/neck without and with contrast 11/07/2021; MRI brain/orbits without and with contrast FINDINGS: BRAIN: No acute intra-axial hemorrhage. No edema, mass effect, midline shift, or herniation. Normal white matter. No evidence of acute territorial ischemia/infarct. EXTRA-AXIAL SPACES: No extra-axial fluid collection. No unenhanced CT evidence of new extra-axial mass, noting grossly stable unenhanced appearance of left pterygopalatine fossa and cavernous sinus soft tissue attenuation masses. CALVARIUM: No acute calvarial fracture. SINUSES/MASTOIDS: Visualized paranasal sinuses clear. Mastoid air cells well-developed and well aerated. ORBITS: No acute abnormality. Ocular lenses and globes normal in conformation and position. OTHER: No other significant abnormality. THIS IS AN ELECTRONICALLY VERIFIED FINAL REPORT 05/27/2024 11:09 AM - Electronically signed by Hua Fiore M.D. RUBEN: RUBEN Report ID: [id number] Reading Location: [place] [id number] Procedure Note Hua Fiore MD - 05/27/2024 EXAM DESCRIPTION: CT HEAD OR BRAIN WO CONTRAST REASON FOR STUDY: Seizure today. No provided focal neurologic deficits. No provided history of trauma or inciting and/or aggravating events. History of hypertension, seizures, and unspecified type and location brain mass and unspecified type and level spinal cord mass of unspecified date of diagnosis and therapeutic interventions. 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 TECHNIQUE: Axial images acquired through the brain without intravenous contrast. Images stored on PACS. Automated exposure control was used as a dose optimization technique for this examination. COMPARISON: CT head without contrast 12/25/2022 and 08/06/2022; CTA head/neck without and with contrast 11/07/2021; MRI brain/orbits without and with contrast FINDINGS: BRAIN: No acute intra-axial hemorrhage. No edema, mass effect, midline shift, or herniation. Normal white matter. No evidence of acute territorial ischemia/infarct. EXTRA-AXIAL SPACES: No extra-axial fluid collection. No unenhanced CT evidence of new extra-axial mass, noting grossly stable unenhanced appearance of left pterygopalatine fossa and cavernous sinus soft tissue attenuation masses. CALVARIUM: No acute calvarial fracture. SINUSES/MASTOIDS: Visualized paranasal sinuses clear. Mastoid air cells well-developed and well aerated. ORBITS: No acute abnormality. Ocular lenses and globes normal in conformation and position. OTHER: No other significant abnormality. THIS IS AN ELECTRONICALLY VERIFIED FINAL REPORT 05/27/2024 11:09 AM - Electronically signed by Hua Fiore M.D. RUBEN: RUBEN Report ID: [id number] Reading Location: [id number] IMPRESSION: No unenhanced CT evidence of acute intracranial process. us Randy Borjas MD IMG CT ORDERABLES Es l Result * POCT Glucose (05/27/2024 9:34 AM CUSTOMER SERVICE ADVOCATE) [facility] GLUCOSE,BEDSIDE POCT 86 70 - 99 mg/dL 05/27/2024 9:44 AM CUSTOMER SERVICE ADVOCATE [facility] Comment: RN Notified ESTER SOL Blood 05/27/2024 9:34 AM CUSTOMER SERVICE ADVOCATE 05/27/2024 9:44 AM CUSTOMER SERVICE ADVOCATE us None Provider POINT OF CARE TESTING Final Resu lt Performing Organization Address City/[facility]/ZIP Co de Phone Number [facility] [address] [place] [address] * Red Top Tube (05/27/2024 9:26 AM CUSTOMER SERVICE ADVOCATE) Blood No Phlebotomy Charged / Unknown 05/27/2024 9:26 AM CUSTOMER SERVICE ADVOCATE 05/27/2024 10:17 AM CUSTOMER SERVICE ADVOCATE us Randy Borjas MD CHEMISTRY ORDERABLES F inal Result Performing Organization Address City/[facility]/ZIP Co de Phone Number [facility] [address] [place] [address] * Gold Top Tube (05/27/2024 9:26 AM CUSTOMER SERVICE ADVOCATE) Blood No Phlebotomy Charged / Unknown 05/27/2024 9:26 AM CUSTOMER SERVICE ADVOCATE 05/27/2024 10:17 AM CUSTOMER SERVICE ADVOCATE Randy Borjas MD CHEMISTRY ORDERABLES F inal Result Performing Organization Address City/[facility]/ZIP Co de Phone Number [facility] [address] [place] [address] * Blue Top Tube (05/27/2024 9:26 AM CUSTOMER SERVICE ADVOCATE) Blood No Phlebotomy Charged / Unknown 05/27/2024 9:26 AM CUSTOMER SERVICE ADVOCATE 05/27/2024 10:17 AM CUSTOMER SERVICE ADVOCATE Randy Borjas MD HEMATOLOGY ORDERABLES Final Result Performing Organization Address [facility] Co de Phone Number [facility] [address] [place] [address] * (ABNORMAL) CBC with Auto Differential (05/27/2024 9:26 AM CUSTOMER SERVICE ADVOCATE) WBC 5.07 4.00 - 12.00 10(3)/mcL 05/27/2024 10:17 AM CUSTOMER SERVICE ADVOCATE [facility] RBC 4.05 3.80 - 5.30 10(6)/mcL 05/27/2024 10:17 AM CUSTOMER SERVICE ADVOCATE [facility] HEMOGLOBIN (HGB) 13.4 12.0 - 15.8 g/dL 05/27/2024 10:17 AM CUSTOMER SERVICE ADVOCATE [facility] HEMATOCRIT (HCT) 38.4 36.0 - 47.0 % 05/27/2024 10:17 AM CUSTOMER SERVICE ADVOCATE [facility] MCV 94.8 82.0 - 96.0 fL 05/27/2024 10:17 AM CUSTOMER SERVICE ADVOCATE [facility] MCH 33.1 26.0 - 34.0 pg 05/27/2024 10:17 AM CUSTOMER SERVICE ADVOCATE [facility] MCHC 34.9 31.0 - 36.0 g/dL 05/27/2024 10:17 AM [facility] PLATELET COUNT 231 140 - 440 10(3)/[facility] 05/27/2024 10:17 AM [facility] RDW 13.4 11.8 - 15.5 % 05/27/2024 10:17 AM [facility] MPV 10.5 9.7 - 12.4 fL 05/27/2024 10:17 AM [facility] NEUTROPHILS 44.0(L) 47.0 - 73.0 % 05/27/2024 10:17 AM [facility] LYMPHOCYTES 49.1(H) 18.0 - 42.0 % 05/27/2024 10:17 AM [facility] MONOCYTES 6.1 4.0 - 12.0 % 05/27/2024 10:17 AM [facility] EOSINOPHILS 0.4 0.0 - 5.0 % 05/27/2024 10:17 AM [facility] BASOPHILS 0.4 0.0 - 1.0 % 05/27/2024 10:17 AM [facility] ABSOLUTE NEUTROPHILS 2.23 1.60 - 7.70 10(3)/[facility] 05/27/2024 10:17 AM [facility] ABSOLUTE LYMPHOCYTES 2.49 1.30 - 3.20 10(3)/[facility] 05/27/2024 10:17 AM [facility] ABSOLUTE MONOCYTES 0.31 0.20 - 1.00 10(3)/[facility] 05/27/2024 10:17 AM [facility] ABSOLUTE EOSINOPHIL 0.02 0.00 - 0.40 10(3)/[facility] 05/27/2024 10:17 AM [facility] ABSOLUTE BASOPHILS 0.02 0.00 - 0.10 10(3)/[facility] 05/27/2024 10:17 AM [facility] NRBC PER 100 WBC 0 05/28/19 10:17 AM [facility] Blood Venipuncture / Unknown 05/27/2024 9:26 AM [facility] [employer] 05/27/2024 10:11 AM CUSTOMER SERVICE AD[employer] us Randy Borjas MD HEMATOLOGY ORDERABLES Final Result Performing Organization Address City/[facility] Co de Phone Number [facility] [place] [address] * Magnesium (05/27/2024 9:26 AM CUSTOMER SERVICE ADVOCATE) MAGNESIUM 2.1 1.6 - 2.6 mg/dL 05/27/2024 10:36 AM CUSTOMER SERVICE ADVOCATE [facility] Blood Venipuncture / Unknown 05/27/2024 9:26 AM CUSTOMER SERVICE ADVOCATE 05/27/2024 10:11 AM CUSTOMER SERVICE ADVOCATE us Randy Borjas MD CHEMISTRY ORDERABLES F inal Result Performing Organization Address [facility] Co de Phone Number [facility] [place] [address] * Lipase (05/27/2024 9:26 AM CUSTOMER SERVICE ADVOCATE) LIPASE 39 8 - 78 U/L 05/27/2024 10:36 AM CUSTOMER SERVICE ADVOCATE [facility] Blood Venipuncture / Unknown 05/27/2024 9:26 AM CUSTOMER SERVICE ADVOCATE 05/27/2024 10:11 AM CUSTOMER SERVICE ADVOCATE us Randy Borjas MD CHEMISTRY ORDERABLES F inal Result Performing Organization Address [facility] Co de Phone Number [facility] [address] [place] [address] * (ABNORMAL) CMP (05/27/2024 9:26 AM CUSTOMER SERVICE ADVOCATE) SODIUM 140 136 - 145 mmol/L 05/27/2024 10:36 AM CUSTOMER SERVICE ADVOCATE [facility] POTASSIUM 3.4(L) 3.5 - 5.1 mmol/L 05/27/2024 10:36 AM [facility] CHLORIDE 109(H) 98 - 107 mmol/L 05/27/2024 10:36 AM [facility] CO2, VENOUS 26 22 - 30 mmol/L 05/27/2024 10:36 AM [facility] ANION GAP 8.4 <18.0 mmol/L 05/27/2024 10:36 AM [facility] GLUCOSE 70 70 - 99 mg/dL 05/27/2024 10:36 AM [facility] BUN 7(L) 10 - 20 mg/dL 05/27/2024 10:36 AM [facility] CREATININE, BLOOD 0.77 0.60 - 1.00 mg/dL 05/27/2024 10:36 AM [facility] BUN/CREATININE RATIO 9(L) 12 - 20 ratio 05/27/2024 10:36 AM [facility] TOTAL PROTEIN 7.1 6.0 - 8.0 g/dL 05/27/2024 10:36 AM [facility] ALBUMIN 3.9 3.5 - 5.0 g/dL 05/27/2024 10:36 AM [facility] A/G RATIO 1.2 1.0 - 2.2 05/27/2024 10:36 AM [facility] CALCIUM 9.6 8.7 - 10.5 mg/dL 05/27/2024 10:36 AM [facility] T BILI 0.5 0.2 - 1.2 mg/dL 05/27/2024 10:36 AM [facility] SGOT (AST) 14 <43 U/L 05/27/2024 10:36 AM [facility] SGPT (ALT) 13 <56 U/L 05/27/2024 10:36 AM [facility] ALKALINE PHOSPHATASE 127 40 - 150 U/L 05/27/2024 10:36 AM [facility] GFR, ESTIMATED >60 >=60 05/27/2024 10:36 AM CUSTOMER SERVICE ADVOCATE [facility] Comment: Creatinine Clearance is the preferred criteria for selecting drug dose adjustments in renally impaired patients. The GFR is provided as additional pertinent clinical information. GFR is reported in mL/min/1.73 sq m. Calculation based on the Chronic Kidney Disease Epidemiology Collaboration (CKD- EPI) equation refit without adjustment for race. GFR, EST. >60 >=60 025 10:36 AM CUSTOMER SERVICE ADVOCATE [facility] GFR, EST. NONAFRICAN >60 >=60 05/27/2024 10:36 AM CUSTOMER SERVICE ADVOCATE [facility] Blood Venipuncture / Unknown 05/27/2024 9:26 AM CUSTOMER SERVICE ADV[employer]ATE 05/27/2024 10:11 AM CUSTOMER SERVICE ADVOCATE us Randy Borjas MD CHEMISTRY ORDERABLES F inal Result [facility] [address] [place] [address] * EKG 12 LEAD (05/27/2024 9:22 AM CUSTOMER SERVICE ADVOCATE) Ventricular Rate 73 BPM EXTERNAL EKG Atrial Rate 73 BPM EXTERNAL EKG P-R Interval 200 ms EXTERNAL EKG QRS Duration 100 ms EXTERNAL EKG Q-T Duration 400 ms EXTERNAL EKG QTC CALCULATION 440 ms EXTERNAL EKG P [place] 54 degrees EXTERNAL EKG R [place] -43 degrees EXTERNAL EKG T [place] 37 degrees EXTERNAL EKG 05/27/2024 9:22 AM CUSTOMER SERVICE ADVOCATE Impressions EXTERNAL EKG - 06/03/2024 12:31 AM CDT Normal sinus rhythm Left axis deviation Incomplete right bundle branch block Minimal voltage criteria for LVH, may be normal variant ( Semaj product ) Abnormal ECG When compared with ECG of 03-FEB-2024 01:55, Incomplete right bundle branch block is now present Confirmed by Yeimy King ([id number]) on 06/03/2024 12:31:45 AM Narrative Procedure Note Yeimy King MD - 06/03/2024 IMPRESSION: Normal sinus rhythm Left axis deviation Incomplete right bundle branch block Minimal voltage criteria for LVH, may be normal variant ( Comfort product) Abnormal ECG When compared with ECG of 03-FEB-2024 01:55, Incomplete right bundle branch block is now present Confirmed by Yeimy King ([id number]) on 06/03/2024 12:31:45 AM us Randy Borjas MD IMG ECG ORDERABLES Fin al Result EXTERNAL EKG * EKG SCAN (05/27/2024 12:00 AM CUSTOMER SERVICE ADVOCATE) 05/27/2024 us Provider Scan IMG ECG ORDERABLES Final Result RESULTING AGENCY * FAMILY MEDICINE CONSULT (05/26/2024 12:00 AM CUSTOMER SERVICE ADVOCATE) 05/26/2024 us Provider Scan GENERIC SCAN ORDERS CONSULT Es l Result SCAN * MAMMOGRAM BILATERAL MISCELLANEOUS (12/11/2021 12:00 AM CDT) 12/11/2021 us Not On File Provider IMG MAMMO ORDERABLES Final Result SCAN from Last 3 Months or Most Recently Relevant to Health Maintenance Insurance MEDICAID AETNA [facility] MEDICAID [place] MEDICAID [facility] Advance Directives * Full Code (Latest Code Status on File) Date Activated Date Inactivated Comments 10/11/2016 9:01 AM 10/11/2016 7:36 PM CPR-Full Kehinde atment: FULL ARREST: Attempt Resuscitation/CPR wit intubation and mechanical ventilation. PRE-ARREST: Use entire range of life support measures to stabilize the patient. Care Teams Construction Assistant Relationship Specialty Start Date End Date Provider, None [place] PCP - General 11/13/22 Roberto Sharpe DPM Consulting Physician Podiatry 09/25/16
--- OUTSIDE RECORDS SUMMARY | 2024-07-20 12:53 | XMS_ITS | Encounter Summary ---
Author Organization [facility] Address [address] [facility] [place] [address] Care Team Providers Care Apparel Pattern Maker Name Role Phone Cathi Mcnally MD Primary Care Provider Kelly Henderson MD Unavailable [phone] Cathi Mcnally MD Primary Care Provider Kelly Henderson MD Unavailable [phone] Kelly Henderson MD Primary Care Provider Cathi Mcnally MD Primary Care Provider Kelly Henderson MD Primary Care Provider Cathi Mcnally MD Primary Care Provider Cathi Mcnally MD Primary Care Provider Troy ROCA MD, [place] Primary Care Provider + Jose Eduardo Ott MD Unavailable [phone] Kelly Henderson MD Primary Care Provider Reason for Visit * Reason Onset Date Comments Order 11/06/2017 Encounter Details Date Type Department Care Team (Late st Contact Info) Description 11/06/2017 Telephone [facility] General Internal Medicine [address] [place] [address] [place] [address] Cathi Mcnally MD [address] [facility] [address] [place] [address] Order Social History Tobacco Use Types Packs/Day Years Used Date Smoking Tobacco: Every Day Cigarettes 0.3 32 Smokeless Tobacco: Never Comments:4 cigarettes Alcohol Use Standard Drinks/Week Comments Yes 0 (1 standard drink = 0.6 oz pure alcohol) sparingly - when pain is too high Comments No Sex and Gender Information Value Date Recorded Sex Assigned at Not on file Legal Sex Female 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 Answer Entry Date Author No 06/08/2015 6:30 PM Carolyn Villareal RN documented in this encounter Miscellaneous Notes * Telephone Encounter - Dahlia Calderon - 11/06/2017 11:02 AM CDT Chelsie called from [employer] regarding the pt receiving a brace. This nurse only saw the the SW assisted in getting the pt a cane previously CB# [phone] [employer] CB# [phone] FAX# [phone] This is in regards to the pt obtaining a brace (sorry I forgot to ask where she needs the brace) Chelsie is calling the pt so she can give us a call in order to facilitate this documented in this encounter Plan of Treatment Upcoming Encounters Date Type Department Care Team (Late st Contact Info) Description 09/08/2024 2:00 PM CDT Office Visit [facility] - Family [address], [facility] [place] [phone] Germaine Monson MD [address] [place] [phone] documented as of this encounter Visit Diagnoses Not on filedocumented in this encounter Additional Health Concerns Infection Onset Date Last Indicated Resolved Time COVID-19 Under Investigation 08/14/2019 08/14/2019 08/15/2019 3:43 PM CDT COVID-19 Under Investigation 09/10/2019 09/10/2019 09/11/2019 11:18 PM CDT documented as of this encounter Care Teams Apparel Pattern Maker Relationship Specialty Start Date End Date Cathi Mcnally MD PCP - General Internal Medicine 10/08/17 01/11/18 Cathi Mcnally MD PCP - General Internal Medicine 01/26/18 01/26/18 Kelly Henderson MD [facility] [place] [address] PCP - General 01/27/18 03/09/18 Cathi Mcnally MD PCP - General Internal Medicine 03/10/18 03/10/18 Kelly Henderson MD [address] [place] [address] PCP - General 03/11/18 03/31/18 Cathi Mcnally MD PCP - General Internal Medicine 04/01/18 05/17/18 Cathi Mcnally MD PCP - General Internal Medicine 07/14/18 07/15/18 Sea Simmons III, MD [address] [place] [address] PCP - General Internal Medicine 05/05/19 06/07/19 Kelly Henderson MD [address] [place] [address] PCP - General 09/01/19 Kelly Henderson MD [address] [place] [address] Resident - PCP Internal Medicine 10/08/17 01/25/18 Kelly Henderson MD [address] [place] [address] Resident - PCP Internal Medicine 01/26/18 05/04/19 Jose Eduardo Ott MD [address] [place] [address] Resident - PCP Student Resident 05/05/19 documented as of this encounter
--- OUTSIDE RECORDS SUMMARY | 2024-07-20 12:53 | XMS_ITS | Encounter Summary ---
Author Organization [facility] Address [address] [place] [address] Phone Care Team Providers Care Director Telecommunications Name Role Phone Roberto Sharpe DPM Unavailable [phone] Shahram Alcaraz MD Primary Care Provider [phone] Provider, None Primary Care Provider Unavailabl e Sami Cervantes MD Primary Care Provider Von Hedrick MD Unavailable Unavai lable Provider, None Primary Care Provider Unavailabl e Mendoza Liang MD Primary Care Provider [phone] Provider, None Primary Care Provider Unavailabl e Reason for Visit * Reason Comments Medication Refill Encounter Details Date Type Department Care Team (Late st Contact Info) Description 12/25/2019 Refill [facility] [address] [place] [address] Shahram Alcaraz MD [address] [address] Medication Refill Social History Tobacco [...] encounter Miscellaneous Notes * Telephone Encounter - Alessandra Brown RN - 12/28/2019 8:43 AM CDT Medication failed the protocol, provider to review and approve the medication order. Requested Prescriptions Pending Prescriptions Disp Refills ipratropium-albuterol (DUO-NEB) 0.5-2.5 (3) MG/3ML Solution [Pharmacy Med Name: IPRAT-ALBUT 0.5-3(2.5) MG/3 ML] 360 mL 0 Sig: UISE 1 VIAL (3 ML) BY NEBULIZATION ROUTE 4 TIMES DAILY. Pulmonology: Combination Products Passed - 12/25/2019 12:01 AM Passed - Valid encounter within last 12 months Past Office Visits Recent Outpatient Visits 1 month ago Anxiety [facility] - Shahram Lowe MD 2 months ago Brain mass [facility] - Shahram Lowe MD 3 months ago Essential hypertension [facility] - Jair Lancaster APN, MARIIA 4 months ago HIV disease (HCC) [facility] Shahram Lowe MD 5 months ago Intractable vomiting with nausea, unspecified vomiting type [facility] Shahram Lowe MD Upcoming Appointments Future Appointments In 2 weeks Shahram Alcaraz MD [facility] Conn [facility] AUTOMOBILE MECHANIC - Recent and Past Visits Recent Visits Date Type Provider Dept 11/17/19 Office Visit Shahram Alcaraz MD [facility] 10/06/19 Office Visit Shahram Alcaraz MD [facility] 09/21/19 Office Visit Jair Matson APN, MARIIA [facility] 08/25/19 Office Visit Shahram Alcaraz MD [facility] 07/20/19 Telemedicine Shahram Alcaraz MD [facility] 06/24/19 Telemedicine Shahram Alcaraz MD [facility] 06/16/19 Office Visit Shahram Alcaraz MD [facility] 05/18/19 Office Visit Jair Matson APN, MARIIA [facility] Showing recent visits within past 460 days with a meds authorizing provider and meeting all other requirements Future Appointments Date Type Provider Dept 01/17/20 Appointment Shahram Alcaraz MD [facility] Showing future appointments within next 90 days with a meds authorizing provider and meeting all other requirements Passed - Last BP in normal range BP Readings from Last 1 Encounters: 11/17/19 126/88 tiZANidine (ZANAFLEX) 2 MG Tablet [Pharmacy Med Name: TIZANIDINE HCL 2 MG TABLET] 60 Tab 0 Sig: Take 1 Tab by mouth 2 times daily as needed for Muscle spasms. Not Delegated - Analgesics: Muscle Relaxants Failed - 12/25/2019 12:01 AM Failed - This refill cannot be delegated Passed - Valid encounter within last 6 months Past Office Visits Recent Outpatient Visits 1 month ago Anxiety [facility] Family [facility] - Shahram Lowe MD 2 months ago Brain mass [facility] - Shahram Lowe MD 3 months ago Essential hypertension [facility] Jair Lancaster APN, SENIOR DATABASE PROGRAMMER 4 months ago HIV disease (HCC) [facility] - Shahram Lowe MD 5 months ago Intractable vomiting with nausea, unspecified vomiting type [facility] Shahram Lowe MD Upcoming Appointments Future Appointments In 2 weeks Shahram Alcaraz MD [facility] Noreen [facility] AUTOMOBILE MECHANIC - Recent and Past Visits Recent Visits Date Type Provider Dept 11/17/19 Office Visit Shahram Alcaraz MD [facility] 10/06/19 Office Visit Shahram Alcaraz MD [facility] 09/21/19 Office Visit Jair Matson APN, MARIIA [facility] 08/25/19 Office Visit Shahram Alcaraz MD [facility] 07/20/19 Telemedicine Shahram Alcaraz MD [facility] 06/24/19 Telemedicine Shahram Alcaraz MD [facility] 06/16/19 Office Visit Shahram Alcaraz MD [facility] 05/18/19 Office Visit Jair Matson APN, MARIIA [facility] Showing recent visits within past 460 days with a meds authorizing provider and meeting all other requirements Future Appointments Date Type Provider Dept 01/17/20 Appointment Shahram Alcaraz MD [facility] Showing future appointments within next 90 days with a meds authorizing provider and meeting all other requirements documented in this encounter Plan of Treatment [...] services in your area Short Term Goals: [facility] will mail and provide list of local counseling services/providers in area. and Patient to contact local Mental Health Crisis Team if in need of crisis services [phone] (ph#) Housing Housing No change(10/17 4:03 PM CDT) No Alejandra Harrell LSW Note: Goal: To move into my own apartment or rental house by the end of October 2019 Patient's Preferred Goal: Highest Priority Challenges/Barriers: None Readiness to change: Ready to change Notify Care Team if: If you need additional housing resources or help completing housing applications call High School Science Teacher Alejandra at [phone] Short Term Goals: I will review the list of low income housing complexes for the disabled and call the complexes in [place] to apply for an apartment or be [...] documented as of this encounter Care Teams Director Telecommunications Relationship Specialty Start Date End Date Shahram Alcaraz MD [address] [facility] [address] [place] [address] PCP - General Family Medicine 06/16/19 09/21/21 Provider, None [place] PCP - General 10/28/21 11/15/21 Sami Cervantes MD PA PCP - General Family Medicine 11/30/21 03/28/22 Provider, None [place] PCP - General 03/29/22 05/23/22 Mendoza Liang MD [address] [place] [address] [address] [place] [address] PCP - General Labor Law Professor 05/24/22 11/12/22 Provider, None [place] PCP - General 11/13/22 Roberto Sharpe DPM Consulting Physician Podiatry 09/25/16 Von Hedrick MD PA Consulting Physician Cardiovascular Disease - Cardiology 01/11/22 03/03/24 documented as of this encounter
--- OUTSIDE RECORDS SUMMARY | 2024-07-20 12:53 | XMS_ITS | Encounter Summary ---
Author Organization [facility] Address [address] [facility] [place] [address] Care Team Providers Care Plate Slitter And Inspector Name Role Phone Kelly Henderson MD Unavailable Troy ROCA MD, [facility] Primary Care Provider + Jose Eduardo Ott MD Unavailable Kelly Henderson MD Primary Care Provider Reason for Visit * Reason Onset Date Comments MEDICATION REFILL 07/17/2018 Follow-up 07/27/2018 Encounter Details Date Type Department Care Team (Late st Contact Info) Description 07/17/2018 Refill [facility] General Internal Medicine [address] [facility] [address] [place] [address] Kelly Henderson MD [address] [place] [address] MEDICATION REFILL; Follow-up Social History Tobacco Use Types Packs/Day [...] on file Legal Sex 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 [...] encounter Miscellaneous Notes * Telephone Encounter - Chente Balderrama - 07/27/2018 9:38 AM CDT Pt called again to inquire about why her refill request for pain medication Tramadol was denied. Caller informed that a message would be sent to the provider to determine the reason and that someone form [facility] office would contact her with that information Message routed to the provider for further review and assistance * Telephone Encounter - Sasha Tello RN - 07/24/2018 10:58 AM CDT Patient calling to check on status of medication refill. Advised patient it was denied. Patient would like to know why. Please advise. [phone] * Telephone Encounter - Dahlia Calderon - 07/17/2018 9:01 AM CDT The pt states that she has cancelled her pain management The pt was unable to do water therapy d/t seizures Patient requesting refills for the following Tramadol 50 mg medications. HERI: 07/14/18 NOV: 02/09/19 Problem List Identified: office visit on Medication [...] Description 09/08/2024 2:00 PM CDT Office Visit [facility]ician Group - Family Medicine [address] [place] [address], [facility] [place] [address] Germaine Monson MD [address] [place] [phone] documented as of this encounter Visit Diagnoses Not on filedocumented in this encounter Additional Health Concerns Infection Onset Date Last Indicated Resolved Time COVID-19 Under Investigation 08/14/2019 08/14/2019 08/15/2019 3:43 PM CDT COVID-19 Under Investigation 09/10/2019 09/10/2019 09/11/2019 11:18 PM CDT documented as of this encounter Care Teams Plate Slitter And Inspector Relationship Specialty Start Date End Date Sea Simmons III, MD [address] [place] [phone] PCP - General Internal Medicine 05/05/19 06/07/19 Kelly Henderson MD [facility] [place] [phone] PCP - General 09/01/19 [place] [address] [place] [phone] Resident - PCP Internal Medicine 01/26/18 05/04/19 [place] [address] [place] [phone] Resident - PCP Student Resident 05/05/19 documented as of this encounter
--- OUTSIDE RECORDS SUMMARY | 2024-07-20 12:53 | XMS_ITS | Encounter Summary ---
Author Organization [facility] Health Address [address] [place] [address] Care Team Providers Care Film Editor Supervisor Name Role Phone Jose Eduardo Ott MD Unavailable [phone] Kelly Henderson MD Primary Care Provider Encounter Details Date Type Department Care Team (Late st Contact Info) Description 08/14/2019 Lab Requisition [facility] MICROBIOLOGY [address] [place] [address] Clint Amos MD Cough Social History Tobacco Use Types Packs/Day Years Used Date Smoking Tobacco: Every Day Cigarettes 0.3 32 Smokeless Tobacco: Never Comments:4 cigarettes Alcohol Use Standard Drinks/Week Comments Yes 0 (1 standard drink = 0.6 oz pure alcohol) sparingly - when pain is too high Comments No Sex and Gender Information Value Date Recorded Sex Assigned at Not on file 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 Answer Date of Assessment Author No 06/08/2015 6:30 PM CDT Carolyn Naki RN * Is person blind or have serious difficulty seeing? Answer Date of Assessment Author No 06/08/2015 6:30 PM CDT Carolyn Naik RN * Does person have serious difficulty walking/climbing stairs? Answer Date of Assessment Author No 06/08/2015 6:30 PM CDT Carolyn Naik RN * Does person have difficulty dressing/bathing? Answer Date of Assessment Author No 06/08/2015 6:30 PM CDT Abby Naik RN * Does person have difficulty doing errands alone? Answer Date of Assessment Author No 06/08/2015 6:30 PM CDT Carolyn Naik RN documented as of this encounter Mental Status * Does person have difficulty concentrating/remembering/making decisions? Answer Entry Date Author No 06/08/2015 6:30 PM CDT Carolyn Naik RN documented in this encounter Plan of Treatment Upcoming Encounters Date Type Department Care Team (Late st Contact Info) Description 09/08/2024 2:00 PM CDT Office Visit [facility] - Family Medicine [address] [place] [address], [facility] [place] [phone] Germaine Monson MD [address] [place] [phone] documented as of this encounter Procedures Procedure Name Priority Date/Time Associated Diagnosis Comments SARS-COV-2 (COVID-19) IN HOUSE Routine 08/14/2019 10:00 AM CDT Cough documented in this encounter Results * SARS-COV-2 (COVID-19) IN HOUSE (08/14/2019 10:00 AM CDT) COVID-19 PCR Not detected Not detected, Invalid 08/15/2019 3:43 PM CDT [facility] Microbiology SPECIMEN FROM NASOPHARYNGEAL STRUCTURE / Unknown Collection / Unknown 08/14/2019 10:00 AM CDT 08/14/2019 8:07 PM CDT Narrative [facility]CRO[facility]OLOG[facility] - 08/15/2019 3:43 PM CDT This Real Time RT-PCR assay was developed and its performance characteristics determined by [facility]. This test has been authorized by the Food and Drug administration (FDA)under an Emergency Use Authorization (EUA). This test has been validated in accordance with the FDA's guidance document Policy for Diagnostic Testing in Laboratories Certified to perform High Complexity Testing under CLIA prior to Emergency Use Authorization for Coronavirus Disease-2019 during the Public Health Emergency issued on May 22, 2019. FDA independent review of this validation is pending. This test is only authorized for the duration of time the declaration that circumstances exist justifying the authorization of emergency use of in vitro diagnostic tests for detection of SARS-CoV-2 virus and/or diagnosis of COVID-19 infection under section 564(b)(1) of the Act, 21 U.S.C 360bbb-3 (b)(1), unless the authorization is terminated or revoked sooner. Clint Amos MD LAB - MICROBIOLOGY ORDERABL ES Final Result [facility] [address] [place] [address], [facility] [phone] documented in this encounter Visit Diagnoses Diagnosis Cough documented in this encounter Additional Health Concerns Infection Onset Date Last Indicated Resolved Time COVID-19 Under Investigation 08/14/2019 08/14/2019 08/15/2019 3:43 PM CDT COVID-19 Under Investigation 09/10/2019 09/10/2019 09/11/2019 11:18 PM CDT documented as of this encounter Care Teams Film Editor Supervisor Relationship Specialty Start Date End Date Kelly Henderson MD [address] [place] [address] PCP - General 09/01/19 Jose Eduardo Ott MD Resident - PCP Student Resident 05/05/19 documented as of this encounter
--- OUTSIDE RECORDS SUMMARY | 2024-07-20 12:53 | XMS_ITS | Encounter Summary ---
Author Organization [facility] Health Address [address] [place] [address] Care Team Providers Care Drawing Hand Name Role Phone Jose Eduardo Ott MD Unavailable [phone] Kelly Henderson MD Primary Care Provider Encounter Details Date Type Department Care Team (Late st Contact Info) Description 09/11/2019 Lab Requisition [facility] MICRO[facility] [address] [place] [address] Clint Amos MD Social History Tobacco Use Types Packs/Day Years Used Date Smoking Tobacco: Every Day Cigarettes 0.3 32 Smokeless Tobacco: Never Comments:4 cigarettes Alcohol Use Standard Drinks/Week Comments Yes 0 (1 standard drink = 0.6 oz pure alcohol) sparingly - when pain is too high Comments No Sex and Gender Information Value Date Recorded Sex Assigned at Not on file 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 Gender Identity Not on file Sexual Orientation [...] Assessment Author No 06/08/2015 6:30 PM CDT Carolny Naik RN * Does person have difficulty [...] Description 09/08/2024 2:00 PM CDT Office Visit [facility] - Family Medicine [address] [place] [address], [facility] [place] [phone] Germaine Monson MD [address] [place] [phone] documented as of this encounter Procedures Procedure Name Priority Date/Time Associated Diagnosis Comments SARS-COV-2 (COVID-19) IN HOUSE Routine 09/10/2019 12:50 PM CDT documented in this encounter Results * SARS-COV-2 (COVID-19) IN HOUSE (09/10/2019 12:50 PM CDT) COVID-19 PCR Not detected Not detected, Invalid 09/11/2019 11:18 PM CDT [facility]CROBIOLOGY Microbiology SPECIMEN FROM NASOPHARYNGEAL STRUCTURE / Unknown Collection / Unknown 09/10/2019 12:50 PM CDT 09/11/2019 3:19 PM CDT Narrative [facility]CROBI[facility] - 09/11/2019 11:18 PM CDT This Real Time RT-PCR assay was developed and its performance characteristics determined by [facility]biology Laboratory. This test has been authorized [...] LAB - MICROBIOLOGY ORDERABL ES Final Result [facility] MICROBIOLOGY [address] [place] [address], [facility] [phone] documented in this encounter Visit Diagnoses Not on filedocumented in this encounter Additional Health Concerns Infection Onset Date Last Indicated Resolved Time COVID-19 Under Investigation 09/10/2019 09/10/2019 09/11/2019 11:18 PM CDT documented as of this encounter Care Teams Drawing Hand Relationship Specialty Start Date End Date Kelly Henderson MD [address] [place] [address] PCP - General 09/01/19 Jose Eduardo Ott MD Resident - PCP Student Resident 05/05/19 documented as of this encounter
--- OUTSIDE RECORDS SUMMARY | 2024-07-20 12:53 | XMS_ITS | Encounter Summary ---
Author Organization [facility] Address [address] [place] [address] Care Team Providers Care Business Relationship Manager Name Role Phone Cathi Mcnally MD Primary Care Provider Kelly Henderson MD Unavailable [phone] Cathi Mcnally MD Primary Care Provider Kelly Henderson MD Unavailable [phone] Kelly Henderson MD Primary Care Provider Cathi Mcnally MD Primary Care Provider Kelly Henderson MD Primary Care Provider Cathi Mcnally MD Primary Care Provider Cathi Mcnally MD Primary Care Provider Troy ROCA MD, [place] Primary Care Provider + Jose Eduardo Ott MD Unavailable [phone] Kelly Henderson MD Primary Care Provider Reason for Visit * Reason Onset Date Comments Question 10/15/2017 Follow-up 10/15/2017 Encounter Details Date Type Department Care Team (Late st Contact Info) Description 10/15/2017 Telephone [facility] Internal Medicine [address] [facility] [address] [place] [address] Cathi Mcnally MD [address] [facility] [address] [place] [address] Question; Follow-up Social History Tobacco Use Types Packs/Day [...] on file 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 Kelly Henderson. She was not happy she had to verify her information forHIPAA and would not provide any details on the nature of her call. Please call the patient back at the number noted above. HERI: 10/08/17 NOV: 01/27/18 Thank you. documented in this encounter Plan of Treatment Upcoming Encounters Date Type Department Care Team (Late st Contact Info) Description 09/08/2024 2:00 PM CDT Office Visit [facility] - Family Medicine [address] [place] [address], [place] [phone] Germaine Monson MD [address] [place] [phone] documented as of this encounter Visit Diagnoses Not on filedocumented in this encounter Additional Health Concerns Infection Onset Date Last Indicated Resolved Time COVID-19 Under Investigation 08/14/2019 08/14/2019 08/15/2019 3:43 PM CDT COVID-19 Under Investigation 09/10/2019 09/10/2019 09/11/2019 11:18 PM CDT documented as of this encounter Care Teams Business Relationship Manager Relationship Specialty Start Date End Date Cathi Mcnally MD PCP - General Internal Medicine 10/08/17 01/11/18 Cathi Mcnally MD NPI: [id number] PCP - General Internal Medicine 01/26/18 01/26/18 Kelly Henderson MD [address] [place] [address] PCP - General 01/27/18 03/09/18 Cathi Mcnally MD PCP - General Internal Medicine 03/10/18 03/10/18 Kelly Henderson MD [address] [place] [address] PCP - General 03/11/18 03/31/18 Cathi Mcnally MD PCP - General Internal Medicine 04/01/18 05/17/18 Cathi Mcnally MD PCP - General Internal Medicine 07/14/18 07/15/18 Sea Simmons III, MD [address] [place] [address] PCP - General Internal Medicine 05/05/19 06/07/19 Kelly Henderson MD [address] [place] [address] PCP - General 09/01/19 Kelly Henderson MD [address] [place] [address] Resident - PCP Internal Medicine 10/08/17 01/25/18 Kelly Henderson MD [address] [place] [address] Resident - PCP Internal Medicine 01/26/18 05/04/19 Jose Eduardo Ott MD [address] [place] [address] Resident - PCP Student Resident 05/05/19 documented as of this encounter
--- OUTSIDE RECORDS SUMMARY | 2024-07-20 12:53 | XMS_ITS | Clinical Summary ---
Author Organization [facility] Address [address] [place] [address] Care Team Providers Care Lumber Mover Name Role Phone Jose Eduardo Ott MD Unavailable [phone] Kelly Henderson MD Primary Care Provider Source Comments [facility],non-owned Affiliates and Associated Physician Practices is amultiple site organization consisting of ambulatory clinics and hospital sitesin [place], [place], [place] and [place]. This disclosure is being madepursuant to the Care Everywhere program and may not contain all information available regarding this patient. Last updated 17.[facility] Allergies Active Allergy Reactions Criticality Noted Date Comments Aspirin Itching,Unknown Low 01/31/2015 unknown Coconut Oil Anaphylaxis High 07/21/2015 Amitriptyline Other Low 05/04/2015 COULD NOT WAKE UP FOR DAYS COULD NOT WAKE UP FOR DAYS makes me shaky and incoherent Haloperidol Swelling Low 04/11/2016 Other reaction(s): Other (See Comments) Can't wake up Olanzapine Other 10/14/2015 LED TO OTHER DISEASES Peanut-Derived Anaphylaxis High 05/04/2015 all nuts Zyprexa 05/04/2015 feels like rats are running around in my brain Medications * This document contains information received from the source organization and may not represent a complete record from that organization. * Be aware that medications may not be up to date on this document. Alwaysverify current medications with the patient. Mis. Devices (PILL BOX 7 DAY) MIS Use 1 Box once daily 1 Each 10/01/19 Active Additional Information Patient not taking.Reported on 04/10/2021 albuterol-ipratr opium (DUO-NEB) 0.5-2.5 (3) MG/3ML nebulizer solution Inhale 3 mL by mouth every 6 hours as needed for Shortness of Breath or Wheezing 360 mL 1 10/16/19 Active Additional Information Patient not taking.Reported on 04/10/2021 [facility] [place] [facility]. Devices (BAMBOO CANE) [facility] Use 1 device continuous 1 Each 10/29/19 Active Additional Information Patient not taking.Reported on 04/10/2021 acetaminophen (TYLENOL) 325 MG tabletIndication s:Chronic pelvic pain in female,Chronic bilateral thoracic back pain Take 1 tablet by mouth every 6 hours as needed for Fever or Pain Maximum allowable Acetaminophen amount = 4 Grams (4000 mg) / 24 hours. 90 tablet 2 03/13/20 18 Active Additional Information Patient not taking.Reported on 04/10/2021 Guaifenesin-Code ine (VIRTUSSIN A/C PO) Take 5 mL by mouth every 4 hours Active PREDNISONE PO Take 50 mg by mouth once daily Active fluticasone propionate (FLONASE) 50 MCG/ACT nasal spray [place] 1 spray into each nostril once daily 1 bottles 03/27/19 Active Additional Information Patient not taking.Reported on 04/10/2021 guaiFENesin ER 12hr (MUCINEX) 600 MG tabletIndication s:Cough Take 1 tablet by mouth every 12 hours 15 tablet 04/01/19 19 Active Additional Information Patient not taking.Reported on 04/10/2021 lidocaine (LMX 4) 4 % cream APPLY TO SKIN UP TO FOUR TIMES DAILY NEEDED TO REDUCE PAIN 15 g 04/01/19 Active Additional Information Patient not taking.Reported on 04/10/2021 traMADol (ULTRAM) 50 MG tablet TAKE ONE TABLET BY MOUTH TWICE A DAY NEEDED FOR PAIN 60 tablet 04/28/19 Active Additional Information Patient not taking.Reported on 04/10/2021 triamcinolone acetonide (KENALOG) injection Inject 10 mg into muscle once Active lacosamide (VIMPAT) 50 MG tablet Take 1 tablet by mouth 2 times daily 60 tablet 5 06/11/19 19 Active Additional Information Patient not taking.Reported on 04/10/2021 lisinopril (PRINIVIL; ZESTRIL) 10 MG tabletIndication s:Essential hypertension Take 1 tablet by mouth once daily 90 tablet 3 07/15/19 Active Additional Information Patient not taking.Reported on 04/10/2021 albuterol HFA (VENTOLIN HFA) 108 (90 Base) MCG/ACT inhaler Inhale 2 puffs by mouth every 4 hours as needed 1 Inhaler 5 07/15/19 Active Additional Information Patient not taking.Reported on 04/10/2021 Skin Protectants, Misc. (EUCERIN) cream Apply to affected area as needed for Dry Skin (hands bilaterally) 57 g 2 07/15/19 Active Additional Information Patient not taking.Reported on 04/10/2021 DESCOVY 200-25 MG tablet TAKE ONE TABLET BY MOUTH ONCE DAILY 30 tablet 1 09/11/19 19 Active Additional Information Patient not taking.Reported on 04/10/2021 TIVICAY 50 MG tablet TAKE ONE TABLET BY MOUTH ONCE DAILY 30 tablet 1 09/11/19 Active Additional Information Patient not taking.Reported on 04/10/2021 elvitegravir-cob icistat-emtricit abine-tenofovir DF (STRIBILD) [phone] MG tablet take 1 tablet by ora 06/25/19 15 Active naproxen (NAPROSYN) 500 MG tablet take 1 tablet by ora 06/25/19 15 Active guaiFENesin-code ine (ROBITUSSIN AC) 100-10 MG/5ML syrup Take 5 mL by mouth 04/30/19 19 Active medical marijuana 1 Dose Active clonazePAM, disintegrating, (KLONOPIN WAFER) 0.5 MG tablet Take by mouth 2 times daily as needed for Anxiety Active ondansetron (ZOFRAN) 4 MG tablet Take 4 mg by mouth every 6 hours as needed for Nausea/Vomiting Active Active Problems Problem Noted Date Diagnosed Date Arthritis 07/25/2017 Human immunodeficiency virus infection 8 Panic attacks 01/31/2017 Essential hypertension 01/02/2017 Chronic interstitial cystitis 04/02/2016 Myalgia 04/02/2016 Urinary incontinence in female 02/11/2015 Bilateral thoracic back pain 02/07/2015 Anemia 01/31/2015 Overview (07/25/2017): Overview: Microcytic, suspect iron deficiency anemia. IMO load HIV (human immunodeficiency virus infection) 12/2014 Overview (07/25/2017): Overview: [place] pt was dx'd 2003 & started tx 2010 Contracted HIV in nursing home. Per pt nursing home health care staff stuck her w/ an infected needle in error. Overweight 01/31/2015 Scoliosis 01/31/2015 Overview (07/25/2017): Overview: 09/04 rx'ed naproxen, referred to PT Prediabetes 09/02/2013 Overview (07/25/2017): Overview: HGA1C 5.8 09/01/2013 Schizoaffective disorder, bipolar type 4 Overview (07/25/2017): Overview: 10/25/13 member re-engaged with [facility] Care plan includes [employer] working with [facility] rn progressive care unit Genet Rayo is case consultant [phone] Appears meds have been: Risperidone 3mg qhs [...] medical evidence of this, the notes state). Allergic rhinitis 09/01/2013 Epileptic seizure 09/01/2013 Overview (07/25/2017): Overview: 09/04 visit, pt states. See notes. Referred to neuro. Mild persistent asthma 09/01/2013 Overview (07/25/2017): Overview: 09/04 Qvar and albuterol rx'ed. Pt was on similar (some control med - not sure which) and albuterol prior, re- rx'ed at initial visit. Seizure 08/07/2011 Overview (06/22/2018): Overview: Seizures History of substance abuse 08/06/2006 Overview (07/25/2017): Overview: Overview: History of substance abuse Chronic pelvic pain in female Dysmenorrhea Resolved Problems Problem Noted Date Diagnosed Date Resolved Date Schizoaffective disorder, bipolar type 07/25/2017 11/04/2017 Abnormal EKG 10/11/2016 10/08/2017 Gastroenteritis, acute 10/11/201608/08 Cough 01/31/2015 08/22/2017 Mixed bipolar affective disorder 01/31/2015 11/04/2017 Overview (07/25/2017): Overview: 10/2014 Per records from [facility] Other specified counseling 11/24/2013 0 10/08/2017 Overview (07/25/2017): Overview: 11/24/13: member looking to change Medicaid MH provider from [facility] Abdominal mass 09/01/2013 10/08/2017 Overview (07/25/2017): Overview: 09/04 visit, pt states: She reports [...] having N/V/D and this was found at [facility] [place] scan. Acute atopic conjunctivitis of both eyes 09/01/2013 10/08/2017 Encounters Date Type Department Care Team Description 06/21/2024 Travel from Last 3 Months Immunizations Immunization Administration Dates Next Due INFLUENZA VACCINE, TRIV. (AF LURIA FLUZONE TRIVALENT; 6MO+) (IIV3) 03/24/2009 FLU VACCINE TRI IIV3 SPLIT P F IM (FLUVIRIN) 01/03/2011,03/24/2009 HEP A PEDS 2 DOSE 07/10/2012,07/19/2010 HEP A VACCINE, ADULT 06/30/2012,07/19/2010 HEP A/HEP B 01/02/2017,04/11/2016,12/12/2015 HEP B VACCINE, ADULT 3 DOSE 09/20/2013,0 09/15/2012,02/27/2012,2010 HEP B VACCINE, PED/ADOL 07/19/2010 HepB Unspecified formulation 09/15/2012,02/27/20 12 INFLUENZA VACCINE 01/03/2011 PNEUMOCOCCAL PCV7 CONJ, PEDS 07/19/2010 PNEUMOCOCCAL PPSV23 04/11/2016,07/19/2010 Pneumococcal Pcv13 Conj 04/20/2015 TDAP (7yrs+) 09/20/2013,07/19/2010 Family History Medical History Relation Name Comments Diabetes Brother Other Father insides explod ed Breast Cancer after age 50 or unknown Maternal Aunt 1 Dx'd>50 y/o Diabetes Maternal Aunt 2 Depression Mother Cancer Sister pancreatic Relation Name Status Comments Brother Father Maternal Aunt 1 Maternal Aunt 2 Mother Sister Social History Tobacco Use Types Packs/Day Years Used Date Smoking Tobacco: Every Day Cigarettes 0.3 32 Smokeless Tobacco: Never Tobacco Cessation:Ready to Q uit: Yes; Counseling Given: Yes Comments:4 cigarettes Alcohol Use Standard Drinks/Week Comments Yes 0 (1 standard drink = 0.6 oz pure alcohol) sparingly - when pain is too high Comments No Sex and Gender Information Value Date Recorded Sex Assigned at Not on file 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 Gender Identity Not on file Sexual Orientation Not on file Last Filed Vital Signs Vital Sign Reading Time Taken Comments Blood Pressure 142/92 04/10/2021 1:11 PM MORTICIAN INVESTIGATOR Pulse 82 04/10/2021 1:11 PM MORTICIAN INVESTIGATOR Temperature 36.4 C (97.5 F) 04/10/2021 1:11 PM MORTICIAN INVESTIGATOR Respiratory Rate 18 04/10/2021 1:11 PM MORTICIAN INVESTIGATOR Oxygen Saturation 95% 04/10/2021 1:11 PM MORTICIAN INVESTIGATOR Inhaled Oxygen Concentration - - Weight 87.1 kg (192 lb) 04/10/2021 1:11 PM MORTICIAN INVESTIGATOR Height 157.5 cm (5' 2 ) 04/10/2021 1:11 PM MORTICIAN INVESTIGATOR Body Mass Index 35.12 04/10/2021 1:11 PM MORTICIAN INVESTIGATOR Plan of Treatment Upcoming Encounters Date Type Department Care Team (Late st Contact Info) Description 09/08/2024 2:00 PM CDT Office Visit [facility] Medicine [address] [place] [address], [place] [address] Germaine Monson MD [address] [place] [address] [address] [place] [address] Health Maintenance Due Date Last Done Comments COLOGUARD (AGES 45-75) - COLON CA SCREENING [address] COLONOGRAPHY - COLON CA SCREENING 1968 FIT - COLON CA SCREENING 1968 FLEX SIG - COLON CA SCREENING 1968 Opioid Medication Agreement - Annual 1968 COVID-19 VACCINE (#1) 01/24/1973 ZOSTER VACCINE (1 of 2) 01/24/1987 PNEUMOCOCCAL VACCINE 50+ (4 of 4 - PCV20 or PCV21) 04/11/2021 04/11/2016, 04/20/2015, 07/19/2010 SCREENING FOR DIABETES 06/22/2021 9, 03/13/2018, 11/29/2017, Additional history exists DTAP/TDAP/TD VACCINES (3 - Td or Tdap) 09/21/2023 09/20/2013, 07/19/2010 MEDICARE AWV CALENDAR YEAR 2024 INFLUENZA VACCINE (Season Ended) 2024 01/03/2011, 01/03/2011, 03/24/2009, Additional history exists LIPID TESTING 12/03/2026 12/03/2021, 04/03/2018, 09/16/2017, Additional history exists HEPATITIS B VACCINE Completed 01/02/2017, 04/11/2016, 12/12/2015, Additional history exists HEPATITIS C SCREENING Completed 06/22/2018 , 05/22/2017, 04/11/2016 COLONOSCOPY - COLON CA SCREENING Discontinued Colorectal Cancer Screening Discontinued HIB VACCINE Aged Out No longer eligi ble based on patient's age to complete this topic HPV VACCINE Aged Out No longer eligi ble based on patient's age to complete this topic MAMMOGRAM Discontinued MENINGOCOCCAL (Group B) VACCINE SHARED DECISION-MAKING Aged Out No longer eligible based on patient's age to complete this topic MENINGOCOCCAL GROUPS A/C/Y/W VACCINE Discontinued Procedures Procedure Name Priority Date/Time Associated Diagnosis Comments COMPREHENSIVE METABOLIC PANEL Routine 06/22/2018 12:02 PM CDT Asymptomatic HIV infection Encounter for long-term (current) use of medications LIPID PROFILE Routine 06/22/2018 12:02 PM CDT Asymptomatic HIV infection Encounter for long-term (current) use of medications HEPATITIS C AB W/RFLX TO HCV RNA QN PCR Routine 06/22/2018 12:02 PM CDT Asymptomatic HIV infection from Last 3 Months or Most Recently Relevant to Health Maintenance Results * HEPATITIS C AB W/RFLX TO HCV RNA QN PCR ([facility]) (06/22/2018 12:02 PM CDT) Hepatitis C Antibody NON-REACTI VE NON-REACT AMY [facility] Signal to Cut-Off 0.01 <1.00 [facility] Comment: HCV antibody was non-reactive. There is no laboratory evidence of HCV infection. In most cases, no further action is required. However, if recent HCV exposure is suspected, a test for HCV RNA (test code 23216) is suggested. For additional information please refer to http://education.Grapeshot/faq/UNB92u8 (This link is being provided for informational/ educational purposes only.) Test Performed at: [facility] [address] [place] [address] EUSEBIA QIU DO,MPH Blood BLOOD SPECIMEN / Unknown 06/22/2018 12:02 PM CDT 06/23/2018 4:14 AM CDT us Kelsy Nagel MD LAB - CHEMISTRY ORDER ADALGISA Final Result [facility] [id number] [place] [id number] * (ABNORMAL) COMPREHENSIVE METABOLIC PANEL (06/22/2018 12:02 PM CDT) Glucose 86 65 - 99 mg/dL [facility] Comment: Fasting reference interval BUN 11 7 - 25 mg/dL [facility] Creatinine 0.87 0.50 - 1.05 mg/dL [facility] Comment: For patients >49 years of age, the reference limit for Creatinine is approximately 13% higher for people identified as -Ghanaian. eGFR by MDRD 78 > OR = 60 mL/min/1 .73m2 [facility] eGFR by MDRD 90 > OR = 60 mL/min/1 .73m2 [facility] BUN/Creatinine Ratio NOT APPLICABLE 6 - 22 (calc) [facility] Sodium 141 135 - 146 mmol/L [facility] Potassium 4.4 3.5 - 5.3 mmol/L [facility] Chloride 107 98 - 110 mmol/L [facility] CO2 23 20 - 32 mmol/L [facility] Calcium 10.5(H) 8.6 - 10.4 mg/dL [facility] Protein Total 7.8 6.1 - 8.1 g/dL [facility] Albumin 5.1 3.6 - 5.1 g/dL [facility] Globulin Total 2.7 1.9 - 3.7 g/dL (calc) [facility] Albumin/Globulin Ratio 1.9 1.0 - 2.5 (calc) [facility] Bilirubin Total 0.6 0.2 - 1.2 mg/dL [facility] Alkaline Phosphatase 111 33 - 130 U/L [facility] AST 14 10 - 35 U/L [facility] ALT 12 6 - 29 U/L [facility] Comment: Test Performed at: [facility] [address] EUSEBIA QIU DO,MPH Blood BLOOD SPECIMEN / Unknown 06/22/2018 12:02 PM CDT 06/23/2018 4:14 AM CDT us Kelsy Nagel MD LAB - CHEMISTRY ORDER ADALGISA Final Result [facility] [id number] [place] [address] * (ABNORMAL) LIPID PROFILE (06/22/2018 12:02 PM CDT) Pathologist [facility] Cholesterol 190 <200 mg/dL [facility] HDL Cholesterol 50(L) >50 mg/dL [facility] Triglycerides 59 <150 mg/dL [facility] LDL Calculated 125(H) mg/dL (calc) [facility] Comment: Reference range: <100 Desirable range <100 mg/dL for primary prevention; <70 mg/dL for patients with CHD or diabetic patients with > or = 2 CHD risk factors. LDL-C is now calculated using the Aldo calculation, which is a validated novel method providing better accuracy than the Friedewald equation in the estimation of LDL-C. Frank SS et al. KOREY. 2013;310(19): 3872-4103 (http://education.Mr. Youth.Affinimark Technologies/faq/IUW695) CHOL/HDLC RATIO 3.8 <5.0 (calc) [facility] Non HDL Cholesterol 140(H) <130 mg/dL (calc) [facility] Comment: For patients with diabetes plus 1 major ASCVD risk factor, treating to a non-HDL-C goal of <100 mg/dL (LDL-C of <70 mg/dL) is considered a therapeutic option. Test Performed at: [email or web address] [address] [place] [address] EUSEBIA QIU DO,MPH Blood BLOOD SPECIMEN / Unknown 06/22/2018 12:02 PM CDT 06/23/2018 4:14 AM CDT us Kelsy Nagel MD LAB - CHEMISTRY ORDER ADALGISA Final Result [facility] [id number] [place] [address] from Last 3 Months or Most Recently Relevant to Health Maintenance Insurance [facility] AETNA MEDICARE [facility] AETNA Advance Directives * Full Code (Latest Code Status on File) Date Activated Date Inactivated Comments 06/08/2015 5:56 PM 06/10/2015 2:44 PM Care Teams Lumber Mover Relationship Specialty Start Date End Date Kelly Henderson MD [address] [place] [address] PCP - General 09/01/19 Jose Eduardo Ott MD Resident - PCP Student Resident 05/05/19
--- OUTSIDE RECORDS SUMMARY | 2024-07-20 12:53 | XMS_ITS | Encounter Summary ---
Author Organization [facility] Address [address] [place] [address] Care Team Providers Care Refrigerator Repair Technician Name Role Phone Jose Eduardo Ott MD Unavailable [phone] Kelly Henderson MD Primary Care Provider Reason for Visit * Reason Onset Date Comments Eye Problem 08/26/2022 Encounter Details Date Type Department Care Team (Late st Contact Info) Description 08/26/2022 Telephone [facility] - Op[facility] [place] [phone] Char Lopes MD [address] [place] [address] Eye Problem Social History Tobacco Use Types Packs/Day Years Used Date Smoking Tobacco: Every Day Cigarettes 0.3 32 Smokeless Tobacco: Never Comments:4 cigarettes Alcohol Use Standard Drinks/Week Comments Yes 0 (1 standard drink = 0.6 oz pure alcohol) sparingly - when pain is too high Comments No Sex and Gender Information Value Date Recorded Sex Assigned at Not on file 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 One eye feels big, one feels sunken in. Itchy and runny... facial pain, going blind. Had some type of medicine that turned everything orange. Bleeding out documented in this encounter Plan of Treatment Upcoming Encounters Date Type Department Care Team (Late st Contact Info) Description 09/08/2024 2:00 PM CDT Office Visit [facility] - Family Medicine [address] [place] [address], [place] [address] Germaine Monson MD [address] [place] [address], [place] [address] documented as of this encounter Visit Diagnoses Not on filedocumented in this encounter Care Teams Refrigerator Repair Technician Relationship Specialty Start Date End Date Kelly Henderson MD [address] [place] [address] PCP - General 09/01/19 Jose Eduardo tOt MD Resident - PCP Student Resident 05/05/19 documented as of this encounter
--- OUTSIDE RECORDS SUMMARY | 2024-07-20 12:53 | XMS_ITS | Encounter Summary ---
Author Organization [facility] Address [address] [facility] [place] [address] Care Team Providers Care Distributor Publications Name Role Phone Kelly Henderson MD Unavailable [phone] Cathi Mcnally MD Primary Care Provider Kelly Henderson MD Unavailable [phone] Kelly Henderson MD Primary Care Provider Cathi Mcnally MD Primary Care Provider Kelly Henderson MD Primary Care Provider Cathi Mcnally MD Primary Care Provider Cathi Mcnally MD Primary Care Provider Troy ROCA MD, [place] Primary Care Provider + Jose Eduardo Ott MD Unavailable [phone] Kelly Henderson MD Primary Care Provider Reason for Visit * Reason Onset Date Comments MEDICATION REFILL 01/12/2018 Encounter Details Date Type Department Care Team (Late st Contact Info) Description 01/12/2018 Refill [facility] General Internal Medicine [address] [place] [address] Kelly Henderson MD [address] [place] [address] MEDICATION REFILL Social History Tobacco Use Types [...] on file 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 Gender Identity Not on file Sexual Orientation [...] Telephone Encounter - Tasha Szymanski RN - 01/12/2018 1:17 PM CDT Patient requesting refills for the following: increase in Tramadol dosage to 4 times a day and something stronger for winter months for pain medication HERI: 11/19/17 NOV: 01/27/18 Problem List Identified: office visit on Medication [...] Description 09/08/2024 2:00 PM CDT Office Visit [facility] - Family Medicine [address] [place] [address], [facility] [place] [phone] Germaine Monson MD [address] [place] [phone] documented as of this encounter Visit Diagnoses Not on filedocumented in this encounter Additional Health Concerns Infection Onset Date Last Indicated Resolved Time COVID-19 Under Investigation 08/14/2019 08/14/2019 08/15/2019 3:43 PM CDT COVID-19 Under Investigation 09/10/2019 09/10/2019 09/11/2019 11:18 PM CDT documented as of this encounter Care Teams Distributor Publications Relationship Specialty Start Date End Date Cathi Mcnally MD [address] [place] [phone] PCP - General Internal Medicine 01/26/18 01/26/18 Kelly Henderson MD [address] [place] [phone] PCP - General 01/27/18 03/09/18 Cathi Mcnally MD [address] [place] [phone] PCP - General Internal Medicine 03/10/18 03/10/18 Kelly Henderson MD [address] [place] [phone] PCP - General 03/11/18 03/31/18 Cathi Mcnally MD [address] [place] [phone] PCP - General Internal Medicine 04/01/18 05/17/18 Cathi Mcnally MD [address] [place] [phone] PCP - General Internal Medicine 07/14/18 07/15/18 Sea Simmons III, MD [address] [place] [phone] PCP - General Internal Medicine 05/05/19 06/07/19 Kelly Henderson MD [address] [place] [phone] PCP - General 09/01/19 Kelly Henderson MD [address] [place] [phone] Resident - PCP Internal Medicine 10/08/17 01/25/18 Kelly Henderson MD [address] [place] [phone] Resident - PCP Internal Medicine 01/26/18 05/04/19 Jose Eduardo Ott MD [address] [place] [phone] Resident - PCP Student Resident 05/05/19 documented as of this encounter
--- OUTSIDE RECORDS SUMMARY | 2024-07-20 12:53 | XMS_ITS | Clinical Summary ---
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 10 7 - 25 mg/dL [facility] CREATININE (blood) 0.82 0.50 - 1.03 mg/dL [facility] EGFR 84 > OR = 60 mL/min/1. 73m2 [facility] BUN/CREATININE RATIO SEE NOTE: 6 - 22 (calc) [facility] Comment: Not Reported: BUN and Creatinine are within reference range. SODIUM 141 135 - 146 mmol/L [facility] POTASSIUM 3.9 3.5 - 5.3 mmol/L [facility] CHLORIDE 108 98 - 110 mmol/L [facility] CARBON DIOXIDE 25 20 - 32 mmol/L [facility] CALCIUM 9.9 8.6 - 10.4 mg/dL [facility] PROTEIN, TOTAL 7.1 6.1 - 8.1 g/dL [facility] ALBUMIN 4.5 3.6 - 5.1 g/dL [facility] GLOBULIN 2.6 1.9 - 3.7 g/dL (calc) [facility] ALBUMIN/GLOBULI N RATIO 1.7 1.0 - 2.5 (calc) [facility] BILIRUBIN, TOTAL 0.4 0.2 - 1.2 mg/dL [facility] ALKALINE PHOSPHATASE 132 37 - 153 U/L [facility] AST 11 10 - 35 U/L [facility] ALT 12 6 - 29 U/L [facility] Blood Blood / Unknown 06/28/2024 4 :16 PM CDT 06/29/2024 4:57 AM CDT Marco Cordero MD LAB - BLOOD DRAW Edite d Result - Final [facility] [address] [address] [address], [facility] [address] [address] [id number] from Last 3 Months Insurance [employer] [facility] MEDICAID Care Teams Bank Reconciliator Relationship Specialty Start Date End Date Marco Cordero MD [address] [place] [address] PCP - General Infectious Diseases 07/06/24
--- OUTSIDE RECORDS SUMMARY | 2024-07-20 12:53 | XMS_ITS | CONTINUITY OF CARE DOCUMENT ---
Author Name darrel, darrel Address Unknown Organization [facility] Address [address] [place] [address] Phone [phone] Care Team Providers Care Attending Anesthesiologist Name Role Phone Justin Bettencourt MD Unavailable [phone] Charito Miller MD Unavailable Charito Miller MD Unavailable PROBLEMS Condition Status Date Provider Notes Elevated blood pressure active Justin Bettencourt MD Bipolar disorder active Toby Jacobs Obesity active Toby Jacobs Tobacco abuse active Justin Bettencourt MD Scoliosis active Justin Bettencourt MD CHEST PAIN active Justin Bettencourt MD HIV infection active Justin Bettencourt MD Abnormal EKG active Justin Bettencourt MD Shortness of breath active Justin Bettencourt MD ENCOUNTERS Date Type Provider Location Encounter Diag nosis - In-person encounter Office Visit Justin Bettencourt MD [facility] Elevated blood press ure - In-person encounter Office Visit Justin Bettencourt MD [facility] Shortness of breathA bnormal EKGHIV infectionCHEST PAINScoliosisTobacco abuseObesityBipolar disorder VITAL SIGNS Date Observation Value Provider Body Mass Index (Ratio) 29.81 kg/m2 Shabbir Jacobs blood pressure, diastolic, left arm 100 m m[Hg] [place] [facility] blood pressure, systolic, left arm 140 mm [Hg] [place] [facility] blood pressure, diastolic, right arm 108 mm[Hg] [facility] blood pressure, systolic, right arm 160 m m[Hg] [facility] blood pressure, diastolic 100 mm[Hg] [facility], [facility] 140 mm[Hg] Durga garibay [place] oxygen saturation, oximetry 99 % [facility] respiratory rate E&M 22 /min [facility] pulse rate 80 /min [facility] weight E&M 163 [lb_av] [facility] height E&M 62 [in_i] [facility] Body Mass Index (Ratio) 30.18 kg/m2 Shabbir Thompsonberg blood pressure, diastolic, left arm 70 mm [Hg] [facility] blood pressure, systolic, left arm 118 mm [Hg] [facility] blood pressure, diastolic, right arm 72 m m[Hg] [facility] blood pressure, systolic, right arm 118 m m[Hg] [facility] blood pressure, diastolic 72 mm[Hg] [facility] [place] blood pressure, systolic 118 mm[Hg] Shane german [place] oxygen saturation, oximetry 98 % [facility] pulse rate 72 /min [facility] blood pressure, resting No Higinio ia [place] respiratory rate E&M 18 /min [facility] weight E&M 165 [lb_av] [facility] height E&M 62 [in_i] [facility] ALLERGIES Allergy Name Onset Date Reaction Criticality Status NUTS Low Criticality active HISTORY OF MEDICATION USE Medication Status Instructions Dates Provider Indications Com iam SHUKLA 200-25 MG ORAL TABLET active Take 1 tab daily Toby Jacobs TIVICAY TABLET active Take 1 tab daily [facility] ONDANSETRON 4 MG ORAL TABLET DISINTEGRATING active TAKE 1 TABLET BY MOUTH EVERY 8 HOURS NEEDED FOR NAUSEA [facility] [place] #9, 30 days supply, Prescribed by EL ZAPATA, Filled 10/11/2016 VENTOLIN HFA 108 (90 Base) MCG/ACT INHALATION AEROSOL SOLUTION active TAKE 2 PUFFS BY INHALATION EVERY 4 HOURS NEEDED FOR WHEEZING OR SHORTNESS OF BREATH. [facility] Magaly #18, 28 days supply, Prescribed by EMMETT HALL, Filled 10/06/2016 CLONAZEPAM 0.5 MG ORAL TABLET active TAKE 1 TABLET BY MOUTH TWICE DAILY FOR 30 DAYS [facility] [place] #60, 30 days supply, Prescribed by ASHOK GUPTA, Filled 10/16/2016 SPIRIVA HANDIHALER 18 MCG INHALATION CAPSULE active TAKE 1 CAPSULE BY INHALATION DAILY. [facility] Magaly #30, 30 days supply, Prescribed by EMMETT HALL, Filled 10/28/2016 MELOXICAM 15 MG ORAL TABLET active TAKE 1 TABLET BY MOUTH EVERY DAY Teonia Magaly #30, 30 days supply, Prescribed by CHARITO MILLER, Filled 10/28/2016 BUPROPION HCL ER (SR) 150 MG ORAL TABLET EXTENDED RELEASE 12 HOUR active TAKE 1 TABLET BY MOUTH TWICE A DAY [facility] [place] #60, 30 days supply, Prescribed by EMMETT HALL, Filled 10/28/2016 TRAMADOL HCL 50 MG ORAL TABLET active TAKE 1 OR 2 TABLETS BY MOUTH EVERY 6 HOURS NEEDED FOR PAIN [facility] Magaly #120, 15 days supply, Prescribed by CHARITO MILLER, Filled 11/12/2016 POTASSIUM CHLORIDE SAVI ER 20 MEQ ORAL TABLET EXTENDED RELEASE active TAKE 1 TAB BY MOUTH DAILY. [facility] [place] #30, 30 days supply, Prescribed by CHARITO MILLER, Filled 11/12/2016 RISPERIDONE 1 MG ORAL TABLET active TAKE 1 TABLET BY MOUTH 2 TIMES DAILY [facility] [place] #60, 30 days supply, Prescribed by EL ZAPATA, Filled 11/16/2016 HYDROCODONE-ACETAM INOPHEN 5-325 MG ORAL TABLET active TAKE 1 TABLET BY MOUTH EVERY 6 HOURS NEEDED Teonia Magaly #30, 30 days supply, Prescribed by CHARITO MILLER, Filled 11/18/2016 SOCIAL HISTORY Date Observation Value Provider alcohol use yes Justin Bettencourt MD drug use, illicit, d rug of choice marijuana Justin Bettencourt MD smoking/tobacco cess ation, patient education and counseling yes Justin Bettencourt MD drug use yes Justin Bettencourt MD number of years as a smoker 30 a Justin Bettencourt MD smoking, date started 1986 Justin Bettencourt MD smoking history, tot al pack/day 1 Justin Bettencourt MD cigarette use yes Justin Bettencourt MD smoking status Current every day smoker G salvador Bettencourt MD social history reviewed E&M revi ewed - no changes required Justin Bettencourt MD smoking, date started 1986 Nori Colón social history reviewed E&M revi ewed - no changes required Justin Bettencourt MD social history E&M Smoking Histo ry: P atient currently smokes every day. P atient has been counseled to quit. Justin Bettencourt MD alcohol use yes Justin Bettencourt MD drug use, illicit, d rug of choice marijuana Justin Bettencourt MD drug use yes Justin Bettencourt MD smoking/tobacco cess ation, patient education and counseling yes Justin Bettencourt MD number of years as a smoker 30 a Bertha Mckenzie smoking history, tot al pack/day 1 Tenazario Mckenzie cigarette use yes Bertha Mckenzie smoking status Current every day smoker T janina Magaly FAMILY HISTORY Family Member Condition Full Sister Family History of Ar thritis: Full Brother Family History of Di abetes: INSURANCE PROVIDERS Payer name Policy type / Coverage type [employer] party ID [place] MEDICAID (2) Medicaid [id number] ADVANCE DIRECTIVES Name Date DISCUSSED - NO DECISION MADE TREATMENT PLAN Date Name Performer Cardiology:Weight loss advised. Justin Bettencourt MD Cardiology:STRONGLY ENCOURAGED TO STOP SMOKING; SMOKING CESSATION TECHNIQUES DISCUSSED. Justin Bettencourt MD Cardiology:Myoview s can was normal. Echo showed normal EF. Justin Bettencourt MD Cardiology:Myoview s can was normal. Echo showed normal EF. PFT's were normal. Justin Bettencourt MD Cardiology:Myoview s can was normal. No recurrence of chest pain. Justin Bettencourt MD Cardiology:Today BP is markedly elevated but it was normal last visit. Pt states she has labile BP. Will obtain renal artery duplex. Justin Bettencourt MD Cardiology:STRONGLY ENCOURAGED TO STOP SMOKING; SMOKING CESSATION TECHNIQUES DISCUSSED. Toby Jacobs Cardiology:It was no taylor that the pt has an abnormal EKG. She has chest pain on occasion and SOB with exertion. The pt states that she had cardiac arrest which was treated by a shock at [facility] in [place] a few years ago. Will obtain stress myoview, echo and PFT's. Toby Jacobs Cardiology:It was no taylor that the pt has an abnormal EKG. She has chest pain on occasion and SOB with exertion. The pt states that she had cardiac arrest which was treated by a shock at [facility] in [place] a few years ago. Orders: E KG (CPT-20365) C omplete Echo (CPT-78461) S TR - Nuclear (CPT-58749) Toby Jacobs Cardiology:It was no taylor that the pt has an abnormal EKG. She has chest pain on occasion and SOB with exertion. The pt states that she had cardiac arrest which was treated by a shock at [facility] in [place] a few years ago. Will obtain stress myoview and echo. Toby Jacobs Date Name Renal Artery Duplex STR - Nuclear Complete Echo DLCO - 85784 FRC - 69095 FVC - 34361 HISTORY OF PROCEDURES Procedure Date Procedure Name Provider Procedure Notes S tatus SNOMED-CT: 115341698 Smoking Cessation Counseling Justin Bettencourt MD completed SNOMED-CT: 641543600 636735 Current Medications Documented Justin Bettencourt MD completed Stress EKG Adelaida Pepper MD complet ed Cardiolite, 2 units Adelaida Pepper MD completed SPECT Images Adelaida Pepper MD compl eted FVC / MVV with bronchodilator - 57282 Justin Bettencourt MD completed FRC - 44206 Justin Bettencourt MD completed SpO2 - 82658 Justin Bettencourt MD complete d DLCO - 34978 Justin Bettencourt MD complete d SNOMED-CT: 518995561 Smoking Cessation Counseling Justin Bettencourt MD completed SNOMED-CT: 377010170 438371 Current Medications Documented Justin Bettencourt MD completed EKG Justin Bettencourt MD completed
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
--- OUTSIDE RECORDS SUMMARY | 2024-07-20 13:29 | XMS_ITS | Encounter Summary ---
Author Organization [facility] Healthcare Address [address] [place] [address] Care Team Providers Care Compressor Operator Adjuster Name Role Phone Unknown, Notinfile Primary Care Provider Unavail able Unknown, Notinfile Unavailable Unavailable Zeferino Bradshaw DO Unavailable [phone] [facility] InstituteRandy MD PhD Unavailable [phone] Juanjose Alcaraz MD Unavailable Miscellaneous, Not In File Unavailable Unava ilable Mario Desai MD Unavailable [phone] Francois Thompson MD Unavailable [phone] Mario Ferguson MD Unavailable [phone] Encounter Details Date Type Department Care Team (Latest Contact Info) Description 07/19/2024 12:20 PM CDT - 07/19/2024 11:59 PM CDT Hospital Encounter [address] [address] Exposure to blood-borne pathogen Discharge Disposition: Discharge to home or self care Social History Tobacco Use Types Packs/Day Years Used Date Smoking Tobacco: Every Day Cigarettes 0.5 40.3 Started: 1984 Smokeless Tobacco: Never Comments:Smoking History Pac ks/day: 1 Packs Alcohol Use Standard Drinks/Week Comments Yes 0 (1 standard drink = 0.6 oz pur e alcohol) [facility] Utilities Answer Date Recorded In the past 12 months has [employer], [employer], or [employer] threatened to shut off services in your [...] often do you attend chur ch or restorationist services? Never 07/19/2024 Do you belong to any clubs o r organizations such as voodoo groups, unions, fraternal or athletic groups, or [...] any time in the past 12 m [facility], were you homeless or living in a mcfp (including now)? No 07/19/2024 Personal Safety Answer Date Recorded Have you ever been in or are you currently in a harmful physical or emotional relationship or is someone making you feel afraid or unsafe? 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 Gender Identity Not on file Sexual [...] HepBsAg Nonreactive Nonreactive Comment:Testing performed by : [facility], [address] [place] [address], [place]., [address] Blood 07/19/2024 12:4 6 PM CDT 07/19/2024 6:40 PM CDT Rogerio JACK ([place]) - 07/19/2024 7:45 PM CDT Bill to [facility] - 0890 Patient is employed by/enrolled at:->[facility] [employer] [facility] us Israel Mcdonald MD LAB MICROBIOLOGY - GENERAL OR DERABLES Final Result JASON JACK ([place]) 1 [facility] [place] [address] * Hepatitis C antibody Blood (07/19/2024 12:46 [...] last revised on 2019. Testing performed by: [facility], [address] [place] [address]., [address] Blood 07/19/2024 12:4 6 PM CDT 07/19/2024 6:40 PM CDT Narrative JASON JACK ([place]) - 07/19/2024 7:45 PM CDT Bill to [facility] - 1520 Patient is employed by/enrolled at:->[employer] Israel Mcdonald MD LAB MICROBIOLOGY - GENERAL OR DERABLES Final Result Performing Organization Address City/[facility]/ZIP Co de Phone Number JASON JACK ([place]) 1 [facility] [place] [address] documented in this encounter Visit Diagnoses Diagnosis Exposure to blood-borne pathogen documented in this encounter Care Teams Compressor Operator Adjuster Relationship Specialty Start Date End Date Unknown, Notinfile PCP - General 05/22/24 Unknown, Notinfile 05/22/24 Zeferino Bradshaw DO Internal Medicine 01/14/22 Randy Jasmine MD PhD [address] [place] [address] Radiation Oncologist Radiation Oncology 5/10/21 Juanjose Alcaraz MD [address] [place] [address] Referring Physician Medical Oncology 07/31/20 Miscellaneous, Not In File 09/15/20 Mario Desai MD Referring Physician Neurosurgery 09/15/20 Francois Thompson MD Consulting Physician Infectious Diseases 05/08/21 Mario Ferguson MD 1 [facility] [address] DIV IM [place] [address] Consulting Physician Medical Oncology 03/31/24 documented as of this encounter
--- OUTSIDE RECORDS SUMMARY | 2024-07-20 13:29 | XMS_ITS ---
Author Organization [facility] Address [address] [address] Care Team Providers Care Web Operations Administrator Name Role Phone Marco Cordero MD Primary Care Provider Enrollments Status:Enrolled Start date:06/28/2024 Related service episodes:Food Pantry Service () Continued Care and Services Coordination
--- OUTSIDE RECORDS SUMMARY | 2024-07-20 13:29 | XMS_ITS | Encounter Summary ---
Author Organization [facility] Address [address] [place] [address] Phone Care Team Providers Care Judicial Law Clerk Name Role Phone Unknown, Notinfile Primary Care Provider Unavail able Unknown, Notinfile Unavailable Unavailable Zeferino Bradshaw DO Unavailable [phone] Randy Jasmine MD PhD Unavailable [phone] Juanjose Alcaraz MD Unavailable Miscellaneous, Not In File Unavailable Unava ilable Mario Desai MD Unavailable [phone] Francois Thompson MD Unavailable [phone] Mario Ferguson MD Unavailable [phone] Encounter Details Date Type Department Care Team (Late st Contact Info) Description 06/21/2024 Telephone [facility] Bone Marrow Transplant 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 Gender Identity Not on file Sexual Orientation [...] on filedocumented in this encounter Care Teams Judicial Law Clerk Relationship Specialty Start Date End Date Unknown, Notinfile PCP - General 05/22/24 Unknown, Notinfile 05/22/24 Zeferino Bradshaw DO Internal Medicine 01/14/22 Randy Jasmine MD PhD [address] [place] [address] Radiation Oncologist Radiation Oncology 07/31/20 Juanjose Alcaraz MD [address] [place] [address] Referring Physician Medical Oncology 07/31/20 Miscellaneous, Not In File 09/15/20 Mario Desai MD Referring Physician Neurosurgery 09/15/20 Francois Thompson MD Consulting Physician Infectious Diseases 05/08/21 Mario Ferguson MD 1 [facility] [address] DIV IM [place] [address] Consulting Physician Medical Oncology 03/31/24 documented as of this encounter
--- OUTSIDE RECORDS SUMMARY | 2024-07-20 13:29 | XMS_ITS | Encounter Summary ---
Author Organization [facility] Address [address] [place] [address] Phone Care Team Providers Care Sociocultural Anthropology Professor Name Role Phone Roberto Sharpe DPM Unavailable Sami Cervantes MD Primary Care Provider Von Hedrick MD Unavailable Unavai lable Provider, None Primary Care Provider Unavailabl e Mendoza Liang MD Primary Care Provider [phone] Provider, None Primary Care Provider Unavailabl e Reason for Visit * Reason Comments Medication Refill Encounter Details Date Type Department Care Team (Late st Contact Info) Description 02/20/2022 Refill [facility] - Family Medicine [facility] [address] [place] [id number] Sami Cervantes MD [address] [place] [address] Medication Refill Social History Tobacco Use Types [...] area Short Term Goals: [facility] will mail and provide list of local counseling services/providers in area. and Patient to contact local Mental Health Crisis Team if in need of crisis services [phone] (ph#) Housing Housing No change(10/17 4:03 PM CDT) No Alejandra Harrell LSW Note: Goal: To move into my own apartment or rental house by the end of October 2019 Patient's Preferred Goal: Highest Priority Challenges/Barriers: None Readiness to change: Ready to change Notify Care Team if: If you need additional housing resources or help completing housing applications call Import/Export Specialist Alejandra at [phone] Short Term Goals: I will review the list of low income housing complexes for the disabled and call the complexes in [place] to apply for an apartment or be added to their waiting list. documented as of this encounter Visit Diagnoses Not on filedocumented in this encounter Additional Health Concerns Assessment Noted Time PHQ-9 Depression Total Score: 1 06/16/19 20 11:50 AM CDT documented as of this encounter Care Teams Sociocultural Anthropology Professor Relationship Specialty Start Date End Date Sami Cervantes MD PCP - General Family Medicine 11/30/21 03/28/22 Provider, None [place] PCP - General 03/29/22 05/23/22 Mendoza Liang MD [address] [place] [address] [place] [address] PCP - General Assembly Stock Supervisor 05/24/22 11/12/22 Provider, None [place] PCP - General 11/13/22 Roberto Sharpe DPM Consulting Physician Podiatry 09/25/16 Von Hedrick MD Consulting Physician Cardiovascular Disease - Cardiology 01/11/22 03/03/24 documented as of this encounter
--- OUTSIDE RECORDS SUMMARY | 2024-07-20 13:29 | XMS_ITS | Encounter Summary ---
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 neighbors?: More than three times a week How often do you get together with friends or relatives?: More than three times a week How often do you attend mosque or taoist services?: Never Do you belong to any clubs or organizations such as mosque groups, unions, fraternal [...] expects to be Discharged to: Other (Comment), (07/19/24 6875) Patient's Identified Problem/Goal Problem: Ensure acute medical [...] from injury, free from seizures, 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 Unable to get any [...] AM CDT 07/19/2024 5:32 AM CDT us Dvai Oscar MD LAB BLOOD ORDERABLES nal Result JASON [facility] ([place]) 1 [facility] Department of Laboratories [place], [place] [id number] * Differential, auto (07/19/2024 4:56 AM CDT) [...] MD LAB BLOOD ORDERABLES Fi nal Result JAKEARNULFO JACK ([place]) 1 [facility] [place] [address] * CBC with auto differential (07/19/2024 4:56 [...] Fi nal Result JASON JACK ([place]) [address] [facility] [place] [address] * Magnesium (07/19/2024 4:56 AM CDT) [facility] Magnesium 2.0 1.4 - 2.5 mg/dL Blood 07/19/2024 4:56 AM CDT 07/19/2024 5:32 AM CDT Davi Oscar MD LAB BLOOD ORDERABLES Fi nal Result JASON JACK ([place]) 1 [facility] [place] [address] * (ABNORMAL) Comprehensive metabolic panel (07/19/2024 4:56 [...] MD LAB BLOOD ORDERABLES Fi nal Result [facility] ([place] [address] [place] [address] * POCT glucose (07/19/2024 2:27 AM CDT) Glucose, POC 104 70 - 199 mg/dL Blood 07/19/2024 2:27 AM CDT 07/19/2024 2:27 AM CDT Lyric Pastor MD LAB POCT ORDERABLES - DEV ICE Final Result Performing Organization Address [facility] Co de Phone Number JASON JACK ([place]) 1 [place] [address] * (ABNORMAL) Urinalysis, microscopic only (07/18/2024 10:16 AM CDT) WBC, ur 0-5 0 - 5 /HPF RBC, ur 0-2 0 - 2 /HPF CERARNULFO [facility] ([place]) Epithelial cells, squamous, ur 1-5 0 - 5 /HPF [facility] ([place]) Mucous, ur Present(A) CERARNULFO Huff ([place]) Culture Reflex Comment Reflex conditions for urine culture (WBC >10) not met. JASON [facility] ([place]) Urine 07/18/2024 10:1 6 AM CDT 07/18/2024 10:19 AM CDT us Israel Edmonds MD LAB URINE ORDERABLES Final R esult Performing Organization Address [facility] Co de Phone Number JASON JACK ([place]) 1 [facility] [place] [address] * (ABNORMAL) Urinalysis reflex to microscopic and culture Urine (07/18/2024 10:16 AM CDT) Color, ur Yellow Yellow Clarity, ur Clear Clear [facility] ([place]) Specific gravity, ur 1.012 1.003 - 1.030 JASON [facility] ([place]) pH, urine 6.5 JASON [facility] ([place]) Comment: Interpretive Data U rine pH is affected by diet, medications, systemic acid-base disturbances, and renal tubular function. pH may affect urinary stone formation. For example, urine pH below 6.0 may help reduce the tendency for calcium phosphate stones and pH greater than 6.0 may reduce the tendency for uric acid stone formation. Source: [facility] Current Interpretive Data was last revised on [...] - GENERAL O RDERABLES Final Result JASON MARCIE ([place]) 1 [facility] [place] [address] * (ABNORMAL) Drugs of Abuse Screen, Urine [...] Oxycodone, ur Not Detected CutOff 100ng/mL JASON JACK ([place]) Comment: Interpretive Data - Oxycodone: Samples containing greater than 100 ng/mL oxycodone or other cross-reacting compounds are reported as positive. False positive and false negative results are possible. Confirmatory testing required for definitive results. Current Interpretive Data was last reviewed 2022. Phencyclidine, ur Not Detected CutOff 25 ng/mL JASON JACK ([place]) Comment: Interpretive Data - Phencyclidine: Samples [...] Final R esult JASON JACK ([place]) 1 [facility] [place] [address] * XR Chest 1 View (07/18/2024 8:56 AM CDT) Anatomical Region Laterality Modality Body, Chest N/A Computed Radiogr aphy 07/18/2024 9:09 AM CDT Narrative 07/18/2024 9:09 AM CDT EXAM DESCRIPTION: XR CHEST 1 VIEW REASON FOR STUDY: chest pain Patient presents to the ED states at the waterfront director that she thinks she is going to [...] Scot Murguia M.D. RB: RENETTA Report ID: [id number] Reading Location: [id number] Procedure Note Scot Murguia MD - 07/18/2024 EXAM DESCRIPTION: XR CHEST 1 VIEW REASON FOR STUDY: chest pain Patient presents to the ED states at the waterfront director that she thinks she is going to [...] Scot Murguia M.D. RB: RENETTA Report ID: [id number] Reading Location: [id number] us Israel Edmonds MD IMG XR PROCEDURES Final Resu lt * CT Cervical Spine WO Contrast (07/18/2024 8:32 AM CDT) Anatomical Region Laterality Modality Spine N/A Computed Tomogra phy 07/18/2024 8:40 AM CDT Narrative 07/18/2024 8:45 AM CDT EXAM DESCRIPTION: CT CERVICAL SPINE WO CONTRAST REASON FOR STUDY: Neck pain, acute, no red flags Patient presents to the ED states at the waterfront director that she thinks she is going to [...] Scot Murguia M.D. RB: RENETTA Report ID: [id number] Reading Location: [id number] Procedure Note Scot Murguia MD - 07/18/2024 EXAM DESCRIPTION: CT CERVICAL SPINE WO CONTRAST REASON FOR STUDY: Neck pain, acute, no red flags Patient presents to the ED states at the waterfront director that she thinks she is going to [...] Scot Murguia M.D. RB: RENETTA Report ID: [id number] Reading Location: [id number] Israel Edmonds MD IMG CT PROCEDURES Final Resu lt * CT Head WO Contrast (07/18/2024 8:32 AM CDT) Anatomical Region Laterality Modality Head and Neck N/A Computed Tomogra phy 07/18/2024 8:36 AM CDT Narrative 07/18/2024 8:40 AM CDT EXAM DESCRIPTION: CT HEAD WO CONTRAST REASON FOR STUDY: Headache, sudden, severe Patient presents to the ED states at the waterfront director that she thinks she is going to [...] Scot Murguia M.D. RB: RENETTA Report ID: [id number] Reading Location: [id number] Procedure Note Scot Murguia MD - 07/18/2024 EXAM DESCRIPTION: CT HEAD WO CONTRAST REASON FOR STUDY: Headache, sudden, severe Patient presents to the ED states at the waterfront director that she thinks she is going to [...] Scot Murguia M.D. RB: RENETTA Report ID: [id number] Reading Location: [id number] Israel Edmonds MD IMG CT PROCEDURES Final Resu lt * Sepsis Lactate w/ Reflex (07/18/2024 8:15 AM CDT) [facility] Sepsis Lactate 1.1 0.7 - 2.0 mmol/L Blood 07/18/2024 8:15 AM CDT 07/18/2024 8:21 AM CDT Israel Edmonds MD LAB BLOOD ORDERABLES Final R esult JASON JACK [place]) 7 [facility] Department [place] [address] * Troponin T high-sensitivity series (baseline, 2hr, 4hr, 6hr) (07/18/2024 8:15 AM CDT) Pathologist [facility] Trop T hs <6 <=14 ng/L Comment: Interpretive Data For further hscTnT resources including the diagnostic algorithm and an aid in interpretation, copy and paste this link: https://nrl.testcatalog.org/show/hsTrop Current Interpretive Data last revised 2020. Blood 07/18/2024 8:15 AM CDT 07/18/2024 8:21 AM CDT us Israel Edmonds MD LAB BLOOD ORDERABLES Final R esult JASON [facility] ([place]) 1 [facility] [place] [address] * Pro B-type natriuretic peptide (07/18/2024 8:15 [...] Heart J. 2006:27:330-337. 2. Melissa RW, Gordon AM. J. AM Peri Cardiol: Cardiovasc Imag. 2009;2: 216- 225. Interpretive Data Last Revised Date: 2017. Blood 07/18/2024 8:15 AM CDT 07/18/2024 8:21 AM CDT Israel Edmonds MD LAB BLOOD ORDERABLES Final R esult Performing Organization Address City/[facility]/ZIP Co de Phone Number JASON JACK ([place]) 1 [facility] [place] [address] * Magnesium (07/18/2024 8:15 AM CDT) Magnesium 1.8 1.4 - 2.5 mg/dL Blood 07/18/2024 8:15 AM CDT 07/18/2024 8:21 AM CDT Israel Edmonds MD LAB BLOOD ORDERABLES Final R esult Performing Organization Address City/[facility] Co de Phone Number JASON JACK ([place]) 1 [facility] [place] [address] * eGFR (07/18/2024 7:59 AM CDT) eGFR [...] ORDERABLES Final R esult Performing Organization Address [facility] Co de Phone Number JASON JACK ([place]) 1 [facility] [place] [address] * CRP (acute phase) (07/18/2024 7:59 AM CDT) CRP 7.4 <=10.0 mg/L Blood 07/18/2024 7:59 AM CDT 07/18/2024 8:34 AM CDT Israel Edmonds MD LAB BLOOD ORDERABLES Final R esult Performing Organization Address [facility] de Phone Number JASON [facility] ([place]) 1 [facility] [place] [address] * Erythrocyte sedimentation rate (07/18/2024 7:59 AM CDT) Erythrocyte sedimentation rate 20 1 - 30 mm/hr Blood 07/18/2024 7:59 AM CDT 07/18/2024 8:34 AM CDT Israel Edmonds MD LAB BLOOD ORDERABLES Final R esult Performing Organization Address [facility] Co de Phone Number JASON JACK ([place]) 1 [facility] [place] [address] * Differential, auto (07/18/2024 7:59 AM CDT) Neutrophil abs 3.59 1.50 - 6.50 K/cumm Imm gran abs 0.01 0.00 - 0.10 K/cumm [facility] ([place]) Lymphocyte abs 2.54 0.80 - 3.30 K/cumm [facility] ([place]) Monocyte abs 0.43 0.20 - 0.80 K/cumm [facility] ([place]) Eosinophil abs 0.03 0.00 - 0.50 K/cumm [facility] ([place]) Basophil abs 0.03 0.00 - 0.10 K/cumm [facility] ([place]) Neutrophil pct 54.0 % [facility] ([place]) Comment: Interpretive Data Percent cell count reference ranges are not reported, since discordance with absolute values may lead to misinterpretation of CBC data. Current Interpretive Data was last revised on 2017. Imm gran pct 0.2 % [facility] ([place]) Comment: Interpretive Data Percent cell count reference ranges are not reported, since discordance with absolute values may lead to misinterpretation of CBC data. Current Interpretive Data was last revised on 2017. Lymphocyte pct 38.3 % [facility] ([place]) Comment: Interpretive Data Percent cell count reference ranges are not reported, since discordance with absolute values may lead to misinterpretation of CBC data. Current Interpretive Data was last revised on 2017. Monocyte pct 6.5 % [facility] ([place]) Comment: Interpretive Data Percent cell count reference ranges are not reported, since discordance with absolute values may lead to misinterpretation of CBC data. Current Interpretive Data was last revised on 2017. Eosinophil pct 0.5 % [facility] ([place]) Comment: Interpretive Data Percent cell count reference ranges are not reported, since discordance with absolute values may lead to misinterpretation of CBC data. Current Interpretive Data was last revised on 2017. Basophil pct 0.5 % [facility] ([place]) Comment: Interpretive Data Percent cell count reference ranges are not reported, since discordance with absolute values may lead to misinterpretation of CBC data. Current Interpretive Data was last revised on 2017. Blood 07/18/2024 7:59 AM CDT 07/18/2024 8:02 AM CDT us Israel Edmonds MD LAB BLOOD ORDERABLES Final R esult JASON JACK ([place]) 1 [facility] [place] [address] * Ethanol (07/18/2024 7:59 AM CDT) Ethanol <10 <=10 mg/dL Comment: Interpretive Data Legal limit of intoxication > or = 80 mg/dL Levels > or = 400 mg/dL are potentially TOXIC. Current interpretive data was last revised on 2018. Blood 07/18/2024 7:59 AM CDT 07/18/2024 8:02 AM CDT us Israel Edmonds MD LAB BLOOD ORDERABLES Final R esult [facility] ([place]) 1 [facility] [place] [address] * (ABNORMAL) Comprehensive metabolic panel (07/18/2024 7:59 AM CDT) Sodium 139 135 - 145 mmol/L Potassium, pl 3.6 3.3 - 4.9 mmol/L [facility] ([place]) Chloride 105 97 - 110 mmol/L [facility] ([place]) CO2 21(L) 22 - 32 mmol/L [facility] ([place]) Anion gap 13 2 - 15 mmol/L [facility] ([place]) BUN 5(L) 6 - 25 mg/dL [facility] ([place]) Creatinine 0.70 0.60 - 1.10 mg/dL [facility] ([place]) Comment:Icteric sample, test results may be affected. Glucose 100 70 - 199 mg/dL [facility] ([place]) Comment: Interpretive Data Fasting glucose >/= [...] BLOOD ORDERABLES Final R esult [facility] ([place]) 1 [facility] [place] [address] * CBC with auto differential (07/18/2024 7:59 [...] abs 0.00 0.00 - 0.01 K/cumm JASON JACK ([place]) Blood 07/18/2024 7:59 AM CDT 07/18/2024 8:02 AM CDT Israel Edmonds MD LAB BLOOD ORDERABLES Final R esult JASON JACK ([place]) [address] [place] [address] [place] [address] * ECG 12 lead (07/18/2024 7:55 AM CDT) 07/18/2024 7:55 AM CDT Narrative [facility] - 07/19/2024 7:21 AM CDT Vent Rate: 86 bpm RR Interval: 691 msec HI Interval: 187 msec QRS Duration: 101 msec QT Interval: 360 msec QTC Interval: 404 msec P-R-T [place]: 75 - -44 - 43 degrees IMPRESSION: [...] ECG ORDERABLES Final Result Performing Organization Address [facility]/ZIP Co de Phone Number [facility] documented in this encounter Visit Diagnoses Diagnosis [...] 15 mg 15 mg, intravenous, Once, On 07/18/24 at 1730, For 1 dose Given 07/18/2024 5:22 PM CDT 15 mg levETIRAcetam (KEPPRA) 100 mg/mL injection 1,000 mg 1,000 mg, intravenous, Once, On 07/18/24 at [...] over 24 Hours, Daily, First dose on Fri07/18/24 at 1930, Apply a new patch every [...] as needed, agitation, Starting on Fri07/18/24 at 2036, For 1 dose, Reconstitute 10 mg vial [...] vomiting, if not tolerating PO, Starting on Fri07/18/24 at 211, Indications: Nausea and VomitingIndications:Nausea and Vomiting ondansetron ODT (ZOFRAN-ODT) disintegrating tablet 4 mg 4 mg, oral, Every 6 hours PRN, nausea, vomiting, Starting on Fri07/18/24 at 2111, If administering by mouth, place tablet on tongue and allow to dissolve., Indications: Nausea and VomitingIndications:Nausea and Vomiting ramelteon (ROZEREM) tablet 8 mg 8 mg, oral, Nightly PRN, sleep, Starting on 07/18/24 at 2111, Indications: Sleep-Onset InsomniaIndications:Sleep-Ons et Insomnia Given 07/19/2024 2:16 AM CDT 8 mg sodium chloride 0.9% bolus 1,000 mL 1,000 mL, intravenous, Once, On 07/18/24 at 1044, For 1 dose New Bag 07/18/2024 10:51 AM CDT 1,000 mL documented in this encounter Discontinued Medications Medication Sig Discontinue Reason Start Date End Da te etujjoolcy-hstfEOGvsg-tum ofovir disoproxil fumarate (Delstrigo) 100-300-300 mg tablet [...] Pain 0455 (Given - Provid er: Joelle Ray RN) ketorolac (TORADOL) 15 mg/mL injection 15 mg (COMPLETED) 15 mg, intravenous, Once, On 07/18/24 at 1730, For 1 dose 1722 (Given - Provider: Mora Sevilla, JARROD) levETIRAcetam (KEPPRA) 100 mg/mL injection 1,000 mg (COMPLETED) 1,000 mg, intravenous, Once, On 07/18/24 at 0808, For 1 dose, Administer at a rate of 500 mg/min IV push (IVP) undiluted. For doses greater than 2,000 mg, split into multiple syringes (maximum 2,000 mg per syringe) and administer as separate injections (in separate IV lines, if available). 0812 (Given - Provider: Teri Chong RN) levETIRAcetam (KEPPRA) 100 mg/mL injection 500 mg [...] RN) 0847 (Not Given - Provider: Karoline Vasquez RN [...] site. 1859 (Medication Applied - Provider: Mora Sevilla, JARROD) 0847 (Medication Removed - Provider: Karoline Vasquez RN)0848 (Medication Applied - Provider: Karoline Vasquez RN - Comment: L ankle per pt request)1449 [...] fever greater than 38.3 C, Starting on 07/18/24 at 2110, Indications: Fever, Pain 0956 (Not Given - [...] reconstitution. 1102 (Given - Provid er: Karoline Vasquez, JARROD) ondansetron (ZOFRAN) injection 4 mg(Linked Group 1) [...] 1 07/19/2024 LORazepam (ATIVAN) tablet 0.5 mg 1 07/20/19 acetaminophen (TYLENOL) tablet 650 mg 2 enoxaparin (LOVENOX) syringe 40 mg 1 2024 levETIRAcetam (KEPPRA) tablet 500 mg 2 06/23 ondansetron (ZOFRAN) injection 4 mg 1 [...] 07/18/2024 documented in this encounter Care Teams Pediatric Hospitalist Relationship Specialty Start Date End Date Unknown, Notinfile PCP - General 05/22/24 Unknown, Notinfile 05/22/24 Zeferino Bradshaw DO Internal Medicine 01/14/22 Randy Jasmine MD PhD [address] [place] [address] Radiation Oncologist Radiation Oncology 07/31/20 Juanjose Alcaraz MD [address] [place] [address] Referring Physician Medical Oncology 07/31/20 Miscellaneous, Not In File 09/15/20 Mario Desai MD Referring Physician Neurosurgery 09/15/20 Francois Thompson MD Consulting Physician Infectious Diseases 05/08/21 Mario Ferguson MD [address] [facility] [address] DIV [place] [address] Consulting Physician Medical Oncology 03/31/24 documented as of this encounter
--- OUTSIDE RECORDS SUMMARY | 2024-07-20 13:29 | XMS_ITS | Encounter Summary ---
Author Organization [facility] Address [address] [place] [address] Care Team Providers Care Pantry Cook Name Role Phone Unknown, Notinfile Primary Care Provider Unavail able Unknown, Notinfile Unavailable Unavailable Zeferino Bradshaw DO Unavailable [phone] [facility] HospitalR[facility] MD PhD Unavailable Juanjose Alcaraz MD Unavailable Miscellaneous, Not In File Unavailable Unava ilable Mario Desai MD Unavailable [phone] Francois Thompson MD Unavailable [phone] Mario Ferguson MD Unavailable Encounter Details Date Type Department Care Team (Late st Contact Info) Description 07/19/2024 Orders Only [address] [id number] Israel Mcdonald MD [address] [place] [address] Social History Tobacco Use Types Packs/Day Years Used Date Smoking Tobacco: Every Day Cigarettes 0.5 40.3 Started: 1984 Smokeless Tobacco: Never Comments:Smoking History Pac ks/day: 1 Packs Alcohol Use Standard Drinks/Week Comments Yes 0 (1 standard drink = 0.6 oz pur e alcohol) [facility] Utilities Answer Date Recorded In the past 12 months has th e electric, gas, oil, or water [employer] threatened to shut off services in your [...] often do you attend chur ch or shinto services? Never 07/19/2024 Do you belong to any clubs o r organizations such as scientologist groups, unions, fraternal or athletic groups, or [...] any time in the past 12 [facility], were you homeless or living in a residential (including now)? No 07/19/2024 Personal Safety Answer Date Recorded Have you ever been in or are you currently in a harmful physical or emotional relationship or is someone making you feel afraid or unsafe? Denies 07/18/2024 Comments No Sex and Gender Information Value Date Recorded Sex Assigned at Not on file Legal Sex Female 1:20 AM [employer] Gender Identity Not on file Sexual Orientation Not on file Occupation Industry Job Start Date Job End Date Disabled Not on file Not on file Not on file documented as of this encounter Plan of Treatment Not on file documented as of this encounter Visit Diagnoses Not on filedocumented in this encounter Care Teams Pantry Cook Relationship Specialty Start Date End Date Unknown, Notinfile PCP - General 05/22/24 Unknown, Notinfile 05/22/24 Zeferino Bradshaw DO Internal Medicine 01/14/22 Randy Jasmine MD PhD [address] [place] [id number] Radiation Oncologist Radiation Oncology 07/31/20 Juanjose Alcaraz MD [address] [place] [address] Referring Physician Medical Oncology 07/31/20 Miscellaneous, Not In File 09/15/20 Mario Desai MD Referring Physician Neurosurgery 09/15/20 Francois Thompson MD Consulting Physician Infectious Diseases 05/08/21 Mario Ferguson MD [address] [facility] [address] DIV [place] [address] Consulting Physician Medical Oncology 03/31/24 documented as of this encounter
--- OUTSIDE RECORDS SUMMARY | 2024-07-20 13:29 | XMS_ITS ---
Author Organization [facility] Address [address] [place] [address] Care Team Providers Care Skin Diving Teacher Name Role Phone Marco Cordero MD Primary Care Provider Food Pantry Service Status:Enrolled Start date:06/28/2024 Related program episode:Enrollments () Continued Care and Services Coordination
--- OUTSIDE RECORDS SUMMARY | 2024-07-20 13:29 | XMS_ITS | Encounter Summary ---
Author Organization [facility] Healthcare Address [address] [place] [address] Care Team Providers Care Returned Materials Inspector Name Role Phone Unknown, Notinfile Primary Care Provider Unavail able Unknown, Notinfile Unavailable Unavailable Zeferino Bradshaw DO Unavailable [phone] [facility] PhD Unavailable [phone] Juanjose Alcaraz MD Unavailable [phone] Miscellaneous, Not In File Unavailable Unava ilable Mario Desai MD Unavailable [phone] Francois Thompson MD Unavailable [phone] Mario Ferguson MD Unavailable [phone] Encounter Details Date Type Department Care Team (Late st Contact Info) Description 07/19/2024 Documentation [facility] ICU [address] [place] [address] Amos Alexander, RN Social History Tobacco Use Types Packs/Day Years Used Date Smoking Tobacco: Every Day Cigarettes 0.5 40.3 Started: 1984 Smokeless Tobacco: Never Comments:Smoking History Pac ks/day: 1 Packs Alcohol Use Standard Drinks/Week Comments Yes 0 (1 standard drink = 0.6 oz pur e alcohol) [facility] Utilities Answer Date Recorded In the [...] often do you attend chur ch or mormon services? Never 07/19/2024 Do you belong to [...] any time in the past 12 [facility], were you homeless or living in a retirement (including now)? No 07/19/2024 Personal Safety Answer Date Recorded Have you ever been in or are you currently in a harmful physical or emotional relationship or is someone making you feel afraid or unsafe? 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 Gender Identity Not on file Sexual Orientation Not on file Occupation Industry Job Start Date Job End Date Disabled Not on file Not on file Not on file documented as of this encounter Plan of Treatment Not on file documented as of this encounter Visit Diagnoses Not on filedocumented in this encounter Care Teams Returned Materials Inspector Relationship Specialty Start Date End Date Unknown, Notinfile PCP - General 05/22/24 Unknown, Notinfile 05/22/24 Zeferino Bradshaw DO Internal Medicine 01/14/22 Randy Jasmine MD PhD [address] [place] [address] Radiation Oncologist Radiation Oncology 07/31/20 Juanjose Alcaraz MD [address] [place] [address] Referring Physician Medical Oncology 07/31/20 Miscellaneous, Not In File 09/15/20 Mario Desai MD Referring Physician Neurosurgery 09/15/20 Francois Thompson MD Consulting Physician Infectious Diseases 05/08/21 Mario Ferguson MD [address] [facility] DIV IM [place] [address] Consulting Physician Medical Oncology 03/31/24 documented as of this encounter
--- OUTSIDE RECORDS SUMMARY | 2024-07-20 13:29 | XMS_ITS | Encounter Summary ---
Author Organization [facility] Address [address] [place] [address] Phone Care Team Providers Care Nurse Practitioner Hospitalist Name Role Phone Roberto Sharpe DPM Unavailable Sami Cervantes MD Primary Care Provider Von Hedrick MD Unavailable Unavai lable Provider, None Primary Care Provider Unavailabl e Mendoza Liang MD Primary Care Provider [phone] Provider, None Primary Care Provider Unavailabl e Reason for Visit * Reason Comments Medication Refill Encounter Details Date Type Department Care Team (Late st Contact Info) Description 02/27/2022 Refill [facility] - Family Medicine [facility] [address] [place] [id number] Sami Cervantes MD [address] [place] [address] Medication Refill Social History Tobacco Use Types [...] services in your area Short Term Goals: [facility] will mail and provide list of local counseling services/providers in area. and Patient to contact local Mental Health Crisis Team if in need of crisis services [phone] (ph#) Housing Housing No change(10/17 4:03 PM CDT) No Alejandra Harrell LSW Note: Goal: To move into my own apartment or rental house by the end of October 2019 Patient's Preferred Goal: Highest Priority Challenges/Barriers: None Readiness to change: Ready to change Notify Care Team if: If you need additional housing resources or help completing housing applications call Computer Systems Software Architect Alejandra at [phone] Short Term Goals: I will review the list of low income housing complexes for the disabled and call the complexes in [place] to apply for an apartment or be added to their waiting list. documented as of this encounter Visit Diagnoses Not on filedocumented in this encounter Additional Health Concerns Assessment Noted Time PHQ-9 Depression Total Score: 1 06/16/19 20 11:50 AM CDT documented as of this encounter Care Teams Nurse Practitioner Hospitalist Relationship Specialty Start Date End Date Sami Cervantes MD PCP - General Family Medicine 11/30/21 03/28/22 Provider, None [place] PCP - General 03/29/22 05/23/22 Mendoza Liang MD [address] [place] [address] [place] [address] PCP - General Line Closer 05/24/22 11/12/22 Provider, None [place] PCP - General 11/13/22 Roberto Sharpe DPM Consulting Physician Podiatry 09/25/16 Von Hedrick MD Consulting Physician Cardiovascular Disease - Cardiology 01/11/22 03/03/24 documented as of this encounter
--- OUTSIDE RECORDS SUMMARY | 2024-07-20 13:29 | XMS_ITS | Encounter Summary ---
Author Organization [facility] Address [address] [place] [address] Care Team Providers Care Switchboard Mechanic Name Role Phone Cathi Mcnally MD Primary Care Provider Kelly Henderson MD Unavailable [phone] Cathi Mcnally MD Primary Care Provider Kelly Henderson MD Unavailable [phone] Kelly Henderson MD Primary Care Provider Cathi Mcnally MD Primary Care Provider Kelly Henderson MD Primary Care Provider Cathi Mcnally MD Primary Care Provider Cathi Mcnally MD Primary Care Provider Troy ROCA MD, [place] Primary Care Provider + Jose Eduardo Ott MD Unavailable [phone] Kelly Henderson MD Primary Care Provider Reason for Visit * Reason Onset Date Comments MEDICATION REFILL 10/09/2017 Encounter Details Date Type Department Care Team (Late Contact Info) Description 10/09/2017 Refill [facility] Internal Medicine [address] [email or web address] [address] [place] [address] Cathi Mcnally MD [address] [place] [address] MEDICATION REFILL Social History Tobacco Use Types [...] on file 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 Gender Identity Not on file Sexual Orientation [...] Visit [facility] - Family Medicine [address] [place] [address], [place] [phone] Germaine Monson MD [address] [place] [address] [place] [phone] documented as of this encounter Visit Diagnoses Not on filedocumented in this encounter Additional Health Concerns Infection Onset Date Last Indicated Resolved Time COVID-19 Under Investigation 08/14/2019 08/14/2019 08/15/2019 3:43 PM CDT COVID-19 Under Investigation 09/10/2019 09/10/2019 09/11/2019 11:18 PM CDT documented as of this encounter Care Teams Switchboard Mechanic Relationship Specialty Start Date End Date Cathi Mcnally MD PCP - General Internal Medicine 10/08/17 01/11/18 Cathi Mcnally MD PCP - General Internal Medicine 01/26/18 01/26/18 Kelly Henderson MD [address] [place] [phone] PCP - General 01/27/18 03/09/18 Cathi Mcnally MD PCP - General Internal Medicine 03/10/18 03/10/18 Kelly Henderson MD [address] [place] [address] PCP - General 03/11/18 03/31/18 Cathi Mcnally MD PCP - General Internal Medicine 04/01/18 05/17/18 Cathi Mcnally MD PCP - General Internal Medicine 07/14/18 07/15/18 Sea Simmons III, MD [address] [place] [address] PCP - General Internal Medicine 05/05/19 06/07/19 Kelly Henderson MD [address] [place] [address] PCP - General 09/01/19 Kelly Henderson MD [address] [place] [address] Resident - PCP Internal Medicine 10/08/17 01/25/18 Kelly Henderson MD [address] [place] [address] Resident - PCP Internal Medicine 01/26/18 05/04/19 Jose Eduardo Ott MD [address] [place] [address] Resident - PCP Student Resident 05/05/19 documented as of this encounter
--- OUTSIDE RECORDS SUMMARY | 2024-07-20 13:29 | XMS_ITS | Encounter Summary ---
Author Organization [facility] Healthcare Address [address] [place] [address] Care Team Providers Care Sexual Health Physician Name Role Phone Unknown, Notinfile Primary Care Provider Unavail able Unknown, Notinfile Unavailable Unavailable Zeferino Bradshaw DO Unavailable [phone] [facility] qu[facility] MD PhD Unavailable Juanjose Alcaraz MD Unavailable [phone] Miscellaneous, Not In File Unavailable Unava ilable Mario Desai MD Unavailable Francois Thompson MD Unavailable [phone] Mario Ferguson MD Unavailable [phone] Encounter Details Date Type Department Care Team (Late st Contact Info) Description 07/19/2024 Orders Only [facility] Healthcare Occupatiuonal Health [address] [facility] Room 3420 (Third Floor) [place], [place] [phone] Israel Mcdonald MD [address] [place] [address] Exposure to blood-borne pathogen (Primary Dx) Social History Tobacco Use Types Packs/Day Years Used Date Smoking Tobacco: Every Day Cigarettes 0.5 40.3 Started: 1984 Smokeless Tobacco: Never Comments:Smoking History Pac ks/day: 1 Packs Alcohol Use Standard Drinks/Week Comments Yes 0 (1 standard drink = 0.6 oz pur e alcohol) [facility] Utilities Answer Date Recorded In the [...] often do you attend chur ch or spiritism services? Never 07/19/2024 Do you belong to any clubs o r organizations such as jew groups, unions, fraternal or athletic groups, or [...] were you homeless or living in a fci (including now)? No 07/19/2024 Personal Safety Answer Date Recorded Have you ever been in or are you currently in a harmful physical or emotional relationship or is someone making you feel afraid or unsafe? 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 is employed by/enrolled at:->[employer] Israel Mcdonald MD LAB MICROBIOLOGY - GENERAL OR DERABLES Final Result JASON JACK ([place]) [address] [facility] [place] [address] * Hepatitis B Surface Antigen Blood (07/19/2024 12:46 PM CDT) HepBsAg Nonreactive Nonreactive Comment:Testing performed by : [facility], [address] [place] [address], [address] Blood 07/19/2024 12:4 6 PM CDT 07/19/2024 6:40 PM CDT Narrative JASON JACK ([place]) - 07/19/2024 7:45 PM CDT Bill to [place] [address] 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 is employed by/enrolled at:->[employer] Israel Mcdonald MD LAB MICROBIOLOGY - GENERAL OR DERABLES Final Result Performing Organization Address City/[facility] Co de Phone Number JASON JACK ([place]) 1 [facility] [place] [address] documented in this encounter Visit Diagnoses Diagnosis Exposure to blood-borne pathogen- Primary Exposure to blood-borne pathogen documented in this encounter Care Teams Sexual Health Physician Relationship Specialty Start Date End Date Unknown, Notinfile PCP - General 05/22/24 Unknown, Notinfile 05/22/24 Zeferino Bradshaw DO Internal Medicine 01/14/22 Randy Jasmine MD PhD [address] [place] [address] Radiation Oncologist Radiation Oncology 07/31/20 Juanjose Alcaraz MD [address] [place] [address] Referring Physician Medical Oncology 07/31/20 Miscellaneous, Not In File 09/15/20 Mario Desai MD Referring Physician Neurosurgery 09/15/20 Francois Thompson MD Consulting Physician Infectious Diseases 05/08/21 Mario Ferguson MD [address] [facility] DIV IM BONE [place] [address] Consulting Physician Medical Oncology 03/31/24 documented as of this encounter
--- OUTSIDE RECORDS SUMMARY | 2024-07-20 13:29 | XMS_ITS | Encounter Summary ---
Author Organization [facility] Address [address] [place] [address] Care Team Providers Care Outreach Associate Name Role Phone Marco Cordero MD Primary Care Provider Encounter Details Date Type Department Care Team (Late Contact Info) Description 06/28/2024 Interim Notes [address] [address] Default, [facility] Provider [place] Social History Tobacco Use [...] as of this encounter Progress Notes * [facility] Provider Default - 06/28/2024 2:00 AM CDT Provider: Amina Blanca [employer] Service: documented in this encounter Plan of Treatment Upcoming Encounters Date Type Department Care Team (Late st Contact Info) Description 07/20/2024 3:30 PM CDT Office Visit [address] [address] Marco Cordero MD [address] [place] [phone] 08/20/2024 10:00 AM CDT Office Visit [address] [address] Marco Cordero MD [address] [place] [address] documented as of this encounter Visit Diagnoses Not on filedocumented in this encounter Care Teams Outreach Associate Relationship Specialty Start Date End Date Marco Cordero MD [address] [place] [address] PCP - General Infectious Diseases 07/06/24 documented as of this encounter
--- OUTSIDE RECORDS SUMMARY | 2024-07-20 13:30 | XMS_ITS | Encounter Summary ---
Author Organization [facility] Address [address] [facility] [place] [address] Care Team Providers Care Label Designer Name Role Phone Kelly Henderson MD Unavailable [phone] Kelly Henderson MD Primary Care Provider Cathi Mcnally MD Primary Care Provider Cathi Mcnally MD Primary Care Provider Troy ROCA MD, [place] Primary Care Provider + Jose Eduardo Ott MD Unavailable [phone] Kelly Henderson MD Primary Care Provider Reason for Visit * Reason Onset Date Comments General 03/30/2018 Encounter Details Date Type Department Care Team (Late st Contact Info) Description 03/30/2018 Telephone [facility] General Internal Medicine [address] [address] Kelly Henderson MD [facility] [place] [address] General Social History Tobacco Use Types Packs/Day [...] on file 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 - Family Medicine [address] [place] [address], [facility] [place] [phone] Germaine Monson MD [address] [place] [phone] documented as of this encounter Visit Diagnoses Not on filedocumented in this encounter Additional Health Concerns Infection Onset Date Last Indicated Resolved Time COVID-19 Under Investigation 08/14/2019 08/14/2019 08/15/2019 3:43 PM CDT COVID-19 Under Investigation 09/10/2019 09/10/2019 09/11/2019 11:18 PM CDT documented as of this encounter Care Teams Label Designer Relationship Specialty Start Date End Date Kelly Henderson MD [facility] [place] [address] PCP - General 03/11/18 03/31/18 Cathi Mcnally MD [facility] [place] [address] PCP - General Internal Medicine 04/01/18 05/17/18 Cathi Mcnally MD [address] [place] [phone] PCP - General Internal Medicine 07/14/18 07/15/18 [place] [address] [place] [phone] PCP - General Internal Medicine 05/05/19 06/07/19 Kelly Henderson MD [address] [place] [phone] PCP - General 09/01/19 Kelly Henderson MD [address] [place] [phone] Resident - PCP Internal Medicine 01/26/18 05/04/19 Jose Eduardo Ott MD [address] [place] [phone] Resident - PCP Student Resident 05/05/19 documented as of this encounter
--- OUTSIDE RECORDS SUMMARY | 2024-07-20 13:30 | XMS_ITS | Encounter Summary ---
Author Organization [facility] Address [address] [place] [address] Care Team Providers Care Leather Craftsman Name Role Phone Marco Cordero MD Primary Care Provider Encounter Details Date Type Department Care Team (Latest Contact Info) Description 06/29/2024 Results Follow-Up [facility] [address] [place] [address] Marco Cordero MD [facility] [place] [address] Human immunodeficiency virus (HIV) disease ([facility]) (Primary Dx) Social History Tobacco Use Types [...] Notes * Result Encounter Note - Marco Cordero MD - 07/13/2024 8:38 AM CDT CD4 [...] Ida note No other genotype apparent in [facility] Will plan to review and discuss [...] Description 07/20/2024 3:30 PM CDT Office Visit [address] [address] Marco Cordero MD [address] [place] [address] 08/20/2024 10:00 AM CDT Office Visit [address] [address] Marco Cordero MD [address] [place] [address] documented as of this encounter Visit Diagnoses Diagnosis Human immunodeficiency virus (HIV) disease ([facility])- Primary Human immunodeficiency virus [HIV] disease documented in this encounter Care Teams Leather Craftsman Relationship Specialty Start Date End Date Marco Cordero MD [address] [place] [address] PCP - General Infectious Diseases 07/06/24 documented as of this encounter
--- OUTSIDE RECORDS SUMMARY | 2024-07-20 13:30 | XMS_ITS | Encounter Summary ---
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 Gender Identity Not on file Sexual Orientation [...] - 03/26/2018 1:15 PM CST Cristiana from [facility] called CB# [phone] Requesting a follow-up post discharge appt for pt who is currently in the ER with bronchitis and bronchospams, but will be discharged from ER today because she does not meet the admission critera AM/MS MATIC RIVETER documented in this encounter Plan of Treatment Upcoming Encounters Date Type Department Care Team (Late st Contact Info) Description 09/08/2024 2:00 PM CDT Office Visit [facility] [address] [facility], [place] [address] Germaine Monson MD [address] [place] [phone] documented as of this encounter Visit Diagnoses Not on filedocumented in this encounter Additional Health Concerns Infection Onset Date Last Indicated Resolved Time COVID-19 Under Investigation 08/14/2019 08/14/2019 08/15/2019 3:43 PM CDT COVID-19 Under Investigation 09/10/2019 09/10/2019 09/11/2019 11:18 PM CDT documented as of this encounter Care Teams Car Checker Relationship Specialty Start Date End Date Kelly Henderson MD [address] [place] [phone] PCP - General 03/11/18 03/31/18 Cathi Mcnally MD [address] [place] [phone] PCP - General Internal Medicine 04/01/18 05/17/18 Cathi Mcnally MD [address] [place] [phone] PCP - General Internal Medicine 07/14/18 07/15/18 Sea Simmons III, MD [address] [place] [phone] PCP - General Internal Medicine 05/05/19 06/07/19 Kelly Henderson MD [address] [place] [phone] PCP - General 09/01/19 Kelly Henderson MD [address] [place] [address] Resident - PCP Internal Medicine 01/26/18 05/04/19 Jose Eduardo Ott MD [address] [place] [address] Resident - PCP Student Resident 05/05/19 documented as of this encounter
--- OUTSIDE RECORDS SUMMARY | 2024-07-20 13:30 | XMS_ITS | Encounter Summary ---
Author Organization [facility] Address [address] [facility] [place] [address] Care Team Providers Care Cook Manager Name Role Phone Kelly Henderson MD Unavailable [phone] Cathi Mcnally MD Primary Care Provider Catih Mcnally MD Primary Care Provider Troy ROCA MD, Sea [place]idan Primary Care Provider + Jose Eduardo Ott MD Unavailable [phone] Kelly Henderson MD Primary Care Provider Reason for Visit * Reason Onset Date Comments General 04/28/2018 paperwork for pa in management General 04/28/2018 Follow-up 04/29/2018 referral for pham n management Encounter Details Date Type Department Care Team (Late st Contact Info) Description 04/28/2018 Telephone [facility] [address] [place] [address] Cathi Mcnally MD [address] [place] [address] General (paperwork for pain management ); General; [...] on file 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 Henderson will contact patient. Cathi Mcnally MD Y DRIVER OPERATOR * Telephone Encounter - Tasha Szymanski RN [...] her a referral Message routed to Dr. Hendreson and Dr. Mcnally for further assistance AM/JIMMY Y DRIVER OPERATOR * Telephone Encounter - Dahlia Calderon - 04/28/2018 4:28 PM CST The pt is asking to be prescribed Percocet that Dr Henderson spoke about since she does not know when she will be able to get into pain management The pt would like a call back from Dr Mcnally- pt's phone number was verified Y DRIVER OPERATOR * Telephone Encounter - Dahlia Calderon - 04/28/2018 4:14 PM CST Pain management referral was sent by [facility] but there was no list of [...] the pt's Tramadol will be ready for picking tech Y DRIVER OPERATOR documented in this encounter Plan of Treatment Upcoming Encounters Date Type Department Care Team (Late st Contact Info) Description 09/08/2024 2:00 PM CDT Office Visit [facility] - Family Medicine [address] [place] [address], [place] [address] Germaine Monson MD [address] [place], [place] [phone] documented as of this encounter Visit Diagnoses Not on filedocumented in this encounter Additional Health Concerns Infection Onset Date Last Indicated Resolved Time COVID-19 Under Investigation 08/14/2019 08/14/2019 08/15/2019 3:43 PM CDT COVID-19 Under Investigation 09/10/2019 09/10/2019 09/11/2019 11:18 PM CDT documented as of this encounter Care Teams Cook Manager Relationship Specialty Start Date End Date Cathi Mcnally MD [address] [place] [phone] PCP - General Internal Medicine 04/01/18 05/17/18 Cathi Mcnally MD [address] [place] [phone] PCP - General Internal Medicine 07/14/18 07/15/18 Sea Simmons III, MD [address] [place] [phone] PCP - General Internal Medicine 05/05/19 06/07/19 Kelly Henderson MD [address] [place] [phone] PCP - General 09/01/19 Kelly Henderson MD [address] [place] [phone] Resident - PCP Internal Medicine 01/26/18 05/04/19 Jose Eduardo Ott MD [address] [place] [phone] Resident - PCP Student Resident 05/05/19 documented as of this encounter
--- OUTSIDE RECORDS SUMMARY | 2024-07-20 13:30 | XMS_ITS | Clinical Summary ---
Author Organization [facility] Address [address] [place] [address] Care Team Providers Care Claims Adjudicator Name Role Phone Marco Cordero MD Primary [...] comments), Other (see comments) Becomes uncoscious Medications kqvmnlwixv-Vfuvrr-em nofov diso (DELSTRIGO) 100-300-300 mg tabIndications:Human immunodeficiency virus (HIV) disease ([facility]) Take 1 Tablet by mouth daily [...] for nausea 90 Tablet 1 5 Active jdglzytkdx-Cndhou-rr nofov diso (DELSTRIGO) 100-300-300 mg tab Take by mouth 025 Discontin ued(Reord er (E-Cancel Not Sent)) ONDANSETRON HCL ORALIndications:Sweatband Shaper joshua nausea Take by mouth 025 Discontin [...] Diagnosed Date Human immunodeficiency virus (HIV) disease ([facility]) 06/29/2024 Overview (07/13/2024): - diagnosed in 2003, [...] - will try to connect with her [place] manager case management Schwannomatosis ([facility]) 06/29/2024 Overview (06/29/2024): - multiple lesions: [...] - consider also neurodegenerative conditions like FTD, [place] and related. Assessment & Plan (06/29/2024 9:47 AM CDT): - follow up records from [place], if formal neuropsych assessment not done, refer [...] declines currently Tobacco use 06/29/2024 Seizure-like activity ([facility]) 06/29/2024 Encounters Date Type Department Care Team Description 06/29/2024 Results Follow-Up [address] [address] Marco Cordero MD Human immunodeficiency virus (HIV) disease ([facility]) (Primary Dx) 06/28/2024 2:30 PM CDT Office Visit [address] [address] Marco Cordero MD Human immunodeficiency virus (HIV) disease ([facility]) (Primary Dx); Schwannomatosis ([facility]); Chronic pain syndrome; Anxiety; Movement disorder; Dry eyes, bilateral; Pelvic pressure in female; Memory changes; Chronic nausea; Mild intermittent asthma without complication ([facility]) 06/28/2024 Interim Notes [address] [address] Default, [facility] Provider 06/28/2024 Interim Notes [address] [address] Lynette Esparza from Last 3 Months Social [...] Description 07/20/2024 3:30 PM CDT Office Visit [address] [address] Marco Cordero MD [address] [place] [address] 08/20/2024 10:00 AM CDT Office Visit [address] [address] Marco Cordero MD [address] [place] [address] Health Maintenance Due Date Last Done Comments [...] Additional history exists Lipid Screening 06/23/2023 06/22/2018 [id number] ( season) 2023 Imm-Influenza (#1) 2023 01/03/2011, [...] PM CDT Human immunodeficiency virus (HIV) disease ([facility]) URINALYSIS, COMPLETE W/REFLEX TO CULTURE Routine 06/28/2024 4:21 PM CDT Human immunodeficiency virus (HIV) disease ([facility]) HIV-1 GENOTYPE (RTI, PI, INTEGRASE INHIBITORS) Routine 06/28/2024 4:16 PM CDT Human immunodeficiency virus (HIV) disease ([facility]) T CELLS ABSOLUTE CD4&CD8 COUNT RATIO Routine 06/28/2024 4:16 PM CDT Human immunodeficiency virus (HIV) disease ([facility]) HIV-1 RNA QUANT REAL TIME PCR, PLASMA Routine 06/28/2024 4:16 PM CDT Human immunodeficiency virus (HIV) disease ([facility]) COMPREHENSIVE METABOLIC PANEL Routine 06/28/2024 4:16 PM CDT Human immunodeficiency virus (HIV) disease ([facility]) BLOOD COUNT COMPLETE AUTO&AUTO DIFRNTL WBC Routine 06/28/2024 4:16 PM CDT Human immunodeficiency virus (HIV) disease ([facility]) from Last 3 Months Results * SURESWAB, TRICHOMONAS VAGINALIS RNA, QUALITATIVE, TMA FEMALE (06/28/2024 4:21 PM CDT) TRICHOMONAS VAGINALIS RNA QUALITATIVE TMA NOT DETECTED NOT DETECTED [facility] [place] Comment: For additional information, please refer to http://education.[employer]/ faq/Trichomonastma (This link is being provided for informational/ educational purposes only.) Urine Urine specimen / Unknown 06/28/2024 4:21 PM CDT 06/29/2024 6:19 AM CDT Marco Cordero MD LAB - NO BLOOD DRAW Ed ited Result - Final [facility] [place] [address] [place] [address], [facility] [address] [place] [address] * (ABNORMAL) URINALYSIS, COMPLETE W/REFLEX TO CULTURE [...] Ed ited Result - Final [facility] [place] [address] [place] [address], [facility] [place] [address] [place] [address] * RFLX - REFLEXIVE URINE CULTURE (06/28/2024 4:21 PM CDT) REFLEXIVE URINE CULTURE [facility] [place] Comment:NO CULTURE INDICATED 06/28/2024 4:21 PM CDT 06/29/2024 5:49 AM CDT us Marco Cordero MD LAB - NO BLOOD DRAW Ed ited Result - Final [facility] [place] [address] [place] [address], [facility] [place] [address] [address] [address] * (ABNORMAL) HIV-1 GENOTYPE (RTI, PI, INTEGRASE INHIBITORS) (06/28/2024 4:16 PM CDT) HIV 1 GENOTYPE DETECTED(A) [facility] Comment: HIV Subtype: B Antiretroviral drugs Resistance [...] OTHER MUTATIONS DETECTED: RT GENE MUTATIONS: NONE [place] GENE MUTATIONS: I62V [facility] Nov 2021 Interpretation Algorithm The method [...] drugs. For additional information, please refer to: http://education.Alacritech.Muzeek/faq/MLT049 (This link is being provided for informational/ educational purposes only.) This test was developed and its analytical performance characteristics have been determined by [facility]. It has not been cleared or approved [...] WALLACE C Comment: Mutations Detected: NONE. The [facility] May 2022 Interpretation Algorithm The method used [...] analytical performance characteristics have been determined by [facility]. It has not been cleared or approved by FDA. This assay has been validated pursuant to the CLIA regulations and is used for clinical purposes. For more information on this test, go to: http://education.[employer]/faq/GUI422 (This link is being provided for informational/educational purposes only.) Blood Blood / Unknown 06/28/2024 4 :16 PM CDT 06/29/2024 3:40 AM CDT Marco Cordero MD LAB - BLOOD DRAW Edite d Result - Final [facility] [address] [place] [address] [facility] [address] [place] [address] * (ABNORMAL) HIV-1 RNA QUANT REAL TIME [...] Edite d Result - Final [facility] [place] [address] [place] [address], [facility] [address] [place] [address] * (ABNORMAL) T CELLS ABSOLUTE CD4&CD8 COUNT [...] [facility] [address] [place] [address] [facility] [address] [place] [address] * BLOOD COUNT COMPLETE AUTO&AUTO DIFRNTL WBC (06/28/2024 4:16 PM CDT) [facility] WHITE BLOOD CELL COUNT 8.2 3.8 [...] Edite d Result - Final [facility] [place] [address] [facility] [place] [facility] [place] [address], [facility] [place] [address] [facility] [place] [address] * COMPREHENSIVE METABOLIC PANEL (06/28/2024 4:16 PM CDT) [facility] GLUCOSE 94 65 - 99 mg/dL [...] Edite d Result - Final [facility] [place] [address] [address] [place] [address], [facility] [place] [address] [address] from Last 3 Months Insurance [employer] [facility] MEDICAID Care Teams Claims Adjudicator Relationship Specialty Start Date End Date Marco Cordero MD [address] [place] [address] PCP - General Infectious Diseases 07/06/24
--- OUTSIDE RECORDS SUMMARY | 2024-07-20 13:30 | XMS_ITS | Encounter Summary ---
Author Organization [facility] Address [address] [facility] [place] [address] Care Team Providers Care Spoon Maker Name Role Phone Kelly Henderson MD Unavailable [phone] Troy ROCA MD, [facility] Primary Care Provider + Jose Eduardo Ott MD Unavailable [phone] Kelly Henderson MD Primary Care Provider Reason for Visit * Reason Onset Date Comments MEDICATION REFILL 07/29/2018 Medication Issue 07/29/2018 Medication Issue 07/31/2018 Pain management contract Medication Issue 08/04/2018 Encounter Details Date Type Department Care Team (Late st Contact Info) Description 07/29/2018 Refill [facility] [address] [place] [address] Kelly Henderson MD [address] [place] [phone] MEDICATION REFILL; Medication Issue; Medication Issue (Pain [...] on file 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 Gender Identity Not on file Sexual [...] that she is going to call her pizza delivery driver and the insurance defense attorney because she has not gotten her [...] be mailed to her home address of [address] [place] [address], and that the refill request for her [...] 09/08/2024 2:00 PM CDT Office Visit [facility] [address] [place] [address], [facility] [place] [phone] Germaine Monson MD [address] [place] [phone] documented as of this encounter Visit Diagnoses Not on filedocumented in this encounter Additional Health Concerns Infection Onset Date Last Indicated Resolved Time COVID-19 Under Investigation 08/14/2019 08/14/2019 08/15/2019 3:43 PM CDT COVID-19 Under Investigation 09/10/2019 09/10/2019 09/11/2019 11:18 PM CDT documented as of this encounter Care Teams Spoon Maker Relationship Specialty Start Date End Date Sea Simmons III, MD [address] [place] [phone] PCP - General Internal Medicine 05/05/19 06/07/19 Kelly Henderson MD [address] [place] [phone] PCP - General 09/01/19 Kelly Henderson MD [address] [place] [phone] Resident - PCP Internal Medicine 01/26/18 05/04/19 Jose Eduardo Ott MD [address] [place] [phone] Resident - PCP Student Resident 05/05/19 documented as of this encounter
--- OUTSIDE RECORDS SUMMARY | 2024-07-20 13:30 | XMS_ITS | Encounter Summary ---
Author Organization [facility] Address [address] [facility] [place] [address] Care Team Providers Care Environmental Issues Instructor Name Role Phone Cathi Mcnally MD Primary Care Provider Kelly Henderson MD Unavailable [phone] Cathi Mcnally MD Primary Care Provider Kelly Henderson MD Unavailable [phone] Kelly Henderson MD Primary Care Provider Cathi Mcnally MD Primary Care Provider Kelly Henderson MD Primary Care Provider Cathi Mcnally MD Primary Care Provider Cathi Mcnally MD Primary Care Provider Troy ROCA MD, [facility] [place] Primary Care Provider + Jose Eduardo Ott MD Unavailable [phone] Kelly Henderson MD Primary Care Provider Reason for Visit * Reason Onset Date Comments Order 11/06/2017 Encounter Details Date Type Department Care Team (Late st Contact Info) Description 11/06/2017 Telephone [facility] [address] [place] [address] Cathi Mcnally MD [address] [facility] [address] [place] [address] Order Social History Tobacco Use Types Packs/Day [...] on file 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 This nurse only saw the the SW assisted in getting the pt a cane previously CB# [phone] [employer] CB# [phone] FAX# [phone] This is in regards to the pt obtaining a brace (sorry I forgot to ask where she needs the brace) Chelsie is calling the pt so she can give us a call in order to facilitate this documented in this encounter Plan of Treatment Upcoming Encounters Date Type Department Care Team (Late st Contact Info) Description 09/08/2024 2:00 PM CDT Office Visit [facility] - Family [address], [facility] [place] [phone] Germaine Monson MD [address] [place] [phone] documented as of this encounter Visit Diagnoses Not on filedocumented in this encounter Additional Health Concerns Infection Onset Date Last Indicated Resolved Time COVID-19 Under Investigation 08/14/2019 08/14/2019 08/15/2019 3:43 PM CDT COVID-19 Under Investigation 09/10/2019 09/10/2019 09/11/2019 11:18 PM CDT documented as of this encounter Care Teams Environmental Issues Instructor Relationship Specialty Start Date End Date Cathi Mcnally MD PCP - General Internal Medicine 10/08/17 01/11/18 Cathi Mcnally MD PCP - General Internal Medicine 01/26/18 01/26/18 Kelly Henderson MD [facility] [place] [address] PCP - General 01/27/18 03/09/18 Cathi Mcnally MD PCP - General Internal Medicine 03/10/18 03/10/18 Kelly Henderson MD [address] [place] [address] PCP - General 03/11/18 03/31/18 Cathi Mcnally MD PCP - General Internal Medicine 04/01/18 05/17/18 Cathi Mcnally MD PCP - General Internal Medicine 07/14/18 07/15/18 Sea Simmons III, MD [address] [place] [address] PCP - General Internal Medicine 05/05/19 06/07/19 Kelly Henderson MD [address] [place] [address] PCP - General 09/01/19 Kelly Henderson MD [address] [place] [address] Resident - PCP Internal Medicine 10/08/17 01/25/18 Kelly Henderson MD [address] [place] [address] Resident - PCP Internal Medicine 01/26/18 05/04/19 Jose Eduardo Ott MD [address] [place] [address] Resident - PCP Student Resident 05/05/19 documented as of this encounter
--- OUTSIDE RECORDS SUMMARY | 2024-07-20 13:30 | XMS_ITS | Encounter Summary ---
Author Organization [facility] Address [address] [facility] [place] [address] Care Team Providers Care Professional Caster Name Role Phone Kelly Henderson MD Unavailable Troy ROCA MD, [facility] Primary Care Provider + Jose Eduardo Ott MD Unavailable [phone] Kelly Henderson MD Primary Care Provider Reason for Visit * Reason Onset Date Comments MEDICATION REFILL 07/17/2018 Follow-up 07/27/2018 Encounter Details Date Type Department Care Team (Late st Contact Info) Description 07/17/2018 Refill [facility] [address] [facility] [address] [place] [address] Kelly Henderson MD [address] [place] [address] MEDICATION REFILL; Follow-up Social History [...] on file 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 Advised patient it was denied. Patient would like to know why. Please advise. [phone] * Telephone Encounter - Dahlia Calderon - [...] 2:00 PM CDT Office Visit [facility] - Family Medicine [address] [place] [address], [facility] [place] [address] Germaine Monson MD [address] [place] [phone] documented as of this encounter Visit Diagnoses Not on filedocumented in this encounter Additional Health Concerns Infection Onset Date Last Indicated Resolved Time COVID-19 Under Investigation 08/14/2019 08/14/2019 08/15/2019 3:43 PM CDT COVID-19 Under Investigation 09/10/2019 09/10/2019 09/11/2019 11:18 PM CDT documented as of this encounter Care Teams Professional Caster Relationship Specialty Start Date End Date Sea Simmons III, MD [address] [place] [phone] PCP - General Internal Medicine 05/05/19 06/07/19 Kelly Henderson MD [facility] [place] [phone] PCP - General 09/01/19 [place] [address] [place] [phone] Resident - PCP Internal Medicine 01/26/18 05/04/19 [place] [address] [place] [phone] Resident - PCP Student Resident 05/05/19 documented as of this encounter
--- OUTSIDE RECORDS SUMMARY | 2024-07-20 13:30 | XMS_ITS | Encounter Summary ---
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 Gender Identity Not on file Sexual Orientation [...] Description 09/08/2024 2:00 PM CDT Office Visit [facility] - Family Medicine [address] [place] [address], [facility] [place] [phone] Germaine Monson MD [address] [place] [phone] documented as of this encounter Procedures Procedure Name Priority Date/Time Associated Diagnosis Comments SARS-COV-2 (COVID-19) IN HOUSE Routine 08/14/2019 10:00 AM CDT Cough documented in this encounter Results * SARS-COV-2 (COVID-19) IN HOUSE (08/14/2019 10:00 AM CDT) COVID-19 PCR Not detected Not detected, Invalid 08/15/2019 3:43 PM CDT [facility] MICROBIOLOGY Microbiology SPECIMEN FROM NASOPHARYNGEAL STRUCTURE / Unknown Collection / Unknown 08/14/2019 10:00 AM CDT 08/14/2019 8:07 PM CDT Narrative [facility] MICROBIOLOGY - 08/15/2019 3:43 PM CDT This Real Time RT-PCR assay was developed and its performance characteristics determined by [facility]. This test has been [...] LAB - MICROBIOLOGY ORDERABL ES Final Result [facility] MICROBIOLOGY [address] [place] [address], [facility] [phone] documented in this encounter Visit Diagnoses Diagnosis Cough documented in this encounter Additional Health Concerns Infection Onset Date Last Indicated Resolved Time COVID-19 Under Investigation 08/14/2019 08/14/2019 08/15/2019 3:43 PM CDT COVID-19 Under Investigation 09/10/2019 09/10/2019 09/11/2019 11:18 PM CDT documented as of this encounter Care Teams Certified Corporate Travel Executive Relationship Specialty Start Date End Date Kelly Henderson MD [address] [place] [address] PCP - General 09/01/19 Jose Eduardo Ott MD Resident - PCP Student Resident 05/05/19 documented as of this encounter
--- OUTSIDE RECORDS SUMMARY | 2024-07-20 13:30 | XMS_ITS | Encounter Summary ---
Author Organization [facility] Address [address] [facility] [place] [address] Care Team Providers Care Renal Social Worker Name Role Phone Kelly Henderson MD Unavailable [phone] Cathi Mcnally MD Primary Care Provider Kelly Henderson MD Unavailable [phone] Kelly Henderson MD Primary Care Provider Cathi Mcnally MD Primary Care Provider Kelly Henderson MD Primary Care Provider Cathi Mcnally MD Primary Care Provider Cathi Mcnally MD Primary Care Provider Troy ROCA MD, Sea [place] Primary Care Provider + Jose Eduardo Ott MD Unavailable [phone] Kelly Henderson MD Primary Care Provider Reason for Visit * Reason Onset Date Comments MEDICATION REFILL 01/12/2018 Encounter Details Date Type Department Care Team (Late st Contact Info) Description 01/12/2018 Refill [facility] General Internal Medicine [address] [place] [address] Kelly Henderson MD [address] [place] [address] MEDICATION REFILL Social History Tobacco Use Types [...] on file 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 Gender Identity Not on file Sexual [...] Description 09/08/2024 2:00 PM CDT Office Visit [facility] - Family Medicine [address] [place] [address], [facility] [place] [phone] Germaine Monson MD [address] [place] [phone] documented as of this encounter Visit Diagnoses Not on filedocumented in this encounter Additional Health Concerns Infection Onset Date Last Indicated Resolved Time COVID-19 Under Investigation 08/14/2019 08/14/2019 08/15/2019 3:43 PM CDT COVID-19 Under Investigation 09/10/2019 09/10/2019 09/11/2019 11:18 PM CDT documented as of this encounter Care Teams Renal Social Worker Relationship Specialty Start Date End Date Cathi Mcnally MD [address] [place] [phone] PCP - General Internal Medicine 01/26/18 01/26/18 Kelly Henderson MD [address] [place] [phone] PCP - General 01/27/18 03/09/18 Cathi Mcnally MD [address] [place] [phone] PCP - General Internal Medicine 03/10/18 03/10/18 Kelly Henderson MD [address] [place] [phone] PCP - General 03/11/18 03/31/18 Cathi Mcnally MD [address] [place] [phone] PCP - General Internal Medicine 04/01/18 05/17/18 Cathi Mcnally MD [address] [place] [phone] PCP - General Internal Medicine 07/14/18 07/15/18 Sea Simmons III, MD [address] [place] [phone] PCP - General Internal Medicine 05/05/19 06/07/19 Kelly Henderson MD [address] [place] [phone] PCP - General 09/01/19 Kelly Henderson MD [address] [place] [phone] Resident - PCP Internal Medicine 10/08/17 01/25/18 Kelly Henderson MD [address] [place] [phone] Resident - PCP Internal Medicine 01/26/18 05/04/19 Jose Eduardo Ott MD [address] [place] [phone] Resident - PCP Student Resident 05/05/19 documented as of this encounter
--- OUTSIDE RECORDS SUMMARY | 2024-07-20 13:30 | XMS_ITS | Encounter Summary ---
Author Organization [facility] Address [address] [facility] [place] [address] Care Team Providers Care Visual Manager Name Role Phone Kelly Henderson MD Unavailable [phone] Cathi Mcnally MD Primary Care Provider Cathi Mcnally MD Primary Care Provider Troy ROCA MD, [place] Primary Care Provider + Jose Eduardo Ott MD Unavailable [phone] Kelly Henderson MD Primary Care Provider Reason for Visit * Reason Onset Date Comments Refill Request 04/30/2018 Follow-up 04/30/2018 Encounter Details Date Type Department Care Team (Late st Contact Info) Description 04/30/2018 Telephone [facility] General Internal Medicine [address] [place] [address] Cathi Mcnally MD [address] [facility] [address] [place] [address] Refill Request; Follow-up Social History [...] on file 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 Calli than I will . This is hindering peoples health, and I'm going to [employer] next, this is ridiculous . States she will also report Dr. Mcnally to [employer] and see if she can't get everybody fired Message routed to providers for further assistance AM/JIMMY DOCK ATTENDANT * Telephone Encounter - Dahlia Calderon - 04/30/2018 11:16 AM CST The pt went to [facility] ED, the pt's sister is in [...] no routed to [facility]IM scheduling ONLY no. DOCK ATTENDANT documented in this encounter Plan of Treatment Upcoming Encounters Date Type Department Care Team (Late st Contact Info) Description 09/08/2024 2:00 PM CDT Office Visit [facility] Physician Group - Family Medicine [address] [place] [address], [place] [address] Germaine Monson MD [address] [place] [address] [place] [phone] documented as of this encounter Visit Diagnoses Not on filedocumented in this encounter Additional Health Concerns Infection Onset Date Last Indicated Resolved Time COVID-19 Under Investigation 08/14/2019 08/14/2019 08/15/2019 3:43 PM CDT COVID-19 Under Investigation 09/10/2019 09/10/2019 09/11/2019 11:18 PM CDT documented as of this encounter Care Teams Visual Manager Relationship Specialty Start Date End Date Cathi Mcnally MD [address] [place] [address] PCP - General Internal Medicine 04/01/18 05/17/18 Cathi Mcnally MD [address] [place] [address] PCP - General Internal Medicine 07/14/18 07/15/18 [place] [address] [place] [phone] PCP - General Internal Medicine 05/05/19 06/07/19 Kelly Henderson MD [address] [place] [phone] PCP - General 09/01/19 Kelly Henderson MD [address] [place] [phone] Resident - PCP Internal Medicine 01/26/18 05/04/19 [place] [address] [place] [phone] Resident - PCP Student Resident 05/05/19 documented as of this encounter
--- OUTSIDE RECORDS SUMMARY | 2024-07-20 13:30 | XMS_ITS | Encounter Summary ---
Author Organization [facility] Address [address] [place] [address] Care Team Providers Care Product/Industry Consultant Name Role Phone Cathi Mcnally MD Primary Care Provider Kelly Henderson MD Unavailable [phone] Cathi Mcnally MD Primary Care Provider Kelly Henderson MD Unavailable [phone] Kelly Henderson MD Primary Care Provider Cathi Mcnally MD Primary Care Provider Kelly Henderson MD Primary Care Provider Cathi Mcnally MD Primary Care Provider Cathi Mcnally MD Primary Care Provider Troy ROCA MD, [place] Primary Care Provider + Jose Eduardo Ott MD Unavailable [phone] Kelly Henderson MD Primary Care Provider Reason for Visit * Reason Onset Date Comments MEDICATION REFILL 10/10/2017 refll request Medication Issue 10/10/2017 Requesting clar ification on max dose Encounter Details Date Type Department Care Team (Late st Contact Info) Description 10/10/2017 Refill [facility] General Internal Medicine [address] [place] [address] Cathi Mcnally MD [address] [place] [address] MEDICATION REFILL (refll request); Medication Issue (Requesting [...] on file 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 * Telephone Encounter - Tasha Szymanski RN - 10/13/2017 9:46 AM CDT Telephone call from Chelsie bar [facility]. Chelsie calling to check on max daily dose patient may take on Nicorette gum. CB # : [phone] * Telephone Encounter - Mayra Duran - [...] approval dispense qty and refills transcribedfrom [facility] Office visit within the last six months yes if not within last 6 months route to [facility]IM-scheduling as well. Office visit greater than 12 months no routed to [facility] scheduling ONLY no. documented in this encounter Plan of Treatment Upcoming Encounters Date Type Department Care Team (Late st Contact Info) Description 09/08/2024 2:00 PM CDT Office Visit [facility] - Family Medicine [facility] [facility], [place] [address] Germaine Monson MD [address] [place] [phone] documented as of this encounter Visit Diagnoses Not on filedocumented in this encounter Additional Health Concerns Infection Onset Date Last Indicated Resolved Time COVID-19 Under Investigation 08/14/2019 08/14/2019 08/15/2019 3:43 PM CDT COVID-19 Under Investigation 09/10/2019 09/10/2019 09/11/2019 11:18 PM CDT documented as of this encounter Care Teams Product/Industry Consultant Relationship Specialty Start Date End Date Catih Mcnally MD PCP - General Internal Medicine 10/08/17 01/11/18 Cathi Mcnally MD PCP - General Internal Medicine 01/26/18 01/26/18 Kelly Henderson MD [address] [place] [phone] PCP - General 01/27/18 03/09/18 Cathi Mcnally MD PCP - General Internal Medicine 03/10/18 03/10/18 Kelly Henderson MD [facility] [place] [address] PCP - General 03/11/18 03/31/18 Cathi Mcnally MD PCP - General Internal Medicine 04/01/18 05/17/18 Cathi Mcnally MD PCP - General Internal Medicine 07/14/18 07/15/18 Sea Simmons III, MD [address] [place] [address] PCP - General Internal Medicine 05/05/19 06/07/19 Kelly Henderson MD [address] [place] [address] PCP - General 09/01/19 Kelly Henderson MD [address] [place] [phone] Resident - PCP Internal Medicine 10/08/17 01/25/18 Kelly Henderson MD [address] [place] [phone] Resident - PCP Internal Medicine 01/26/18 05/04/19 Jose Eduardo Ott MD [address] [place] [phone] Resident - PCP Student Resident 05/05/19 documented as of this encounter
--- OUTSIDE RECORDS SUMMARY | 2024-07-20 13:30 | XMS_ITS | Encounter Summary ---
Author Organization [facility] Address [address] [facility] [place] [address] Care Team Providers Care Portable Feed Mill Operator Name Role Phone Kelly Henderson MD Unavailable [phone] Cathi Mcnally MD Primary Care Provider Cathi Mcnally MD Primary Care Provider Troy ROCA MD, Sea Primary Care Provider + Jose Eduardo Ott MD Unavailable Kelly Henderson MD Primary Care Provider Encounter Details Date Type Department Care Team (Late st Contact Info) Description 04/22/2018 Telephone [facility] General Internal Medicine [address] [facility] [address] [place], [place] [phone] Cathi Mcnally MD [address] [facility] [address] [place] [address] Social History Tobacco Use Types [...] on file 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 They are unable to accept the referral at this time #[id number] AH/MS ICATIONS PROGRAMMER ANALYST documented in this encounter Plan of Treatment Upcoming Encounters Date Type Department Care Team (Late st Contact Info) Description 09/08/2024 2:00 PM CDT Office Visit [facility] Physician [facility] - Family Medicine [facility] [facility], [place] [address] Germaine Monson MD [address] [place] [address] [place] [address] documented as of this encounter Visit Diagnoses Not on filedocumented in this encounter Additional Health Concerns Infection Onset Date Last Indicated Resolved Time COVID-19 Under Investigation 08/14/2019 08/14/2019 08/15/2019 3:43 PM CDT COVID-19 Under Investigation 09/10/2019 09/10/2019 09/11/2019 11:18 PM CDT documented as of this encounter Care Teams Portable Feed Mill Operator Relationship Specialty Start Date End Date Cathi Mcnally MD [address] [place] [phone] PCP - General Internal Medicine 04/01/18 05/17/18 Cathi Mcnally MD [address] [place] [phone] PCP - General Internal Medicine 07/14/18 07/15/18 Sea Simmons III, MD [address] [place] [phone] PCP - General Internal Medicine 05/05/19 06/07/19 Kelly Henderson MD [address] [place] [phone] PCP - General 09/01/19 Kelly Henderson MD [address] [place] [phone] Resident - PCP Internal Medicine 01/26/18 05/04/19 Jose Eduardo Ott MD [address] [place] [phone] Resident - PCP Student Resident 05/05/19 documented as of this encounter
--- OUTSIDE RECORDS SUMMARY | 2024-07-20 13:30 | XMS_ITS | Encounter Summary ---
Author Organization [facility] Health Address [address] [facility] [place] [address] Care Team Providers Care Foundry Worker Apprentice Name Role Phone Kelly Henderson MD Unavailable [phone] Cathi Mcnally MD Primary Care Provider Troy ROCA MD, Sea R Primary Care Provider + Jose Eduardo Ott MD Unavailable [phone] Kelly Henderson MD Primary Care Provider Reason for Visit * Reason Onset Date Comments General 07/06/2018 Encounter Details Date Type Department Care Team (Late st Contact Info) Description 07/06/2018 Telephone [facility] General Internal Medicine [address] [place] [address] Kelly Henderson MD [address] [place] [address] General Social History Tobacco Use [...] on file 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 Gender Identity Not on file Sexual [...] the pt a call back at # [phone] documented in this encounter Plan of Treatment Upcoming Encounters Date Type Department Care Team (Late st Contact Info) Description 09/08/2024 2:00 PM CDT Office Visit [facility]ician Group - Family Medicine [address] [place] [address], [place] [phone] Germaine Monson MD [address] [place] [phone] documented as of this encounter Visit Diagnoses Not on filedocumented in this encounter Additional Health Concerns Infection Onset Date Last Indicated Resolved Time COVID-19 Under Investigation 08/14/2019 08/14/2019 08/15/2019 3:43 PM CDT COVID-19 Under Investigation 09/10/2019 09/10/2019 09/11/2019 11:18 PM CDT documented as of this encounter Care Teams Foundry Worker Apprentice Relationship Specialty Start Date End Date Cathi Mcnally MD [address] [place] [address] PCP - General Internal Medicine 07/14/18 07/15/18 Sea Simmons III, MD [address] [place] [address] PCP - General Internal Medicine 05/05/19 06/07/19 [place] [address] [place] [phone] PCP - General 09/01/19 Kelly Henderson MD [address] [place] [address] Resident - PCP Internal Medicine 01/26/18 05/04/19 Jose Eduardo Ott MD [address] [place] [address] Resident - PCP Student Resident 05/05/19 documented as of this encounter
--- OUTSIDE RECORDS SUMMARY | 2024-07-20 13:30 | XMS_ITS | Encounter Summary ---
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 Gender Identity Not on file Sexual [...] Description 09/08/2024 2:00 PM CDT Office Visit [facility] Physician Group - Family Medicine [address] [place] [address], [facility] [place] [phone] Germaine Monson MD [address] [place] [phone] documented as of this encounter Procedures Procedure Name Priority Date/Time Associated Diagnosis Comments SARS-COV-2 (COVID-19) IN HOUSE Routine 09/10/2019 12:50 PM CDT documented in this encounter Results * SARS-COV-2 (COVID-19) IN HOUSE (09/10/2019 12:50 PM CDT) COVID-19 PCR Not detected Not detected, Invalid 09/11/2019 11:[address] [facility] MICROBIOLOGY Microbiology SPECIMEN FROM NASOPHARYNGEAL STRUCTURE / Unknown Collection / Unknown 09/10/2019 12:50 PM CDT 09/11/2019 3:19 PM CDT Narrative [facility] MICRO[facility] - 09/11/2019 11:18 PM CDT This Real Time RT-PCR assay was developed and its performance characteristics determined by [facility]. This test has been authorized [...] LAB - MICROBIOLOGY ORDERABL ES Final Result [facility] [address] [place] [address], [facility] [phone] documented in this encounter Visit Diagnoses Not on filedocumented in this encounter Additional Health Concerns Infection Onset Date Last Indicated Resolved Time COVID-19 Under Investigation 09/10/2019 09/10/2019 09/11/2019 11:18 PM CDT documented as of this encounter Care Teams Wig Maker Relationship Specialty Start Date End Date Kelly Henderson MD [address] [place] [address] PCP - General 09/01/19 Jose Eduardo Ott MD Resident - PCP Student Resident 05/05/19 documented as of this encounter
--- OUTSIDE RECORDS SUMMARY | 2024-07-20 13:30 | XMS_ITS | Clinical Summary ---
Author Organization [facility] Address [address] [place] [address] Care Team Providers Care Research Programmer Name Role Phone Unknown, Notinfile Primary Care Provider Unavail able Unknown, Notinfile Unavailable Unavailable Zeferino Bradshaw DO Unavailable [phone] [facility] MD PhD Unavailable [phone] Juanjose Alcaraz MD Unavailable [phone] Miscellaneous, Not In File Unavailable Unava ilable Mario Desai MD Unavailable [phone] Francois Thompson MD Unavailable [phone] Mario Ferguson MD Unavailable [phone] Allergies Active Allergy Reactions Criticality Noted Date [...] heart attacks and has never seen a evaporator operator. Last Assessment & Plan: Ordered a dobutamine [...] heart attacks and has never seen a evaporator operator. Housing instability, housed unspecified 03/03/20 Overview (04/05/2024): 03/03/2023: Moved to [place] from [place], [place] (by way of [employer] [place]). Reports that she has section 8 housing voucher, currently working on finding housing. Currently staying at [employer] until she finds more consistent housing. Currently has [place] medicaid. She was interested in obtaining resources in [place] and [facility] including [place] Medicaid and local housing voucher. Presented with [...] she has been working with her formerly [facility] clinical social worker and that she has been very helpful. She states that she needs paperwork filled out so that she has reasonable accommodations provided given that she has an electric wheelchair. However, the patient states her electric wheelchair is currently in [place] and she has been walking on her own. She states that she needs a 2 bedroom apartment because 1 of her 3 daughters is moving here from [place] to help take care of her. When [...] counseling. Assessment & Plan (05/23/2022 4:10 PM POST SECONDARY PROFESSIONAL): Wt Readings from Last 3 Encounters: 05/02/22 85.7 kg (189 lb) 03/26/22 84.4 kg (186 lb) 03/26/22 84.4 kg (186 lb) BMI Readings from Last 3 Encounters: 05/02/22 34.57 kg/m 03/26/22 34.02 kg/m 03/26/22 34.02 kg/m Not at goal of bmi <30 Continue diet and exercise BMI Follow-up includes: nutrition counseling and exercise counseling. Assessment & Plan (05/02/2022 2:38 PM POST SECONDARY PROFESSIONAL): Wt Readings from Last 3 Encounters: 05/02/22 [...] 05/08/2021 Assessment & Plan (05/08/2021 8:45 AM POST SECONDARY PROFESSIONAL): EEG during episode of seizure activity showed [...] 12/29/2019 Assessment & Plan (05/23/2022 4:10 PM POST SECONDARY PROFESSIONAL): BP Readings from Last 3 Encounters: 05/23/22 136/78 05/02/22 130/84 03/27/22 (!) 171/111 Vitals BP 136/78 (BP Location: Left arm, Patient Position: Sitting) Pulse 85 SpO2 94% Lab Results Component Value Date POTASSIUM 3.3 03/26/2022 At goal at this time Assessment & Plan (05/02/2022 1:52 PM POST SECONDARY PROFESSIONAL): BP Readings from Last 3 Encounters: 05/02/22 [...] now Assessment & Plan (05/07/2021 10:07 PM POST SECONDARY PROFESSIONAL): Continue patient's home medication lisinopril 20 mg q.d. Assessment & Plan (05/07/2021 6:54 PM POST SECONDARY PROFESSIONAL): Continue patient's home medication lisinopril 20 mg q.d. Assessment & Plan (05/05/2021 5:39 PM POST SECONDARY PROFESSIONAL): Continue patient's home medication lisinopril 20 mg q.d. Assessment & Plan (07/09/2020 11:58 PM CDT): - well controlled on current medications - current medication Lisinopril 20mg daily - continue current medication - check BP regularly at home - follow a low salt diet Assessment & Plan (04/03/2020 12:17 PM POST SECONDARY PROFESSIONAL): - well controlled on current medications - current medication Lisinopril 20mg daily Assessment & Plan (12/29/2019 12:13 PM CDT): - suboptimal control - refilled lisinopril 20 mg once daily - will need to be addressed fully on another visit Tardive dyskinesia 12/29/2019 Assessment & Plan (05/07/2021 10:08 PM POST SECONDARY PROFESSIONAL): acute dystonia vs tardive dyskinesia Patient was [...] treatments. Assessment & Plan (05/07/2021 6:54 PM POST SECONDARY PROFESSIONAL): acute dystonia vs tardive dyskinesia Patient was [...] treatments. Assessment & Plan (05/06/2021 3:36 PM POST SECONDARY PROFESSIONAL): acute dystonia vs tardive dyskinesia Patient was [...] treatments. Assessment & Plan (05/06/2021 7:31 AM POST SECONDARY PROFESSIONAL): Lip smacking .... Assessment & Plan (12/29/2019 [...] magnesium. Assessment & Plan (03/29/2020 1:59 PM POST SECONDARY PROFESSIONAL): - patient takes potassium supplements 10meq BID PRN when she has muscle cramps Assessment & Plan (12/29/2019 12:17 PM CDT): - patient takes potassium supplement when she has muscle cramps COPD (chronic obstructive pulmonary disease) (CM S/HCC) 12/24/2019 Assessment & Plan (05/05/2021 7:50 PM POST SECONDARY PROFESSIONAL): Duo-nebs Q4 PRN Assessment & Plan (04/03/2020 12:33 PM POST SECONDARY PROFESSIONAL): - stable, no changes made to medications [...] predominating Assessment & Plan (05/07/2021 10:07 PM POST SECONDARY PROFESSIONAL): 04/2020 MRI of total spine showed - [...] hold Assessment & Plan (05/07/2021 6:54 PM POST SECONDARY PROFESSIONAL): 04/2020 MRI of total spine showed - [...] TID Assessment & Plan (05/05/2021 6:17 PM POST SECONDARY PROFESSIONAL): 04/2020 MRI of total spine showed - [...] 06/16/2019 Assessment & Plan (05/05/2021 6:09 PM POST SECONDARY PROFESSIONAL): citalipram 10 mg qhs Tobacco abuse 06/16/2019 Vitamin D deficiency 06/16/2019 Assessment & Plan (04/03/2020 12:20 PM POST SECONDARY PROFESSIONAL): - history of vitamin D deficiency - she is not on vitamin D supplementation at this time - will check vitamin D level and supplement if needed Hyperglycemia 06/16/2019 Brain mass 05/18/2019 Assessment & Plan (05/05/2021 8:00 PM POST SECONDARY PROFESSIONAL): Patient has a history of schwannoma . [...] 09/01/2013 Assessment & Plan (05/23/2022 4:11 PM POST SECONDARY PROFESSIONAL): Lab Results Component Value Date HGBA1C 5.5 06/14/2021 HGBA1C 5.7 (H) 06/11/2021 HGBA1C 5.7 (H) 05/05/2021 Lab Results Component Value Date LDLCALC 159 (H) 06/14/2021 CREATININE 0.72 03/26/2022 At goal at this time, but needs repeat Continue current regimen Assessment & Plan (05/02/2022 1:53 PM POST SECONDARY PROFESSIONAL): Lab Results Component Value Date HGBA1C 5.5 [...] visit. Assessment & Plan (05/05/2021 6:12 PM POST SECONDARY PROFESSIONAL): -Albuterol MDI Q2 PRN for SOB Scoliosis 11/26/2011 Non-intractable vomiting with nausea 11/26/2011 Assessment & Plan (05/07/2021 10:06 PM POST SECONDARY PROFESSIONAL): Patient arrived w/ 1 day of nausea and vomiting. She reports this has had chronic emesis off and on since may of 2019 but has never been diagnosed with with a particular disorder/cause. She has chronically been taking ondansetron. DDx- viral gastroenteritis, medication side effect (genvoya) , side effect of halfway medical marijuana use, Mets/growth of schwannoma. Reported to eating spagetti prior to presentation but denies other sick contacts. Emesis is non-bloody. -Compazine 10 mg q.4h prn on hold -ondansetron 4 mg q.4 prn -tolerating adult diet Assessment & Plan (05/07/2021 6:50 PM POST SECONDARY PROFESSIONAL): Patient arrived w/ 1 day of nausea and vomiting. She reports this has had chronic emesis off and on since may of 2019 but has never been diagnosed with with a particular disorder/cause. She has chronically been taking ondansetron. 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 Reported to eating spagetti prior to presentation but denies other sick contacts. Emesis is non-bloody. -Compazine 10 mg q.4h prn on hold -ondansetron 4 mg q.4 prn -tolerating adult diet Assessment & Plan (05/06/2021 2:48 PM POST SECONDARY PROFESSIONAL): Patient arrived w/ 1 day of nausea and vomiting. She reports this has had chronic emesis off and on since may of 2019 but has never been diagnosed with with a particular disorder/cause. She has chronically been taking ondansetron. 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 Reported to eating spagetti prior to presentation but denies other sick contacts. Emesis is non-bloody. -Compazine 10 mg q.4h prn -ondansetron 4 mg q.4 prn Diarrhea 11/26/2011 Assessment & Plan (05/07/2021 10:06 PM POST SECONDARY PROFESSIONAL): Patient arrived w/ 1 day of nausea [...] pending Assessment & Plan (05/07/2021 6:51 PM POST SECONDARY PROFESSIONAL): Patient arrived w/ 1 day of nausea [...] pending Assessment & Plan (05/05/2021 7:58 PM POST SECONDARY PROFESSIONAL): Patient arrived w/ 1 day of nausea [...] up. Assessment & Plan (05/02/2022 2:32 PM POST SECONDARY PROFESSIONAL): I would recommend psychiatric evaluation but patient does not want to see a psychaitrist Seizure ([facility]) 08/07/2011 Assessment & Plan (05/07/2021 6:59 PM POST SECONDARY PROFESSIONAL): Patient reports to not currently taking any [...] input Assessment & Plan (05/06/2021 3:45 PM POST SECONDARY PROFESSIONAL): Patient reports to not currently taking any [...] increase dose if needed - 1:1 sitter -[facility] daily -CT head- No mass or hemorrhage [...] future. Assessment & Plan (05/02/2022 2:32 PM POST SECONDARY PROFESSIONAL): Unclear if this is really related to her schwannoma - seems that this has been an issue for a long time, has gone to multiple facilities painter, tried multiple medications but at this time all she wants is hydrocodone - didn't want to be on other medications at all She states that all her previous pain management don't want to give her narcotics Assessment & Plan (04/03/2020 12:19 PM POST SECONDARY PROFESSIONAL): - she has chronic back pain and has been referred to pain management in the past - she also has Fibromyalgia - she has not found a pain management physician and last one had problem with medication - at this time I am refilling her medications until she is established with one - continue with the [place] 10-325 mg BID PRN for pain - [...] other doctors Or infectios disease [place] [facility] [place] 30 days Unsure who was filling this previously Assessment & Plan (05/07/2021 10:08 PM POST SECONDARY PROFESSIONAL): -Genvoya Q.d. -side effects include nausea and diarrhea. -placed percocet on hold- strong risk of increased serum concentration of percocet with concurrent use. Assessment & Plan (05/07/2021 6:58 PM POST SECONDARY PROFESSIONAL): -Genvoya Q.d. -side effects include nausea and diarrhea. -placed percocet on hold- strong risk of increased serum concentration of percocet with concurrent use. Assessment & Plan (05/05/2021 8:01 PM POST SECONDARY PROFESSIONAL): Restarted patient's home medication Genvoya Q.d. -side effects including nausea and diarrhea. Assessment & Plan (03/29/2020 1:58 PM POST SECONDARY PROFESSIONAL): - Following with Infectious Diseases - follows [...] 08/06/2006 Assessment & Plan (05/05/2021 7:50 PM POST SECONDARY PROFESSIONAL): Previously positive for marijuana and opiate. Patient [...] needed. Assessment & Plan (04/11/2020 9:51 AM POST SECONDARY PROFESSIONAL): Doing well following orbitotomy and lesion excision on 03/31/2020. Preliminary pathology results show likely schwannoma. We will await final path and she will return in 4-6 weeks. 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 Additionally, she demonstrates lesions of the left pterygopalatine fossa, and along the left cavernous sinus. 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 Assessment & Plan (05/07/2021 6:55 PM POST SECONDARY PROFESSIONAL): Citalopram 10 mg q.h.s. Assessment & Plan (05/05/2021 5:40 PM POST SECONDARY PROFESSIONAL): Citalopram 10 mg q.h.s. Abnormality of gait and mobility 12/29/2019 05/02/2022 Assessment & Plan (04/03/2020 12:22 PM POST SECONDARY PROFESSIONAL): - currently has a wheeled walker - [...] 022 Assessment & Plan (05/06/2021 3:23 PM POST SECONDARY PROFESSIONAL): Patient has not complained of pain while [...] member [facility] Abdominal mass 09/01/2013 05/02/2022 Overview (02/04/2020): Overview: [...] 05/02/2022 Assessment & Plan (03/29/2020 2:13 PM POST SECONDARY PROFESSIONAL): - well controlled with current medications - [...] - 07/19/2024 11:59 PM CDT Hospital Encounter [address] [phone] Exposure to blood-borne pathogen Discharge Disposition: Discharge to home or self care 07/19/2024 Documentation [facility] ICU [address] [place] [address] Amos Alexander RN 07/19/2024 Orders Only [address] [phone] Israel Mcdonald MD 07/19/2024 Orders Only [facility] [address] [facility] Room 3420 (Third Floor) [place] [address] Israel Mcdonald MD Exposure to blood-borne pathogen (Primary Dx) 07/18/2024 7:51 AM CDT - 07/19/2024 2:49 PM CDT Hospital Encounter [facility] 1 [place] [address] Israel Edmonds MD Bross, Deborah L F D, MD Kheirkhahan, Nazanin, MD Seizure (HCC) (Primary Dx) Discharge Disposition: Left Against Medical Advice 06/21/2024 Telephone [facility] [address] [facility] Floor 6 [place] [address] Mario Ferguson 05/27/2024 8:59 AM POST SECONDARY PROFESSIONAL - 05/27/2024 11:59 PM POST SECONDARY PROFESSIONAL Hospital Encounter [facility] Emergency, Room R Discharge Disposition: Discharge to home or self care 05/27/2024 Orders Only [facility] [address] [place] [phone] Francois Thompson MD Human immunodeficiency virus (HIV) (HCC) (Primary Dx) 04/30/2024 1:00 PM POST SECONDARY PROFESSIONAL Office Visit [facility] [address] [place] [phone] Mario Ferguson MD Plasma cell dyscrasia (Primary Dx); Elevated serum immunoglobulin free light chains 04/28/2024 1:05 PM POST SECONDARY PROFESSIONAL Lab [address] [phone] Elevated serum immunoglobulin free light chains; Plasma cell dyscrasia 04/28/2024 Telephone [facility] [address] [place] [phone] Hua Gramajo RN 04/21/2024 10:40 AM POST SECONDARY PROFESSIONAL - 04/21/2024 5:37 PM POST SECONDARY PROFESSIONAL Emergency [facility] Emergency Department [address] [place] [phone] Catalina Casillas MD Schwannoma (Primary Dx); Weakness [...] isorder Hypertension Hypertension Hx Other Medical Diabetes [facility], type 2- ? Borderline Schizoaffective disorder (HCC) [...] drink = 0.6 oz pur e alcohol) [employer] Answer Date Recorded In the past 12 months has [employer], [employer], or water [employer] threatened to shut off services in your [...] How often do you attend chur or sikh services? Never 07/19/2024 Do you belong to any clubs o r organizations such as latter day groups, unions, fraternal or athletic groups, or [...] any time in the [facility], were you homeless or living in [...] on file Legal Sex Female 1:20 AM POST SECONDARY PROFESSIONAL Gender Identity Not on file Sexual Orientation [...] CLINICAL PATHOLOGY REPORT Routine 04/28/2024 1:14 PM POST SECONDARY PROFESSIONAL EGFR STAT 04/28/2024 1:14 PM POST SECONDARY PROFESSIONAL Elevated serum immunoglobulin free light chains DIFFERENTIAL AUTO STAT 04/28/2024 1:1 4 PM POST SECONDARY PROFESSIONAL Elevated serum immunoglobulin free light chains IMMUNOTYPING Routine 04/28/2024 1:14 PM POST SECONDARY PROFESSIONAL Plasma cell dyscrasia PROTEIN ELECTROPHORESIS, WITH REFLEX, SERUM STAT 04/28/2024 1:14 PM POST SECONDARY PROFESSIONAL Elevated serum immunoglobulin free light chains LACTATE DEHYDROGENASE STAT 04/28/2024 1:14 PM POST SECONDARY PROFESSIONAL Elevated serum immunoglobulin free light chains IMMUNOGLOBULIN FREE LIGHT CHAINS STAT 04/28/2024 1:14 PM POST SECONDARY PROFESSIONAL Elevated serum immunoglobulin free light chains IGM STAT 04/28/2024 1:14 PM POST SECONDARY PROFESSIONAL Elevated serum immunoglobulin free light chains IGG STAT 04/28/2024 1:14 PM POST SECONDARY PROFESSIONAL Elevated serum immunoglobulin free light chains IGA STAT 04/28/2024 1:14 PM POST SECONDARY PROFESSIONAL Elevated serum immunoglobulin free light chains COMPREHENSIVE METABOLIC PANEL STAT 04/28/2024 1:14 PM POST SECONDARY PROFESSIONAL Elevated serum immunoglobulin free light chains CBC WITH AUTO DIFFERENTIAL STAT 04/28/2024 1:14 PM POST SECONDARY PROFESSIONAL Elevated serum immunoglobulin free light chains BETA 2 MICROGLOBULIN SERUM STAT 04/28/2024 1:14 PM POST SECONDARY PROFESSIONAL Elevated serum immunoglobulin free light chains URINALYSIS, MICROSCOPIC ONLY STAT 04/21/2024 3:03 PM POST SECONDARY PROFESSIONAL DRUGS OF ABUSE SCREEN, URINE WITHOUT CONFIRMATION STAT 04/21/2024 3:03 PM POST SECONDARY PROFESSIONAL URINALYSIS AND REFLEX TO MICROSCOPIC AND CULTURE STAT 04/21/2024 3:[address] LUMBAR SPINE WO CONTRAST ED 04/21/2024 12:[address] HEAD WO CONTRAST ED 04/21/2024 12:14 PM POST SECONDARY PROFESSIONAL EGFR STAT 04/21/2024 11:02 AM POST SECONDARY PROFESSIONAL DIFFERENTIAL AUTO STAT 04/21/2024 11:02 AM POST SECONDARY PROFESSIONAL PROTIME-INR STAT 04/21/2024 11:02 AM POST SECONDARY PROFESSIONAL SEPSIS LACTATE WITH REFLEX STAT 04/21/2024 11:02 AM POST SECONDARY PROFESSIONAL COMPREHENSIVE METABOLIC PANEL STAT 04/21/2024 11:02 AM POST SECONDARY PROFESSIONAL CBC WITH AUTO DIFFERENTIAL STAT 04/21/2024 11:02 AM POST SECONDARY PROFESSIONAL DIAGNOSTIC MAMMOGRAM BILATERAL W CHON Schedule Routine, [...] last revised on 2019. Testing performed by: [facility], [address] [place] [address], [place]., [address] Blood 07/19/2024 12:4 6 PM CDT 07/19/2024 6:40 PM CDT Narrative JASON JACK (PEEVER) - 07/19/2024 7:45 PM CDT Bill to [facility] - 1520 Patient is employed by/enrolled at:->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 us Israel Mcdonald MD LAB MICROBIOLOGY - GENERAL OR DERABLES Final Result JASON JACK (PEEVER) [address] [place] [address] Department [place] [address] * eGFR (07/19/2024 4:56 AM CDT) [facility] eGFR >90 >=60 mL/min/1. 73 m2 Comment: [...] BLOOD ORDERABLES Fi nal Result JASON JACK (PEEVER) 1 [facility] Department [place] [address] * Differential, auto (07/19/2024 4:56 AM CDT) [...] Fi nal Result J[facility]ON [facility] (MAULIK) 1 [facility] [employer] [place] [address] * CBC with auto differential (07/19/2024 4:56 [...] Fi nal Result JASON JACK (MAULIK) 1 [facility] [employer] [place] [address] * Magnesium (07/19/2024 4:56 AM CDT) Magnesium 2.0 1.4 - 2.5 mg/dL Blood 07/19/2024 4:56 AM CDT 07/19/2024 5:32 AM CDT us Davi Oscar MD LAB BLOOD ORDERABLES Fi nal Result JASON [facility] (MAULIK) 1 [facility] Department [place] [address] * (ABNORMAL) Comprehensive metabolic panel (07/19/2024 4:56 [...] ORDERABLES Fi nal Result Performing Organization Address City/[facility]/ZIP Co de Phone Number JASON JACK (MAULIK) 1 [facility] [place] [address] * POCT glucose (07/19/2024 2:27 AM CDT) Glucose, POC 104 70 - 199 mg/dL Blood 07/19/2024 2:27 AM CDT 07/19/2024 2:27 AM CDT Lyric Pastor MD LAB POCT ORDERABLES - DEV ICE Final Result Performing Organization Address City/[facility]/ZIP Co de Phone Number JASON JACK (MAULIK) 1 [facility] [place] [address] * (ABNORMAL) Urinalysis reflex to microscopic and culture Urine (07/18/2024 10:16 AM CDT) Color, ur Yellow Yellow Clarity, ur Clear Clear CERNER A MH (PEEVER) Specific gravity, ur 1.012 1.003 - 1.030 [...] tendency for uric acid stone formation. Source: [employer] Current Interpretive Data was last revised on [...] RDERABLES Final Result [facility]ON [facility] (MAULIK) 1 [facility] Department [place] [address] * (ABNORMAL) Drugs of Abuse Screen, Urine [...] ur Not Detected CutOff 100ng/mL CERNER [facility] (MAULKI) Comment: Interpretive Data - Oxycodone: Samples containing greater than 100 ng/mL oxycodone or other cross-reacting compounds are reported as positive. False positive and false negative results are possible. Confirmatory testing required for definitive results. Current Interpretive Data was last reviewed 2022. Phencyclidine, ur Not Detected CutOff 25 ng/mL JASON JACK (PEEVER) Comment: Interpretive Data - Phencyclidine: Samples containing greater than 25 ng/mL phencyclidine or other cross-reacting compounds are reported as positive. False positive and false negative results are possible. Confirmatory testing required for definitive results. Current Interpretive Data was last reviewed 2022. Urine Creatinine 136 mg/dL JAKE JACK (PEEVER) Comment: Interpretive Data Urine Creatinine: < 10 mg/dL is extremely dilute = or > 10 but < 20 mg/dL is dilute = or > 20 mg/dL is normal Current Interpretive Data was last revised on 2017. Urine 07/18/2024 10:1 6 AM CDT 07/18/2024 10:19 AM CDT Narrative JASON JACK (PEEVER) - 07/18/2024 10:45 AM CDT Drug of Abuse screening is performed by immunoassay for medical purposes only. This is not to be used for Pain Management purposes. Israel Edmonds MD LAB URINE ORDERABLES Final R esult Performing Organization Address [facility] Co de Phone Number JASON JACK (PEEVER) 1 [place] [address] * (ABNORMAL) Urinalysis, microscopic only (07/18/2024 10:16 AM CDT) WBC, ur 0-5 0 - 5 /HPF RBC, ur 0-2 0 - 2 /HPF JASON JACK (PEEVER) Epithelial cells, squamous, ur 1-5 0 - 5 /HPF JASON JACK (PEEVER) Mucous, ur Present(A) JASON Huff (PEEVER) Culture Reflex Comment Reflex conditions for urine culture (WBC >10) not met. JASON JACK (PEEVER) Urine 07/18/2024 10:1 6 AM CDT 07/18/2024 10:19 AM CDT Israel Edmonds MD LAB URINE ORDERABLES Final R esult Performing Organization Address City/[facility] Co de Phone Number JASON JACK (PEEVER) [address] Department [place] [address] * XR Chest 1 View (07/18/2024 8:56 AM CDT) Anatomical Region Laterality Modality Body, Chest N/A Computed Radiogr aphy 07/18/2024 9:09 AM CDT Narrative 07/18/2024 9:09 AM CDT EXAM DESCRIPTION: XR CHEST 1 VIEW REASON FOR STUDY: chest pain Patient presents to the ED 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 RB: RENETTA Report ID: [id number] Reading Location: [id number] us Israel Edmonds MD IM CT PROCEDURES [...] BLOOD ORDERABLES Final R esult JASON JACK (PEEVER) 1 [facility] [address] [place] [address] * Sepsis Lactate w/ Reflex (07/18/2024 8:15 AM CDT) Pathologist [facility] Sepsis Lactate 1.1 0.7 - 2.0 mmol/L Blood 07/18/2024 8:15 AM CDT 07/18/2024 8:21 AM CDT Israel Edmonds MD LAB BLOOD ORDERABLES Final R esult Performing Organization Address City/[facility] Co de Phone Number JASON JACK (PEEVER) 1 [facility] [address] * Pro B-type natriuretic peptide (07/18/2024 8:15 AM CDT) Pathologist [facility] NT-proBNP <36 <=300 pg/mL Comment: Interpretive Comments: [...] ORDERABLES Final R esult Performing Organization Address City/[facility] Co de Phone Number [facility]ON [facility] ([place]) [address] [place] [address] [place] [address] * Magnesium (07/18/2024 8:15 AM CDT) Magnesium 1.8 1.4 - 2.5 mg/dL Blood 07/18/2024 8:15 AM CDT 07/18/2024 8:21 AM CDT Israel Edmonds MD LAB BLOOD ORDERABLES Final R esult Performing Organization Address City/[facility] Co de Phone Number [facility] ([place]) [address] [place] [address] [place] [address] * eGFR (07/18/2024 7:59 AM CDT) eGFR [...] MD LAB BLOOD ORDERABLES Final R esult [facility] (PEEVER) 1 [facility] Department [place] [address] * Differential, auto (07/18/2024 7:59 AM CDT) [...] Final R esult [facility] ([place]UL[place]) 1 [facility] [place] [address] * CBC with auto differential (07/18/2024 7:59 [...] ORDERABLES Final R esult Performing Organization Address City/[facility]/ZIP Co de Phone Number JASON JACK (PEEVER) 1 [facility] [place] [address] * Erythrocyte sedimentation rate (07/18/2024 7:59 AM CDT) Erythrocyte sedimentation rate 20 1 - 30 mm/hr Blood 07/18/2024 7:59 AM CDT 07/18/2024 8:34 AM CDT Israel Edmonds MD LAB BLOOD ORDERABLES Final R esult Performing Organization Address City/[facility] Co de Phone Number JASON JACK (PEEVER) 1 [facility] [place] [address] * CRP (acute phase) (07/18/2024 7:59 AM CDT) CRP 7.4 <=10.0 mg/L Blood 07/18/2024 7:59 AM CDT 07/18/2024 8:34 AM CDT Israel Edmonds MD LAB BLOOD ORDERABLES Final R esult Performing Organization Address City/[facility]/ZIP Co de Phone Number JASON JACK (PEEVER) 1 [facility] [address] [place] [address] * Ethanol (07/18/2024 7:59 AM CDT) Ethanol <10 <=10 mg/dL Comment: Interpretive Data Legal limit of intoxication > or = 80 mg/dL Levels > or = 400 mg/dL are potentially TOXIC. Current interpretive data was last revised on 2018. Blood 07/18/2024 7:59 AM CDT 07/18/2024 8:02 AM CDT us Israel Edmonds MD LAB BLOOD ORDERABLES Final R esult [facility] (PEEVER) 1 [facility] Department [place] [address] * (ABNORMAL) Comprehensive metabolic panel (07/18/2024 7:59 AM CDT) Sodium 139 135 - 145 mmol/L Potassium, pl 3.6 3.3 - 4.9 mmol/L [facility] ([place]UL[place]) Chloride 105 97 - 110 mmol/L [facility] ([place]UL[place]) CO2 21(L) 22 - 32 mmol/L [facility] ([place]) Anion gap 13 2 - 15 mmol/L [facility] ([place]) BUN 5(L) 6 - 25 mg/dL [facility] ([place]) Creatinine 0.70 0.60 - 1.10 mg/dL [facility] ([place]ULIK) Comment:Icteric sample, test results may be affected. Glucose 100 70 - 199 mg/dL [facility] ([place]ULIK) Comment: Interpretive Data Fasting glucose [...] ORDERABLES Final R esult Performing Organization Address [facility] Co de Phone Number [facility] (MAULIK) [address] [place] [address] Department of Laboratories [place] [id number] * ECG 12 lead (07/18/2024 7:55 AM CDT) 07/18/2024 7:55 AM CDT Narrative [facility] - 07/19/2024 7:21 AM CDT Vent Rate: 86 bpm RR Interval: 691 msec NE Interval: 187 msec QRS Duration: 101 msec QT Interval: 360 msec QTC Interval: 404 msec P-R-T [place]: 75 - -44 - 43 degrees IMPRESSION: [...] ECG ORDERABLES Final Result Performing Organization Address [facility]/ZIP Co de Phone Number [facility] Daily [employer] * Immunotyping, serum with interpretation (04/28/2024 1:14 PM POST SECONDARY PROFESSIONAL) Immunofixation See Cl Path Rpt Comment:Testing performed by : [facility], [address] [place] [address], [place]., [address] Blood 04/28/2024 1:14 PM POST SECONDARY PROFESSIONAL 04/28/2024 7:24 PM POST SECONDARY PROFESSIONAL us Mario Ferguson MD LAB BLOOD ORDERABLES Fin al Result JASON [facility] (PEEVER) [address] [place] [address] Department [place] [address] * Clinical pathology report (04/28/2024 1:14 PM POST SECONDARY PROFESSIONAL) Miscellaneous 04/28/2024 1:1 4 PM POST SECONDARY PROFESSIONAL 04/29/2024 8:09 AM POST SECONDARY PROFESSIONAL Narrative 05/02/2024 10:47 AM POST SECONDARY PROFESSIONAL EPIC results best viewed via link to PDF [facility] Department of Pathology [address] [place] [address] Final Report Note to Patients: This report [...] details. Patient Name: MARE RANGEL Address: [address] [place] [address] Gender: F : 1970 (Age: 54) Service: Location: [facility] #: [id number] Patient Type: [facility] EP ANCILLARY Taken: 04/28/2024 Received: 04/29/2024 Accessioned: 04/29/2024 Physician(s): Mario Ferguson M.D. [facility] Specimen(s) Received A: Blood (serum) Serum Protein [...] determined by the Surgical Pathology Department at [facility] as part of an ongoing quality assurance lab technician program and in compliance with [...] characteristics determined by the Surgical Pathology Department [facility]. It has not been cleared or approved by the U. S. Food and Drug Administration. REPORT IMAGES AND SCANNED DOCUMENTS, IF INCLUDED, ONLY VIEWABLE IN PDF VERSION OF REPORTe o us Mario Ferguson MD LAB PATHOLOGY ORDERABLES Final Result * eGFR (04/28/2024 1:14 PM POST SECONDARY PROFESSIONAL) eGFR 90 >=60 mL/min/1. 73 m2 Comment: [...] last reviewed 2021. Blood 04/28/2024 1:14 PM POST SECONDARY PROFESSIONAL 04/28/2024 1:21 PM POST SECONDARY PROFESSIONAL us Mario Ferguson MD LAB BLOOD ORDERABLES Fin al Result [facility] (PEEVER) 1 [facility] Department [place] [address] * Differential, auto (04/28/2024 1:14 PM POST SECONDARY PROFESSIONAL) Neutrophil abs 3.2 1.5 - 6.5 K/cumm [...] revised on 2017. Blood 04/28/2024 1:14 PM POST SECONDARY PROFESSIONAL 04/28/2024 1:21 PM POST SECONDARY PROFESSIONAL us Mario Ferguson MD LAB BLOOD ORDERABLES Fin al Result JASON JACK ([place]ULIK) 1 [facility] Department [place] [address] * (ABNORMAL) Immunoglobulin free light chains (04/28/2024 1:14 PM POST SECONDARY PROFESSIONAL) Pathologist [facility] Evening Shade/Lambda ratio 1.40 0.26 - 1.65 Comment:Testing performed by : [facility], [address] [place] [address], [place]., [address] Evening Shade free light chain 2.19(H) 0.33 - 1.94 mg/dL JASON JACK (MAULIK) Comment: Interpretive Data The [employer] Evening Shade FLC assay procedure was used. Results from different manufacturers or methods may not be comparable. Serial testing should be performed using the same method. Testing performed by: [facility], [address] [place] [address], [place]., [address] Lambda free light chain 1.59 0.57 - 2.63 mg/dL [facility] (MAULIK) Comment: Interpretive Data The [employer] Lambda FLC assay procedure was used. Results from different manufacturers or methods may not be comparable. Serial testing should be performed using the same method. Testing performed by: [facility], [address] [place] [address]., [address] Blood 04/28/2024 1:14 PM POST SECONDARY PROFESSIONAL 04/28/2024 7:24 PM POST SECONDARY PROFESSIONAL us Mario Ferguson MD LAB BLOOD ORDERABLES Fin al Result [facility]ON [facility] ([place]) 1 [facility] Department [place] [address] * (ABNORMAL) CBC with auto differential (04/28/2024 1:14 PM POST SECONDARY PROFESSIONAL) WBC 6.9 3.8 - 9.9 K/cumm Hgb [...] [facility] ([place]) Blood 04/28/2024 1:14 PM POST SECONDARY PROFESSIONAL 04/28/2024 1:21 PM POST SECONDARY PROFESSIONAL Mario Ferguson MD LAB BLOOD ORDERABLES Fin al Result Performing Organization Address City/[facility] Co de Phone Number [facility] ([place]) 1 [facility] [place] [address] * Protein electrophoresis with reflex, serum with interpretation (04/28/2024 1:14 PM POST SECONDARY PROFESSIONAL) Protein, sr 7.4 6.2 - 8.2 g/dL Comment:Testing performed by : [facility], [address] [place] [address]., [address] Albumin 4.5 3.2 - 5.0 g/dL [facility] (MAULIK) Comment:Testing performed by : [facility], [address] [place] [address], [address] Alpha-1 globulin 0.3 0.2 - 0.4 g/dL [facility] (MAULIK) Comment:Testing performed by : [facility], [address] [place] [address], [address] Alpha-2 globulin 0.7 0.5 - 1.0 g/dL [facility] ([place]IK) Comment:Testing performed by : [facility], [address] [place] [address], [address] Beta-1 globulin 0.4 0.3 - 0.6 g/dL [facility] (MAULIK) Comment:Testing performed by : [facility], [address] [place] [address]., [address] Beta-2 globulin 0.4 0.2 - 0.6 g/dL [facility] (MAULIK) Comment:Testing performed by : [address], [address] Gamma globulin 1.1 0.5 - 1.7 g/dL [facility] (MAULIK) Comment:Testing performed by : [facility], [address] [place] [address], [address] SPEP interp See Cl Path Rpt [facility] ([place]ULIK) Comment:Testing performed by : [address], [address] Blood 04/28/2024 1:14 PM POST SECONDARY PROFESSIONAL 04/28/2024 7:24 PM POST SECONDARY PROFESSIONAL Mario Ferguson MD LAB BLOOD ORDERABLES Fin al Result Performing Organization Address City/[facility]/ZIP Co de Phone Number JASON JACK (MAULIK) 1 [facility] [place] [address] * Lactate dehydrogenase (LD) (04/28/2024 1:14 PM POST SECONDARY PROFESSIONAL) Lactate dehydrogenase (LDH) 156 100 - 250 Units/L Blood 04/28/2024 1:14 PM POST SECONDARY PROFESSIONAL 04/28/2024 1:21 PM POST SECONDARY PROFESSIONAL us Mario Ferguson MD LAB BLOOD ORDERABLES Fin al Result Performing Organization Address [facility] Co de Phone Number JASON JACK (PEEVER) 1 [facility] [place] [address] * IgA (04/28/2024 1:14 PM POST SECONDARY PROFESSIONAL) Immunoglobulin A 231 70 - 400 mg/dL Comment:Testing performed by : [facility], [address] [place] [address], [address] Blood 04/28/2024 1:14 PM POST SECONDARY PROFESSIONAL 04/28/2024 7:24 PM POST SECONDARY PROFESSIONAL us Mario Ferguson MD LAB BLOOD ORDERABLES Fin al Result Performing Organization Address [facility] Co de Phone Number JASON JACK (MAULIK) 1 [facility] [place] [address] * IgM (04/28/2024 1:14 PM POST SECONDARY PROFESSIONAL) Immunoglobulin M 48 40 - 150 mg/dL Comment:Testing performed by : [facility], [address] [place] [address], [place]., [address] Blood 04/28/2024 1:14 PM POST SECONDARY PROFESSIONAL 04/28/2024 7:24 PM POST SECONDARY PROFESSIONAL Mario Ferguson MD LAB BLOOD ORDERABLES Fin al Result Performing Organization Address City/[facility]/ZIP Co de Phone Number JASON JACK (MAULIK) 1 [facility] [place] [address] * IgG (04/28/2024 1:14 PM POST SECONDARY PROFESSIONAL) [facility] Immunoglobulin G 1,324 700 - 1,600 mg/dL Comment:Testing performed by : [facility], [address] [place] [address], [place]., [address] Blood 04/28/2024 1:14 PM POST SECONDARY PROFESSIONAL 04/28/2024 7:24 PM POST SECONDARY PROFESSIONAL Mario Ferguson MD LAB BLOOD ORDERABLES Fin al Result Performing Organization Address [facility] Co de Phone Number [facility] (MAULIK) 1 [place] [address] * Beta 2 microglobulin, serum (04/28/2024 1:14 PM POST SECONDARY PROFESSIONAL) [facility] Beta 2 Microglobulin, Serum 1.76 1.21 - 2.70 mcg/mL [facility] Comment: Test Performed by: [facility] [address] [place] [address] Diesel Mechanic Apprentice: Gini Duncan Ph.D.; CLIA# [id number] Blood 04/28/2024 1:14 PM POST SECONDARY PROFESSIONAL 04/28/2024 1:21 PM POST SECONDARY PROFESSIONAL Mario Ferguson MD LAB BLOOD ORDERABLES Fin al Result Performing Organization Address [facility] Co de Phone Number [facility] (MAULIK) 1 [place] [address] [place] [facility] * (ABNORMAL) Comprehensive metabolic panel (04/28/2024 1:14 PM POST SECONDARY PROFESSIONAL) [facility] Sodium 140 135 - 145 mmol/L Potassium, pl 3.3 3.3 - 4.9 mmol/L [facility] ([place]IK) Chloride 106 97 - 110 mmol/L [facility] ([place]) CO2 25 22 - 32 mmol/L [facility] ([place]) Anion gap 9 2 - 15 mmol/L [facility] ([place]) BUN 6 6 - 25 mg/dL [facility] (AMULIK) Creatinine 0.77 0.60 - 1.10 mg/dL CERNER [...] [facility] ([place]) Blood 04/28/2024 1:14 PM POST SECONDARY PROFESSIONAL 04/28/2024 1:21 PM POST SECONDARY PROFESSIONAL us Mario Ferguson MD LAB BLOOD ORDERABLES Fin al Result [facility] ([place]) 1 [facility] [place] [address] * (ABNORMAL) Urinalysis reflex to microscopic and culture Urine (04/21/2024 3:03 PM POST SECONDARY PROFESSIONAL) Color, ur Yellow Yellow Clarity, ur Clear [...] tendency for uric acid stone formation. Source: [facility] [employer] Current Interpretive Data was last revised on [...] [facility] ([place]) Urine 04/21/2024 3:03 PM POST SECONDARY PROFESSIONAL 04/21/2024 3:07 PM POST SECONDARY PROFESSIONAL us Catalina Casillas MD LAB MICROBIOLOGY - GENERA L ORDERABLES Final Result JASON JACK (MAULIK) 1 [facility] Department [place] [address] * (ABNORMAL) Drugs of Abuse Screen, Urine without Confirmation (04/21/2024 3:03 PM POST SECONDARY PROFESSIONAL) Amphetamine, ur Not Detected CutOff 500ng/mL Comment: [...] ur Not Detected CutOff 150ng/mL [facility] (MALUIK) Comment: Interpretive Data - Cocaine: Samples containing [...] Not Detected CutOff 100ng/mL JASON [facility] (PEEVER) Comment: Interpretive Data - Oxycodone: Samples containing greater than 100 ng/mL oxycodone or other cross-reacting compounds are reported as positive. False positive and false negative results are possible. Confirmatory testing required for definitive results. Current Interpretive Data was last reviewed 2022. Phencyclidine, ur Not Detected CutOff 25 ng/mL JASON [facility] (PEEVER) Comment: Interpretive Data - Phencyclidine: Samples containing [...] revised on 2017. Urine 04/21/2024 3:03 PM POST SECONDARY PROFESSIONAL 04/21/2024 3:08 PM POST SECONDARY PROFESSIONAL Narrative JASON [facility] (PEEVER) - 04/21/2024 3:38 PM POST SECONDARY PROFESSIONAL Drug of Abuse screening is performed by immunoassay for medical purposes only. This is not to be used for Pain Management purposes. Catalina Casillas MD LAB URINE ORDERABLES Es l Result JASON [facility] (PEEVER) 1 [facility] [place] [address] * (ABNORMAL) Urinalysis, microscopic only (04/21/2024 3:03 PM POST SECONDARY PROFESSIONAL) WBC, ur 0-5 0 - 5 /HPF RBC, ur 0-2 0 - 2 /HPF JASON [facility] (PE[place]) Epithelial cells, squamous, ur 1-5 0 - 5 /HPF JASON [facility] ([place]) Bacteria, ur Trace(A) JASON [facility] (PEEVER) Mucous, ur Present(A) JASON Huff (PEEVER) Culture Reflex Comment Reflex conditions for urine culture (WBC >10) not met. JASON JACK ([place]) Urine 04/21/2024 3:03 PM POST SECONDARY PROFESSIONAL 04/21/2024 3:07 PM POST SECONDARY PROFESSIONAL us Catalina Casillas MD LAB URINE ORDERABLES Es l Result JASON JACK (MAULIK) 1 [facility] Department [place] [address] * CT Lumbar Spine WO Contrast (04/21/2024 12:14 PM POST SECONDARY PROFESSIONAL) Anatomical Region Laterality Modality Spine N/A Computed Tomogra phy 04/21/2024 1:30 PM POST SECONDARY PROFESSIONAL Narrative 04/21/2024 1:38 PM POST SECONDARY PROFESSIONAL EXAM DESCRIPTION: CT LUMBAR SPINE WO CONTRAST [...] Hua Fiore M.D. RUBEN: RUBEN Report ID: [id number] Reading Location: [place] [address] Procedure Note Hua Fiore MD - 04/21/2024 [...] without and with contrast, to include multiplanar X3ykqochzrftye fat-saturated sequences, can be performed for further evaluation OTHER: No other significant finding. IMPRESSION: No acute fracture or subluxation of the lumbar spine with chronicfindings as above on unenhanced CT lumbar spine. THIS IS AN ELECTRONICALLY VERIFIED FINAL REPORT 04/21/2024 1:38 PM - Electronically signed by Hua Fiore M.D. RUBEN: RUBEN Report ID: [id number] Reading Location: [id number] Catalina Casillas MD IMG CT PROCEDURES Final R esult * CT Head WO Contrast (04/21/2024 12:14 PM POST SECONDARY PROFESSIONAL) Anatomical Region Laterality Modality Head and Neck N/A Computed Tomogra phy 04/21/2024 1:05 PM POST SECONDARY PROFESSIONAL Narrative 04/21/2024 1:12 PM POST SECONDARY PROFESSIONAL EXAM DESCRIPTION: CT HEAD WO CONTRAST REASON [...] Hua Fiore M.D. RUBEN: RUBEN Report ID: [id number] Reading Location: [id number] Procedure Note Hua Fiore MD - 04/21/2024 [...] Hua Fiore M.D. RUBEN: RUBEN Report ID: [id number] Reading Location: [place] [address] us Catalnia Casillas MD IMG CT PROCEDURES Final R esult * Sepsis Lactate w/ Reflex (04/21/2024 11:02 AM POST SECONDARY PROFESSIONAL) Pathologist [facility] Sepsis Lactate 1.3 0.7 - 2.0 mmol/L Blood 04/21/2024 11:0 2 AM POST SECONDARY PROFESSIONAL 04/21/2024 11:06 AM POST SECONDARY PROFESSIONAL us Catalina Casillas MD LAB BLOOD ORDERABLES Es l Result [facility] P[facility] 1 [facility] Department [place] [address] * eGFR (04/21/2024 11:02 AM POST SECONDARY PROFESSIONAL) Pathologist [facility] eGFR >90 >=60 mL/min/1. 73 m2 Comment: [...] reviewed 2021. Blood 04/21/2024 11:0 2 AM POST SECONDARY PROFESSIONAL 04/21/2024 11:06 AM POST SECONDARY PROFESSIONAL us Catalina Casillas MD LAB BLOOD ORDERABLES Es [place] Result JASON JACK (PEEVER) 1 [facility] [place] [address] * Differential, auto (04/21/2024 11:02 AM POST SECONDARY PROFESSIONAL) Neutrophil abs 3.4 1.5 - 6.5 K/cumm [...] on 2017. Blood 04/21/2024 11:0 2 AM POST SECONDARY PROFESSIONAL 04/21/2024 11:06 AM POST SECONDARY PROFESSIONAL us Catalina Casillas MD LAB BLOOD ORDERABLES Es l Result [facility]ON [facility] ([place]) 1 [facility] [place] [address] * CBC with auto differential (04/21/2024 11:02 AM POST SECONDARY PROFESSIONAL) WBC 6.2 3.8 - 9.9 K/cumm Hgb [...] RDW CV 13.7 11.1 - 14.9 % [facility] (MAULIK) RDW SD 46.3 35.7 - 48.1 fL [facility] ([place]) NRBC abs 0.00 0.00 - 0.01 K/cumm JASON [facility] ([place]) Blood 04/21/2024 11:0 2 AM POST SECONDARY PROFESSIONAL 04/21/2024 11:06 AM POST SECONDARY PROFESSIONAL Catalina Casillas MD LAB BLOOD ORDERABLES Es l Result Performing Organization Address City/[facility]/ZIP Co de Phone Number [facility] (PEEVER) 1 [facility] [address] * Protime-INR (04/21/2024 11:02 AM POST SECONDARY PROFESSIONAL) PT 11.7 9.7 - 13.0 sec JASON [facility] ([place]) INR 1.08 0.90 - 1.20 [facility] ([place]UL[place]) Comment: Interpretive data Oral anticoagulant therapeutic ranges: Venous thromboembolism prophylaxis or treatment: 2.0-3.0 CARDIOLOGY Standard range: 2.0-3.0 High-intensity range: 2.5-3.5 Refer to indication-specific guidelines for appropriate target ranges for prosthetic heart valve replacement. Current interpretive data was last revised on 2019. Blood 04/21/2024 11:0 2 AM POST SECONDARY PROFESSIONAL 04/21/2024 11:06 AM POST SECONDARY PROFESSIONAL Catalina Casillas MD LAB BLOOD ORDERABLES Es l Result Performing Organization Address City/[facility]/ZIP Co de Phone Number [facility] (PEEVER) 1 [place] [address] * (ABNORMAL) Comprehensive metabolic panel (04/21/2024 11:02 AM POST SECONDARY PROFESSIONAL) Sodium 136 135 - 145 mmol/L Potassium, pl 3.5 3.3 - 4.9 mmol/L [facility] ([place]ULIK) Chloride 104 97 - 110 mmol/L [...] [facility] ([place]) Blood 04/21/2024 11:0 2 AM POST SECONDARY PROFESSIONAL 04/21/2024 11:06 AM POST SECONDARY PROFESSIONAL us Catalina Casillas MD LAB BLOOD ORDERABLES Es [place] Result [facility]ON [facility] ([place]) 1 [facility] [place] [address] * Diagnostic Mammogram Bilateral W Chon (06/19/2022 [...] and children were not included. (Diabetes Care 31:2037-8976, 2008). The eAG is not equivalent to a fasting glucose. Blood 06/14/2021 9:56 AM CDT 06/14/2021 10:40 AM CDT Zeferino Bradshaw DO LAB BLOOD ORDERABLES Final Result JASON JACK ([facility]) 1 [facility] Department of Laboratories [place], [place] [id number] * (ABNORMAL) Lipid panel (06/14/2021 9:56 AM [...] 2017. Non-HDL Cholesterol 177 mg/dL JASON JACK ([facility]) Comment: Interpretive Data Ages < or = [...] on 2017. Chol/HDL ratio 4 TIFF JACK ([facility]) Blood 06/14/2021 9:56 AM CDT 06/14/2021 10:40 AM CDT us Zeferino Bradshaw DO LAB BLOOD ORDERABLES Final Result [facility]ON [facility] ([facility]) 1 [facility] [place] [address] * RPR (06/11/2021 2:43 PM CDT) RPR Nonreactive Nonreactive [facility] Blood 06/11/2021 2:43 PM CDT 06/11/2021 8:20 PM CDT us Elicia Sandoval MD LAB MICROBIOLOGY - GENER AL ORDERABLES Final Result [facility] Department [place] [address] * Dexa Axial Skeleton Bone Density 1 or 2 Site (11/24/2020 12:31 PM CDT) Anatomical Region Laterality Modality Body N/A Other 11/24/2020 12:4 1 PM CDT Narrative 11/24/2020 12:41 PM CDT EXAM DESCRIPTION: DEXA AXIAL SKELETON BONE DENSITY 1 OR MORE SITES REASON FOR STUDY: Post-menopausal female, screening for osteoporosis. Marine Biologist/Model: Hologic Horizon A (S/N [id number]) CLINICAL INFORMATION: Current height: 62 inches Maximum [...] by Francesco Ryan M.D. AB: Report ID: [id number] Reading Location: [id number] Procedure Note Francesco Ryan MD - 11/24/2020 EXAM DESCRIPTION: DEXA AXIAL SKELETON BONE DENSITY 1 OR MORE SITES REASON FOR STUDY: Post-menopausal female, screening for osteoporosis. Marine Biologist/Model: HoloCIDCO Horizon A (S/N [id number]) CLINICAL INFORMATION: Current height: 62 inches Maximum [...] by Francesco Ryan M.D. AB: Report ID: [id number] Reading Location: [id number] Zeferino Bradshaw DO IMG DXA PROCEDURES Final R esult * (ABNORMAL) Colonoscopy (08/17/2019) Anatomical Region Laterality Modality Other Historical Provider MD ENDOSCOPY PROCEDURES Es l Result from Last 3 Months or Most Recently Relevant to Health Maintenance Insurance [employer]TER [facility] [employer]TER [facility] Advance Directives For more information, please contact: [phone] * Full Code (Latest Code Status on File) Date Activated Date Inactivated Comments 07/18/2024 10:09 AM 07/19/2024 6:49 PM * Full Code Date Activated Date Inactivated Comments 08/02/2021 3:43 PM 08/05/2021 4:40 PM * Full Code Date Activated Date Inactivated Comments 05/05/2021 7:04 AM 05/08/2021 6:45 PM Care Teams Research Programmer Relationship Specialty Start Date End Date Unknown, Notinfile PCP - General 05/22/24 Unknown, Notinfile 05/22/24 Zeferino Bradshaw DO Internal Medicine 01/14/22 Randy Jasmine MD PhD [address] [place] [address] Radiation Oncologist Radiation Oncology 07/31/20 Juanjose Alcaraz MD [address] [place] [address] Referring Physician Medical Oncology 07/31/20 Miscellaneous, Not In File 09/15/20 Mario eDsai MD Referring Physician Neurosurgery 09/15/20 Francois Thompson MD Consulting Physician Infectious Diseases 05/08/21 Mario Ferguson MD [address] [facility] [place] [address] Consulting Physician Medical Oncology 03/31/24
--- OUTSIDE RECORDS SUMMARY | 2024-07-20 13:30 | XMS_ITS | Encounter Summary ---
Author Organization [facility] Address [address] [place] [address] Care Team Providers Care Carburetor Expert Name Role Phone Cathi Mcnally MD Primary Care Provider Kelly Henderson MD Unavailable [phone] Cathi Mcnally MD Primary Care Provider Kelly Henderson MD Unavailable [phone] Kelly Henderson MD Primary Care Provider Cathi Mcnally MD Primary Care Provider Kelly Henderson MD Primary Care Provider Cathi Mcnally MD Primary Care Provider Cathi Mcnally MD Primary Care Provider Troy ROCA MD, [place] Primary Care Provider + Jose Eduardo Ott MD Unavailable [phone] Kelly Henderson MD Primary Care Provider Reason for Visit * Reason Onset Date Comments Question 10/15/2017 Follow-up 10/15/2017 Encounter Details Date Type Department Care Team (Late st Contact Info) Description 10/15/2017 Telephone [facility] [address] 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 Kelly [...] Visit [facility] [address] [place] [address], [place] [id number] Germaine Monson MD [address] [place] [phone] documented as of this encounter Visit Diagnoses Not on filedocumented in this encounter Additional Health Concerns Infection Onset Date Last Indicated Resolved Time COVID-19 Under Investigation 08/14/2019 08/14/2019 08/15/2019 3:43 PM CDT COVID-19 Under Investigation 09/10/2019 09/10/2019 09/11/2019 11:18 PM CDT documented as of this encounter Care Teams Carburetor Expert Relationship Specialty Start Date End Date Cathi Mcnally MD PCP - General Internal Medicine 10/08/17 01/11/18 Cathi Mcnally MD NPI: [id number] PCP - General Internal Medicine 01/26/18 01/26/18 Kelly Henderson MD [address] [place] [address] PCP - General 01/27/18 03/09/18 Cathi Mcnally MD PCP - General Internal Medicine 03/10/18 03/10/18 Kelly Henderson MD [address] [place] [address] PCP - General 03/11/18 03/31/18 Cathi Mcnally MD PCP - General Internal Medicine 04/01/18 05/17/18 Cathi Mcnally MD PCP - General Internal Medicine 07/14/18 07/15/18 Sea Simmons III, MD [address] [place] [address] PCP - General Internal Medicine 05/05/19 06/07/19 Kelly Henderson MD [address] [place] [address] PCP - General 09/01/19 Kelly Henderson MD [address] [place] [address] Resident - PCP Internal Medicine 10/08/17 01/25/18 Kelly Henderson MD [address] [place] [address] Resident - PCP Internal Medicine 01/26/18 05/04/19 Jose Eduardo Ott MD [address] [place] [address] Resident - PCP Student Resident 05/05/19 documented as of this encounter
--- OUTSIDE RECORDS SUMMARY | 2024-07-20 13:30 | XMS_ITS | Referral Summary ---
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 Name Role Phone Unknown, Notinfile Primary Care Provider Unavail able Unknown, Notinfile Unavailable Unavailable Zeferino Bradshaw DO Unavailable [phone] [facility]andy quiles MD PhD Unavailable Juanjose Alcaraz MD Unavailable [phone] Miscellaneous, Not In File Unavailable Unava ilable Mario Desai MD Unavailable [phone] Francois Thompson MD Unavailable [phone] Mario Ferguson MD Unavailable Encounters Date Type Department Care Team Description 07/19/2024 Documentation [facility] ICU [address] [place] [id number] Amos Alexander RN 07/19/2024 Orders Only [address] [phone] Israel Mcdonald MD 07/19/2024 12:20 PM CDT - 07/19/2024 11:59 PM CDT Hospital Encounter [address] [phone] Exposure to blood-borne pathogen Discharge Disposition: Discharge to home or self care 07/19/[facility] [facility] (Third Floor) [place] [address] Israel Mcdonald MD Exposure to blood-borne pathogen (Primary Dx) 07/18/2024 7:51 AM CDT - 07/19/2024 2:49 PM CDT Hospital Encounter [facility] Medical Care [address] [place] [address] Israel Edmonds MD Bross, Lyric Joya, Rowena Connell MD Seizure (HCC) (Primary Dx) Discharge Disposition: Left Against Medical Advice 06/21/[address] [facility] [address] [place] [phone] Mario Ferguson 05/27/2024 8:59 AM [employer] - 05/27/2024 11:59 PM [employer]ICE [employer] Hospital Encounter [facility] Emergency, Room R Discharge Disposition: Discharge to home or self care 05/27/2024 Orders Only [facility] [address] [place] [phone] Francois Thompson MD Human immunodeficiency virus (HIV) (HCC) (Primary Dx) 04/30/2024 1:00 PM [employer]ICE [employer] Office Visit [facility] [address] [place] [phone] Mario Ferguson MD Plasma cell dyscrasia (Primary Dx); Elevated serum immunoglobulin free light chains 04/28/2024 1:05 PM [facility] Lab [address] [phone] Elevated serum immunoglobulin free light chains; Plasma cell dyscrasia 04/28/[address] [facility] [address] [place] [phone] Hua Gramajo RN 04/21/2024 10:40 AM [employer]ICE [employer] - 04/21/2024 5:37 PM [employer]ICE [employer] Emergency [facility] Emergency Department [address] [place] [address] Catalina Casillas MD Schwannoma (Primary Dx); Weakness [...] heart attacks and has never seen a carbon dioxide operator. Last Assessment & Plan: Ordered a [...] heart attacks and has never seen a carbon dioxide operator. Housing instability, housed unspecified 03/03/20 23 Overview (04/05/2024): 03/03/2023: Moved to [place] from [place], [place] (by way of [place], [place]). Reports that she has section 8 housing voucher, currently working on finding housing. Currently staying at [facility] until she finds more consistent housing. Currently has [place] medicaid. She was interested in obtaining resources in [place] and [facility] including [place] Medicaid and local housing voucher. Presented with [...] that she has been working with her [facility] social media content manager and that she has been very helpful. She states that she needs paperwork filled out so that she has reasonable accommodations provided given that she has an electric wheelchair. However, the patient states her electric wheelchair is currently in [place] and she has been walking on her own. She states that she needs a 2 bedroom apartment because 1 of her 3 daughters is moving here from [place] to help take care of her. When [...] counseling. Assessment & Plan (05/23/2022 4:10 PM [employer]): Wt Readings from Last 3 Encounters: 05/02/22 85.7 kg (189 lb) 03/26/22 84.4 kg (186 lb) 03/26/22 84.4 kg (186 lb) BMI Readings from Last 3 Encounters: 05/02/22 34.57 kg/m 03/26/22 34.02 kg/m 03/26/22 34.02 kg/m Not at goal of bmi <30 Continue diet and exercise BMI Follow-up includes: nutrition counseling and exercise counseling. Assessment & Plan (05/02/2022 2:38 PM [employer]): Wt Readings from Last 3 Encounters: 05/02/22 [...] 05/08/2021 Assessment & Plan (05/08/2021 8:45 AM [employer]ICE [employer]): EEG during episode of seizure activity showed [...] 12/29/2019 Assessment & Plan (05/23/2022 4:10 PM [employer]): BP Readings from Last 3 Encounters: 05/23/22 136/78 05/02/22 130/84 03/27/22 (!) 171/111 Vitals BP 136/78 (BP Location: Left arm, Patient Position: Sitting) Pulse 85 SpO2 94% Lab Results Component Value Date POTASSIUM 3.3 03/26/2022 At goal at this time Assessment & Plan (05/02/2022 1:52 PM [employer]): BP Readings from Last 3 Encounters: 05/02/22 [...] now Assessment & Plan (05/07/2021 10:07 PM [employer]ICE [employer]): Continue patient's home medication lisinopril 20 mg q.d. Assessment & Plan (05/07/2021 6:54 PM [employer]): Continue patient's home medication lisinopril 20 mg q.d. Assessment & Plan (05/05/2021 5:39 PM [employer]): Continue patient's home medication lisinopril 20 mg q.d. Assessment & Plan (07/09/2020 11:58 PM CDT): - well controlled on current medications - current medication Lisinopril 20mg daily - continue current medication - check BP regularly at home - follow a low salt diet Assessment & Plan (04/03/2020 12:17 PM [employer]): - well controlled on current medications - current medication Lisinopril 20mg daily Assessment & Plan (12/29/2019 12:13 PM CDT): - suboptimal control - refilled lisinopril 20 mg once daily - will need to be addressed fully on another visit Tardive dyskinesia 12/29/2019 Assessment & Plan (05/07/2021 10:08 PM [employer]): acute dystonia vs tardive dyskinesia Patient was [...] treatments. Assessment & Plan (05/07/2021 6:54 PM [employer]): acute dystonia vs tardive dyskinesia Patient was [...] treatments. Assessment & Plan (05/06/2021 3:36 PM [employer]): acute dystonia vs tardive dyskinesia Patient was [...] treatments. Assessment & Plan (05/06/2021 7:31 AM [employer]ICE [employer]): Lip smacking .... Assessment & Plan (12/29/2019 [...] magnesium. Assessment & Plan (03/29/2020 1:59 PM [employer]ICE [employer]): - patient takes potassium supplements 10meq BID PRN when she has muscle cramps Assessment & Plan (12/29/2019 12:17 PM CDT): - patient takes potassium supplement when she has muscle cramps COPD (chronic obstructive pulmonary disease) (CM S/HCC) 12/24/2019 Assessment & Plan (05/05/2021 7:50 PM [employer]ICE [employer]): Duo-nebs Q4 PRN Assessment & Plan (04/03/2020 12:33 PM [employer]): - stable, no changes made to medications [...] predominating Assessment & Plan (05/07/2021 10:07 PM [employer]ICE [employer]): 04/2020 MRI of total spine showed - [...] hold Assessment & Plan (05/07/2021 6:54 PM [employer]ICE [employer]): 04/2020 MRI of total spine showed - [...] TID Assessment & Plan (05/05/2021 6:17 PM [employer]ICE [employer]): 04/2020 MRI of total spine showed - [...] 06/16/2019 Assessment & Plan (05/05/2021 6:09 PM [employer]): citalipram 10 mg qhs Tobacco abuse 06/16/2019 Vitamin D deficiency 06/16/2019 Assessment & Plan (04/03/2020 12:20 PM [employer]): - history of vitamin D deficiency - she is not on vitamin D supplementation at this time - will check vitamin D level and supplement if needed Hyperglycemia 06/16/2019 Brain mass 05/18/2019 Assessment & Plan (05/05/2021 8:00 PM [employer]ICE [employer]): Patient has a history of schwannoma . [...] 09/01/2013 Assessment & Plan (05/23/2022 4:11 PM [employer]): Lab Results Component Value Date HGBA1C 5.5 06/14/2021 HGBA1C 5.7 (H) 06/11/2021 HGBA1C 5.7 (H) 05/05/2021 Lab Results Component Value Date LDLCALC 159 (H) 06/14/2021 CREATININE 0.72 03/26/2022 At goal at this time, but needs repeat Continue current regimen Assessment & Plan (05/02/2022 1:53 PM [employer]ICE [employer]): Lab Results Component Value Date HGBA1C 5.5 [...] visit. Assessment & Plan (05/05/2021 6:12 PM [employer]ICE [employer]): -Albuterol MDI Q2 PRN for SOB Scoliosis 11/26/2011 Non-intractable vomiting with nausea 11/26/2011 Assessment & Plan (05/07/2021 10:06 PM [employer]ICE [employer]): Patient arrived w/ 1 day of nausea and vomiting. She reports this has had chronic emesis off and on since may of 2019 but has never been diagnosed with with a particular disorder/cause. She has chronically been taking ondansetron. 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 Reported to eating spagetti prior to presentation but denies other sick contacts. Emesis is non-bloody. -Compazine 10 mg q.4h prn on hold -ondansetron 4 mg q.4 prn -tolerating adult diet Assessment & Plan (05/07/2021 6:50 PM VICE [employer]): Patient arrived w/ 1 day of nausea and vomiting. She reports this has had chronic emesis off and on since may of 2019 but has never been diagnosed with with a particular disorder/cause. She has chronically been taking ondansetron. 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 Reported to eating spagetti prior to presentation but denies other sick contacts. Emesis is non-bloody. -Compazine 10 mg q.4h prn on hold -ondansetron 4 mg q.4 prn -tolerating adult diet Assessment & Plan (05/06/2021 2:48 PM VICE [employer]): Patient arrived w/ 1 day of nausea and vomiting. She reports this has had chronic emesis off and on since may of 2019 but has never been diagnosed with with a particular disorder/cause. She has chronically been taking ondansetron. 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 Reported to eating spagetti prior to presentation but denies other sick contacts. Emesis is non-bloody. -Compazine 10 mg q.4h prn -ondansetron 4 mg q.4 prn Diarrhea 11/26/2011 Assessment & Plan (05/07/2021 10:06 PM VICE PRESIDENT [employer]): Patient arrived w/ 1 day of nausea [...] pending Assessment & Plan (05/07/2021 6:51 PM VICE PRESIDENT [employer]): Patient arrived w/ 1 day of nausea [...] pending Assessment & Plan (05/05/2021 7:58 PM VICE PRESIDENT [employer]): Patient arrived w/ 1 day of nausea [...] up. Assessment & Plan (05/02/2022 2:32 PM VICE PRESIDENT [employer]): I would recommend psychiatric evaluation but patient does not want to see a psychaitrist Seizure ([facility]) 08/07/2011 Assessment & Plan (05/07/2021 6:59 PM VICE PRESIDENT [employer]): Patient reports to not currently taking any [...] input Assessment & Plan (05/06/2021 3:45 PM VICE PRESIDENT [employer]): Patient reports to not currently taking any [...] she only takes once daily and bray [employer] working well for her - she is [...] future. 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, tried multiple medications but at this time all she wants is hydrocodone - didn't want to be on other medications at all She states that all her previous pain management don't want to give her narcotics Assessment & Plan (04/03/2020 12:19 PM VICE PRESIDENT [employer]): - she has chronic back pain and has been referred to pain management in the past - she also has Fibromyalgia - she has not found a pain management physician and last one had problem with medication - at this time I am refilling her medications until she is established with one - continue with the [place] 10-325 mg BID PRN for pain - [...] other doctors Or infectios disease Moving to [facility] 30 days Unsure who was filling this previously Assessment & Plan (05/07/2021 10:08 PM VICE PRESIDENT [employer] BANK): -Genvoya Q.d. -side effects include nausea and diarrhea. -placed percocet on hold- strong risk of increased serum concentration of percocet with concurrent use. Assessment & Plan (05/07/2021 6:58 PM VICE PRESIDENT [employer]): -Genvoya Q.d. -side effects include nausea and diarrhea. -placed percocet on hold- strong risk of increased serum concentration of percocet with concurrent use. Assessment & Plan (05/05/2021 8:01 PM VICE PRESIDENT [employer]): Restarted patient's home medication Genvoya Q.d. -side effects including nausea and diarrhea. Assessment & Plan (03/29/2020 1:58 PM VICE PRESIDENT [employer]): - Following with Infectious Diseases - follows [...] 08/06/2006 Assessment & Plan (05/05/2021 7:50 PM VICE PRESIDENT [employer]CIAL BANK): Previously positive for marijuana and opiate. Patient [...] needed. Assessment & Plan (04/11/2020 9:51 AM VICE PRESIDENT COMM[employer]CIAL BANK): Doing well following orbitotomy and lesion excision on 03/31/2020. Preliminary pathology results show likely schwannoma. We will await final path and she will return in 4-6 weeks. 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 Additionally, she demonstrates lesions of the left pterygopalatine fossa, and along the left cavernous sinus. 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 Assessment & Plan (05/07/2021 6:55 PM VICE PRESIDENT [employer]CIAL BANK): Citalopram 10 mg q.h.s. Assessment & Plan (05/05/2021 5:40 PM VICE PRESIDENT [employer]): Citalopram 10 mg q.h.s. Abnormality of gait and mobility 12/29/2019 05/02/2022 Assessment & Plan (04/03/2020 12:22 PM VICE PRESIDENT [employer]): - currently has a wheeled walker - [...] 022 Assessment & Plan (05/06/2021 3:23 PM VICE PRESIDENT [employer]): Patient has not complained of pain while [...] having N/V/D and this was found at [facility] on [facility] scan. Allergic conjunctivitis of both eyes 09/01/2013 04/03/2020 Allergic rhinitis 09/01/2013 05/02/2022 Assessment & Plan (03/29/2020 2:13 PM VICE PRESIDENT [employer]CIAL BANK): - well controlled with current medications - [...] drink = 0.6 oz pur e alcohol) [facility] Answer Date Recorded In the past 12 months has [employer], [employer], oil, or water [employer] threatened to shut off services in your [...] often do you attend chur ch or yazidism services? Never 07/19/2024 Do you belong to any clubs o r organizations such as religion groups, unions, fraternal or athletic groups, or [...] any time in the past 12 m [facility], were you homeless or living in a long-term (including now)? No 07/19/2024 Personal Safety Answer Date Recorded Have you ever been in or are you currently in a harmful physical or emotional relationship or is someone making you feel afraid or unsafe? Denies 07/18/2024 Comments No Sex and Gender Information Value Date Recorded Sex Assigned at Not on file Legal Sex Female 1:20 AM VICE PRESIDENT COMM[employer]CIAL BANK Gender Identity Not on file Sexual Orientation [...] CLINICAL PATHOLOGY REPORT Routine 04/28/2024 1:14 PM VICE PRESIDENT [employer]CIAL BANK EGFR STAT 04/28/2024 1:14 PM VICE PRESIDENT [employer] BANK Elevated serum immunoglobulin free light chains DIFFERENTIAL AUTO STAT 04/28/2024 1:1 4 PM VICE PRESIDENT [employer] Elevated serum immunoglobulin free light chains IMMUNOTYPING Routine 04/28/2024 1:14 PM VICE PRES[employer] Plasma cell dyscrasia PROTEIN ELECTROPHORESIS, WITH REFLEX, SERUM STAT 04/28/2024 1:14 PM VICE PRESIDENT [employer] Elevated serum immunoglobulin free light chains LACTATE DEHYDROGENASE STAT 04/28/2024 1:14 PM [employer]ICE PRES[employer] Elevated serum immunoglobulin free light chains IMMUNOGLOBULIN FREE LIGHT CHAINS STAT 04/28/2024 1:14 PM VICE PRESIDENT [employer]ANK Elevated serum immunoglobulin free light chains IGM STAT 04/28/2024 1:14 PM VICE PRESIDENT [employer]ANK Elevated serum immunoglobulin free light chains IGG STAT 04/28/2024 1:14 PM VICE PRESIDENT [employer]ANK Elevated serum immunoglobulin free light chains IGA STAT 04/28/2024 1:14 PM VICE PRES[employer] Elevated serum immunoglobulin free light chains COMPREHENSIVE METABOLIC PANEL STAT 04/28/2024 1:14 PM VICE PRES[employer] Elevated serum immunoglobulin free light chains CBC WITH AUTO DIFFERENTIAL STAT 04/28/2024 1:14 PM VICE PRES[employer] Elevated serum immunoglobulin free light chains BETA 2 MICROGLOBULIN SERUM STAT 04/28/2024 1:14 PM [employer]ICE [employer] Elevated serum immunoglobulin free light chains URINALYSIS, MICROSCOPIC ONLY STAT 04/21/2024 3:03 PM VICE PRESIDENT [employer] DRUGS OF ABUSE SCREEN, URINE WITHOUT CONFIRMATION STAT 04/21/2024 3:03 PM VICE PRESIDENT [employer] URINALYSIS AND REFLEX TO MICROSCOPIC AND CULTURE STAT 04/21/2024 3:03 PM VICE PRESIDENT [employer] CT LUMBAR SPINE WO CONTRAST ED 04/21/2024 12:14 PM VICE PRESIDENT COMMER[employer]ANK CT HEAD WO CONTRAST ED 04/21/2024 12:14 PM VICE PRESIDENT [employer]ANK EGFR STAT 04/21/2024 11:02 AM VICE PRESIDENT [employer]CIAL BANK DIFFERENTIAL AUTO STAT 04/21/2024 11:02 AM VICE PRESIDENT [employer]CIAL BANK PROTIME-INR STAT 04/21/2024 11:02 AM VICE PRESIDENT [employer]ANK SEPSIS LACTATE WITH REFLEX STAT 04/21/2024 11:02 AM VICE PRESIDENT [employer] COMPREHENSIVE METABOLIC PANEL STAT 04/21/2024 11:02 AM VICE PRESIDENT [employer] CBC WITH AUTO DIFFERENTIAL STAT 04/21/2024 11:02 AM VICE PRESIDENT [employer]CIAL [employer]ANK DIAGNOSTIC MAMMOGRAM BILATERAL W CHON Schedule Routine, [...] last revised on 2019. Testing performed by: [facility], [address] [place] [address]., [id number] Blood 07/19/2024 12:4 6 PM CDT 07/19/2024 6:40 PM CDT Narrative J[facility] ([place]) - 07/19/2024 7:45 PM CDT Bill to [facility] [employer] [facility] Patient is employed by/enrolled at:->[facility] Israel Mcdonald MD LAB MICROBIOLOGY - GENERAL OR DERABLES Final Result Performing Organization Address City/[facility]/ZIP Co de Phone Number JASON JACK ([place]) [address] [place] [address] [email or web address] [address] * Hepatitis B Surface Antigen Blood (07/19/2024 12:46 PM CDT) HepBsAg Nonreactive Nonreactive Comment:Testing performed by : [facility], [address] [place] [address]., [id number] Blood 07/19/2024 12:4 6 PM CDT 07/19/2024 6:40 PM CDT Narrative [facility] ([place]) - 07/19/2024 7:45 PM CDT Bill to [facility] [employer] Patient is employed by/enrolled at:->[facility] Israel Mcdonald MD LAB MICROBIOLOGY - GENERAL OR DERABLES Final Result [facility]ON [facility] ([place]) 1 [facility] [email or web address] [address] * eGFR (07/19/2024 4:56 AM CDT) eGFR [...] Oscar MD LAB BLOOD ORDERABLES nal Result [facility] ([place]) 1 [facility] Department [place] [address] * Differential, auto (07/19/2024 4:56 AM CDT) [...] Neutrophil pct 40.5 % [facility] ([place]) Comment: Interpretive Data Percent cell count reference [...] ORDERABLES nal Result JASON JACK ([place]) 1 [facility] Department [place] [address] * CBC with auto differential (07/19/2024 4:56 AM CDT) WBC 5.44 3.80 - 9.90 K/cumm Hgb 13.0 11.9 - 15.5 g/dL [facility] ([place]) Hct 37.2 35.6 - 45.5 % [facility] ([place]) Plt 199 150 - 400 K/cumm [facility] ([place]) MPV 10.0 9.1 - 12.3 fL [facility] ([place]) RBC 3.97 3.90 - 5.20 M/cumm [facility] ([place]) MCV 93.7 81.3 - 96.4 fL [facility] ([place]) MCH 32.7 27.1 - 33.3 pg [facility] ([place]) MCHC 34.9 32.3 - 35.7 g/dL [facility] ([place]) RDW CV 13.3 11.1 - 14.9 % [facility] ([place]) RDW SD 46.0 35.7 - 48.1 fL [facility] ([place]) NRBC abs 0.00 0.00 - 0.01 K/cumm [facility] ([place]) Blood 07/19/2024 4:56 AM CDT 07/19/2024 5:31 AM CDT Davi Oscar MD LAB BLOOD ORDERABLES Fi nal Result [facility] ([place]) 1 [facility] [email or web address] [address] * Magnesium (07/19/2024 4:56 AM CDT) Pathologist [facility] Magnesium 2.0 1.4 - 2.5 mg/dL Blood 07/19/2024 4:56 AM CDT 07/19/2024 5:32 AM CDT Davi Oscar MD LAB BLOOD ORDERABLES Fi nal Result [facility] ([place]) 1 [facility] [employer] [place] [address] * (ABNORMAL) Comprehensive metabolic panel (07/19/2024 4:56 AM CDT) Sodium 141 135 - 145 mmol/L Potassium, pl 3.6 3.3 - 4.9 mmol/L [facility] ([place]) Chloride 108 97 [...] Fi nal Result [facility] ([place]) 1 [facility] Department [place] [address] * POCT glucose (07/19/2024 2:27 AM CDT) Glucose, POC 104 70 - 199 mg/dL Blood 07/19/2024 2:27 AM CDT 07/19/2024 2:27 AM CDT Lyric Pastor MD LAB POCT ORDERABLES - DEV ICE Final Result JASON [facility] ([place]) 1 [facility] Department [place] [address] * (ABNORMAL) Urinalysis reflex to microscopic and [...] tendency for uric acid stone formation. Source: [facility] [employer] Current Interpretive Data was last revised on [...] RDERABLES Final Result JASON JACK ([place]) 1 [facility] Department [place] [address] * (ABNORMAL) Drugs of Abuse Screen, Urine [...] AM CDT 07/18/2024 10:19 AM CDT [facility]ative [facility] - 07/18/2024 10:45 AM CDT Drug of Abuse screening is performed by immunoassay for medical purposes only. This is not to be used for Pain Management purposes. Israel Edmonds MD LAB URINE ORDERABLES Final R esult Performing Organization Address [facility] Co de Phone Number JASON [facility] ([place]) [address] [place] [address] * (ABNORMAL) Urinalysis, microscopic only (07/18/2024 10:16 AM CDT) WBC, ur 0-5 0 - 5 /HPF RBC, ur 0-2 0 - 2 /HPF JASON [facility] ([place]) Epithelial cells, squamous, ur 1-5 0 - 5 /HPF JASON [facility] ([place]) Mucous, ur Present(A) [facility] A ([place]) Culture Reflex Comment Reflex conditions for urine culture (WBC >10) not met. JASON [facility] ([place]) Urine 07/18/2024 10:1 6 AM CDT 07/18/2024 10:19 AM CDT Israel Edmonds MD LAB URINE ORDERABLES Final R esult Performing Organization Address [facility] Co de Phone Number JASON [facility] ([place]) [address] [place] [address] * XR Chest 1 View (07/18/2024 8:56 AM CDT) Anatomical Region Laterality Modality Body, Chest N/A Computed Radiogr aphy 07/18/2024 9:09 AM CDT Narrative 07/18/2024 9:09 AM CDT EXAM DESCRIPTION: XR CHEST 1 VIEW REASON FOR STUDY: chest pain Patient presents to the ED states at the front sight attacher that she thinks she is going to [...] Scot Murguia M.D. RB: RENETTA Report ID: [id number] Reading Location: [id number] Procedure Note Scot Murguia MD - 07/18/2024 EXAM DESCRIPTION: XR CHEST 1 VIEW REASON FOR STUDY: chest pain Patient presents to the ED states at the front sight attacher that she thinks she is going to [...] Scot Murguia M.D. RB: RENETTA Report ID: [id number] Reading Location: [id number] us Israel Edmonds MD IMG XR PROCEDURES Final Resu lt * CT Cervical Spine WO Contrast (07/18/2024 8:32 AM CDT) Anatomical Region Laterality Modality Spine N/A Computed Tomogra phy 07/18/2024 8:40 AM CDT Narrative 07/18/2024 8:45 AM CDT EXAM DESCRIPTION: CT CERVICAL SPINE WO CONTRAST REASON FOR STUDY: Neck pain, acute, no red flags Patient presents to the ED states at the front sight attacher that she thinks she is going to [...] Scot Murguia M.D. RB: RENETTA Report ID: [id number] Reading Location: [id number] Procedure Note Scot Murguia MD - 07/18/2024 EXAM DESCRIPTION: CT CERVICAL SPINE WO CONTRAST REASON FOR STUDY: Neck pain, acute, no red flags Patient presents to the ED states at the front sight attacher that she thinks she is going to [...] Scot Murguia M.D. RB: RENETTA Report ID: [id number] Reading Location: [id number] us Israel Edmonds MD IMG CT PROCEDURES Final Resu lt * CT Head WO Contrast (07/18/2024 8:32 AM CDT) Anatomical Region Laterality Modality Head and Neck N/A Computed Tomogra phy 07/18/2024 8:36 AM CDT Narrative 07/18/2024 8:40 AM CDT EXAM DESCRIPTION: CT HEAD WO CONTRAST REASON FOR STUDY: Headache, sudden, severe Patient presents to the ED states at the front sight attacher that she thinks she is going to [...] Scot Murguia M.D. RB: RENETTA Report ID: [id number] Reading Location: [id number] Procedure Note Scot Murguia MD - 07/18/2024 EXAM DESCRIPTION: CT HEAD WO CONTRAST REASON FOR STUDY: Headache, sudden, severe Patient presents to the ED states at the front sight attacher that she thinks she is going to [...] Scot Murguia M.D. RB: RENETTA Report ID: [id number] Reading Location: [place] [address] Israel Edmonds MD IMG CT PROCEDURES Final Resu lt * Troponin T high-sensitivity series (baseline, 2hr, 4hr, 6hr) (07/18/2024 8:15 AM CDT) [facility] Trop T hs <6 <=14 ng/L Comment: Interpretive Data For further hscTnT resources including the diagnostic algorithm and an aid in interpretation, copy and paste this link: [email or web address]://[email or web address].testcatalog.org/show/hsTrop Current Interpretive Data last revised 2020. Blood 07/18/2024 8:15 AM CDT 07/18/2024 8:21 AM CDT Israel Edmonds MD LAB BLOOD ORDERABLES Final R esult [facility] [place] 9 [facility] Department [place] [address] * Sepsis Lactate w/ Reflex (07/18/2024 8:15 AM CDT) Sepsis Lactate 1.1 0.7 - 2.0 mmol/L Blood 07/18/2024 8:15 AM CDT 07/18/2024 8:21 AM CDT us Israel Edmonds MD LAB BLOOD ORDERABLES Final R esult [facility] [place] 1 [facility] Department [place] [address] * Pro B-type natriuretic peptide (07/18/2024 8:15 [...] LAB BLOOD ORDERABLES Final R esult [facility] [place] 1 [facility] [employer] [place] [address] * Magnesium (07/18/2024 8:15 AM CDT) Magnesium 1.8 1.4 - 2.5 mg/dL Blood 07/18/2024 8:15 AM CDT 07/18/2024 8:21 AM CDT Israel Edmonds MD LAB BLOOD ORDERABLES Final R esult Performing Organization Address [facility] Co de Phone Number [facility] [place] 1 [place] [address] * eGFR (07/18/2024 7:59 AM CDT) eGFR [...] ORDERABLES Final R esult J[facility]ON JACK ([place]) 1 [facility] Department [place] [address] * Differential, auto (07/18/2024 7:59 AM CDT) Neutrophil abs 3.59 1.50 - 6.50 K/cumm Imm gran abs 0.01 0.00 - 0.10 K/cumm [facility] ([place]) Lymphocyte abs 2.54 0.80 - 3.30 K/cumm [facility] ([place]) Monocyte abs 0.43 0.20 - 0.80 K/cumm [facility] ([place]) Eosinophil abs 0.03 0.00 - 0.50 K/cumm [facility] ([place]) Basophil abs 0.03 0.00 - 0.10 K/cumm [facility] ([place]) Neutrophil pct 54.0 % [facility] R [facility] ([place]) Comment: Interpretive Data Percent cell count reference ranges are not reported, since discordance with absolute values may lead to misinterpretation of CBC data. Current Interpretive Data was last revised on 2017. Imm gran pct 0.2 % [facility] ([place]) Comment: Interpretive Data Percent cell count reference ranges are not reported, since discordance with absolute values may lead to misinterpretation of CBC data. Current Interpretive Data was last revised on 2017. Lymphocyte pct 38.3 % [facility] ([place]) Comment: Interpretive Data Percent cell count reference ranges are not reported, since discordance with absolute values may lead to misinterpretation of CBC data. Current Interpretive Data was last revised on 2017. Monocyte pct 6.5 % [facility] ([place]) Comment: Interpretive Data Percent cell count reference ranges are not reported, since discordance with absolute values may lead to misinterpretation of CBC data. Current Interpretive Data was last revised on 2017. Eosinophil pct 0.5 % [facility] ([place]) Comment: Interpretive Data Percent cell count reference [...] Final R esult [facility] ([place]) 1 [facility] Department [place] [address] * CBC with auto differential (07/18/2024 7:59 [...] R esult Performing Organization Address [facility]/ZIP Co de Phone Number JASON JACK ([place]) 1 [facility] [employer] [place] [address] * Erythrocyte sedimentation rate (07/18/2024 7:59 AM CDT) Erythrocyte sedimentation rate 20 1 - 30 mm/hr Blood 07/18/2024 7:59 AM CDT 07/18/2024 8:34 AM CDT Israel Edmonds MD LAB BLOOD ORDERABLES Final R esult Performing Organization Address [facility] Co de Phone Number J[facility]ON JACK ([place]) 1 [facility] [employer] [place] [address] * CRP (acute phase) (07/18/2024 7:59 AM CDT) CRP 7.4 <=10.0 mg/L Blood 07/18/2024 7:59 AM CDT 07/18/2024 8:34 AM CDT Israel Edmonds MD LAB BLOOD ORDERABLES Final R esult Performing Organization Address [facility] Co de Phone Number [facility]ON [facility] ([place]) 1 [facility] [employer] [place] [address] * Ethanol (07/18/2024 7:59 AM CDT) Ethanol <10 <=10 mg/dL Comment: Interpretive Data Legal limit of intoxication > or = 80 mg/dL Levels > or = 400 mg/dL are potentially TOXIC. Current interpretive data was last revised on 2018. Blood 07/18/2024 7:59 AM CDT 07/18/2024 8:02 AM CDT Israel Edmonds MD LAB BLOOD ORDERABLES Final R esult Performing Organization Address City/[facility]/ZIP Co de Phone Number JASON JACK ([place]) 1 [facility] [employer] [place] [address] * (ABNORMAL) Comprehensive metabolic panel (07/18/2024 7:59 [...] ORDERABLES Final R esult Performing Organization Address City/[facility]/ZIP Co de Phone Number [facility] ([place]) 1 [facility] Department [place] [employer] [place] [address] * ECG 12 lead (07/18/2024 7:55 AM CDT) 07/18/2024 7:55 AM CDT Narrative [facility] - 07/19/2024 7:21 AM CDT Vent Rate: 86 bpm RR Interval: 691 msec [place] Interval: 187 msec QRS Duration: 101 msec QT Interval: 360 msec QTC Interval: 404 msec P-R-T [place]: 75 - -44 - 43 degrees IMPRESSION: [...] Final Result Performing Organization Address [facility] Co de Phone Number [facility] [employer] [facility] * Immunotyping, serum with interpretation (04/28/2024 1:14 PM [employer]) Immunofixation See Cl Path Rpt Comment:Testing performed by : [facility], [address] [place] [address]., [id number] Blood 04/28/2024 1:14 PM [employer] 04/28/2024 7:24 PM [employer] Mario Ferguson MD LAB BLOOD ORDERABLES Fin al Result Performing Organization Address [facility] Co de Phone Number [facility] ([place]) 1 [facility] Department [place] [address] * Clinical pathology report (04/28/2024 1:14 PM [employer]) Miscellaneous 04/28/2024 1:1 4 PM [employer] 04/29/2024 8:09 AM [employer] [employer] Narrative 05/02/2024 10:47 AM [employer] EPIC results best viewed via link to PDF [facility] Department of Pathology [address] [place] [address] Final Report Note to Patients: This report [...] the details. Patient Name: MARE RANGEL Address: [address] [place] [id number] Gender: F : 1970 (Age: 54) Service: Location: N : [id number] Hospital #: [id number] Patient Type: [facility] ANCILLARY Taken: 04/28/2024 Received: 04/29/2024 Accessioned: 04/29/2024 Physician(s): Mario Ferguson M.D. [facility] Specimen(s) Received A: Blood (serum) Serum [...] determined by the Surgical Pathology Department at [facility] as part of an ongoing quality nurse program and in compliance with federally mandated [...] characteristics determined by the Surgical Pathology Department [facility]. It has not been cleared or approved by the U. S. Food and Drug Administration. REPORT IMAGES AND SCANNED DOCUMENTS, IF INCLUDED, ONLY VIEWABLE IN PDF VERSION OF REPORTe o Mario Ferguson MD LAB PATHOLOGY ORDERABLES Final Result * eGFR (04/28/2024 1:14 PM [employer]) eGFR 90 >=60 mL/min/1. 73 m2 Comment: [...] last reviewed 2021. Blood 04/28/2024 1:14 PM [employer] 04/28/2024 1:21 PM [employer] us Mario Ferguson MD LAB BLOOD ORDERABLES Fin al Result [facility] ([place] 1 [facility] Department [place] [address] * Differential, auto (04/28/2024 1:14 PM [employer]) Neutrophil abs 3.2 1.5 - 6.5 K/cumm Imm gran abs 0.0 0.0 - 0.1 K/cumm [facility] ([place]) Lymphocyte abs 3.3 0.8 - 3.3 K/cumm [facility] ([place]) Monocyte abs 0.3 0.2 - 0.8 K/cumm [facility] ([place]) Eosinophil abs 0.1 0.0 - 0.5 K/cumm [facility] ([place]) Basophil abs 0.0 0.0 - 0.1 K/cumm [facility] ([place]) Neutrophil pct 45.8 % [facility] ([place]) Comment: Interpretive Data Percent cell count reference ranges are not reported, since discordance with absolute values may lead to misinterpretation of CBC data. Current Interpretive Data was last revised on 2017. Imm gran pct 0.3 % [facility] ([place]) Comment: Interpretive Data Percent cell count reference ranges are not reported, since discordance with absolute values may lead to misinterpretation of CBC data. Current Interpretive Data was last revised on 2017. Lymphocyte pct 48.1 % [facility] ([place]) Comment: Interpretive Data Percent cell count reference ranges are not reported, since discordance with absolute values may lead to misinterpretation of CBC data. Current Interpretive Data was last revised on 2017. Monocyte pct 4.6 % [facility] ([place]) Comment: Interpretive Data Percent cell count reference [...] revised on 2017. Blood 04/28/2024 1:14 PM [employer] 04/28/2024 1:21 PM [employer] Mario Ferguson MD LAB BLOOD ORDERABLES Fin al Result Performing Organization Address [facility] Co de Phone Number JASON JACK ([place]) 1 [facility] [email or web address] [address] * (ABNORMAL) Immunoglobulin free light chains (04/28/2024 1:14 PM [employer]) Manning/Lambda ratio 1.40 0.26 - 1.65 Comment:Testing performed by : [facility], [address] [place] [address]., [id number] Manning free light chain 2.19(H) 0.33 - 1.94 mg/dL JASON JACK ([place]) Comment: Interpretive Data The [employer] Manning FLC assay procedure was used. Results from different manufacturers or methods may not be comparable. Serial testing should be performed using the same method. Testing performed by: [facility], [address] [place] [address]., [id number] Lambda free light chain 1.59 0.57 - 2.63 mg/dL JASON JACK ([place]) Comment: Interpretive Data The [employer] Ig Lambda FLC assay procedure was used. Results from different manufacturers or methods may not be comparable. Serial testing should be performed using the same method. Testing performed by: [facility], [address] [place] [address]., [id number] Blood 04/28/2024 1:14 PM [employer] 04/28/2024 7:24 PM [employer] Mario Ferguson MD LAB BLOOD ORDERABLES Fin al Result Performing Organization Address [facility]/ZIP Co de Phone Number JASON JACK ([place]) 1 [facility] [place] [address] * (ABNORMAL) CBC with auto differential (04/28/2024 1:14 PM [employer]) [facility] WBC 6.9 3.8 - 9.9 K/cumm Hgb 13.9 11.9 - 15.5 g/dL [facility] Hct 40.3 35.6 - 45.5 [...] [facility] ([place]) Blood 04/28/2024 1:14 PM [employer] 04/28/2024 1:21 PM [employer] us Mario Ferguson MD LAB BLOOD ORDERABLES Fin al Result [facility] ([place]) 1 [facility] Department [place] [address] * Protein electrophoresis with reflex, serum with interpretation (04/28/2024 1:14 PM [employer]) [facility] Protein, sr 7.4 6.2 - 8.2 g/dL Comment:Testing performed by : [facility], [address] [place] [address]., [id number] Albumin 4.5 3.2 - 5.0 g/dL [facility] ([place]) Comment:Testing performed by : [facility], [address] [place] [address]., [phone] Alpha-1 globulin 0.3 0.2 - 0.4 g/dL [facility] ([place]) Comment:Testing performed by : [facility], [address] [place] [address]., [address] Alpha-2 globulin 0.7 0.5 - 1.0 g/dL [facility] ([place]) Comment:Testing performed by : [facility], [address] [place] [address]., [phone] Beta-1 globulin 0.4 0.3 - 0.6 g/dL [facility] ([place]) Comment:Testing performed by : [facility], [address] [place] [address]., [address] Beta-2 globulin 0.4 0.2 - 0.6 g/dL [facility] ([place]) Comment:Testing performed by : [facility], [address] [place] [address]., [address] Gamma globulin 1.1 0.5 - 1.7 g/dL [facility] ([place]) Comment:Testing performed by : [facility], [address] [place] [address], [phone] SPEP interp See Cl Path Rpt [facility] ([place]) Comment:Testing performed by : [facility], [address] [place] [address], [id number] Blood 04/28/2024 1:14 PM [employer] 04/28/2024 7:24 PM [employer] us Mario Ferguson MD LAB BLOOD ORDERABLES Fin al Result Performing Organization Address City/[facility] Co de Phone Number [facility] ([place]) 1 [facility] [email or web address] [address] * Lactate dehydrogenase (LD) (04/28/2024 1:14 PM [employer]) Lactate dehydrogenase (LDH) 156 100 - 250 Units/L Blood 04/28/2024 1:14 PM [employer] 04/28/2024 1:21 PM [employer] Mario Ferguson MD LAB BLOOD ORDERABLES Fin al Result [facility] ([place]) 1 [place] [address] * IgA (04/28/2024 1:14 PM [employer]) Immunoglobulin A 231 70 - 400 mg/dL Comment:Testing performed by : [facility], [address] [place] [address], [id number] Blood 04/28/2024 1:14 PM [employer] 04/28/2024 7:24 PM [employer] Mario Ferguson MD LAB BLOOD ORDERABLES Fin al Result [facility] ([place]) 1 [place] [address] * IgM (04/28/2024 1:14 PM [employer]) Immunoglobulin M 48 40 - 150 mg/dL Comment:Testing performed by : [facility], [address] [place] [address], [address] Blood 04/28/2024 1:14 PM [employer] 04/28/2024 7:24 PM [employer] Mario Ferguson MD LAB BLOOD ORDERABLES Fin al Result Performing Organization Address City/[facility]/ZIP Co de Phone Number [facility] ([place]) 1 [facility] [employer] [place] [address] * IgG (04/28/2024 1:14 PM [employer]) Immunoglobulin G 1,324 700 - 1,600 mg/dL Comment:Testing performed by : [facility], [address] [place] [address], [facility], [address] Blood 04/28/2024 1:14 PM [employer] 04/28/2024 7:24 PM [employer] Mario Ferguson MD LAB BLOOD ORDERABLES Fin al Result [facility] ([place]) 1 [facility] [place] [address] * Beta 2 microglobulin, serum (04/28/2024 1:14 PM [employer]) Beta 2 Microglobulin, Serum 1.76 1.21 - 2.70 mcg/mL [place] [facility] Comment: Test Performed by: [facility] [address] [place] [address] Plant Tech: Gini Duncan Ph.D.; CLIA# [id number] Blood 04/28/2024 1:14 PM [employer] 04/28/2024 1:21 PM [employer] us Mario Ferguson MD LAB BLOOD ORDERABLES Fin al Result [facility] ([place]) 1 [facility] Department [place] [address] [place] ref [facility] * (ABNORMAL) Comprehensive metabolic panel (04/28/2024 1:14 PM [employer]) Pathologist [facility] Sodium 140 135 - 145 mmol/L [...] [facility] ([place]) Blood 04/28/2024 1:14 PM [employer] 04/28/2024 1:21 PM [employer] us Mario Ferguson MD LAB BLOOD ORDERABLES Fin al Result [facility] ([place]) 1 [facility] Department [place] [address] * (ABNORMAL) Urinalysis reflex to microscopic and culture Urine (04/21/2024 3:03 PM [employer]) Color, ur Yellow Yellow Clarity, ur Clear [...] tendency for uric acid stone formation. Source: [facility] [employer] Current Interpretive Data was last revised on [...] ([place]) Leukocyte esterase, ur Negative Negative [facility]ER[facility] ([place]) UA reflex comment Reflex to microscopic UA will be performed. JASON [facility] ([place]) Urine 04/21/2024 3:03 PM [employer] 04/21/2024 3:07 PM [employer] Catalina Casillas MD LAB MICROBIOLOGY - GENERA L ORDERABLES Final Result JAKEARNULFO [facility] ([place]) 1 [facility] Department [place] [address] * (ABNORMAL) Drugs of Abuse Screen, Urine without Confirmation (04/21/2024 3:03 PM [employer]) Amphetamine, ur Not Detected CutOff 500ng/mL Comment: Interpretive Data - Amphetamines: Samples containing greater than 500 ng/mL d-methamphetamine or other cross-reacting amphetamine compounds are reported as positive. Amphetamine immunoassays are subject to significant false positive rates due to cross-reactivity of non-amphetamine drugs. Confirmatory testing required for definitive results. Current Interpretive Data was last reviewed 2022. Barbiturates, ur Not Detected CutOff 200ng/mL JASON [facility] ([place]) Comment: Interpretive Data - Barbiturates: Samples [...] revised on 2017. Urine 04/21/2024 3:03 PM [employer] 04/21/2024 3:08 PM [employer] Narrative JASON [facility] ([place]) - 04/21/2024 3:38 PM [employer] Drug of Abuse screening is performed by immunoassay for medical purposes only. This is not to be used for Pain Management purposes. Catalina Casillas MD LAB URINE ORDERABLES Es l Result Performing Organization Address [facility] Co de Phone Number JASON JACK ([place]) 1 [facility] [place] [address] * (ABNORMAL) Urinalysis, microscopic only (04/21/2024 3:03 PM [employer]) WBC, ur 0-5 0 - 5 /HPF RBC, ur 0-2 0 - 2 /HPF JASON [facility] ([place]) Epithelial cells, squamous, ur 1-5 0 - 5 /HPF JASON [facility] ([place]) Bacteria, ur Trace(A) JASON [facility] ([place]) Mucous, ur Present(A) CERNER A ([place]) Culture Reflex Comment Reflex conditions for urine culture (WBC >10) not met. JASON JACK ([place]) Urine 04/21/2024 3:03 PM [employer] 04/21/2024 3:07 PM [employer] Catalina Casillas MD LAB URINE ORDERABLES Es l Result Performing Organization Address [facility] Co de Phone Number JASON JACK ([place]) 1 [facility] [employer] [place] [address] * CT Lumbar Spine WO Contrast (04/21/2024 12:14 PM [employer]) Anatomical Region Laterality Modality Spine N/A Computed Tomogra phy 04/21/2024 1:30 PM [employer] Narrative 04/21/2024 1:38 PM [employer] EXAM DESCRIPTION: CT LUMBAR SPINE WO CONTRAST [...] Hua Fiore M.D. RUBEN: RUBEN Report ID: [id number] Reading Location: [place] [address] Procedure Note Hua Fiore MD - 04/21/2024 [...] without and with contrast, to include multiplanar [id number] fat-saturated sequences, can be performed for further evaluation OTHER: No other significant finding. IMPRESSION: No acute fracture or subluxation of the lumbar spine with chronicfindings as above on unenhanced CT lumbar spine. THIS IS AN ELECTRONICALLY VERIFIED FINAL REPORT 04/21/2024 1:38 PM - Electronically signed by Hua Fiore M.D. RUBEN: RUBEN Report ID: [id number] Reading Location: [place] [address] Catalina Casillas MD IM CT PROCEDURES Final R esult * CT Head WO Contrast (04/21/2024 12:14 PM [employer]) Anatomical Region Laterality Modality Head and Neck N/A Computed Tomogra phy 04/21/2024 1:05 PM [employer] Narrative 04/21/2024 1:12 PM [employer] EXAM DESCRIPTION: CT HEAD WO CONTRAST REASON [...] signed by Hua MIRANDA: RUBEN Report ID: [id number] Reading Location: [place] [address] Procedure Note Hua Fiore MD - 04/21/2024 [...] signed by Hua MIRANDA: RUBEN Report ID: [id number] Reading Location: [id number] us Catalina Casillas MD IMG CT PROCEDURES Final R esult * Sepsis Lactate w/ Reflex (04/21/2024 11:02 AM [employer]) Sepsis Lactate 1.3 0.7 - 2.0 mmol/L Blood 04/21/2024 11:0 2 AM [employer] 04/21/2024 11:06 AM [employer] us Catalina Casillas MD LAB BLOOD ORDERABLES Es l Result JASON JACK [place] 1 [facility] Department [place] [address] * eGFR (04/21/2024 11:02 AM [employer]) eGFR >90 >=60 mL/min/1. 73 m2 Comment: [...] reviewed 2021. Blood 04/21/2024 11:0 2 AM [employer] 04/21/2024 11:06 AM [employer] us Catalina Casillas MD LAB BLOOD ORDERABLES Es l Result JASON JACK (MAULIK) 1 [facility] Department [place] [address] * Differential, auto (04/21/2024 11:02 AM VICE PRESIDENT [employer]) Neutrophil abs 3.4 1.5 - 6.5 K/cumm [...] on 2017. Blood 04/21/2024 11:0 2 AM VICE PRESIDENT [employer] 04/21/2024 11:06 AM VICE PRESIDENT [employer] Catalina Casillas MD LAB BLOOD ORDERABLES Es l Result Performing Organization Address City/[facility] Co de Phone Number CERNER [facility] (MAULIK) 1 [facility] [email or web address] [address] * CBC with auto differential (04/21/2024 11:02 AM VICE PRESIDENT [employer]) WBC 6.2 3.8 - 9.9 K/cumm Hgb [...] [facility] (MAULIK) Blood 04/21/2024 11:0 2 AM VICE PRESIDENT [employer] 04/21/2024 11:06 AM VICE PRESIDENT [employer] Catalina Casillas MD LAB BLOOD ORDERABLES Es l Result Performing Organization Address City/[facility]/ZIP Co de Phone Number JASON [facility] (MAULIK) [address] Department [place] [address] * Protime-INR (04/21/2024 11:02 AM VICE PRESIDENT [employer]) PT 11.7 9.7 - 13.0 sec [facility] INR 1.08 0.90 - 1.20 [facility] Comment: Interpretive data Oral anticoagulant therapeutic ranges: Venous thromboembolism prophylaxis or treatment: 2.0-3.0 CARDIOLOGY Standard range: 2.0-3.0 High-intensity range: 2.5-3.5 Refer to indication-specific guidelines for appropriate target ranges for prosthetic heart valve replacement. Current interpretive data was last revised on 2019. Blood 04/21/2024 11:0 2 AM VICE PRESIDENT [employer] 04/21/2024 11:06 AM VICE PRESIDENT [employer] Catalina Casillas MD LAB BLOOD ORDERABLES Es l Result [facility] 1 [facility] Department [place] [address] * (ABNORMAL) Comprehensive metabolic panel (04/21/2024 11:02 AM VICE PRESIDENT [employer]) Pathologist [facility] Sodium 136 135 - 145 mmol/L Potassium, pl 3.5 3.3 - 4.9 mmol/L [facility] Chloride 104 97 - 110 mmol/L [facility] ([place] CO2 20(L) 22 - 32 mmol/L [facility] Anion gap 12 2 - 15 mmol/L [facility] ([place] BUN 7 6 - 25 mg/dL [facility] Creatinine 0.64 0.60 - 1.10 mg/dL [facility] Glucose 140 70 - 199 mg/dL [facility] Comment: Interpretive Data Fasting glucose >/= 126 [...] [facility] (MAULIK) Blood 04/21/2024 11:0 2 AM [employer]ICE [employer] 04/21/2024 11:06 AM VICE PRESIDENT [employer] Catalina Casillas MD LAB BLOOD ORDERABLES Es l Result JASON [facility] (MAULIK) 1 [facility] Department [place] [address] * Diagnostic Mammogram Bilateral W [place] (06/19/2022 [...] and children were not included. (Diabetes Care [id number], 2008). The eAG is not equivalent to a fasting glucose. Blood 06/14/2021 9:56 AM CDT 06/14/2021 10:40 AM CDT Zeferino Bradshaw DO LAB BLOOD ORDERABLES Final Result JASON JACK (MAULIK) 1 [facility] Department [place] [address] * (ABNORMAL) Lipid panel (06/14/2021 9:56 AM [...] ORDERABLES Final Result JASON JACK (MAULIK) 1 [facility] Department [place] [address] * RPR (06/11/2021 2:43 PM CDT) RPR Nonreactive Nonreactive [facility] Blood 06/11/2021 2:43 PM CDT 06/11/2021 8:20 PM CDT us Elicia Sandoval MD LAB MICROBIOLOGY - GENER AL ORDERABLES Final Result Performing Organization Address City/[facility] Co de Phone Number [facility] [place] [address] * Dexa Axial Skeleton Bone Density 1 or 2 Site (11/24/2020 12:31 PM CDT) Anatomical Region Laterality Modality Body N/A Other 11/24/2020 12:4 1 PM CDT Narrative 11/24/2020 12:41 PM CDT EXAM DESCRIPTION: DEXA AXIAL SKELETON BONE DENSITY 1 OR MORE SITES REASON FOR STUDY: Post-menopausal female, screening for osteoporosis. Workers Compensation Adjuster/Model: [employer] A (S/N [id number]) CLINICAL INFORMATION: Current height: 62 inches Maximum [...] by Francesco Ryan M.D. AB: Report ID: [id number] Reading Location: [place] [address] Procedure Note Francesco Ryan MD - 11/24/2020 EXAM DESCRIPTION: DEXA AXIAL SKELETON BONE DENSITY 1 OR MORE SITES REASON FOR STUDY: Post-menopausal female, screening for osteoporosis. Workers Compensation Adjuster/Model: [employer] A (S/N [id number]) CLINICAL INFORMATION: Current height: 62 inches Maximum [...] Francesco Ryan M.D. AB: AB Report ID: [id number] Reading Location: [place] [address] Zeferino Bradshaw DO IMG DXA PROCEDURES Final R esult * (ABNORMAL) Colonoscopy (08/17/2019) Anatomical Region Laterality Modality Other Historical Provider MD ENDOSCOPY PROCEDURES Es l Result from Last 3 Months or Most Recently Relevant to Health Maintenance Insurance [facility] IDPA [employer]ETNA [facility] Advance Directives For more information, please contact: [phone] * Full Code (Latest Code Status on File) Date Activated Date Inactivated Comments 07/18/2024 10:09 AM 07/19/2024 6:49 PM * Full Code Date Activated Date Inactivated Comments 08/02/2021 3:43 PM 08/05/2021 4:40 PM * Full Code Date Activated Date Inactivated Comments 05/05/2021 7:04 AM 05/08/2021 6:45 PM Care Teams Lacquer Spray Booth Operator Relationship Specialty Start Date End Date Unknown, Notinfile PCP - General 05/22/24 Unknown, Notinfile 05/22/24 Zeferino Bradshaw DO Internal Medicine 01/14/22 Randy Jasmine MD PhD [address] [place] [address] Radiation Oncologist Radiation Oncology 07/31/20 Juanjose Alcaraz MD 6 [place] [address] Referring Physician Medical Oncology 07/31/20 Miscellaneous, Not In File 09/15/20 Mario Desai MD Referring Physician Neurosurgery 09/15/20 Francois Thompson MD Consulting Physician Infectious Diseases 05/08/21 Mario Ferguson MD 1 [facility] [address] DIV IM BONE [place] [place] [address] Consulting Physician Medical Oncology 03/31/24
--- OUTSIDE RECORDS SUMMARY | 2024-07-20 13:30 | XMS_ITS | Encounter Summary ---
Author Organization [facility] Address [address] [facility] [place] [address] Care Team Providers Care Site Supervisor Name Role Phone Cathi Mcnally MD Primary Care Provider Kelly Henderson MD Unavailable [phone] Cathi Mcnally MD Primary Care Provider Kelly Henderson MD Unavailable [phone] Kelly Henderson MD Primary Care Provider Cathi Mcnally MD Primary Care Provider Kelly Henderson MD Primary Care Provider Cathi Mcnally MD Primary Care Provider Cathi Mcnally MD Primary Care Provider Troy ROCA MD, [place] Primary Care Provider + Jose Eduardo Ott MD Unavailable [phone] Kelly Henderson MD Primary Care Provider Reason for Visit * Reason Onset Date Comments Refill Request 10/20/2017 Encounter Details Date Type Department Care Team (Late st Contact Info) Description 10/20/2017 Telephone [facility] Internal Medicine [address] [place] [address] Cathi Mcnally MD [address] [facility] [address] [place] [address] Refill Request Social History Tobacco Use Types [...] on file 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 Gender Identity Not on file Sexual [...] Description 09/08/2024 2:00 PM CDT Office Visit [facility] - Family Medicine [address] [place] [address], [place] [address] Germaine Monson MD [address] [place] [phone] documented as of this encounter Visit Diagnoses Not on filedocumented in this encounter Additional Health Concerns Infection Onset Date Last Indicated Resolved Time COVID-19 Under Investigation 08/14/2019 08/14/2019 08/15/2019 3:43 PM CDT COVID-19 Under Investigation 09/10/2019 09/10/2019 09/11/2019 11:18 PM CDT documented as of this encounter Care Teams Site Supervisor Relationship Specialty Start Date End Date Cathi Mcnally MD PCP - General Internal Medicine 10/08/17 01/11/18 Cathi Mcnally MD PCP - General Internal Medicine 01/26/18 01/26/18 Kelly Henderson MD [address] [place] [phone] PCP - General 01/27/18 03/09/18 Cathi Mcnally MD PCP - General Internal Medicine 03/10/18 03/10/18 Kelly Henderson MD [address] [place] [address] PCP - General 03/11/18 03/31/18 Cathi Mcnally MD PCP - General Internal Medicine 04/01/18 05/17/18 Cathi Mcnally MD PCP - General Internal Medicine 07/14/18 07/15/18 Sea Simmons III, MD [address] [place] [address] PCP - General Internal Medicine 05/05/19 06/07/19 Kelly Henderson MD [address] [place] [phone] PCP - General 09/01/19 Kelly Henderson MD [address] [place] [phone] Resident - PCP Internal Medicine 10/08/17 01/25/18 Kelly Henderson MD [address] [place] [phone] Resident - PCP Internal Medicine 01/26/18 05/04/19 Jose Eduardo Ott MD [address] [place] [phone] Resident - PCP Student Resident 05/05/19 documented as of this encounter
--- OUTSIDE RECORDS SUMMARY | 2024-07-20 13:30 | XMS_ITS | Encounter Summary ---
Author Organization [facility] Healthcare Address [address] [place] [address] Care Team Providers Care Event Crew Technician Name Role Phone Mendoza Liang MD Primary Care Provider [phone] No, Physician Primary Care Provider [phone] Unknown, Notinfile Primary Care Provider Unavail able Unknown, Notinfile Primary Care Provider Unavail able Unknown, Notinfile Unavailable Unavailable Zeferino Bradshaw DO Unavailable [phone] Randy gamez MD PhD Unavailable [phone] Juanjose Alcaraz MD Unavailable [phone] Miscellaneous, Not In File Unavailable Unava ilable Mario Desai MD Unavailable [phone] Francois Thompson MD Unavailable [phone] Mario Ferguson MD Unavailable [phone] Reason for Visit * Reason Onset Date Comments Intake Questions 10/11/2022 Encounter Details Date Type Department Care Team (Late st Contact Info) Description 10/11/2022 Telephone [facility] [place] [facility] [address] [facility] Advanced Medicine [address] [place] [address] Kellen Connell CMA Intake Questions [...] on file 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 Gender Identity Not on file Sexual Orientation Not on file Occupation Industry Job Start Date Job End Date Disabled Not on file Not on file Not on file documented as of this encounter Plan of Treatment Not on file documented as of this encounter Visit Diagnoses Not on filedocumented in this encounter Care Teams Event Crew Technician Relationship Specialty Start Date End Date Mendoza Liang MD PCP - General Family Medicine 05/02/22 03/21/24 No, Physician PCP - General 03/22/24 04/05/24 Unknown, Notinfile PCP - General 04/13/24 05/21/24 Unknown, Notinfile PCP - General 05/22/24 Unknown, Notinfile 05/22/24 Zeferino Bradshaw DO Internal Medicine 01/14/22 Randy Jasmine MD PhD [address] [place] [address] Radiation Oncologist Radiation Oncology 07/31/20 Juanjose Alcaraz MD [address] [place] [address] Referring Physician Medical Oncology 07/31/20 Miscellaneous, Not In File 09/15/20 Mario Desai MD Referring Physician Neurosurgery 09/15/20 Francois Thompson MD Consulting Physician Infectious Diseases 05/08/21 Mario Ferguson MD [address] [facility] [address] DIV IM [place] [address] Consulting Physician Medical Oncology 03/31/24 documented as of this encounter
--- OUTSIDE RECORDS SUMMARY | 2024-07-20 13:31 | XMS_ITS | Encounter Summary ---
Author Organization [facility] Health Address [address] 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 Stated that [...] Visit [facility] - Family Medicine [address] [place] [address], [place] [address] Germaine Monson MD [address] [place] [address], [place] [address] documented as of this encounter Visit Diagnoses Not on filedocumented in this encounter Care Teams Transition Manager Relationship Specialty Start Date End Date Kelly Henderson MD [address] [place] [address] PCP - General 09/01/19 Jose Eduardo Ott MD Resident - PCP Student Resident 05/05/19 documented as of this encounter
--- OUTSIDE RECORDS SUMMARY | 2024-07-20 13:31 | XMS_ITS | Encounter Summary ---
Author Organization [facility] Healthcare Address [address] [place] [address] Care Team Providers Care Shuttle Spotter Name Role Phone Zeferino Bradshaw DO Primary Care Provider + [phone] Zeferino Bradshaw DO Primary Care Provider + [phone] Unknown, Notinfile Primary Care Provider Unavail able Mendoza Liang MD Primary Care Provider [phone] No, Physician Primary Care Provider [phone] Unknown, Notinfile Primary Care Provider Unavail able Unknown, Notinfile Primary Care Provider Unavail able Unknown, Notinfile Unavailable Unavailable Zeferino Bradshaw DO Unavailable [phone] Randy Jasmine MD PhD Unavailable [phone] Juanjose Alcaraz MD Unavailable [phone] Miscellaneous, Not In File Unavailable Unava ilable Mario Desai MD Unavailable [phone] Francois Thompson MD Unavailable [phone] Mario Ferguson MD Unavailable [phone] Encounter Details Date Type Department Care Team (Late st Contact Info) Description 10/10/2020 Telephone [facility] Radiology [address] [place] [address] Lesa Monroe NP [address] [address] Social History Tobacco Use Types Packs/Day Years [...] on file 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 Gender Identity Not on file Sexual [...] COVID: Suspected 05/05/2021 05/05/2021 05/05/2021 4:03 AM RUBBER MOLD MAKER COVID: Suspected 05/29/2021 05/29/2021 05/29/2021 8:58 AM RUBBER MOLD MAKER COVID: Suspected 03/26/2022 03/26/2022 03/26/2022 1:30 PM RUBBER MOLD MAKER documented as of this encounter Care Teams Shuttle Spotter Relationship Specialty Start Date End Date Zeferino [...] Medicine 01/14/22 Randy Jasmine MD PhD [address] [place] [address] Radiation Oncologist Radiation Oncology 07/31/20 Juanjose Alcaraz MD [address] [place] [address] Referring Physician Medical Oncology 07/31/20 Miscellaneous, Not In File 09/15/20 Mario Desai MD Referring Physician Neurosurgery 09/15/20 Francois Thompson MD Consulting Physician Infectious Diseases 05/08/21 aMrio Ferguson MD [address] [facility] [address] DIV IM [place] [address] Consulting Physician Medical Oncology 03/31/24 documented as of this encounter
--- OUTSIDE RECORDS SUMMARY | 2024-07-20 13:31 | XMS_ITS | Clinical Summary ---
Author Organization [facility] Address [address] [place] [address] Phone Care Team Providers Care Package Crimper Name Role Phone Roberto Sharpe DPM Unavailable [phone] Provider, None Primary Care Provider Unavailabl [...] Overview (11/20/2021): Overview: 10/2014 Per records from [facility] w/ poor insight & agitation Prediabetes 09/02/2013 Overview (11/20/2021): HGA1C 5.8 09/01/2013 Overview: HGA1C 5.8 09/01/2013 Overview: HGA1C 5.8 09/01/2013 Overview: Overview: HGA1C 5.8 09/01/2013 Schizoaffective disorder, bipolar type 4 Overview (11/20/2021): Overview: 10/25/13 member re-engaged with [facility] Care plan includes BARREL CHARRER working with [facility] healthcare representative Genet Girma is nurse case manager [phone] Appears meds have been: Risperidone 3mg qhs [...] Department Care Team Description 05/27/2024 9:16 AM PARCEL POST WEIGHER - 05/27/2024 1:58 PM PARCEL POST WEIGHER Emergency [facility] Emergency [address] [place] [address] Randy Borjas MD Seizure-like activity (HCC) Discharge [...] Comments Blood Pressure 156/90 05/27/2024 1:30 PM PARCEL POST WEIGHER Pulse 87 05/27/2024 1:30 PM PARCEL POST WEIGHER Temperature 36.3 C (97.3 F) 05/27/2024 9:33 AM PARCEL POST WEIGHER Respiratory Rate 21 05/27/2024 1:30 PM PARCEL POST WEIGHER Oxygen Saturation 99% 05/27/2024 1:30 PM PARCEL POST WEIGHER Inhaled Oxygen Concentration - - Weight 90.9 kg (200 lb 4.8 oz) 05/27/2024 9:33 A M PARCEL [employer] WEIGHER Height 160 cm (5' 3 ) 05/27/2024 9:33 AM PARCEL POST WEIGHER Body Mass Index 35.48 05/27/2024 9:33 AM PARCEL POST WEIGHER Plan of Treatment Health Maintenance Due Date [...] services in your area Short Term Goals: [facility] will mail and provide list of local counseling services/providers in area. and Patient to contact local Mental Health Crisis Team if in need of crisis services [phone] (ph#) Housing Housing No change(10/17 4:03 PM CDT) No Aleajndra Harrell, STEFANIA Note: Goal: To move into my own apartment or rental house by the end of October 2019 Patient's Preferred Goal: Highest Priority Challenges/Barriers: None Readiness to change: Ready to change Notify Care Team if: If you need additional housing resources or help completing housing applications call Grinder Set Up Operator Jig Alejandra at [phone] Short Term Goals: I will review the list of low income housing complexes for the disabled and call the complexes in [place] to apply for an apartment or be added to their waiting list. Procedures Procedure Name Priority Date/Time Associated Diagnosis Comments URINE DRUG SCREEN STAT 05/27/2024 11:54 AM PARCEL POST WEIGHER URINALYSIS REFLEX IF INDICATED BY ABNORMAL RESULTS STAT 05/27/2024 11:[address] HEAD OR BRAIN WO CONTRAST Stat with Interpretation 05/27/2024 10:18 AM PARCEL POST WEIGHER POCT GLUCOSE STAT 05/27/2024 9:34 AM PARCEL POST WEIGHER RED TOP TUBE STAT 05/27/2024 9:26 AM PARCEL POST WEIGHER GOLD TOP TUBE STAT 05/27/2024 9:26 AM PARCEL POST WEIGHER BLUE TOP TUBE STAT 05/27/2024 9:26 AM PARCEL POST WEIGHER CBC WITH AUTO DIFFERENTIAL STAT 05/27/2024 9:26 AM PARCEL POST WEIGHER EXTRA TUBES STAT 05/27/2024 9:26 AM PARCEL POST WEIGHER MAGNESIUM (MG) STAT 05/27/2024 9:26 AM PARCEL POST WEIGHER LIPASE STAT 05/27/2024 9:26 AM PARCEL POST WEIGHER CMP (COMPREHENSIVE METABOLIC PANEL) STAT 05/27/2024 9:26 AM PARCEL POST WEIGHER COMPLETE BLOOD COUNT (CBC) WITH DIFF STAT 05/27/2024 9:26 AM PARCEL POST WEIGHER EKG 12 LEAD STAT 05/27/2024 9:22 AM PARCEL POST WEIGHER EKG SCAN 05/27/2024 12:00 AM PARCEL POST WEIGHER FAMILY MEDICINE CONSULT 05/26/2024 12:00 AM PARCEL POST WEIGHER MAMMOGRAM BILATERAL GENERIC 12/11/2021 12:00 AM CDT from Last 3 Months or Most Recently Relevant to Health Maintenance Results * (ABNORMAL) Urinalysis w/ Reflex (05/27/2024 11:54 AM PARCEL POST WEIGHER) SPECIFIC GRAVITY 1.015 1.003 - 1.030 05/27/2024 12:54 PM PARCEL POST WEIGHER [facility] URINE PH 6.5 5.0 - 9.0 05/27/2024 12:54 PM PARCEL POST WEIGHER [facility] WBC ESTERASE Negative Negative 05/27/2024 12:54 PM PARCEL POST WEIGHER [facility] NITRITE Negative Negative 05/27/2024 12:54 PM PARCEL POST WEIGHER [facility] PROTEIN, RANDOM URINE 100 mg/dL(A) Negative 05/27/2024 12:54 PM PARCEL POST WEIGHER [facility] URINE GLUCOSE, QUAL Negative Negative 05/27/2024 12:54 PM PARCEL POST WEIGHER [facility] URINE KETONES Negative Negative 05/27/2024 12:54 PM PARCEL POST WEIGHER [facility] UROBILINOGEN Normal Normal mg/dL 05/27/2024 12:54 PM PARCEL POST WEIGHER [facility] URINE BLOOD Negative Negative tj/ul 05/27/2024 12:54 PM PARCEL POST WEIGHER [facility] URINALYSIS COLOR Yellow 05/28/19 12:54 PM PARCEL POST WEIGHER [facility] URINALYSIS CLARITY Clear 05/27/2024 12:54 PM PARCEL POST WEIGHER [facility] WBC (Urine) Negative Negative, 0-5 /hpf 05/27/2024 12:54 PM PARCEL POST WEIGHER [facility] URINE RBC'S Negative Negative, 0-2 /hpf 05/27/2024 12:54 PM PARCEL POST WEIGHER [facility] EPITHELIAL CELLS Moderate amount /lpf 05/27/2024 12:54 PM PARCEL POST WEIGHER [facility] BACTERIA, URINE Few(A) Negative /hpf 05/27/2024 12:54 PM PARCEL POST WEIGHER [facility] Urine URINE SPECIMEN / Unknown Non-Phlebotomy Collection / Unknown 05/27/2024 11:54 AM PARCEL POST WEIGHER 05/27/2024 12:35 PM PARCEL POST WEIGHER us Randy Borjas MD URINE ORDERABLES Final Result [facility] [address] [place] [address] * (ABNORMAL) Urine Drug Screen (05/27/2024 11:54 AM PARCEL POST WEIGHER) UR AMPHETAMINE NON DETECTED NON DETECTED 05/27/2024 1:03 PM PARCEL POST WEIGHER [facility] Comment: FOR MEDICAL USE ONLY. CUTOFF CONCENTRATION FOR DETECTED RESULT: AMPHETAMINE: 500 NG/ML UR BENZODIAZEPINES DETECTED(A) NON DETECTED 05/27/2024 1:03 PM PARCEL POST WEIGHER [facility] Comment: FOR MEDICAL USE ONLY. CUTOFF CONCENTRATION FOR DETECTED RESULT: BENZODIAZAPINE: 200 NG/ML UR COCAINE METABOLITE NON DETECTED NON DETECTED 05/27/2024 1:03 PM PARCEL POST WEIGHER [facility] Comment: FOR MEDICAL USE ONLY. CUTOFF CONCENTRATION FOR DETECTED RESULT: COCAINE: 150 NG/ML UR OPIATES NON DETECTED NON DETECTED 05/27/2024 1:03 PM PARCEL POST WEIGHER [facility] Comment: FOR MEDICAL USE ONLY. CUTOFF CONCENTRATION FOR DETECTED RESULT: OPIATES: 300 NG/ML UR PHENCYCLIDINE NON DETECTED NON DETECTED 05/27/2024 1:03 PM PARCEL POST WEIGHER [facility] Comment: FOR MEDICAL USE ONLY. CUTOFF CONCENTRATION FOR DETECTED RESULT: PCP: 25 NG/ML UR CANNABINOID DETECTED(A) NON DETECTED 05/27/2024 1:03 PM PARCEL POST WEIGHER [facility] Comment: FOR MEDICAL USE ONLY. CUTOFF CONCENTRATION FOR DETECTED RESULT: THC (MARIJUANA): 50 NG/ML UR BARBITURATE NON DETECTED NON DETECTED 05/27/2024 1:03 PM PARCEL POST WEIGHER [facility] Comment: FOR MEDICAL USE ONLY. CUTOFF CONCENTRATION FOR DETECTED RESULT: BARBITUATES: 200 NG/ML UR FENTANYL NON DETECTED NON DETECTED 05/27/2024 1:03 PM PARCEL POST WEIGHER [facility] Comment: FOR MEDICAL USE ONLY. CUTOFF CONCENTRATION FOR DETECTED RESULT: FENTANYL: 1.0 NG/ML Urine Non-Phlebotomy Collection / Unknown 05/27/2024 11:54 AM PARCEL POST WEIGHER 05/27/2024 12:35 PM PARCEL POST WEIGHER us Randy Borjas MD URINE ORDERABLES Final Result [facility] [address] [place] [address] * CT HEAD OR BRAIN WO CONTRAST (05/27/2024 10:18 AM PARCEL POST WEIGHER) Anatomical Region Laterality Modality Head N/A Computed Tomogra phy 05/27/2024 11:0 9 AM PARCEL POST WEIGHER Impressions 05/27/2024 11:11 AM PARCEL POST WEIGHER IMPRESSION: No unenhanced CT evidence of acute intracranial process. Narrative 05/27/2024 11:11 AM PARCEL POST WEIGHER EXAM DESCRIPTION: CT HEAD OR BRAIN WO [...] Hua Fiore M.D. RUBEN: RUBEN Report ID: [id number] Reading Location: [place] [address] Procedure Note Hua Fiore MD - 05/27/2024 [...] Hua Fiore M.D. RUBEN: RUBEN Report ID: [id number] Reading Location: [id number] IMPRESSION: No unenhanced CT evidence of acute intracranial process. us Randy Borjas MD IMG CT ORDERABLES Es l Result * POCT Glucose (05/27/2024 9:34 AM PARCEL POST WEIGHER) [facility] GLUCOSE,BEDSIDE POCT 86 70 - 99 mg/dL 05/27/2024 9:44 AM PARCEL POST WEIGHER [facility] Comment: RN Notified ESTER SOL Blood 05/27/2024 9:34 AM PARCEL POST WEIGHER 05/27/2024 9:44 AM PARCEL POST WEIGHER us None Provider POINT OF CARE TESTING Final Resu lt Performing Organization Address City/[facility]/ZIP Co de Phone Number [facility] [address] [place] [address] * Red Top Tube (05/27/2024 9:26 AM PARCEL POST WEIGHER) Blood No Phlebotomy Charged / Unknown 05/27/2024 9:26 AM PARCEL POST WEIGHER 05/27/2024 10:17 AM PARCEL POST WEIGHER us Randy Borjas MD CHEMISTRY ORDERABLES F inal Result Performing Organization Address City/[facility]/ZIP Co de Phone Number [facility] [address] [place] [address] * Gold Top Tube (05/27/2024 9:26 AM PARCEL POST WEIGHER) Blood No Phlebotomy Charged / Unknown 05/27/2024 9:26 AM PARCEL POST WEIGHER 05/27/2024 10:17 AM PARCEL POST WEIGHER Randy Borjas MD CHEMISTRY ORDERABLES F inal Result Performing Organization Address City/[facility]/ZIP Co de Phone Number [facility] [address] [place] [address] * Blue Top Tube (05/27/2024 9:26 AM PARCEL POST WEIGHER) Blood No Phlebotomy Charged / Unknown 05/27/2024 9:26 AM PARCEL POST WEIGHER 05/27/2024 10:17 AM PARCEL POST WEIGHER Randy Borjas MD HEMATOLOGY ORDERABLES Final Result Performing Organization Address [facility] Co de Phone Number [facility] [address] [place] [address] * (ABNORMAL) CBC with Auto Differential (05/27/2024 9:26 AM PARCEL POST WEIGHER) WBC 5.07 4.00 - 12.00 10(3)/mcL 05/27/2024 10:17 AM PARCEL POST WEIGHER [facility] RBC 4.05 3.80 - 5.30 10(6)/mcL 05/27/2024 10:17 AM PARCEL POST WEIGHER [facility] HEMOGLOBIN (HGB) 13.4 12.0 - 15.8 g/dL 05/27/2024 10:17 AM PARCEL POST WEIGHER [facility] HEMATOCRIT (HCT) 38.4 36.0 - 47.0 % 05/27/2024 10:17 AM PARCEL POST WEIGHER [facility] MCV 94.8 82.0 - 96.0 fL 05/27/2024 10:17 AM PARCEL POST WEIGHER [facility] MCH 33.1 26.0 - 34.0 pg 05/27/2024 10:17 AM PARCEL POST WEIGHER [facility] MCHC 34.9 31.0 - 36.0 g/dL 05/27/2024 10:17 AM [facility] PLATELET COUNT 231 140 - 440 10(3)/[facility] 05/27/2024 10:17 AM [facility] RDW 13.4 11.8 - 15.5 % 05/27/2024 10:17 AM [facility] MPV 10.5 9.7 - 12.4 fL 05/27/2024 10:17 AM [facility] NEUTROPHILS 44.0(L) 47.0 - 73.0 % 05/27/2024 10:17 AM [facility] LYMPHOCYTES 49.1(H) 18.0 - 42.0 % 05/27/2024 10:17 AM [facility] MONOCYTES 6.1 4.0 - 12.0 % 05/27/2024 10:17 AM [facility] EOSINOPHILS 0.4 0.0 - 5.0 % 05/27/2024 10:17 AM [facility] BASOPHILS 0.4 0.0 - 1.0 % 05/27/2024 10:17 AM [facility] ABSOLUTE NEUTROPHILS 2.23 1.60 - 7.70 10(3)/[facility] 05/27/2024 10:17 AM [facility] ABSOLUTE LYMPHOCYTES 2.49 1.30 - 3.20 10(3)/[facility] 05/27/2024 10:17 AM [facility] ABSOLUTE MONOCYTES 0.31 0.20 - 1.00 10(3)/[facility] 05/27/2024 10:17 AM [facility] ABSOLUTE EOSINOPHIL 0.02 0.00 - 0.40 10(3)/[facility] 05/27/2024 10:17 AM [facility] ABSOLUTE BASOPHILS 0.02 0.00 - 0.10 10(3)/[facility] 05/27/2024 10:17 AM [facility] NRBC PER 100 WBC 0 05/28/19 10:17 AM [facility] Blood Venipuncture / Unknown 05/27/2024 9:26 AM PARCEL POST WEIGHER 05/27/2024 10:11 AM PARCEL POST WEIGHER us Randy Borjas MD HEMATOLOGY ORDERABLES Final Result Performing Organization Address City/[facility] Co de Phone Number [facility] [address] [place] [address] * Magnesium (05/27/2024 9:26 AM PARCEL POST WEIGHER) MAGNESIUM 2.1 1.6 - 2.6 mg/dL 05/27/2024 10:36 AM PARCEL POST WEIGHER [facility] Blood Venipuncture / Unknown 05/27/2024 9:26 AM PARCEL POST WEIGHER 05/27/2024 10:11 AM PARCEL POST WEIGHER us Randy Borjas MD CHEMISTRY ORDERABLES F inal Result Performing Organization Address [facility] Co de Phone Number [facility] [address] [place] [address] * Lipase (05/27/2024 9:26 AM PARCEL POST WEIGHER) LIPASE 39 8 - 78 U/L 05/27/2024 10:36 AM PARCEL POST WEIGHER [facility] Blood Venipuncture / Unknown 05/27/2024 9:26 AM PARCEL POST WEIGHER 05/27/2024 10:11 AM PARCEL POST WEIGHER us Randy Borjas MD CHEMISTRY ORDERABLES F inal Result Performing Organization Address [facility] Co de Phone Number [facility] [address] [place] [address] * (ABNORMAL) CMP (05/27/2024 9:26 AM PARCEL POST WEIGHER) SODIUM 140 136 - 145 mmol/L 05/27/2024 10:36 AM PARCEL POST WEIGHER [facility] POTASSIUM 3.4(L) 3.5 - 5.1 mmol/L 05/27/2024 10:36 AM [facility] CHLORIDE 109(H) 98 - 107 mmol/L 05/27/2024 10:36 AM [facility] CO2, VENOUS 26 22 - 30 mmol/L 05/27/2024 10:36 AM [facility] ANION GAP 8.4 <18.0 mmol/L 05/27/2024 10:36 AM [facility] GLUCOSE 70 70 - 99 mg/dL 05/27/2024 10:36 AM [facility] BUN 7(L) 10 - 20 mg/dL 05/27/2024 10:36 AM [facility] CREATININE, BLOOD 0.77 0.60 - 1.00 mg/dL 05/27/2024 10:36 AM [facility] BUN/CREATININE RATIO 9(L) 12 - 20 ratio 05/27/2024 10:36 AM [facility] TOTAL PROTEIN 7.1 6.0 - 8.0 g/dL 05/27/2024 10:36 AM [facility] ALBUMIN 3.9 3.5 - 5.0 g/dL 05/27/2024 10:36 AM [facility] A/G RATIO 1.2 1.0 - 2.2 05/27/2024 10:36 AM [facility] CALCIUM 9.6 8.7 - 10.5 mg/dL 05/27/2024 10:36 AM [facility] T BILI 0.5 0.2 - 1.2 mg/dL 05/27/2024 10:36 AM [facility] SGOT (AST) 14 <43 U/L 05/27/2024 10:36 AM [facility] SGPT (ALT) 13 <56 U/L 05/27/2024 10:36 AM [facility] ALKALINE PHOSPHATASE 127 40 - 150 U/L 05/27/2024 10:36 AM [facility] GFR, ESTIMATED >60 >=60 05/27/2024 10:36 AM PARCEL POST WEIGHER [facility] Comment: Creatinine Clearance is the preferred criteria for selecting drug dose adjustments in renally impaired patients. The GFR is provided as additional pertinent clinical information. GFR is reported in mL/min/1.73 sq m. Calculation based on the Chronic Kidney Disease Epidemiology Collaboration (CKD- EPI) equation refit without adjustment for race. GFR, EST. >60 >=60 025 10:36 AM PARCEL POST WEIGHER [facility] GFR, EST. NONAFRICAN >60 >=60 05/27/2024 10:36 AM PARCEL POST WEIGHER [facility] Blood Venipuncture / Unknown 05/27/2024 9:26 AM PARCEL POST WEIGHER 05/27/2024 10:11 AM PARCEL POST WEIGHER us Randy Borjas MD CHEMISTRY ORDERABLES F inal Result [facility] [address] [place] [address] * EKG 12 LEAD (05/27/2024 9:22 AM PARCEL POST WEIGHER) Ventricular Rate 73 BPM EXTERNAL EKG Atrial Rate 73 BPM EXTERNAL EKG P-R Interval 200 ms EXTERNAL EKG QRS Duration 100 ms EXTERNAL EKG Q-T Duration 400 ms EXTERNAL EKG QTC CALCULATION 440 ms EXTERNAL EKG P [place] 54 degrees EXTERNAL EKG R [place] -43 degrees EXTERNAL EKG T [place] 37 degrees EXTERNAL EKG 05/27/2024 9:22 AM PARCEL POST WEIGHER Impressions EXTERNAL EKG - 06/03/2024 12:31 AM CDT Normal sinus rhythm Left axis deviation Incomplete right bundle branch block Minimal voltage criteria for LVH, may be normal variant ( Semaj product ) Abnormal ECG When compared with ECG of 03-FEB-2024 01:55, Incomplete right bundle branch block is now present Confirmed by Yeimy King ([id number]) on 06/03/2024 12:31:45 AM Narrative Procedure Note Yeimy King MD - 06/03/2024 IMPRESSION: Normal sinus rhythm Left axis deviation Incomplete right bundle branch block Minimal voltage criteria for LVH, may be normal variant ( [place] product) Abnormal ECG When compared with ECG of 03-FEB-2024 01:55, Incomplete right bundle branch block is now present Confirmed by Yeimy King ([id number]) on 06/03/2024 12:31:45 AM us Randy Borjas MD IMG ECG ORDERABLES Fin al Result EXTERNAL EKG * EKG SCAN (05/27/2024 12:00 AM PARCEL POST WEIGHER) 05/27/2024 us Provider Scan IMG ECG ORDERABLES Final Result RESULTING AGENCY * FAMILY MEDICINE CONSULT (05/26/2024 12:00 AM PARCEL POST WEIGHER) 05/26/2024 us Provider Scan GENERIC SCAN ORDERS CONSULT Es l Result SCAN * MAMMOGRAM BILATERAL MISCELLANEOUS (12/11/2021 12:00 AM CDT) 12/11/2021 us Not On File Provider IMG MAMMO ORDERABLES Final Result SCAN from Last 3 Months or Most Recently Relevant to Health Maintenance Insurance MEDICAID AETNA [facility] MEDICAID [place] MEDICAID [facility] Advance Directives * Full Code (Latest Code Status on File) Date Activated Date Inactivated Comments 10/11/2016 9:01 AM 10/11/2016 7:36 PM CPR-Full Kehinde atment: FULL ARREST: Attempt Resuscitation/CPR wit intubation and mechanical ventilation. PRE-ARREST: Use entire range of life support measures to stabilize the patient. Care Teams Package Crimper Relationship Specialty Start Date End Date Provider, None [place] PCP - General 11/13/22 Roberto Sharpe DPM Consulting Physician Podiatry 09/25/16
--- OUTSIDE RECORDS SUMMARY | 2024-07-20 13:31 | XMS_ITS | Encounter Summary ---
Author Organization [facility] Address [address] [place] [address] Phone Care Team Providers Care Energy Conservation Specialist Name Role Phone Roberto Sharpe DPM Unavailable [phone] Shahram Alcaraz MD Primary Care Provider [phone] Provider, None Primary Care Provider Unavailabl e Sami Cervantes MD Primary Care Provider [phone] Von Hedrick MD Unavailable Unavai lable Provider, None Primary Care Provider Unavailabl e Mendoza Liang MD Primary Care Provider [phone] Provider, None Primary Care Provider Unavailabl e Reason for Visit * Reason Comments Medication Refill Encounter Details Date Type Department Care Team (Late st Contact Info) Description 02/03/2020 Refill [facility] [address] [place] [address] Shahram Alcaraz MD [address] [address] Medication Refill Social History Tobacco [...] Recent Outpatient Visits 2 months ago Anxiety [facility] - Shahram Lowe MD 4 months ago Brain mass [facility] - Shahram Lowe MD 4 months ago Essential hypertension [facility] [place], MARIIA 5 months ago HIV disease (HCC) [facility] - Shahram Lowe MD 6 months ago Intractable vomiting with nausea, unspecified vomiting type [facility] - Shahram Lowe MD Upcoming Appointments PERSONNEL ADMINISTRATOR - Recent and Past Visits Recent Visits [...] [place] 05/18/19 Office Visit Jair Matson APN, CLEAN ENERGY POLICY ANALYST [facility] Showing recent visits within past 460 days with a meds authorizing provider and meeting all other requirements Future Appointments No visits were found meeting these conditions. Showing future appointments within next 90 days with a meds authorizing provider and meeting all other requirements L COOK documented in this encounter Plan of Treatment [...] services in your area Short Term Goals: [facility] will mail and provide list of local counseling services/providers in area. and Patient to contact local Mental Health Crisis Team if in need of crisis services [phone] (ph#) Housing Housing No change(10/17 4:03 PM CDT) No Alejandra Harrell LSW Note: Goal: To move into my own apartment or rental house by the end of October 2019 Patient's Preferred Goal: Highest Priority Challenges/Barriers: None Readiness to change: Ready to change Notify Care Team if: If you need additional housing resources or help completing housing applications call Temperature Regulator Pyrometer Alejandra at [phone] Short Term Goals: I will review the list of low income housing complexes for the disabled and call the complexes in [place] to apply for an apartment or be [...] documented as of this encounter Care Teams Energy Conservation Specialist Relationship Specialty Start Date End Date Shahram Alcaraz MD [address] [address] PCP - General Family Medicine 06/16/19 09/21/21 Provider, None [place] PCP - General 10/28/21 11/15/21 Sami Cervantes MD PA PCP - General Family Medicine 11/30/21 03/28/22 Provider, None [place] PCP - General 03/29/22 05/23/22 Mendoza Liang MD [address] [address] PCP - General Mine Engineering Superintendent 05/24/22 11/12/22 Provider, None [place] PCP - General 11/13/22 Roberto Sharpe DPM Consulting Physician Podiatry 09/25/16 Von Hedrick MD PA Consulting Physician Cardiovascular Disease - Cardiology 01/11/22 03/03/24 documented as of this encounter
--- OUTSIDE RECORDS SUMMARY | 2024-07-20 13:31 | XMS_ITS | Encounter Summary ---
Author Organization [facility] Address [address] [place] [address] Phone Care Team Providers Care Montessori Toddler Teacher Name Role Phone Roberto Sharpe DPM Unavailable [phone] Shahram Alcaraz MD Primary Care Provider [phone] Provider, None Primary Care Provider Unavailabl e Sami Cervantes MD Primary Care Provider [phone] Von Hedrick MD Unavailable Unavai lable Provider, None Primary Care Provider Unavailabl e Mendoza Liang MD Primary Care Provider [phone] Provider, None Primary Care Provider Unavailabl e Reason for Visit * Reason Comments Medication Refill Encounter Details Date Type Department Care Team (Late st Contact Info) Description 12/25/2019 Refill [facility] [address] [place] [address] Shahram Alcaraz MD [address] [address] Medication Refill Social History Tobacco [...] Recent Outpatient Visits 1 month ago Anxiety [facility] - Shahram Lowe MD 2 months ago Brain mass [facility] - Shahram Lowe MD 3 months ago Essential hypertension [facility] - Jair Lancaster APN, MARIIA 4 months ago HIV disease (HCC) [facility] Shahram Lowe MD 5 months ago Intractable vomiting with nausea, unspecified vomiting type [facility] Shahram Lowe MD Upcoming Appointments Future Appointments In 2 weeks Shahram Alcaraz MD [facility] Noreen Conn [facility] - Recent and Past Visits Recent Visits [...] Recent Outpatient Visits 1 month ago Anxiety [facility] Family [facility] - Shahram Lowe MD 2 months ago Brain mass [facility] - Shahram Lowe MD 3 months ago Essential hypertension [facility] Jair Lancaster APN, GENERATION ENGINEER 4 months ago HIV disease (HCC) [facility] - Shahram Lowe MD 5 months ago Intractable vomiting with nausea, unspecified vomiting type [facility] Shahram Lowe MD Upcoming Appointments Future Appointments In 2 weeks Shahram Alcaraz MD [facility] Noreen Conn [facility] HOT PACKER - Recent and Past Visits Recent Visits [...] services in your area Short Term Goals: [facility] will mail and provide list of local counseling services/providers in area. and Patient to contact local Mental Health Crisis Team if in need of crisis services [phone] (ph#) Housing Housing No change(10/17 4:03 PM CDT) No Alejandra Harrell LSW Note: Goal: To move into my own apartment or rental house by the end of October 2019 Patient's Preferred Goal: Highest Priority Challenges/Barriers: None Readiness to change: Ready to change Notify Care Team if: If you need additional housing resources or help completing housing applications call Trust Officer Alejandra at [phone] Short Term Goals: I will review the list of low income housing complexes for the disabled and call the complexes in [place] to apply for an apartment or be [...] documented as of this encounter Care Teams Montessori Toddler Teacher Relationship Specialty Start Date End Date Shahram Alcaraz MD [address] [facility] [address] [place] [address] PCP - General Family Medicine 06/16/19 09/21/21 Provider, None [place] PCP - General 10/28/21 11/15/21 Sami Cervantes MD [place] PCP - General Family Medicine 11/30/21 03/28/22 Provider, None [place] PCP - General 03/29/22 05/23/22 Mendoza Liang MD [address] [place] [address] [address] [place] [address] PCP - General Vat House Supervisor 05/24/22 11/12/22 Provider, None [place] PCP - General 11/13/22 Roberto Sharpe DPM Consulting Physician Podiatry 09/25/16 Von Hedrick MD [place] Consulting Physician Cardiovascular Disease - Cardiology 01/11/22 03/03/24 documented as of this encounter
--- OUTSIDE RECORDS SUMMARY | 2024-07-20 13:31 | XMS_ITS | CONTINUITY OF CARE DOCUMENT ---
Author Name darrel, darrel Address Unknown Organization [facility] Address [address] [place] [address] Phone [phone] Care Team Providers Care Leaf Blender Name Role Phone Justin Bettencourt MD Unavailable [phone] Charito Miller MD Unavailable Charito Miller MD Unavailable PROBLEMS Condition Status Date Provider Notes Shortness of breath active Justin Bettencourt MD CHEST PAIN active Justin Bettencourt MD Scoliosis active Justin Bettencourt MD Tobacco abuse active Justin Bettencourt MD Elevated blood pressure active Justin Bettencourt MD Bipolar disorder active Toby Jacobs Obesity active Toby Jacobs HIV infection active Justin Bettencourt MD Abnormal EKG active Justin Bettencourt MD ENCOUNTERS Date Type Provider Location Encounter Diag nosis - In-person encounter Office Visit Justin Bettencourt MD [facility] Elevated blood press ure - In-person encounter Office Visit Justin Bettencourt MD [facility] Shortness of breathA bnormal EKGHIV infectionCHEST PAINScoliosisTobacco abuseObesityBipolar disorder VITAL SIGNS Date Observation Value Provider Body Mass Index (Ratio) 29.81 kg/m2 Shabbir Jacobs blood pressure, diastolic, left arm 100 m m[Hg] [place] Castellanos blood pressure, systolic, left arm 140 mm [Hg] [place] Castellanos blood pressure, diastolic, right arm 108 mm[Hg] [facility] blood pressure, systolic, right arm 160 m m[Hg] [facility] blood pressure, diastolic 100 mm[Hg] [facility] systolic 140 mm[Hg] Durga garibay Schwertner oxygen saturation, oximetry 99 % [facility] respiratory rate E&M 22 /min [facility] pulse rate 80 /min [facility] weight E&M 163 [lb_av] [facility] height E&M 62 [in_i] [facility] Body Mass Index (Ratio) 30.18 kg/m2 Shabbir Thompsonberg blood pressure, diastolic, left arm 70 mm [Hg] [facility] blood pressure, systolic, left arm 118 mm [Hg] [facility] blood pressure, diastolic, right arm 72 m m[Hg] [facility] blood pressure, systolic, right arm 118 m m[Hg] [facility] blood pressure, diastolic 72 mm[Hg] [facility] [place] blood pressure, systolic 118 mm[Hg] Shane german [place] oxygen saturation, oximetry 98 % [facility] pulse rate 72 /min [facility] blood pressure, resting No Higinio ia [place] respiratory rate E&M 18 /min [facility] weight E&M 165 [lb_av] [facility] height E&M 62 [in_i] [facility] ALLERGIES Allergy Name Onset Date Reaction Criticality Status NUTS Low Criticality active HISTORY OF MEDICATION USE Medication Status Instructions Dates Provider Indications Com iam SHUKLA 200-25 MG ORAL TABLET active Take 1 tab daily Toby Jacobs TIVICAY TABLET active Take 1 tab daily [facility] ONDANSETRON 4 MG ORAL TABLET DISINTEGRATING active TAKE 1 TABLET BY MOUTH EVERY 8 HOURS NEEDED FOR NAUSEA [facility] [place] #9, 30 days supply, Prescribed by EL [...] MOUTH TWICE DAILY FOR 30 DAYS [facility] [place] #60, 30 days supply, Prescribed by ASHOK [...] TABLET BY MOUTH TWICE A DAY [facility] [place] #60, 30 days supply, Prescribed by EMMETT HALL, Filled 10/28/2016 TRAMADOL HCL 50 MG ORAL TABLET active TAKE 1 OR 2 TABLETS BY MOUTH EVERY 6 HOURS NEEDED FOR PAIN Teonia [place] #120, 15 days supply, Prescribed by CHARITO MILLER, Filled 11/12/2016 POTASSIUM CHLORIDE SAVI ER 20 MEQ ORAL TABLET EXTENDED RELEASE active TAKE 1 TAB BY MOUTH DAILY. [facility] [place] #30, 30 days supply, Prescribed by CHARITO MILLER, Filled 11/12/2016 RISPERIDONE 1 MG ORAL TABLET active TAKE 1 TABLET BY MOUTH 2 TIMES DAILY [facility] [place] #60, 30 days supply, Prescribed by EL [...] of years as a smoker 30 a Bretha Mckenzie smoking history, tot al pack/day 1 Tenazario Mckenzie cigarette use yes Bertha Mckenzie smoking status Current every day smoker T janina Magaly FAMILY HISTORY Family Member Condition Full Sister Family History of Ar thritis: Full Brother Family History of Di abetes: INSURANCE PROVIDERS Payer name Policy type / Coverage type [place] red democrat [place] MEDICAID (2) Medicaid [id number] ADVANCE DIRECTIVES Name Date DISCUSSED - NO [...] which was treated by a shock at [facility] in [place] a few years ago. Will obtain stress myoview, echo and PFT's. Toby Jacobs Cardiology:It was no taylor that the pt has an abnormal EKG. She has chest pain on occasion and SOB with exertion. The pt states that she had cardiac arrest which was treated by a shock at [facility] in [place] a few years ago. Orders: E KG (CPT-12819) C omplete Echo (CPT-80454) S TR - Nuclear (CPT-59148) Toby Jacobs Cardiology:It was no taylor that the pt has an abnormal EKG. She has chest pain on occasion and SOB with exertion. The pt states that she had cardiac arrest which was treated by a shock at [facility] in [place] a few years ago. Will obtain stress myoview and echo. Toby Jacobs Date Name Renal Artery Duplex STR - Nuclear Complete Echo DLCO - 33507 FRC - 76400 FVC - 32967 HISTORY OF PROCEDURES Procedure Date Procedure Name Provider Procedure Notes S tatus SNOMED-CT: 568891036 Smoking Cessation Counseling Justin Bettencourt MD completed SNOMED-CT: 615460005 422783 Current Medications Documented Justin Bettencourt MD completed Stress EKG Adelaida Pepper MD complet ed Cardiolite, 2 units Adelaida Pepper MD completed SPECT Images Adelaida Pepper MD compl eted FVC / MVV with bronchodilator - 68071 Justin Bettencourt MD completed FRC - 72576 Justin Bettencourt MD completed SpO2 - 17923 Justin Bettencourt MD complete d DLCO - 29312 Justin Bettencourt MD complete d SNOMED-CT: 287416570 Smoking Cessation Counseling Justin Bettencourt MD completed SNOMED-CT: 235887218 355296 Current Medications Documented Justin Bettencourt MD completed EKG Justin Bettencourt MD completed
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
[2024-07-20] MEDS: LACTATED RINGERS 1,000 ML 999 ML IV CONT (13:50)
[2024-07-20 13:58] LABS: Basophils Percent Auto 0.4 % (0.2-1.2); Eosinophils Percent Auto 0.3 % (0-4.4); Hematocrit 41.6 % (37.0-47.0); Immature Granulocyte Absolute 0.02 K/mm3 (0.00-0.031); Immature Granulocyte Percent A 0.3 % (0-0.5); Lymphocytes Absolute Auto 3.21 K/mm3 (0.9-3.2); Lymphocytes Percent Auto 40.4 % (18.3-44.2); Mean Corpuscular HGB Conc 33.7 g/dl (32-36); Mean Corpuscular Hemoglobin 32.3 pg (26-34); Mean Corpuscular Volume 95.9 fl (80-100); Monocytes Absolute Auto 0.5 K/mm3 (0.1-0.6); Monocytes Percent Auto 6.4 % (2.6-8.5); Neutrophils Absolute Auto 4.2 K/mm3 (1.3-6.7); Neutrophils Percent Auto 52.2 % (45.5-73.1); Platelet Count Result 229 k/mm3 (150-375); Red Blood Count 4.34 M/mm3 (4.2-5.4); Red Cell Distribution Width 13.3 % (11.5-14.5)
[2024-07-20 14:39] LABS: Alanine Aminotransferase 18 U/L (6-35); Albumin Level 4.4 g/dL (3.5-5.1); Alkaline Phosphatase 149 U/L (38-126); Anion Gap 8 mmol/L (4-12); Aspartate Amino Transferase 28 U/L (14-36); Bilirubin,Total 1.2 mg/dL (0.2-1.3); Blood Urea Nitrogen 8 mg/dL (7-17); Calcium 10.2 mg/dL (8.4-10.2); Carbon Dioxide 23 mmol/L (22-30); Chloride 111 mmol/L (98-107); Creatine Kinase 365 U/L (30-135); Estimated CRCL calculation 75 ml/min; Estimated Glomerular Filt Rate > 60; Glucose 100 mg/dL (65-110); Lactic Acid Reflex 0.8 mmol/L (0.7-2.0); Potassium 3.2 mmol/L (3.4-5.0); Sodium 142 mmol/L (137-145)
[2024-07-20 15:00] LABS: Partial Thromboplastin Time 24.9 Seconds (22.3-36.8); Prothrombin Time 13.2 Seconds (11.1-14.7)
--- NOTE | 2024-07-20 15:58 | PC.NURSE ---
Pt at nurses station stating I need pain medications This RN informed pt that the provider will be made aware. Pt was redirected back to her room and educated her on using her call light.
--- NOTE | 2024-07-20 15:59 | PC.NURSE ---
EDP made aware of pt reports of pain and request for medication, given VORB 1,000mg acetaminophen for pt
--- NOTE | 2024-07-20 16:02 | PC.NURSE ---
Pt at nurses station demanding her IV be removed, Pt redirected back into her room and educated for the 2nd time on using her call light. Pt IV removed with catheter tip intact.
--- NOTE | 2024-07-20 16:10 | PC.NURSE ---
Pt to nurses station stating Y'all can just mail me my discharge papers, I'm done waiting and proceeded to ambulate out of ED exit using steady gait in NAD. EDP and dental technology advisor aware
== END 2024-07-20 16:10 | disposition left against medical advice (07) ==
PROVIDERS: Emergency Provider Emergency Medicine
DX: M54.9 Dorsalgia, unspecified (principal); G89.29 Other chronic pain; F17.210 Nicotine dependence, cigarettes, uncomplicated; D64.9 Anemia, unspecified; F41.9 Anxiety disorder, unspecified; J45.909 Unspecified asthma, uncomplicated; M79.7 Fibromyalgia; I10 Essential (primary) hypertension; B20 Human immunodeficiency virus [HIV] disease; G40.909 Epilepsy, unspecified, not intractable, without status epilepticus; D49.6 Neoplasm of unspecified behavior of brain
CPT/HCPCS: 36415; 70450; 71250; 72125; 74176; 80053; 82550; 83605; 85025; 85610; 85730; 96361; 96374; 99284; J7120